=== PATIENT | female | born 1930 | race Asian ===

== ENCOUNTER 2016-10-06 22:00 | Emergency (ER) | payer OTHER ==
[~2016-10-06] VITALS: Ht 165.1 cm; Wt 72.7 kg
[~2016-10-06 22:00] MED LIST: CILO50TA PO; FER325 PO; GABA100C14 PO; LANT3I SC; METO50TA16 PO; OXYB5TAB PO; SMV40T PO; VALS160T20 PO
[2016-10-06 22:05] VITALS: Ht 165.1 cm; Wt 72.7 kg
[2016-10-06] MEDS ORDERED: SOD CHLORIDE 0.9% 500 ML IV STA (22:41)
[2016-10-06 23:08] LABS: BASOPHILS % 0.6 % (0.0-2.0); EOSINOPHILS # 0.3 10^3/ul (0.0-0.5); HEMATOCRIT 25.9 % (37.0-47.0); HEMOGLOBIN 8.7 g/dl (12.0-16.0); LYMPHOCYTES # 1.1 10^3/ul (0.8-2.9); LYMPHOCYTES % 18.5 % (15.0-51.0); MEAN CORPUSCULAR HEMOGLOBIN 30.5 pg (29.0-33.0); MEAN CORPUSCULAR HGB CONC 33.6 g/dl (32.0-37.0); MEAN CORPUSCULAR VOLUME 90.8 fl (82.0-101.0); MEAN PLATELET VOLUME 6.7 fl (7.4-10.4); MONOCYTE # 0.9 10^3/ul (0.3-0.9); MONOCYTES % 15.4 % (0.0-11.0); NEUTROPHIL # 3.7 10^3/ul (1.6-7.5); NEUTROPHILS % 60.5 % (39.0-77.0); PLATELET COUNT 286 10^3/UL (140-440); RED BLOOD COUNT 2.86 10^6/ul (4.20-5.40); RED CELL DISTRIBUTION WIDTH 11.6 % (11.5-14.5); UNCORRECTED WBC 6.1 10^3/ul (4.8-10.8); WHITE BLOOD COUNT 6.1 10^3/ul (4.8-10.8)
[2016-10-06 23:11] LABS: CONDITION 1; LH ANALYZER COMMENTS 1
[2016-10-06 23:17] LABS: ALBUMIN 3.8 g/dl (3.3-4.9)
[2016-10-06 23:18] LABS: POTASSIUM 4.7 mmol/L (3.5-5.1)
[2016-10-06 23:20] LABS: BILIRUBIN,INDIRECT 0.2 mg/dl (0-1.1); BILIRUBIN,TOTAL 0.2 mg/dl (0.2-1.3); CREATININE 1.74 mg/dl (0.44-1.00); TOTAL PROTEIN 7.6 g/dl (6.1-8.1)
[2016-10-06 23:21] LABS: CALCIUM 8.9 mg/dl (8.4-10.2)
[2016-10-07 00:16] LABS: ADD UMIC YES; URINE BILIRUBIN (Dip) 2+ (NEGATIVE); URINE BLOOD (Dip) 3+ (NEGATIVE); URINE GLUCOSE (Dip) NEGATIVE (NEGATIVE); URINE KETONES (Dip) TRACE (NEGATIVE); URINE LEUKOCYTE ESTERASE (Dip) 3+ (NEGATIVE); URINE NITRITE (Dip) POSITIVE (NEGATIVE); URINE TOTAL PROTEIN (Dip) 4+ (NEGATIVE); URINE UROBILINOGEN (Dip) 1.0 E.U./dL (0.1-1.0)
[2016-10-07 00:22] LABS: URINE COLOR RED (YELLOW)
[2016-10-07 00:28] LABS: ICTOTEST NEGATIVE (NEGATIVE)
[2016-10-07 00:29] LABS: BACTERIA,URINE MANY; SQUAMOUS EPITHELIAL CELL,UR MODERATE; URINE RBCS >200 /HPF ([, 0])
--- NOTE | 2016-10-07 00:36 | RADRPT ---
PROCEDURE: CT ABDOMEN/PELVIS WITHOUT CONTRAST CLINICAL INDICATION: 86-year-old female with abdominal pain. TECHNIQUE: The study was performed utilizing a GE Infinite.lypeed VCT 64-slice CT scanner. Direct axia l sections were obtained through the abdomen and pelvis without the use of intravenous contrast mate rial. Sagittal and coronal reformations were obtained. Automated exposure control and iterative mona nstruction techniques were utilized for this examination. The [facility] CTD/vol = 15.2 mGy; Total Exam DLP = 858.0 mGy-cm. COMPARISON: None. FINDINGS: There is a granuloma identified within the inferior aspect of the right middle lobe measuring approx imately 4 x 4 mm in axial image 3-8. There is minimal bibasilar subsegmental atelectasis. There is trace right pleural effusion. The liver has a normal size and contour without focal areas of abnorm al density. No intrahepatic nor extrahepatic biliary ductal dilatation is seen. The gallbladder cont ains small dependent gallstones without significant wall thickening or pericholecystic fluid. The pa ncreas is without areas of abnormal attenuation. The spleen is identified and has a normal size wit hout abnormal density. The adrenal glands are unremarkable. The kidneys are mildly atrophic with are as of scarring. There is a nonobstructing right upper pole renal calculus identified measuring appr oximately 5 x 3 x 3 mm. There is a nonobstructing left upper pole renal calculus measuring approxim ately 2 x 2 mm. There is a nonobstructing left lower pole renal calculus measuring approximately 3 x 7 x 3 mm. There is no evidence for obstructive uropathy. The urinary bladder contains urine. Ther e is moderate retained stool throughout the colon without gross bowel obstruction. Multiple diverti cula seen within the descending and sigmoid colon without surrounding inflammatory changes. An anas tomotic jenna are seen within the cecal region from prior appendectomy. The uterus is atrophic wit h small calcifications identified within it. There is no significant pelvic free fluid. The aortoil iac vessels are mildly calcified and ectatic but without aneurysmal dilatation. Degenerative changes are present within the spine. There is evidence for bilateral thickening and induration within the decubitus regions without definite fluid collection on this noncontrast examination. IMPRESSION: 1. Right middle lobe 4 mm granuloma. 2. Minimal bibasilar subsegmental atelectasis with trace right pleural effusion. 3. Cholelithiasis. 4. Bilateral nonobstructing renal calculi. 5. Moderate retained stool throughout the colon without gross bowel obstruction. 6. Descending and sigmoid colon diverticulosis. 7. Status post appendectomy. 8. Skin induration and thickening with soft tissue infiltration within the decubitus regions worris ome for developing decubitus ulcers. Clinical correlation is necessary. 9. Vascular calcifications. 8. Degenerative changes within the spine. .Ryan Carpenter MD, MD Date Time Electronically viewed and signed by .Ryan Carpenter MD, MD on 10/07/2016 00:35 .M/
--- NOTE | 2016-10-07 01:00 | ERD ---
ER Documentation Chief Complaint Date/Time DATE: 10/07/16 TIME: 00:58 Chief Complaint bloody urine in diaper since last nite HPI This is an 86-year-old female brought a urinary diaper since last night. No nausea no vomiting no chills. No sick contacts. No trauma. No pain. ROS All systems reviewed and are negative except as per history of present illness. Medications Home Meds Reported Medications Valsartan* (Diovan*) 160 Mg Tablet, 160 MG PO DAILY, TAB 06/26/16 Cilostazol* (Cilostazol*) 50 Mg Tablet, 50 MG PO BID, TAB 06/26/16 Ferrous Sulfate* (Ferrous Sulfate*) 325 Mg Tabec, 325 MG PO DAILY, TAB 06/26/16 Insulin Glargine* (Lantus*) 100 Unit/Ml Soln, 12 UNIT SC QHS, #1 VIAL 06/26/16 Oxybutynin Chloride* (Ditropan* XL) 5 Mg/Bottle Tab.osm.24, 5 MG PO DAILY, TAB.SA 10/18/15 Metoprolol Succinate* (Toprol XL*) 50 Mg Tab.er.24h, 50 MG PO BID, TAB 05/22/14 Gabapentin* (Gabapentin*) 100 Mg Capsule, 100 MG PO BID, CAP 05/22/14 Simvastatin (Simvastatin) 40 Mg Tablet, 40 MG PO HS, TAB 05/22/14 Allergies Allergies: Coded Allergies: No Known Drug Allergies (Verified Allergy, Unknown, 06/26/16) PMhx/Soc History of Surgery: Yes (knee surgery bilateral, cataract surgery) Anesthesia Reaction: No Hx Neurological Disorder: Yes (seizure last 08/2016 admitted at [place]) Hx Respiratory Disorders: Yes (Asthma, bronchitis) Hx Cardiac Disorders: Yes (Current chest pain) Hx Psychiatric Problems: No Hx Miscellaneous Medical Probl: Yes (CATARACT SX) Hx Alcohol Use: No Hx Substance Use: No Hx Tobacco Use: No Smoking Status: Unknown if ever smoked Physical Exam Vitals Vital Signs Date Time Temp Pulse Resp B/P Pulse Ox O2 Delivery O2 Flow Rate FiO2 10/07/16 00:05 80 20 159/67 100 Room Air 10/06/16 22:05 98.4 80 20 158/70 99 Physical Exam Const: [] Head: Atraumatic Eyes: Normal Conjunctiva ENT: Normal External Ears, Nose and Mouth. Neck: Full range of motion..~ No meningismus. Resp: Clear to auscultation bilaterally Cardio: Regular rate and rhythm, no murmurs Abd: Soft, non tender, non distended. Normal bowel sounds Skin: No petechiae or rashes Back: No midline or flank tenderness Ext: No cyanosis, or edema Neur: Awake and alert Psych: Normal Mood and Affect Result Diagram: 10/06/16224410/06/165 Results 24 hrs Laboratory Tests Test 10/06/16 22:45 10/07/16 00:08 Alanine Aminotransferase (ALT/SGPT) 30IU/L Albumin 3.8g/dl Albumin/Globulin Ratio 1.00 Alkaline Phosphatase 78IU/L Anion Gap 17 Aspartate Amino Transf (AST/SGOT) 43IU/L Basophils # 0.010^3/ul Basophils % 0.6% Blood Morphology Comment Blood Urea Nitrogen 27mg/dl Calcium Level 8.9mg/dl Carbon Dioxide Level 24mmol/L Chloride Level 85mmol/L Creatinine 1.74mg/dl Direct Bilirubin 0.00mg/dl Eosinophils # 0.310^3/ul Eosinophils % 5.0% Globulin 3.80g/dl Glucose Level 154mg/dl Hematocrit 25.9% Hemoglobin 8.7g/dl Indirect Bilirubin 0.2mg/dl Lactic Acid Level 0.7mmol/L Lipase 170U/L Lymphocytes # 1.110^3/ul Lymphocytes % 18.5% Mean Corpuscular Hemoglobin 30.5pg Mean Corpuscular Hemoglobin Concent 33.6g/dl Mean Corpuscular Volume 90.8fl Mean Platelet Volume 6.7fl Monocytes # 0.910^3/ul Monocytes % 15.4% Neutrophils # 3.710^3/ul Neutrophils % 60.5% Nucleated Red Blood Cells # 0.010^3/ul Nucleated Red Blood Cells % 0.0/100WBC Platelet Count 70907^3/UL Potassium Level 4.7mmol/L Red Blood Count 2.8610^6/ul Red Cell Distribution Width 11.6% Sodium Level 121mmol/L Total Bilirubin 0.2mg/dl Total Protein 7.6g/dl White Blood Count 6.110^3/ul Urine Bacteria MANY Urine Bilirubin 2+ Urine Clarity CLEAR Urine Color RED Urine Glucose NEGATIVE% Urine Hemoglobin 3+ Urine Ictotest NEGATIVE Urine Ketones TRACE Urine Leukocyte Esterase 3+ Urine Microscopic RBC >200/HPF Urine Microscopic WBC >50/HPF Urine Nitrite POSITIVE Urine Specific [place] 1.010 Urine Squamous Epithelial Cells MODERATE Urine Total Protein 4+ Urine Urobilinogen 1.0 E.U./dL Urine pH 6.5 Current Medications Medications (Trade) Dose Ordered Sig/[place] Route PRN Reason Start Time Stop Time Status Last Admin Dose Admin Sodium Chloride (NS) 500 ml @ 500 mls/hr Q1H STAT IV 10/06/16 22:41 10/06/16 23:40 DC 10/06/16 23:38 Procedures/MDM Medical decision making: This patient comes in with his be simple UTI. She is no evidence of elevated white count and increased infection. She is normotensive with a normal temperature. She will be discharged home with oral antibiotics. Follow with PCP tomorrow. Cultures have been sent off. Departure Diagnosis: Primary Impression: Hematuria Additional Impression: UTI (urinary tract infection) Urinary tract infection type: acute cystitis Hematuria presence: with hematuria Qualified Code: N30.01 - Acute cystitis with hematuria Condition: Stable KRISTI PAYNE Oct 07, 2016 01:00
[2016-10-07] MEDS ORDERED: CIPR500T4 PO (01:01)
[2016-10-07 01:17] VITALS: BP 158/62; PULSE 79; RESP 14; TEMP 98.9
== END 2016-10-07 01:29 | disposition home or self-care (01) ==
LOC: E/R 22:00
DX: N30.01 Acute cystitis with hematuria (principal); J45.909 Unspecified asthma, uncomplicated; E11.9 Type 2 diabetes mellitus without complications; Z79.4 Long term (current) use of insulin
CPT/HCPCS: 36415; 74176; 80053; 81001; 83605; 83690; 85025; 87086; 99285; J7040; 81003

== ENCOUNTER 2016-10-24 00:05 | Inpatient (IN) | payer OTHER ==
[~2016-10-24] VITALS: Ht 165.1 cm; Wt 89.2 kg
[~2016-10-24 00:05] MED LIST changes: +CIPR500T4 PO
--- NOTE | 2016-10-24 00:46 | ERA ---
ER Documentation Chief Complaint Date/Time DATE: 10/24/16 TIME: 00:45 Chief Complaint Increasing SOB x3 days audible wheezing HPI The patient is a 86-year-old female, presenting to the ER because of acute dyspnea for the last 3 days, wheezing, bilateral leg edema, orthopnea, paroxysmal nocturnal dyspnea. She has similar symptoms previously. He denies fever, chills, neck pain, chest pain, abdominal pain, vomiting, dysuria, diarrhea. She does not smoke nor drink Past medical history: Hypertension, diabetes mellitus, dyslipidemia, seizure disorder, asthma, anemia, chronic kidney disease, urinary incontinence, pulmonary hypertension Past surgical history: Bilateral knee replacement, cataract ROS All systems reviewed and are negative except as per history of present illness. Medications Home Meds Active Scripts Ciprofloxacin Hcl* (Ciprofloxacin Hcl*) 500 Mg Tablet, 500 MG PO BID for 7 Days , TAB Prov:KRISTI PAYNEEloisa 10/07/16 Reported Medications Valsartan* (Diovan*) 160 Mg Tablet, 160 MG PO DAILY, TAB 06/26/16 Cilostazol* (Cilostazol*) 50 Mg Tablet, 50 MG PO BID, TAB 06/26/16 Ferrous Sulfate* (Ferrous Sulfate*) 325 Mg Tabec, 325 MG PO DAILY, TAB 06/26/16 Insulin Glargine* (Lantus*) 100 Unit/Ml Soln, 12 UNIT SC QHS, #1 VIAL 06/26/16 Oxybutynin Chloride* (Ditropan* XL) 5 Mg/Bottle Tab.osm.24, 5 MG PO DAILY, TAB.SA 10/18/15 Metoprolol Succinate* (Toprol XL*) 50 Mg Tab.er.24h, 50 MG PO BID, TAB 05/22/14 Gabapentin* (Gabapentin*) 100 Mg Capsule, 100 MG PO BID, CAP 05/22/14 Simvastatin (Simvastatin) 40 Mg Tablet, 40 MG PO HS, TAB 05/22/14 Allergies Allergies: Coded Allergies: No Known Drug Allergies (Verified Allergy, Unknown, 06/26/16) PMhx/Soc History of Surgery: Yes (knee surgery bilateral, cataract surgery) Anesthesia Reaction: No Hx Neurological Disorder: Yes (seizure last 08/2016 admitted at [place]) Hx Respiratory Disorders: Yes (Asthma, bronchitis) Hx Cardiac Disorders: Yes (Current chest pain) Hx Psychiatric Problems: No Hx Miscellaneous Medical Probl: Yes (CATARACT SX) Hx Alcohol Use: No Hx Substance Use: No Hx Tobacco Use: No Physical Exam Vitals Vital Signs Date Time Temp Pulse Resp B/P Pulse Ox O2 Delivery O2 Flow Rate FiO2 10/24/16 02:39 79 14 125/48 99 Room Air 10/24/16 01:20 81 22 97 21 10/24/16 01:00 Simple Mask 6 10/24/16 01:00 Simple Mask 6.0 10/24/16 00:21 99.0 88 32 151/63 95 Physical Exam Const: No acute distress. Head: Atraumatic. Eyes: Normal Conjunctiva. ENT: Normal External Ears, Nose and Mouth. Neck: Full range of motion. No meningismus. Resp: Bilateral expiratory wheezes, bibasilar crackles Cardio: Regular rate and rhythm, no murmurs. Abd: Soft, non distended, normal bowel sounds, non tender. Skin: No petechiae or rashes. Back: No midline or flank tenderness. Ext: Bilateral leg edema, no calf tenderness Neur: Awake and alert. No focal deficit Psych: Normal Mood and Affect. Result Diagram: 10/24/16 0110 10/24/16 0110 Results 24 hrs Laboratory Tests Test 10/24/16 01:10 10/24/16 03:50 Activated Partial Thromboplast Time 42.2Sec Alanine Aminotransferase (ALT/SGPT) 28IU/L Albumin 3.7g/dl Albumin/Globulin Ratio 1.05 Alkaline Phosphatase 81IU/L Anion Gap 18 Aspartate Amino Transf (AST/SGOT) 36IU/L B-Type Natriuretic Peptide 2160PG/ML Basophils # 0.110^3/ul Basophils % 0.7% Blood Morphology Comment Blood Urea Nitrogen 45mg/dl Calcium Level 8.6mg/dl Carbon Dioxide Level 23mmol/L Chloride Level 89mmol/L Creatinine 2.00mg/dl Direct Bilirubin 0.00mg/dl Eosinophils # 0.310^3/ul Eosinophils % 3.2% Globulin 3.50g/dl Glucose Level 241mg/dl Hematocrit 21.6% Hemoglobin 7.3g/dl INR International Normalized Ratio 1.09 Indirect Bilirubin 0.0mg/dl Lactic Acid Level 1.5mmol/L Lymphocytes # 0.810^3/ul Lymphocytes % 10.6% Mean Corpuscular Hemoglobin 30.6pg Mean Corpuscular Hemoglobin Concent 33.7g/dl Mean Corpuscular Volume 90.6fl Mean Platelet Volume 7.3fl Monocytes # 1.010^3/ul Monocytes % 12.7% Neutrophils # 5.810^3/ul Neutrophils % 72.8% Nucleated Red Blood Cells # 0.010^3/ul Nucleated Red Blood Cells % 0.0/100WBC Platelet Count 11530^3/UL Potassium Level 4.9mmol/L Prothrombin Time 14.1Sec Prothrombin Time Ratio 1.1 Red Blood Count 2.3910^6/ul Red Cell Distribution Width 12.2% Sodium Level 125mmol/L Total Bilirubin 0.0mg/dl Total Protein 7.2g/dl Troponin I 0.064ng/ml White Blood Count 8.010^3/ul Urine Bilirubin NEGATIVE Urine Clarity CLEAR Urine Color LT. YELLOW Urine Glucose NEGATIVE% Urine Hemoglobin TRACE Urine Ketones NEGATIVE Urine Leukocyte Esterase NEGATIVE Urine Microscopic RBC Pending Urine Microscopic WBC Pending Urine Nitrite NEGATIVE Urine Specific [place] 1.010 Urine Total Protein NEGATIVE Urine Urobilinogen 0.2 E.U./dL Urine pH 5.5 Current Medications Medications (Trade) Dose Ordered Sig/[place] Route PRN Reason Start Time Stop Time Status Last Admin Dose Admin Levalbuterol (Xopenex Neb) 3.75 mg ONCE STAT INH 10/24/16 01:01 10/24/16 01:04 DC 10/24/16 01:19 Ipratropium [place] (Atrovent 0.02% (Neb)) 1.5 mg ONCE STAT INH 10/24/16 01:01 10/24/16 01:04 DC 10/24/16 01:19 Methylprednisolone Sodium Succinate (Solu-Medrol) 125 mg ONCE STAT IV 10/24/16 01:01 10/24/16 01:04 DC 10/24/16 01:33 Furosemide (Lasix) 80 mg ONCE ONCE IV 10/24/16 03:30 10/24/16 03:31 DC 10/24/16 03:27 Procedures/MDM EKG: Read by emergency physician Rate/Rhythm: Normal Sinus Rhythm 89 beats per min QRS, ST, T-waves: No ST elevation, no T wave inversion, LAD, right bundle branch block Impression: Abnormal EKG [place] [id number] Radiology Main Line: [phone] DIAGNOSTIC IMAGING REPORT Patient: KRIS MCPHERSON : 1930 Age: 86 Sex: F MR #: [id number] DOS: 10/24/16 0056 Ordering MD: CAROL CARLTON MD Location: E/R Room/Bed: PROCEDURE: XR Chest. CLINICAL INDICATION: Possible sepsis. TECHNIQUE: Single frontal view of the chest was obtained COMPARISON: 06/26/2016. FINDINGS: Cardiomegaly. Mild pulmonary vascular congestion. There is no pleural effusion or pneumothorax. IMPRESSION: Cardiomegaly and mild failure. RPTAT: [facility] Physician April Date Time Electronically viewed and signed by Pasquale Hung Physician on 10/24/2016 02:13 RS/ CC: CAROL CARLTON MD MEDICAL MAKING DECISION: The patient is a 86-year-old female, presenting with acute CHF exacerbation, acute asthma exacerbation, acute hyponatremia, severe anemia, suspected for acute GI bleed. She was treated with Xopenex 3.75 mg and Atrovent 1.5 mg and Solu-Medrol 125 mg IV for acute asthma exacerbation and Lasix 80 mg IV for acute CHF exacerbation with good response. the differential diagnoses for acute dyspnea considered include but are not limited to asthma, COPD, pneumonia, pulmonary embolus, pleural effusion, congestive heart failure. The differential diagnoses for acute severe anemia considered include but are not limited to gastritis, peptic ulcer disease, esophageal varices, Christine- Sun tear, carcinoma, polyp, hemorrhoid, fissure, diverticulosis, angiodysplasia. Critical Care: Time: 35 minutes excluding all billable procedures. Treatments/Evaluations: Close monitoring and treatment of unstable vital signs, cardiorespiratory, and neurologic status, while maintaining tight balance of fluid, respiratory, and cardiac interventions. Departure Diagnosis: Primary Impression: CHF (congestive heart failure) Additional Impressions: Asthma exacerbation GI bleed Hyponatremia Condition: Stable Comments I discussed the findings with the patient. I discussed the patient with the on- call hospitalist Dr Otto who was made aware of the lab, the treatment, the patient condition. The patient is admitted to telemetry at 3:30 AM CAROL CARLTON MD Oct 24, 2016 00:46
[2016-10-24] MEDS ORDERED: METHYLPREDNISOLONE 125 MG INJ IV STA (01:01)
[2016-10-24] MEDS ORDERED: IPRATROPIUM (NEB) 0.5 MG/2.5 ML AMP INH STA (01:01)
[2016-10-24] MEDS ORDERED: LEVALBUTEROL (NEB) 1.25 MG/0.5 ML AMP INH STA (01:01)
[2016-10-24 01:32] LABS: BASOPHIL # 0.1 10^3/ul (0.0-0.1); BASOPHILS % 0.7 % (0.0-2.0); EOSINOPHILS # 0.3 10^3/ul (0.0-0.5); EOSINOPHILS % 3.2 % (0.0-7.0); HEMATOCRIT 21.6 % (37.0-47.0); HEMOGLOBIN 7.3 g/dl (12.0-16.0); LYMPHOCYTES # 0.8 10^3/ul (0.8-2.9); LYMPHOCYTES % 10.6 % (15.0-51.0); MEAN CORPUSCULAR HEMOGLOBIN 30.6 pg (29.0-33.0); MEAN CORPUSCULAR HGB CONC 33.7 g/dl (32.0-37.0); MEAN CORPUSCULAR VOLUME 90.6 fl (82.0-101.0); MEAN PLATELET VOLUME 7.3 fl (7.4-10.4); MONOCYTES % 12.7 % (0.0-11.0); NEUTROPHIL # 5.8 10^3/ul (1.6-7.5); NEUTROPHILS % 72.8 % (39.0-77.0); PLATELET COUNT 300 10^3/UL (140-440); RED BLOOD COUNT 2.39 10^6/ul (4.20-5.40); RED CELL DISTRIBUTION WIDTH 12.2 % (11.5-14.5)
[2016-10-24 01:34] LABS: CONDITION 1; LH ANALYZER COMMENTS 1
[2016-10-24 01:45] LABS: ALBUMIN 3.7 g/dl (3.3-4.9); POTASSIUM 4.9 mmol/L (3.5-5.1)
[2016-10-24 01:48] LABS: ALBUMIN/GLOBULIN RATIO 1.05; TOTAL PROTEIN 7.2 g/dl (6.1-8.1)
[2016-10-24 01:49] LABS: CALCIUM 8.6 mg/dl (8.4-10.2)
[2016-10-24 01:51] LABS: INR 1.09; PROTIME 14.1 Sec (12.2-14.2); PT RATIO 1.1
[2016-10-24 01:52] LABS: PARTIAL THROMBOPLASTIN TIME 42.2 Sec (25.0-35.0)
[2016-10-24 02:01] LABS: TROPONIN-I 0.064 ng/ml (0.00-0.12)
--- NOTE | 2016-10-24 02:13 | RADRPT ---
PROCEDURE: XR Chest. CLINICAL INDICATION: Possible sepsis. TECHNIQUE: Single frontal view of the chest was obtained COMPARISON: 06/26/2016. FINDINGS: Cardiomegaly. Mild pulmonary vascular congestion. There is no pleural effusion or pneumothorax. IMPRESSION: Cardiomegaly and mild failure. RPTAT: [facility] Physician April Date Time Electronically viewed and signed by Pasquale Hung Physician on 10/24/2016 02:13 RS/
[2016-10-24] MEDS ORDERED: FUROSEMIDE 40 MG INJ IV ONE (03:30)
[2016-10-24 04:49] LABS: ADD UMIC YES; URINE BILIRUBIN (Dip) NEGATIVE (NEGATIVE); URINE BLOOD (Dip) TRACE (NEGATIVE); URINE COLOR LT. YELLOW (YELLOW); URINE GLUCOSE (Dip) NEGATIVE (NEGATIVE); URINE KETONES (Dip) NEGATIVE (NEGATIVE); URINE LEUKOCYTE ESTERASE (Dip) NEGATIVE (NEGATIVE); URINE NITRITE (Dip) NEGATIVE (NEGATIVE); URINE TOTAL PROTEIN (Dip) NEGATIVE (NEGATIVE); URINE UROBILINOGEN (Dip) 0.2 E.U./dL (0.1-1.0)
[2016-10-24 05:16] LABS: SQUAMOUS EPITHELIAL CELL,UR FEW; URINE RBCS 0-2 /HPF (0)
[2016-10-24] MEDS ORDERED: AMLO5TAB4 PO (07:26)
[2016-10-24] MEDS ORDERED: ASPI81TA3 PO (07:26)
[2016-10-24] MEDS ORDERED: PANT40TA4 PO (07:27)
[2016-10-24] MEDS ORDERED: LAMO25TA PO (07:27)
[2016-10-24] MEDS ORDERED: SODI650T PO (07:29)
[2016-10-24] MEDS ORDERED: NACL 0.9% 3 ML SYG IV SCH (08:00)
[2016-10-24] MEDS ORDERED: ACETAMINOPHEN 325 MG TAB PO PRN (08:00)
[2016-10-24] MEDS ORDERED: morphine 2 MG INJ IV PRN (08:00)
[2016-10-24] MEDS ORDERED: ALBUTEROL/IPRATROPIUM (NEB) 3 ML AMP HHN PRN (08:00)
[2016-10-24] MEDS ORDERED: LORAZEPAM 0.5 MG TAB PO PRN (08:00)
[2016-10-24] MEDS ORDERED: ONDANSETRON 4 MG INJ IV PRN (08:00)
[2016-10-24] MEDS: ASPIRIN 81 MG TAB PO SCH (09:36)
[2016-10-24] MEDS: FERROUS SULFATE (EC) 325 MG TAB PO SCH ×4 (09:37→21:08)
[2016-10-24] MEDS: LAMOTRIGINE 25 MG TAB PO SCH ×2 (09:37→21:09)
[2016-10-24] MEDS: VALSARTAN 160 MG TAB PO SCH (09:37)
[2016-10-24] MEDS: GABAPENTIN 100 MG CAP PO SCH ×2 (09:37→21:09)
[2016-10-24] MEDS: CILOSTAZOL 100 MG TAB PO SCH ×2 (09:38→21:09)
[2016-10-24] MEDS: AMLODIPINE 5 MG TAB PO SCH (09:38)
[2016-10-24] MEDS: PANTOPRAZOLE (EC) 40 MG TAB PO SCH (09:38)
[2016-10-24] MEDS: NA BICARBONATE 650 MG TAB PO SCH ×2 (09:40→21:10)
[2016-10-24] MEDS: METOPROLOL (XL) 50 MG TAB PO SCH ×2 (09:40→21:10)
[2016-10-24] MEDS: ENOXAPARIN 30 MG/0.3 ML SYG SC SCH (09:41)
[2016-10-24] MEDS ORDERED: OXYBUTYNIN (XL) 5 MG TAB PO SCH (10:00)
--- NOTE | 2016-10-24 12:02 | HP ---
DATE OF ADMISSION: 10/24/2016 TIME SEEN: 6 a.m. CHIEF COMPLAINT: Shortness of breath and wheezing. HISTORY OF PRESENT ILLNESS: The patient is an 86-year-old female with a history of hypertension, CO PD/asthma, dyslipidemia, chronic kidney disease, and pulmonary hypertension who presented to the [facility] department with shortness of breath and wheezing. Her symptoms have been progressively getti ng worse, especially on the day of presentation to the ER. She denied any chest pain, but stated th at her shortness of breath has some exertional complement to it. When she presented to the ER, her chest x-ray was done and it showed cardiomegaly with mild failure. Laboratory value was notable for a hemoglobin of 7.3. Sodium 125, creatinine 2, and glucose 245. REVIEW OF SYSTEMS: A 12-point review was preformed, negative except as mentioned in the HPI. PAST MEDICAL HISTORY: As per HPI. SOCIAL HISTORY: No history of alcohol or illicit drug use, but has a history of smoking. ALLERGIES: PLEASE SEE . HOME MEDICATIONS: Please see . PHYSICAL EXAMINATION: GENERAL: The patient lying on the gurney, sleepy but arousable, no acute distress. HEENT: Normocephalic, atraumatic. Pupils reactive to light. CARDIOVASCULAR: Regular rate and rhythm. LUNGS: She has diffuse scattered wheezing. ABDOMEN: Soft. No grimaces noted on palpation. Positive bowel sounds. EXTREMITIES: No edema. LABORATORY: Hemoglobin 11.3, sodium 125, creatinine 2, glucose 245. IMAGING: Chest x-ray shows cardiomegaly with mild failure. IMPRESSION: 1. Shortness of breath and wheezing, likely a combination of exacerbation of reactive airway diseas e and congestive heart failure. 2. Acute on chronic anemia, need to work up for GI bleed. 3. Hyponatremia. 4. Chronic kidney disease. 5. History of pulmonary hypertension. 6. History of chronic obstructive pulmonary disease/asthma. 7. History of dyslipidemia. 8. History of hypertension. 9. Diabetes with hyperglycemia. PLAN: Admit to telemetry unit. We will place on oxygen and will provide bronchodilators as needed and steroids. She will also be placed on Lasix for diuresis. Will trend her troponin and obtain a 2-D echo. Will consider a cardiology consult as well as a pulmonary consult. Will place a nephrolo gy consult for her chronic kidney disease. Will renally dose all medication and avoid nephrotoxins. Given her acute on chronic anemia, will place a GI consult for possible workup for GI bleeds. She will be placed on insulin for the diabetes with adjustments as needed. Will continue her home medi cation. Once again, adjustments as needed. Will correct electrolytes as needed; namely, sodium in this case. Further workup and management will be per clinical course. Dictated By: KRISTI AGOSTO/NIC Conf#: [id number] DID#: [id number]
[2016-10-24 12:24] LABS: IRON 22 ug/dl (35-150)
[2016-10-24 12:34] LABS: TOTAL IRON BINDING CAPACITY 222 ug/dl (241-421)
--- NOTE | 2016-10-24 13:03 | CONS ---
Date/Time of Note Date/Time of Note DATE: 10/24/16 TIME: 12:54 Assessment/Plan Assessment/Plan Additional Assessment/Plan Anemia * evaluate if secondary to UGIB or iron deficiency * Stool OB * PPI BID * Monitor H&H Q 6hrs, transfuse 2 units for hgb < 7.5 * start iron supplementation Jaundice * appears slightly jaundice, will order acute hepatitis panel neg Shortness of breath and wheezing, likely a combination of exacerbation of reactive airway disease and congestive heart failure. DM2 Chronic kidney disease History of pulmonary hypertension. History of chronic obstructive pulmonary disease/asthma. History of dyslipidemia. nHistory of hypertension Further recommendations depend on clinical course Pt seen in collaboration with Dr. Albright Consultation Date/Type/Reason Admit Date/Time Type of Consultation: Gastroenterology Reason for Consultation Anemia Hx of Present Illness 86 YO Pt that has been wheezing for the last two days despite using inhalers. Pt was also exhibiting increasing swelling of all her extremities for some time. Pt's daughter reports that swelling has been intermittent. Pt currently put on iron supplements since August after hospitalization at [facility]. Pt was recently diagnosed after hospitalization at August with seizures and is currently on Lamictal. Daughter states that dark stools are secondary to iron supplements. Pt was recently treated for UTI with hematuria but denies symptoms at present visit. No eldon blood with bowel movements. Pt had colonoscopy some years ago but she is unsure of results. Pt has PMH of colitis. Past Medical History Medical History: diabetes, hypertension Social History Smoking Status: Never smoker Exam/Review of Systems Vital Signs Vitals Vital Signs Date Time Temp Pulse Resp B/P Pulse Ox O2 Delivery O2 Flow Rate FiO2 10/24/16 12:00 85 20 131/56 98 Room Air 10/24/16 05:00 98.4 10/24/16 01:20 21 10/24/16 01:00 6 Exam Constitutional: alert, obese, oriented, well developed Psych: nl mood/affect Head: normocephalic Eyes: EOMI, icteric (slightly), nl lids Respiratory: normal air movement, wheezing Cardiovascular: regular rate and rhythm Gastrointestinal: non-tender, soft Neurological: MANAGER OUTREACH II-XII intact Results Result Diagram: 10/24/16 0110 10/24/16 0110 Results 24 hrs Laboratory Tests Test 10/24/16 01:10 10/24/16 03:30 10/24/16 03:50 10/24/16 05:30 Activated Partial Thromboplast Time 42.2 H Alanine Aminotransferase (ALT/SGPT) 28 Albumin 3.7 Albumin/Globulin Ratio 1.05 Alkaline Phosphatase 81 Anion Gap 18 H Aspartate Amino Transf (AST/SGOT) 36 B-Type Natriuretic Peptide 2160 H Basophils # 0.1 Basophils % 0.7 Blood Morphology Comment Blood Urea Nitrogen 45 H Calcium Level 8.6 Carbon Dioxide Level 23 Chloride Level 89 L Creatinine 2.00 H Direct Bilirubin 0.00 Eosinophils # 0.3 Eosinophils % 3.2 Globulin 3.50 H Glucose Level 241 H Hematocrit 21.6 L Hemoglobin 7.3 L INR International Normalized Ratio 1.09 Indirect Bilirubin 0.0 Lactic Acid Level 1.5 0.9 0.8 Lymphocytes # 0.8 Lymphocytes % 10.6 L Mean Corpuscular Hemoglobin 30.6 Mean Corpuscular Hemoglobin Concent 33.7 Mean Corpuscular Volume 90.6 Mean Platelet Volume 7.3 L Monocytes # 1.0 H Monocytes % 12.7 H Neutrophils # 5.8 Neutrophils % 72.8 Nucleated Red Blood Cells # 0.0 Nucleated Red Blood Cells % 0.0 Platelet Count 300 Potassium Level 4.9 Prothrombin Time 14.1 Prothrombin Time Ratio 1.1 Red Blood Count 2.39 L Red Cell Distribution Width 12.2 Sodium Level 125 L Total Bilirubin 0.0 L Total Protein 7.2 Troponin I 0.064 White Blood Count 8.0 # Urine Bilirubin NEGATIVE Urine Clarity CLEAR Urine Color LT. YELLOW Urine Glucose NEGATIVE Urine Hemoglobin TRACE Urine Ketones NEGATIVE Urine Leukocyte Esterase NEGATIVE Urine Microscopic RBC 0-2 Urine Microscopic WBC 0-2 Urine Nitrite NEGATIVE Urine Specific Edison 1.010 Urine Squamous Epithelial Cells FEW Urine Total Protein NEGATIVE Urine Urobilinogen 0.2 E.U./dL Urine pH 5.5 Test 10/24/16 07:00 Iron Level 22 L Percent Iron Saturation 10 L Total Iron Binding Capacity 222 L Medications Medications Current Medications Lorazepam (Ativan) 0.5 mg Q8H PRN PO ANXIETY; Start 10/24/16 at 08:00 Ondansetron HCl (Zofran Inj) 4 mg Q6H PRN IV NAUSEA AND/OR VOMITING; Start 10/24 at 08:00 Acetaminophen (Tylenol Tab) 650 mg Q6H PRN PO PAIN LEVEL 1-3 OR FEVER; Start at 08:00 Morphine Sulfate (morphine) 2 mg Q4H PRN IV PAIN LEVEL 7-10; Start 10/24/16 at 08:00 Enoxaparin Sodium (Lovenox) 30 mg DAILY SC Last administered on 10/24/16 09:41 ; Admin Dose 30 MG; Start 10/24/16 at 09:00 Amlodipine Besylate (Norvasc) 5 mg DAILY PO Last administered on 10/24/16 09:38 ; Admin Dose 5 MG; Start 10/24/16 at 09:00 Aspirin (Aspirin) 81 mg DAILY PO Last administered on 10/24/16 09:36; Admin Dose 81 MG; Start 10/24/16 at 09:00 Cilostazol (Pletal) 50 mg BID PO Last administered on 10/24/16 09:38; Admin Dose 50 MG; Start 10/24/16 at 09:00 Ferrous Sulfate (Ferrous Sulfate (Ec)) 325 mg QID PO Last administered on 09:37; Admin Dose 325 MG; Start 10/24/16 at 09:00 Gabapentin (Neurontin) 100 mg BID PO Last administered on 10/24/16 09:37; Admin Dose 100 MG; Start 10/24/16 at 09:00 Insulin Glargine (Lantus) 8 unit QHS SC ; Start 10/24/16 at 21:00 Lamotrigine (Lamictal) 25 mg BID PO Last administered on 10/24/16 09:37; Admin Dose 25 MG; Start 10/24/16 at 09:00 Metoprolol Succinate (Toprol Xl) 50 mg BID PO Last administered on 10/24/16 09: 40; Admin Dose 50 MG; Start 10/24/16 at 09:00 Pantoprazole (Protonix Tab) 40 mg DAILY@06 PO Last administered on 10/24/16 09: 38; Admin Dose 40 MG; Start 10/24/16 at 09:00 Sodium Bicarbonate (Sodium Bicarbonate Tab) 650 mg BID PO Last administered on 10/24/16 09:40; Admin Dose 650 MG; Start 10/24/16 at 09:00 Valsartan (Diovan) 160 mg DAILY PO Last administered on 10/24/16 09:37; Admin Dose 160 MG; Start 2/2/17 at 09:00 Atorvastatin Calcium (Lipitor) 20 mg DAILY@21 PO ; Start 10/24/16 at 21:00 ULI FORMAN Oct 24, 2016 13:03
[2016-10-24] MEDS ORDERED: SOD CHLORIDE 0.9% 250 ML IV* ONE (13:05)
[2016-10-24 13:54] LABS: HAAIG REFLEX REFLEX FILED
[2016-10-24 15:46] LABS: HEPATITIS B CORE ANTIBODY NEGATIVE (NEGATIVE)
[2016-10-24] MEDS: OXYBUTYNIN (XL) 5 MG TAB PO SCH (16:49)
--- NOTE | 2016-10-24 17:24 | QN ---
Documentation Comment [id number] Chavez MD Oct 24, 2016 17:24
--- NOTE | 2016-10-24 19:28 | CONS ---
DATE OF ADMISSION: 10/24/2016 DATE OF CONSULTATION: NEPHROLOGY CONSULTATION HISTORY OF PRESENT ILLNESS: The patient is an elderly female with history of CKD, presented to this hospital with short of breath, and patient is being admitted for further management. PAST MEDICAL HISTORY: Positive for diabetes, metabolic syndrome, hypertension, dyslipidemia, anemia, CKD, history of urinary incontinence, obstructive lung disease, asthma, history of pulmonary hypertension, history of DJD, anemia, CAD. ALLERGY HISTORY: NEGATIVE. FAMILY HISTORY: Reported as negative. SOCIAL HISTORY: Reported as negative. MEDICATION HISTORY: Patient is on: Amlodipine, aspirin, Pletal, iron sulfate, Gabapentin, insulin Lamictal, metoprolol. The patient is on Protonix, simvastatin, and Diovan. REVIEW OF SYSTEMS: HEENT: Unremarkable. RESPIRATORY: Short of breath. CARDIOVASCULAR: No chest pain, palpitation. ABDOMEN: No hematemesis, melena. EXTREMITIES: Swelling. CENTRAL NERVOUS SYSTEM: Unremarkable. PHYSICAL EXAMINATION: GENERAL: The patient is a pale-looking female, awake, alert. VITAL SIGNS: Pulse of 81, blood pressure 121/50. HEAD: Atraumatic, normocephalic. Pale conjunctivae, no icterus. NECK: Supple. No JVD. LUNGS: Clear anteriorly but the patient has basilar rales. CARDIOVASCULAR: S1, S2 normal. Systolic murmur. ABDOMEN: Soft, distended, bowel sounds present. No palpable mass. EXTREMITIES: No cyanosis, clubbing. Edema positive. CENTRAL NERVOUS SYSTEM: The patient is awake, alert, no focal deficit. LABORATORY DATA: WBC 8.0, hematocrit 21.6, sodium 125, potassium 4.9, BUN 45, creatinine 2.0, glucose of 241. Urine: Patient had a chest x-ray done, shows cardiomegaly with mild failure. IMPRESSION: 1. Acute on chronic kidney disease. 2. Severe anemia of chronic kidney disease. Other diagnoses include: 3. The patient has hyponatremia, possibly due to underlying mild syndrome of inappropriate antidiuretic hormone and possible increase p.o. intake of water. 4. Coronary artery disease. 5. Atherosclerotic heart disease. 6. Dyslipidemia. 7. Diabetes mellitus. 8. The patient has underlying nephropathy, metabolic acidosis. PLAN: To obtain urine sodium and creatinine. The patient will be on diuretic, blood transfusion, fluid restriction as well. The patient already had a workup done for CKD in the past which will not be repeated. Thank you, Dr. Rodrigue Otto, for kindly asking me to see this patient in nephrology consultation. Dictated By: MIA BAER/NIC Conf#: [id number] DID#: [id number] MTDD
[2016-10-24] MEDS ORDERED: INSULIN GLARGINE [LANtus] 3 ML PEN SC SCH (21:00)
[2016-10-24] MEDS: ATORVASTATIN 20 MG TAB PO SCH (21:09)
[2016-10-24 23:00] VITALS: TEMP 98.6
[2016-10-25] VITALS (14 sets, daily range): BP systolic 1–170; BP diastolic 56–74; PULSE 79–90; RESP 16–20; Ht 165.1 cm; Wt 89.2 kg
[2016-10-25] MEDS: PANTOPRAZOLE (EC) 40 MG TAB PO SCH (05:48)
[2016-10-25 06:25] LABS: HEMATOCRIT 25.4 % (37.0-47.0); HEMOGLOBIN 8.7 g/dl (12.0-16.0); LYMPHOCYTES # 0.5 10^3/ul (0.8-2.9); LYMPHOCYTES % 6.7 % (15.0-51.0); MEAN CORPUSCULAR HEMOGLOBIN 30.6 pg (29.0-33.0); MEAN CORPUSCULAR HGB CONC 34.3 g/dl (32.0-37.0); MEAN CORPUSCULAR VOLUME 89.2 fl (82.0-101.0); MEAN PLATELET VOLUME 7.4 fl (7.4-10.4); MONOCYTE # 0.8 10^3/ul (0.3-0.9); MONOCYTES % 9.7 % (0.0-11.0); NEUTROPHIL # 6.5 10^3/ul (1.6-7.5); NEUTROPHILS % 83.6 % (39.0-77.0); PLATELET COUNT 286 10^3/UL (140-440); RED BLOOD COUNT 2.85 10^6/ul (4.20-5.40); RED CELL DISTRIBUTION WIDTH 12.1 % (11.5-14.5); UNCORRECTED WBC 7.8 10^3/ul (4.8-10.8); WHITE BLOOD COUNT 7.8 10^3/ul (4.8-10.8)
[2016-10-25 06:27] LABS: ALBUMIN 3.4 g/dl (3.3-4.9)
[2016-10-25 06:28] LABS: POTASSIUM 4.5 mmol/L (3.5-5.1)
[2016-10-25 06:30] LABS: ALBUMIN/GLOBULIN RATIO 1.03; BILIRUBIN,INDIRECT 0.5 mg/dl (0-1.1); BILIRUBIN,TOTAL 0.5 mg/dl (0.2-1.3); CREATININE 1.93 mg/dl (0.44-1.00); TOTAL PROTEIN 6.7 g/dl (6.1-8.1)
[2016-10-25 06:31] LABS: CALCIUM 8.8 mg/dl (8.4-10.2); MAGNESIUM 2.1 mg/dl (1.7-2.5)
[2016-10-25 06:52] LABS: CONDITION 1
[2016-10-25] MEDS: METOPROLOL (XL) 50 MG TAB PO SCH ×2 (09:00→21:15)
[2016-10-25] MEDS: ASPIRIN 81 MG TAB PO SCH (09:00)
[2016-10-25] MEDS: OXYBUTYNIN (XL) 5 MG TAB PO SCH (09:00)
[2016-10-25] MEDS: GABAPENTIN 100 MG CAP PO SCH ×2 (09:00→21:14)
[2016-10-25] MEDS: ENOXAPARIN 30 MG/0.3 ML SYG SC SCH (09:00)
[2016-10-25] MEDS: NA BICARBONATE 650 MG TAB PO SCH ×2 (09:00→23:11)
[2016-10-25] MEDS: FERROUS SULFATE (EC) 325 MG TAB PO SCH ×4 (09:00→21:14)
[2016-10-25] MEDS: AMLODIPINE 5 MG TAB PO SCH (09:00)
[2016-10-25] MEDS: VALSARTAN 160 MG TAB PO SCH (09:00)
[2016-10-25] MEDS: LAMOTRIGINE 25 MG TAB PO SCH ×2 (09:00→23:10)
[2016-10-25] MEDS: CILOSTAZOL 100 MG TAB PO SCH ×2 (09:00→23:10)
[2016-10-25] MEDS: FUROSEMIDE 40 MG INJ IV SCH (10:32)
[2016-10-25] MEDS: SOD FERRIC GLUC COMPLX 125 MG in SOD CHLORIDE 0.9% 100 ML IVPB SCH (11:37)
--- NOTE | 2016-10-25 12:21 | CONS ---
Date/Time of Note Date/Time of Note DATE: 10/25/16 TIME: 12:17 Assessment/Plan Assessment/Plan Additional Assessment/Plan Anemia * evaluate if secondary to UGIB or iron deficiency * Stool OB * PPI BID * Monitor H&H Q 6hrs, transfuse 2 units for hgb < 7.5 * start iron supplementation Jaundice * appears slightly jaundice * Acute hepatitis panel neg Shortness of breath and wheezing, likely a combination of exacerbation of reactive airway disease and congestive heart failure. DM2 Chronic kidney disease History of pulmonary hypertension. History of chronic obstructive pulmonary disease/asthma. History of dyslipidemia. nHistory of hypertension Further recommendations depend on clinical course Pt seen in collaboration with Dr. Albright Consultation Date/Type/Reason Admit Date/Time Oct 24, 2016 at 03:30 Initial Consult Date Type of Consultation: Gastroenterology 24 HR Interval Summary Free Text/Dictation Tolerating diet Stool OB in process Hemoglobin stable status post 2 units PRBC Exam/Review of Systems Vital Signs Vitals Vital Signs Date Time Temp Pulse Resp B/P Pulse Ox O2 Delivery O2 Flow Rate FiO2 10/25/16 11:44 98.6 84 20 158/68 98 10/25/16 01:59 Room Air 10/24/16 01:20 21 10/24/16 01:00 6 Intake and Output 10/24/16 10/24/16 10/25/16 15:00 23:00 07:00 Intake Total 1000 ml 100 ml Output Total 1350 ml 500 ml Balance -350 ml -400 ml Exam Constitutional: alert, obese, oriented, well developed Psych: nl mood/affect Head: normocephalic Eyes: EOMI, icteric (slightly), nl lids Respiratory: normal air movement, wheezing Cardiovascular: regular rate and rhythm Gastrointestinal: non-tender, soft Neurological: CARTRIDGE LOADER II-XII intact Results Result Diagram: 10/25/16 0530 10/25/16 0530 Results 24 hrs Laboratory Tests Test 10/24/16 13:34 10/24/16 21:17 10/25/16 05:30 Hepatitis B Core Total Antibody NEGATIVE Hepatitis B Surface Antigen NEGATIVE Hepatitis C Antibody NEGATIVE Bedside Glucose 340 H Alanine Aminotransferase (ALT/SGPT) 25 Albumin 3.4 Albumin/Globulin Ratio 1.03 Alkaline Phosphatase 72 Anion Gap 17 H Aspartate Amino Transf (AST/SGOT) 31 Basophils # 0.0 Basophils % 0.0 Blood Urea Nitrogen 58 H Calcium Level 8.8 Carbon Dioxide Level 23 Chloride Level 92 L Creatinine 1.93 H Direct Bilirubin 0.00 Eosinophils # 0.0 Eosinophils % 0.0 Globulin 3.30 H Glucose Level 279 H Hematocrit 25.4 L Hemoglobin 8.7 L Indirect Bilirubin 0.5 Lymphocytes # 0.5 L Lymphocytes % 6.7 L Magnesium Level 2.1 Mean Corpuscular Hemoglobin 30.6 Mean Corpuscular Hemoglobin Concent 34.3 Mean Corpuscular Volume 89.2 Mean Platelet Volume 7.4 Monocytes # 0.8 Monocytes % 9.7 Neutrophils # 6.5 Neutrophils % 83.6 H Nucleated Red Blood Cells # 0.0 Nucleated Red Blood Cells % 0.0 Platelet Count 286 Potassium Level 4.5 Red Blood Count 2.85 L Red Cell Distribution Width 12.1 Sodium Level 127 L Total Bilirubin 0.5 Total Protein 6.7 White Blood Count 7.8 Medications Medications Current Medications Lorazepam (Ativan) 0.5 mg Q8H PRN PO ANXIETY; Start 10/24/16 at 08:00 Ondansetron HCl (Zofran Inj) 4 mg Q6H PRN IV NAUSEA AND/OR VOMITING; Start 10/24 at 08:00 Acetaminophen (Tylenol Tab) 650 mg Q6H PRN PO PAIN LEVEL 1-3 OR FEVER; Start at 08:00 Morphine Sulfate (morphine) 2 mg Q4H PRN IV PAIN LEVEL 7-10; Start 10/24/16 at 08:00 Enoxaparin Sodium (Lovenox) 30 mg DAILY SC Last administered on 10/24/16 09:41 ; Admin Dose 30 MG; Start 10/24/16 at 09:00 Amlodipine Besylate (Norvasc) 5 mg DAILY PO Last administered on 10/24/16 09:38 ; Admin Dose 5 MG; Start 10/24/16 at 09:00 Aspirin (Aspirin) 81 mg DAILY PO Last administered on 10/24/16 09:36; Admin Dose 81 MG; Start 10/24/16 at 09:00 Cilostazol (Pletal) 50 mg BID PO Last administered on 10/24/16 21:09; Admin Dose 50 MG; Start 10/24/16 at 09:00 Ferrous Sulfate (Ferrous Sulfate (Ec)) 325 mg QID PO Last administered on 21:08; Admin Dose 325 MG; Start 10/24/16 at 09:00 Gabapentin (Neurontin) 100 mg BID PO Last administered on 10/24/16 21:09; Admin Dose 100 MG; Start 10/24/16 at 09:00 Insulin Glargine (Lantus) 8 unit QHS SC Last administered on 10/24/16 21:21; Admin Dose 8 UNIT; Start 10/24/16 at 21:00 Lamotrigine (Lamictal) 25 mg BID PO Last administered on 10/24/16 21:09; Admin Dose 25 MG; Start 10/24/16 at 09:00 Metoprolol Succinate (Toprol Xl) 50 mg BID PO Last administered on 10/24/16 21: 10; Admin Dose 50 MG; Start 10/24/16 at 09:00 Pantoprazole (Protonix Tab) 40 mg DAILY@06 PO Last administered on 10/25/16 05: 48; Admin Dose 40 MG; Start 10/24/16 at 09:00 Sodium Bicarbonate (Sodium Bicarbonate Tab) 650 mg BID PO Last administered on 10/24/16 21:10; Admin Dose 650 MG; Start 10/24/16 at 09:00 Valsartan (Diovan) 160 mg DAILY PO Last administered on 10/24/16 09:37; Admin Dose 160 MG; Start 10/24/16 at 09:00 Atorvastatin Calcium (Lipitor) 20 mg DAILY@21 PO Last administered on 10/24/16 21:09; Admin Dose 20 MG; Start 10/24/16 at 21:00 Oxybutynin Chloride (Ditropan Xl) 5 mg DAILY PO Last administered on 10/24/16 16:49; Admin Dose 5 MG; Start 10/24/16 at 16:00 Furosemide (Lasix) 40 mg DAILY IV Last administered on 10/25/16 10:32; Admin Dose 40 MG; Start 10/25/16 at 09:00 Influenza Virus Vaccine 0.5 ml 0.5 ml ONCE ONCE IM* ; Start 10/26/16 at 09:00; Stop 10/26/16 at 09:01 Ferric Sodium Gluconate Complex/ Sodium Chloride (Ferrlecit/NS) 110 ml @ 110 mls/hr Q24H IVPB Last administered on 10/25/16 11:37; Admin Dose 110 MLS/HR; Start 10/25/16 at 11:00; Stop 10/29/16 at 11:59 ULI FORMAN Oct 25, 2016 12:21
[2016-10-25] MEDS ORDERED: DEXTROSE 50% 50 ML SYRINGE IV PRN ×2 (14:00)
[2016-10-25] MEDS ORDERED: GLUCOSE GEL 15 GRAM TUBE BUCCAL PRN (14:00)
[2016-10-25] MEDS ORDERED: GLUCOSE GEL 15 GRAM TUBE PO PRN ×2 (14:00)
[2016-10-25] MEDS ORDERED: GLUCAGON 1 MG INJ IM PRN (14:00)
--- NOTE | 2016-10-25 16:30 | CONS ---
Date/Time of Note Date/Time of Note DATE: 10/25/16 TIME: 16:28 Assessment/Plan Assessment/Plan Chief Complaint/Hosp Course IMPRESSION: 1. Acute on chronic kidney disease. 2. Severe anemia of chronic kidney disease. Other diagnoses include: 3. The patient has hyponatremia, possibly due to underlying mild syndrome of inappropriate antidiuretic hormone and possible increase p.o. intake of water. 4. Coronary artery disease. 5. Atherosclerotic heart disease. 6. Dyslipidemia. 7. Diabetes mellitus. 8. The patient has underlying nephropathy, metabolic acidosis. plan continue lasix Problems: Consultation Date/Type/Reason Admit Date/Time Oct 24, 2016 at 03:30 Initial Consult Date Type of Consultation: renal 24 HR Interval Summary Subjective hx not possible: other (sob better) Exam/Review of Systems Vital Signs Vitals Vital Signs Date Time Temp Pulse Resp B/P Pulse Ox O2 Delivery O2 Flow Rate FiO2 10/25/16 15:43 158/72 10/25/16 15:18 97.6 92 18 99 10/25/16 01:59 Room Air 10/24/16 01:20 21 10/24/16 01:00 6 Intake and Output 10/24/16 10/24/16 10/25/16 14:59 22:59 06:59 Intake Total 1000 ml 100 ml Output Total 1350 ml 500 ml Balance -350 ml -400 ml Exam Neck: supple Respiratory: diminished breath sounds Cardiovascular: regular rate and rhythm Gastrointestinal: soft Extremities: edema (+) Results Result Diagram: 10/25/16 0530 10/25/16 0530 Results 24 hrs Laboratory Tests Test 10/24/16 21:17 10/25/16 05:30 10/25/16 08:15 Bedside Glucose 340 H Alanine Aminotransferase (ALT/SGPT) 25 Albumin 3.4 Albumin/Globulin Ratio 1.03 Alkaline Phosphatase 72 Anion Gap 17 H Aspartate Amino Transf (AST/SGOT) 31 Basophils # 0.0 Basophils % 0.0 Blood Urea Nitrogen 58 H Calcium Level 8.8 Carbon Dioxide Level 23 Chloride Level 92 L Creatinine 1.93 H Direct Bilirubin 0.00 Eosinophils # 0.0 Eosinophils % 0.0 Globulin 3.30 H Glucose Level 279 H Hematocrit 25.4 L Hemoglobin 8.7 L Hemoglobin A1c 7.3 H Indirect Bilirubin 0.5 Lymphocytes # 0.5 L Lymphocytes % 6.7 L Magnesium Level 2.1 Mean Corpuscular Hemoglobin 30.6 Mean Corpuscular Hemoglobin Concent 34.3 Mean Corpuscular Volume 89.2 Mean Platelet Volume 7.4 Monocytes # 0.8 Monocytes % 9.7 Neutrophils # 6.5 Neutrophils % 83.6 H Nucleated Red Blood Cells # 0.0 Nucleated Red Blood Cells % 0.0 Platelet Count 286 Potassium Level 4.5 Red Blood Count 2.85 L Red Cell Distribution Width 12.1 Sodium Level 127 L Total Bilirubin 0.5 Total Protein 6.7 White Blood Count 7.8 Stool Occult Blood NEGATIVE Medications Medications Current Medications Lorazepam (Ativan) 0.5 mg Q8H PRN PO ANXIETY; Start 10/24/16 at 08:00 Ondansetron HCl (Zofran Inj) 4 mg Q6H PRN IV NAUSEA AND/OR VOMITING; Start 10/24 at 08:00 Acetaminophen (Tylenol Tab) 650 mg Q6H PRN PO PAIN LEVEL 1-3 OR FEVER; Start at 08:00 Morphine Sulfate (morphine) 2 mg Q4H PRN IV PAIN LEVEL 7-10; Start 10/24/16 at 08:00 Enoxaparin Sodium (Lovenox) 30 mg DAILY SC Last administered on 10/24/16 09:41 ; Admin Dose 30 MG; Start 10/24/16 at 09:00 Amlodipine Besylate (Norvasc) 5 mg DAILY PO Last administered on 10/24/16 09:38 ; Admin Dose 5 MG; Start 10/24/16 at 09:00 Aspirin (Aspirin) 81 mg DAILY PO Last administered on 10/24/16 09:36; Admin Dose 81 MG; Start 10/24/16 at 09:00 Cilostazol (Pletal) 50 mg BID PO Last administered on 10/24/16 21:09; Admin Dose 50 MG; Start 10/24/16 at 09:00 Ferrous Sulfate (Ferrous Sulfate (Ec)) 325 mg QID PO Last administered on 13:06; Admin Dose 325 MG; Start 10/24/16 at 09:00 Gabapentin (Neurontin) 100 mg BID PO Last administered on 10/24/16 21:09; Admin Dose 100 MG; Start 10/24/16 at 09:00 Lamotrigine (Lamictal) 25 mg BID PO Last administered on 10/24/16 21:09; Admin Dose 25 MG; Start 10/24/16 at 09:00 Metoprolol Succinate (Toprol Xl) 50 mg BID PO Last administered on 10/24/16 21: 10; Admin Dose 50 MG; Start 10/24/16 at 09:00 Pantoprazole (Protonix Tab) 40 mg DAILY@06 PO Last administered on 10/25/16 05: 48; Admin Dose 40 MG; Start 10/24/16 at 09:00 Sodium Bicarbonate (Sodium Bicarbonate Tab) 650 mg BID PO Last administered on 10/24/16 21:10; Admin Dose 650 MG; Start 10/24/16 at 09:00 Valsartan (Diovan) 160 mg DAILY PO Last administered on 10/24/16 09:37; Admin Dose 160 MG; Start 10/24/16 at 09:00 Atorvastatin Calcium (Lipitor) 20 mg DAILY@21 PO Last administered on 10/24/16 21:09; Admin Dose 20 MG; Start 10/24/16 at 21:00 Oxybutynin Chloride (Ditropan Xl) 5 mg DAILY PO Last administered on 10/24/16 16:49; Admin Dose 5 MG; Start 10/24/16 at 16:00 Furosemide (Lasix) 40 mg DAILY IV Last administered on 10/25/16 10:32; Admin Dose 40 MG; Start 10/25/16 at 09:00 Influenza Virus Vaccine 0.5 ml 0.5 ml ONCE ONCE IM* ; Start 10/26/16 at 09:00; Stop 10/26/16 at 09:01 Ferric Sodium Gluconate Complex/ Sodium Chloride (Ferrlecit/NS) 110 ml @ 110 mls/hr Q24H IVPB Last administered on 10/25/16 11:37; Admin Dose 110 MLS/HR; Start 10/25/16 at 11:00; Stop 10/29/16 at 11:59 Insulin Glargine (Lantus) 12 unit QHS SC ; Start 10/25/16 at 21:00 Diagnostic Test (Pha) (Accucheck) 1 ea 02 XX ; Start 10/26/16 at 02:00 Miscellaneous Information 1 ea NOTE XX ; Start 10/25/16 at 14:00 Glucose (Glutose) 15 gm Q15M PRN PO DECREASED GLUCOSE; Start 10/25/16 at 14:00 Glucose (Glutose) 22.5 gm Q15M PRN PO DECREASED GLUCOSE; Start 10/25/16 at 14:00 Dextrose (D50w Syringe) 25 ml Q15M PRN IV DECREASED GLUCOSE; Start 10/25/16 at 14:00 Dextrose (D50w Syringe) 50 ml Q15M PRN IV DECREASED GLUCOSE; Start 10/25/16 at 14:00 Glucagon (Glucagen) 1 mg Q15M PRN IM DECREASED GLUCOSE; Start 10/25/16 at 14:00 Glucose (Glutose) 15 gm Q15M PRN BUCCAL DECREASED GLUCOSE; Start 10/25/16 at 14: 00 MIA AGOSTO MD Oct 25, 2016 16:29
--- NOTE | 2016-10-25 16:56 | PN ---
Date/Time of Note Date/Time of Note DATE: 10/25/16 TIME: 16:51 Assessment/Plan VTE Prophylaxis VTE Prophylaxis Intervention: SCD's Lines/Catheters IV Catheter Type (from [facility]): Saline Lock Urinary Cath still in place: Yes Reason Cath still needed: other (indicate) (monitor I&O) Assessment/Plan Chief Complaint/Hosp Course Assessment and plan 1. Dyspnea secondary to asthma exacerbation. Improved with breathing treatments. Continue as needed. O2 at this time. 2. Acute on chronic anemia. Patient noted to be surveyed iron deficient. Continue on Ferrlecit. Photofinishing Laboratory Worker following. Follow up on stool OB. 3. Hyponatremia. IV fluids. 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 Monitor level. Slightly improving at present. 4. Chronic kidney disease. Monitor renal panel. Avoid nephrotoxic medications. Diuretics per wellfield technician 5. Dyslipidemia. Continue on statin 6. Essential hypertension. We'll continue on antihypertensives and adjust needed 7. Diabetes. A1c of 7.2. Continue insulin regimen. Will adjust as needed. Disposition and plan: Breathing does appear to be better. Monitor renal panel. Continue GI workup. Discharge when medically stable and clear by consultants Discussed plan of care with Dr. Larsen Problems: Subjective 24 Hr Interval Summary Free Text/Dictation No signs or symptoms of distress. Breathing better at this time. Exam/Review of Systems Vital Signs Vitals Vital Signs Date Time Temp Pulse Resp B/P Pulse Ox O2 Delivery O2 Flow Rate FiO2 10/25/16 15:43 158/72 10/25/16 15:18 97.6 92 18 99 10/25/16 01:59 Room Air 10/24/16 01:20 21 10/24/16 01:00 6 Intake and Output 10/24/16 10/24/16 10/25/16 15:00 23:00 07:00 Intake Total 1000 ml 100 ml Output Total 1350 ml 500 ml Balance -350 ml -400 ml Exam General: No acute signs or symptoms of distress Eyes: pupils equal round, Anicteric sclera Neck: Supple nontender, no JVD Cardiac: S1, S2 auscultated, regular rhythm and rate Pulmonary: No coarse rhonchi or breathing auscultated GI: Abdomen soft nontender nondistended, bowel sounds active Extremities: Minimal edema bilateral lower extremity is +1 Skin: Clean dry and intact Neurologic: Alert to person place and time and situatio Results Result Diagram: 10/25/16 0530 10/25/16 0530 Results 24 hrs Laboratory Tests Test 10/24/16 21:17 10/25/16 05:30 10/25/16 08:15 Bedside Glucose 340 H Alanine Aminotransferase (ALT/SGPT) 25 Albumin 3.4 Albumin/Globulin Ratio 1.03 Alkaline Phosphatase 72 Anion Gap 17 H Aspartate Amino Transf (AST/SGOT) 31 Basophils # 0.0 Basophils % 0.0 Blood Urea Nitrogen 58 H Calcium Level 8.8 Carbon Dioxide Level 23 Chloride Level 92 L Creatinine 1.93 H Direct Bilirubin 0.00 Eosinophils # 0.0 Eosinophils % 0.0 Globulin 3.30 H Glucose Level 279 H Hematocrit 25.4 L Hemoglobin 8.7 L Hemoglobin A1c 7.3 H Indirect Bilirubin 0.5 Lymphocytes # 0.5 L Lymphocytes % 6.7 L Magnesium Level 2.1 Mean Corpuscular Hemoglobin 30.6 Mean Corpuscular Hemoglobin Concent 34.3 Mean Corpuscular Volume 89.2 Mean Platelet Volume 7.4 Monocytes # 0.8 Monocytes % 9.7 Neutrophils # 6.5 Neutrophils % 83.6 H Nucleated Red Blood Cells # 0.0 Nucleated Red Blood Cells % 0.0 Platelet Count 286 Potassium Level 4.5 Red Blood Count 2.85 L Red Cell Distribution Width 12.1 Sodium Level 127 L Total Bilirubin 0.5 Total Protein 6.7 White Blood Count 7.8 Stool Occult Blood NEGATIVE Medications Medications Current Medications Lorazepam (Ativan) 0.5 mg Q8H PRN PO ANXIETY; Start 10/24/16 at 08:00 Ondansetron HCl (Zofran Inj) 4 mg Q6H PRN IV NAUSEA AND/OR VOMITING; Start 10/24 at 08:00 Acetaminophen (Tylenol Tab) 650 mg Q6H PRN PO PAIN LEVEL 1-3 OR FEVER; Start at 08:00 Morphine Sulfate (morphine) 2 mg Q4H PRN IV PAIN LEVEL 7-10; Start 10/24/16 at 08:00 Enoxaparin Sodium (Lovenox) 30 mg DAILY SC Last administered on 10/24/16 09:41 ; Admin Dose 30 MG; Start 10/24/16 at 09:00 Amlodipine Besylate (Norvasc) 5 mg DAILY PO Last administered on 10/24/16 09:38 ; Admin Dose 5 MG; Start 10/24/16 at 09:00 Aspirin (Aspirin) 81 mg DAILY PO Last administered on 10/24/16 09:36; Admin Dose 81 MG; Start 10/24/16 at 09:00 Cilostazol (Pletal) 50 mg BID PO Last administered on 10/24/16 21:09; Admin Dose 50 MG; Start 10/24/16 at 09:00 Ferrous Sulfate (Ferrous Sulfate (Ec)) 325 mg QID PO Last administered on 13:06; Admin Dose 325 MG; Start 10/24/16 at 09:00 Gabapentin (Neurontin) 100 mg BID PO Last administered on 10/24/16 21:09; Admin Dose 100 MG; Start 10/24/16 at 09:00 Lamotrigine (Lamictal) 25 mg BID PO Last administered on 10/24/16 21:09; Admin Dose 25 MG; Start 10/24/16 at 09:00 Metoprolol Succinate (Toprol Xl) 50 mg BID PO Last administered on 10/24/16 21: 10; Admin Dose 50 MG; Start 10/24/16 at 09:00 Pantoprazole (Protonix Tab) 40 mg DAILY@06 PO Last administered on 10/25/16 05: 48; Admin Dose 40 MG; Start 10/24/16 at 09:00 Sodium Bicarbonate (Sodium Bicarbonate Tab) 650 mg BID PO Last administered on 10/24/16 21:10; Admin Dose 650 MG; Start 10/24/16 at 09:00 Valsartan (Diovan) 160 mg DAILY PO Last administered on 10/24/16 09:37; Admin Dose 160 MG; Start 10/24/16 at 09:00 Atorvastatin Calcium (Lipitor) 20 mg DAILY@21 PO Last administered on 10/24/16 21:09; Admin Dose 20 MG; Start 10/24/16 at 21:00 Oxybutynin Chloride (Ditropan Xl) 5 mg DAILY PO Last administered on 10/24/16 16:49; Admin Dose 5 MG; Start 10/24/16 at 16:00 Furosemide (Lasix) 40 mg DAILY IV Last administered on 10/25/16 10:32; Admin Dose 40 MG; Start 10/25/16 at 09:00 Influenza Virus Vaccine 0.5 ml 0.5 ml ONCE ONCE IM* ; Start 10/26/16 at 09:00; Stop 10/26/16 at 09:01 Ferric Sodium Gluconate Complex/ Sodium Chloride (Ferrlecit/NS) 110 ml @ 110 mls/hr Q24H IVPB Last administered on 10/25/16t 11:37; Admin Dose 110 MLS/HR; Start 10/25/16 at 11:00; Stop 10/29/16 at 11:59 Insulin Glargine (Lantus) 12 unit QHS SC ; Start 10/25/16 at 21:00 Diagnostic Test (Pha) (Accucheck) 1 ea 02 XX ; Start 10/26/16 at 02:00 Miscellaneous Information 1 ea NOTE XX ; Start 10/25/16 at 14:00 Glucose (Glutose) 15 gm Q15M PRN PO DECREASED GLUCOSE; Start 10/25/16 at 14:00 Glucose (Glutose) 22.5 gm Q15M PRN PO DECREASED GLUCOSE; Start 10/25/16 at 14:00 Dextrose (D50w Syringe) 25 ml Q15M PRN IV DECREASED GLUCOSE; Start 10/25/16 at 14:00 Dextrose (D50w Syringe) 50 ml Q15M PRN IV DECREASED GLUCOSE; Start 10/25/16 at 14:00 Glucagon (Glucagen) 1 mg Q15M PRN IM DECREASED GLUCOSE; Start 10/25/16 at 14:00 Glucose (Glutose) 15 gm Q15M PRN BUCCAL DECREASED GLUCOSE; Start 10/25/16 at 14: 00 RADHA LOUISE Oct 25, 2016 16:56
[2016-10-25] MEDS ORDERED: hydrALAzine 20 MG INJ IV PRN (17:00)
[2016-10-25] MEDS: INSULIN ASPART [NOVOLOG] 3 ML PEN SC SCH ×3 (17:44→21:18)
[2016-10-25] MEDS ORDERED: INSULIN GLARGINE [LANtus] 3 ML PEN SC SCH (21:00)
[2016-10-25] MEDS: ATORVASTATIN 20 MG TAB PO SCH (21:14)
[2016-10-26] VITALS (7 sets, daily range): BP systolic 131–162; BP diastolic 49–70; PULSE 69–86; RESP 16–20
[2016-10-26] MEDS ORDERED: ACCUCHECK XX SCH (02:00)
[2016-10-26] MEDS: PANTOPRAZOLE (EC) 40 MG TAB PO SCH (06:02)
[2016-10-26 07:44] LABS: ALBUMIN 3.4 g/dl (3.3-4.9); POTASSIUM 4.2 mmol/L (3.5-5.1)
[2016-10-26 07:46] LABS: BILIRUBIN,INDIRECT 0.1 mg/dl (0-1.1); BILIRUBIN,TOTAL 0.1 mg/dl (0.2-1.3); CREATININE 1.8 mg/dl (0.44-1.00)
[2016-10-26 07:47] LABS: TOTAL PROTEIN 6.8 g/dl (6.1-8.1)
[2016-10-26] MEDS: INSULIN ASPART [NOVOLOG] 3 ML PEN SC SCH ×4 (07:52→11:26)
[2016-10-26] MEDS: FUROSEMIDE 40 MG INJ IV SCH (08:24)
[2016-10-26] MEDS: VALSARTAN 160 MG TAB PO SCH (08:26)
[2016-10-26] MEDS: NA BICARBONATE 650 MG TAB PO SCH (08:26)
[2016-10-26] MEDS: OXYBUTYNIN (XL) 5 MG TAB PO SCH (08:26)
[2016-10-26] MEDS: ASPIRIN 81 MG TAB PO SCH (08:26)
[2016-10-26] MEDS: CILOSTAZOL 100 MG TAB PO SCH (08:26)
[2016-10-26] MEDS: GABAPENTIN 100 MG CAP PO SCH (08:27)
[2016-10-26] MEDS: FERROUS SULFATE (EC) 325 MG TAB PO SCH (08:27)
[2016-10-26] MEDS: AMLODIPINE 5 MG TAB PO SCH (08:27)
[2016-10-26] MEDS: ENOXAPARIN 30 MG/0.3 ML SYG SC SCH (08:31)
--- NOTE | 2016-10-26 08:32 | CONS ---
Date/Time of Note Date/Time of Note DATE: 10/26/16 TIME: 08:27 Assessment/Plan Assessment/Plan Additional Assessment/Plan Anemia * Likely secondary to chronic iron deficiency * Stool OB, negative * PPI BID, discontinue * Monitor H&H Q 6hrs, transfuse 2 units for hgb < 7.5 * Continue iron supplementation as outpatient Jaundice * appears slightly jaundice * Acute hepatitis panel neg Shortness of breath and wheezing, likely a combination of exacerbation of reactive airway disease and congestive heart failure. DM2 Chronic kidney disease History of pulmonary hypertension. History of chronic obstructive pulmonary disease/asthma. History of dyslipidemia. History of hypertension Patient stable from GI standpoint Further recommendations depend on clinical course Pt seen in collaboration with Dr. Albright Consultation Date/Type/Reason Admit Date/Time Oct 24, 2016 at 03:30 Type of Consultation: GI 24 HR Interval Summary Free Text/Dictation Stool OB neg Anemia likely secondary to chronic iron deficiency Family would prefer to defer EGD Patient stable from GI standpoint Exam/Review of Systems Vital Signs Vitals Vital Signs Date Time Temp Pulse Resp B/P Pulse Ox O2 Delivery O2 Flow Rate FiO2 10/26/16 08:14 73 10/26/16 07:28 98.1 20 141/66 97 10/25/16 01:59 Room Air 10/24/16 01:20 21 10/24/16 01:00 6 Intake and Output 10/25/16 10/25/16 10/26/16 15:00 23:00 07:00 Intake Total 720 ml Output Total 1800 ml Balance -1080 ml Exam Constitutional: alert, obese, oriented, well developed Psych: nl mood/affect Head: normocephalic Eyes: EOMI, icteric (slightly), nl lids Respiratory: normal air movement, wheezing Cardiovascular: regular rate and rhythm Gastrointestinal: non-tender, soft Neurological: NITROGEN OPERATOR II-XII intact Results Result Diagram: 10/25/16 0530 10/26/16 0600 Results 24 hrs Laboratory Tests Test 10/25/16 17:41 10/25/16 20:15 10/26/16 02:43 10/26/16 06:00 Bedside Glucose 281 H 260 H 136 Alanine Aminotransferase (ALT/SGPT) 30 Albumin 3.4 Albumin/Globulin Ratio 1.00 Alkaline Phosphatase 70 Anion Gap 16 Aspartate Amino Transf (AST/SGOT) 33 Blood Urea Nitrogen 60 H Calcium Level 9.0 Carbon Dioxide Level 26 Chloride Level 93 L Creatinine 1.80 H Direct Bilirubin 0.00 Globulin 3.40 H Glucose Level 100 # Indirect Bilirubin 0.1 Potassium Level 4.2 Sodium Level 131 L Total Bilirubin 0.1 L Total Protein 6.8 Test 10/26/16 07:30 Bedside Glucose 114 Medications Medications Current Medications Lorazepam (Ativan) 0.5 mg Q8H PRN PO ANXIETY; Start 10/24/16 at 08:00 Ondansetron HCl (Zofran Inj) 4 mg Q6H PRN IV NAUSEA AND/OR VOMITING; Start 10/24 at 08:00 Acetaminophen (Tylenol Tab) 650 mg Q6H PRN PO PAIN LEVEL 1-3 OR FEVER; Start at 08:00 Morphine Sulfate (morphine) 2 mg Q4H PRN IV PAIN LEVEL 7-10; Start 10/24/16 at 08:00 Enoxaparin Sodium (Lovenox) 30 mg DAILY SC Last administered on 10/24/16 09:41 ; Admin Dose 30 MG; Start 10/24/16 at 09:00 Amlodipine Besylate (Norvasc) 5 mg DAILY PO Last administered on 10/24/16 09:38 ; Admin Dose 5 MG; Start 10/24/16 at 09:00 Aspirin (Aspirin) 81 mg DAILY PO Last administered on 10/24/16 09:36; Admin Dose 81 MG; Start 10/24/16 at 09:00 Cilostazol (Pletal) 50 mg BID PO Last administered on 10/25/16 23:10; Admin Dose 50 MG; Start 10/24/16 at 09:00 Ferrous Sulfate (Ferrous Sulfate (Ec)) 325 mg QID PO Last administered on 21:14; Admin Dose 325 MG; Start 10/24/16 at 09:00 Gabapentin (Neurontin) 100 mg BID PO Last administered on 10/25/16 21:14; Admin Dose 100 MG; Start 10/24/16 at 09:00 Lamotrigine (Lamictal) 25 mg BID PO Last administered on 10/25/16 23:10; Admin Dose 25 MG; Start 10/24/16 at 09:00 Metoprolol Succinate (Toprol Xl) 50 mg BID PO Last administered on 10/25/16 21: 15; Admin Dose 50 MG; Start 10/24/16 at 09:00 Pantoprazole (Protonix Tab) 40 mg DAILY@06 PO Last administered on 10/26/16 06: 02; Admin Dose 40 MG; Start 10/24/16 at 09:00 Sodium Bicarbonate (Sodium Bicarbonate Tab) 650 mg BID PO Last administered on 10/25/16 23:11; Admin Dose 650 MG; Start 10/24/16 at 09:00 Valsartan (Diovan) 160 mg DAILY PO Last administered on 10/24/16 09:37; Admin Dose 160 MG; Start 10/24/16 at 09:00 Atorvastatin Calcium (Lipitor) 20 mg DAILY@21 PO Last administered on 10/25/16 21:14; Admin Dose 20 MG; Start 10/24/16 at 21:00 Oxybutynin Chloride (Ditropan Xl) 5 mg DAILY PO Last administered on 10/24/16 16:49; Admin Dose 5 MG; Start 10/24/16 at 16:00 Furosemide (Lasix) 40 mg DAILY IV Last administered on 10/25/16 10:32; Admin Dose 40 MG; Start 10/25/16 at 09:00 Influenza Virus Vaccine 0.5 ml 0.5 ml ONCE ONCE IM* ; Start 10/26/16 at 09:00; Stop 10/26/16 at 09:01 Ferric Sodium Gluconate Complex/ Sodium Chloride (Ferrlecit/NS) 110 ml @ 110 mls/hr Q24H IVPB Last administered on 10/25/16 11:37; Admin Dose 110 MLS/HR; Start 10/25/16 at 11:00; Stop 10/29/16 at 11:59 Insulin Glargine (Lantus) 12 unit QHS SC Last administered on 10/25/16 21:18; Admin Dose 12 UNIT; Start 10/25/16 at 21:00 Diagnostic Test (Pha) (Accucheck) 1 ea 02 XX ; Start 10/26/16 at 02:00 Miscellaneous Information 1 ea NOTE XX ; Start 10/25/16 at 14:00 Glucose (Glutose) 15 gm Q15M PRN PO DECREASED GLUCOSE; Start 10/25/16 at 14:00 Glucose (Glutose) 22.5 gm Q15M PRN PO DECREASED GLUCOSE; Start 10/25/16 at 14:00 Dextrose (D50w Syringe) 25 ml Q15M PRN IV DECREASED GLUCOSE; Start 10/25/16 at 14:00 Dextrose (D50w Syringe) 50 ml Q15M PRN IV DECREASED GLUCOSE; Start 10/25/16 at 14:00 Glucagon (Glucagen) 1 mg Q15M PRN IM DECREASED GLUCOSE; Start 10/25/16 at 14:00 Glucose (Glutose) 15 gm Q15M PRN BUCCAL DECREASED GLUCOSE; Start 10/25/16 at 14: 00 Hydralazine HCl (Apresoline) 10 mg Q4H PRN IV sbp>160; Start 10/25/16 at 17:00 ULI FORMAN Oct 26, 2016 08:32
[2016-10-26] MEDS: LAMOTRIGINE 25 MG TAB PO SCH (08:37)
[2016-10-26] MEDS: METOPROLOL (XL) 50 MG TAB PO SCH (08:37)
[2016-10-26] MEDS ORDERED: INFLUENZA VIRUS VACCINE 0.5 ML (DISPENSING) IM* ONE (09:00)
[2016-10-26] MEDS ORDERED: LANT3I SC (10:36)
[2016-10-26] MEDS ORDERED: AMLO5TAB4 PO (10:36)
[2016-10-26] MEDS ORDERED: FURO20TA3 PO (10:36)
[2016-10-26] MEDS ORDERED: SODI650T PO (10:36)
[2016-10-26] MEDS ORDERED: FURO40TA4 PO (10:36)
[2016-10-26] MEDS ORDERED: FER325 PO (10:36)
[2016-10-26] MEDS ORDERED: METO50TA16 PO (10:36)
[2016-10-26] MEDS: SOD FERRIC GLUC COMPLX 125 MG in SOD CHLORIDE 0.9% 100 ML IVPB SCH (10:38)
[2016-10-26] MEDS ORDERED: XOP15INH INH (10:53)
--- NOTE | 2016-10-26 10:57 | PDOCDIS ---
Discharge Instructions DIAGNOSIS Discharge Diagnosis: 1. Asthma 2. CKD 3. Hyponatremia 4. hypertension CONDITION Patient Condition: Stable HOME CARE INSTRUCTIONS: Special Diet: carb controlled ACTIVITY: Activity Restrictions: Slowly Increase Activity FOLLOW UP/APPOINTMENTS Appointments 1. Follow up with Dr. Royer Huerta within one week 2. Follow up with your primary care provider in 1-2 weeks RADHA LOUISE Oct 26, 2016 10:57
--- NOTE | 2016-10-26 12:14 | CONS ---
Date/Time of Note Date/Time of Note DATE: 10/26/16 TIME: 12:13 Assessment/Plan Assessment/Plan Chief Complaint/Hosp Course IMPRESSION: 1. Acute on chronic kidney disease. 2. Severe anemia of chronic kidney disease. Other diagnoses include: 3. The patient has hyponatremia, possibly due to underlying mild syndrome of inappropriate antidiuretic hormone and possible increase p.o. intake of water. 4. Coronary artery disease. 5. Atherosclerotic heart disease. 6. Dyslipidemia. 7. Diabetes mellitus. 8. The patient has underlying nephropathy, metabolic acidosis. plan continue sheri jaffe qo d Problems: Consultation Date/Type/Reason Admit Date/Time Oct 24, 2016 at 03:30 Type of Consultation: renal 24 HR Interval Summary Constitutional: no complaints Exam/Review of Systems Vital Signs Vitals Vital Signs Date Time Temp Pulse Resp B/P Pulse Ox O2 Delivery O2 Flow Rate FiO2 10/26/16 12:07 152/67 10/26/16 12:07 76 10/26/16 10:56 97.5 20 97 10/25/16 01:59 Room Air 10/24/16 01:20 21 10/24/16 01:00 6 Intake and Output 10/25/16 10/25/16 10/26/16 15:00 23:00 07:00 Intake Total 720 ml Output Total 1800 ml Balance -1080 ml Exam Neck: supple Respiratory: clear to auscultation Cardiovascular: regular rate and rhythm Gastrointestinal: soft Results Result Diagram: 10/25/16 0530 10/26/16 0600 Results 24 hrs Laboratory Tests Test 10/25/16 17:41 10/25/16 20:15 10/26/16 02:43 10/26/16 06:00 Bedside Glucose 281 H 260 H 136 Alanine Aminotransferase (ALT/SGPT) 30 Albumin 3.4 Albumin/Globulin Ratio 1.00 Alkaline Phosphatase 70 Anion Gap 16 Aspartate Amino Transf (AST/SGOT) 33 Blood Urea Nitrogen 60 H Calcium Level 9.0 Carbon Dioxide Level 26 Chloride Level 93 L Creatinine 1.80 H Direct Bilirubin 0.00 Globulin 3.40 H Glucose Level 100 # Indirect Bilirubin 0.1 Potassium Level 4.2 Sodium Level 131 L Total Bilirubin 0.1 L Total Protein 6.8 Test 10/26/16 07:30 10/26/16 11:17 Bedside Glucose 114 100 Medications Medications Current Medications Lorazepam (Ativan) 0.5 mg Q8H PRN PO ANXIETY; Start 10/24/16 at 08:00 Ondansetron HCl (Zofran Inj) 4 mg Q6H PRN IV NAUSEA AND/OR VOMITING; Start 10/24 at 08:00 Acetaminophen (Tylenol Tab) 650 mg Q6H PRN PO PAIN LEVEL 1-3 OR FEVER; Start at 08:00 Morphine Sulfate (morphine) 2 mg Q4H PRN IV PAIN LEVEL 7-10; Start 10/24/16 at 08:00 Enoxaparin Sodium (Lovenox) 30 mg DAILY SC Last administered on 10/26/16 08:31 ; Admin Dose 30 MG; Start 10/24/16 at 09:00 Amlodipine Besylate (Norvasc) 5 mg DAILY PO Last administered on 10/26/16 08:27 ; Admin Dose 5 MG; Start 10/24/16 at 09:00 Aspirin (Aspirin) 81 mg DAILY PO Last administered on 10/26/16 08:26; Admin Dose 81 MG; Start 10/24/16 at 09:00 Cilostazol (Pletal) 50 mg BID PO Last administered on 10/26/16 08:26; Admin Dose 50 MG; Start 10/24/16 at 09:00 Ferrous Sulfate (Ferrous Sulfate (Ec)) 325 mg QID PO Last administered on 08:27; Admin Dose 325 MG; Start 10/24/16 at 09:00 Gabapentin (Neurontin) 100 mg BID PO Last administered on 10/26/16 08:27; Admin Dose 100 MG; Start 10/24/16 at 09:00 Lamotrigine (Lamictal) 25 mg BID PO Last administered on 10/26/16 08:37; Admin Dose 25 MG; Start 10/24/16 at 09:00 Metoprolol Succinate (Toprol Xl) 50 mg BID PO Last administered on 10/26/16 08: 37; Admin Dose 50 MG; Start 10/24/16 at 09:00 Pantoprazole (Protonix Tab) 40 mg DAILY@06 PO Last administered on 10/26/16 06: 02; Admin Dose 40 MG; Start 10/24/16 at 09:00 Sodium Bicarbonate (Sodium Bicarbonate Tab) 650 mg BID PO Last administered on 10/26/16 08:26; Admin Dose 650 MG; Start 10/24/16 at 09:00 Valsartan (Diovan) 160 mg DAILY PO Last administered on 10/26/16 08:26; Admin Dose 160 MG; Start 10/24/16 at 09:00 Atorvastatin Calcium (Lipitor) 20 mg DAILY@21 PO Last administered on 10/25/16 21:14; Admin Dose 20 MG; Start 10/24/16 at 21:00 Oxybutynin Chloride (Ditropan Xl) 5 mg DAILY PO Last administered on 10/26/16 08:26; Admin Dose 5 MG; Start 10/24/16 at 16:00 Furosemide 40 mg 40 mg DAILY IV Last administered on 10/26/16 08:24; Admin Dose 40 MG; Start 10/25/16 at 09:00 Ferric Sodium Gluconate Complex/ Sodium Chloride (Ferrlecit/NS) 110 ml @ 110 mls/hr Q24H IVPB Last administered on 10/26/16 10:38; Admin Dose 110 MLS/HR; Start 10/25/16 at 11:00; Stop 10/29/16 at 11:59 Insulin Glargine (Lantus) 12 unit QHS SC Last administered on 10/25/16 21:18; Admin Dose 12 UNIT; Start 10/25/16 at 21:00 Diagnostic Test (Pha) (Accucheck) 1 ea 02 XX ; Start 10/26/16 at 02:00 Miscellaneous Information 1 ea NOTE XX ; Start 10/25/16 at 14:00 Glucose (Glutose) 15 gm Q15M PRN PO DECREASED GLUCOSE; Start 10/25/16 at 14:00 Glucose (Glutose) 22.5 gm Q15M PRN PO DECREASED GLUCOSE; Start 10/25/16 at 14:00 Dextrose (D50w Syringe) 25 ml Q15M PRN IV DECREASED GLUCOSE; Start 10/25/16 at 14:00 Dextrose (D50w Syringe) 50 ml Q15M PRN IV DECREASED GLUCOSE; Start 10/25/16 at 14:00 Glucagon (Glucagen) 1 mg Q15M PRN IM DECREASED GLUCOSE; Start 10/25/16 at 14:00 Glucose (Glutose) 15 gm Q15M PRN BUCCAL DECREASED GLUCOSE; Start 10/25/16 at 14: 00 Hydralazine HCl (Apresoline) 10 mg Q4H PRN IV sbp>160; Start 10/25/16 at 17:00 MIA AGOSTO MD Oct 26, 2016 12:14
[2016-10-26 12:42] LABS: HEMATOCRIT 25.7 % (37.0-47.0); HEMOGLOBIN 8.8 g/dl (12.0-16.0); MEAN CORPUSCULAR HEMOGLOBIN 30.1 pg (29.0-33.0); MEAN CORPUSCULAR HGB CONC 34.2 g/dl (32.0-37.0); MEAN PLATELET VOLUME 9.3 fl (7.4-10.4); NEUTROPHILS % 69.2 % (39.0-77.0); PLATELET COUNT 321 10^3/UL (140-440); RED BLOOD COUNT 2.92 10^6/ul (4.20-5.40); RED CELL DISTRIBUTION WIDTH 12.3 % (11.5-14.5); UNCORRECTED WBC 7.7 10^3/ul (4.8-10.8); WHITE BLOOD COUNT 7.7 10^3/ul (4.8-10.8)
[2016-10-26 12:43] LABS: BASOPHILS % 0.3 % (0.0-2.0); EOSINOPHILS # 0.3 10^3/ul (0.0-0.5); EOSINOPHILS % 3.9 % (0.0-7.0); LYMPHOCYTES # 1.2 10^3/ul (0.8-2.9); LYMPHOCYTES % 15.3 % (15.0-51.0); MONOCYTE # 0.8 10^3/ul (0.3-0.9); MONOCYTES % 10.8 % (0.0-11.0); NEUTROPHIL # 5.3 10^3/ul (1.6-7.5)
--- NOTE | 2016-10-27 09:31 | PN ---
Date/Time of Note Date/Time of Note LATE ENTRY DATE: 10/24/16 Assessment/Plan VTE Prophylaxis VTE Prophylaxis Intervention: SCD's Lines/Catheters IV Catheter Type (from Nrs): Saline Lock Urinary Cath still in place: Yes Reason Cath still needed: other (indicate) (monitor I&O) Assessment/Plan Chief Complaint/Hosp Course Assessment and plan 1. Dyspnea secondary to asthma exacerbation. Improved with breathing treatments. Continue as needed. O2 at this time. 2. Acute on chronic anemia. Patient noted to be surveyed iron deficient. Continue on Ferrlecit. District Court Administrator following. Follow up on stool OB. 3. Hyponatremia. IV fluids. 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 Monitor level. Slightly improving at present. 4. Chronic kidney disease. Monitor renal panel. Avoid nephrotoxic medications. Diuretics per senior mobile developer 5. Dyslipidemia. Continue on statin 6. Essential hypertension. We'll continue on antihypertensives and adjust needed 7. Diabetes. A1c of 7.2. Continue insulin regimen. Will adjust as needed. Disposition and plan: Continue on breathing treatments. Continue with nephrology or conditions. Discharge him medically stable Discussed plan of care with Dr. Larsen Problems: Subjective 24 Hr Interval Summary Free Text/Dictation No apparent distress noted at this time. Exam/Review of Systems Vital Signs Vitals Vital Signs Date Time Temp Pulse Resp B/P Pulse Ox O2 Delivery O2 Flow Rate FiO2 10/26/16 12:07 152/67 10/26/16 12:07 76 10/26/16 10:56 97.5 20 97 10/25/16 01:59 Room Air 10/24/16 01:20 21 10/24/16 01:00 6 Intake and Output 10/26/16 10/26/16 10/27/16 14:59 22:59 06:59 Intake Total 100 ml Output Total 1500 ml Balance -1400 ml Exam General: No acute signs or symptoms of distress Eyes: pupils equal round, Anicteric sclera Neck: Supple nontender, no JVD Cardiac: S1, S2 auscultated, regular rhythm and rate Pulmonary: No coarse rhonchi or breathing auscultated GI: Abdomen soft nontender nondistended, bowel sounds active Extremities: Minimal edema bilateral lower extremity is +1 Skin: Clean dry and intact Neurologic: Alert to person place and time and situation Results Result Diagram: 10/26/16 0600 10/26/16 0600 Results 24 hrs Laboratory Tests Test 10/26/16 11:17 Bedside Glucose 100 RADHA LOUISE Oct 27, 2016 09:31
== END 2016-10-26 13:06 | disposition home or self-care (01) | DRG 292 ==
LOC: E/R 00:05 → TEL 03:30
PROVIDERS: ADMIT Internal Medicine; ATTEND Internal Medicine
PROC: 30233N1 Transfusion of Nonautologous Red Blood Cells into Peripheral Vein, Percutaneous Approach (ICD-10-PCS; principal; 2016-10-24)
DX: I50.9 Heart failure, unspecified (principal); E87.1 Hypo-osmolality and hyponatremia; E11.9 Type 2 diabetes mellitus without complications; J44.9 Chronic obstructive pulmonary disease, unspecified; J45.901 Unspecified asthma with (acute) exacerbation; I12.9 Hypertensive chronic kidney disease with stage 1 through stage 4 chronic kidney disease, or unspecified chronic kidney disease; D64.9 Anemia, unspecified; N18.9 Chronic kidney disease, unspecified; I25.10 Atherosclerotic heart disease of native coronary artery without angina pectoris; Z79.4 Long term (current) use of insulin
CPT/HCPCS: 36415; 36430; 71010; 80053; 81001; 81003; 82270; 82570; 82962; 83036; 83540; 83605; 83735; 83880; 84300; 84484; 85025; 85610; 85730; 86704; 86709; 86803; 86850; 86900; 86901; 86920; 87040; 87086; 87340; 90686; 93005; 94644; 96372; 96374; 96375; 97162; J1650; J1815; J1940; J2916; J2930; J7040; P9016

== ENCOUNTER 2016-11-18 22:57 | Inpatient (IN) | payer OTHER ==
[~2016-11-18] VITALS: Ht 167.6 cm; Wt 74.0 kg
[~2016-11-18 22:57] MED LIST changes: +AMLO5TAB4 PO; +ASPI81TA3 PO; -CIPR500T4 PO; +FURO20TA3 PO; +FURO40TA4 PO; +LAMO25TA PO; +PANT40TA4 PO; +SODI650T PO; +XOP15INH INH
[2016-11-18] MEDS ORDERED: ACETAMINOPHEN 325 MG TAB PO STA (23:39)
[2016-11-19] VITALS (10 sets, daily range): BP systolic 104–122; BP diastolic 47–55; PULSE 71–80; RESP 14–20; TEMP 99.4; Ht 167.6 cm; Wt 74.0 kg
[2016-11-19 00:18] LABS: ADD SCAN DIFF NO
[2016-11-19 00:22] LABS: ABNORMAL IP MESSAGE 1; BASOPHILS % 0.1 % (0.0-2.0); EOSINOPHILS # 0.1 10^3/ul (0.0-0.5); EOSINOPHILS % 0.4 % (0.0-7.0); HEMATOCRIT 28.8 % (37.0-47.0); LYMPHOCYTES # 0.6 10^3/ul (0.8-2.9); LYMPHOCYTES % 4.2 % (15.0-51.0); MEAN CORPUSCULAR HEMOGLOBIN 30.2 pg (29.0-33.0); MEAN CORPUSCULAR HGB CONC 34.7 g/dl (32.0-37.0); MEAN PLATELET VOLUME 8.9 fl (7.4-10.4); MONOCYTE # 1.3 10^3/ul (0.3-0.9); MONOCYTES % 9.1 % (0.0-11.0); NEUTROPHIL # 11.8 10^3/ul (1.6-7.5); NEUTROPHILS % 85.7 % (39.0-77.0); PLATELET COUNT 253 10^3/UL (140-415); RED BLOOD COUNT 3.31 10^6/ul (4.20-5.40); WHITE BLOOD COUNT 13.8 10^3/ul (4.8-10.8)
[2016-11-19 00:32] LABS: PROTIME 13.2 Sec (12.2-14.2)
[2016-11-19 00:33] LABS: PARTIAL THROMBOPLASTIN TIME 29.2 Sec (25.0-35.0)
[2016-11-19 00:35] LABS: ALBUMIN 4.1 g/dl (3.3-4.9)
[2016-11-19 00:36] LABS: POTASSIUM 4.9 mmol/L (3.5-5.1)
[2016-11-19 00:38] LABS: ALBUMIN/GLOBULIN RATIO 1.1; BILIRUBIN,INDIRECT 0.1 mg/dl (0-1.1); BILIRUBIN,TOTAL 0.1 mg/dl (0.2-1.3); CREATININE 2.49 mg/dl (0.44-1.00); TOTAL PROTEIN 7.8 g/dl (6.1-8.1)
[2016-11-19 00:39] LABS: CALCIUM 9.4 mg/dl (8.4-10.2)
[2016-11-19 00:52] LABS: TROPONIN-I 0.158 ng/ml (0.00-0.12)
--- NOTE | 2016-11-19 00:54 | RADRPT ---
PROCEDURE: XR Chest. CLINICAL INDICATION: Chest pain. Possible sepsis TECHNIQUE: Portable AP upright view of the chest was obtained. COMPARISON: 10/24/2016 FINDINGS: The cardiomediastinal silhouette is within upper normal limits. The lungs are clear of acute infilt rates, mild age-related senescent interstitial changes are again noted as is a calcified granuloma o f the right lung base. There is no evidence for pleural effusion, pneumothorax or pulmonary vascula r congestion, previously seen congestive heart failure pattern has resolved. Demineralization is ag ain noted without acute osseous abnormality. Calcification of the aorta is again visualized. RPTAT:HJJR IMPRESSION: 1. Interval resolution of congestive heart failure pattern compared to 10/24/2016. 2. Generalized age-related interstitial senescent changes of the lung parenchyma without evidence o f pneumonia. Physician Wesley Date Time Electronically viewed and signed by Papo Alcantar Physician on 11/19/2016 00:53 /
[2016-11-19 01:43] LABS: ADD UMIC YES; URINE BILIRUBIN (Dip) NEGATIVE (NEGATIVE); URINE BLOOD (Dip) 1+ (NEGATIVE); URINE COLOR LT. YELLOW (YELLOW); URINE KETONES (Dip) NEGATIVE (NEGATIVE); URINE LEUKOCYTE ESTERASE (Dip) 1+ (NEGATIVE); URINE NITRITE (Dip) NEGATIVE (NEGATIVE); URINE TOTAL PROTEIN (Dip) 1+ (NEGATIVE); URINE UROBILINOGEN (Dip) 0.2 E.U./dL (0.1-1.0)
[2016-11-19 02:12] LABS: BACTERIA,URINE MANY; SQUAMOUS EPITHELIAL CELL,UR RARE
[2016-11-19] MEDS ORDERED: ASPIRIN 325 MG TAB PO STA (02:19)
--- NOTE | 2016-11-19 02:22 | ERA ---
ER Documentation Chief Complaint Date/Time DATE: 11/19/16 TIME: 02:20 Chief Complaint INCREASED BP SINCE 8PM TONIGHT. DAUGHTER STATES >200 AT HOME HPI This is an 86-year-old female comes in with complaints of elevated blood pressures a p.m. tonight. Daughter says blood pressures greater than 200 systolic at home. No chest pain. No shortness of breath. No other current complaints. Patient noted to have fever in triage. No other current issues. ROS All systems reviewed and are negative except as per history of present illness. Medications Home Meds Active Scripts Levalbuterol* (Xopenex* HFA) 15 Gm Inha, 2 PUFFS INH Q4H Y for WHEEZING AND SOB , #1 INHALER Prov:RADHA LOUISE 10/26/16 Furosemide* (Furosemide*) 20 Mg Tablet, 20 MG PO QHS, #6030 TAB Prov:RADHA LOUISE 10/26/16 Furosemide* (Furosemide*) 40 Mg Tablet, 40 MG PO DAILY for 30 Days, TAB Prov:RADHA LOUISE 10/26/16 Insulin Glargine* (Lantus*) 100 Unit/Ml Soln, 10 UNIT SC QHS for 30 Days Prov:RADHA LOUISE 10/26/16 Sodium Bicarbonate* (Sodium Bicarbonate*) 650 Mg Tablet, 650 MG PO BID for 30 Days, TAB take every other day per nephrology recommendation Prov:RADHA LOUISE 10/26/16 Amlodipine Besylate* (Norvasc*) 5 Mg Tablet, 5 MG PO DAILY for 30 Days, TAB Prov:RADHA LOUISE 10/26/16 Ferrous Sulfate* (Ferrous Sulfate*) 325 Mg Tabec, 325 MG PO TID, #90 TAB Prov:RADHA LOUISE 10/26/16 Metoprolol Succinate* (Toprol XL*) 50 Mg Tab.er.24h, 50 MG PO BID for 30 Days, TAB Prov:RADHA LOUISE 10/26/16 Reported Medications Pantoprazole* (Pantoprazole*) 40 Mg Tablet.dr, 40 MG PO DAILY, TAB 10/24/16 Lamotrigine* (Lamotrigine*) 25 Mg Tablet, 25 MG PO BID, TAB 10/24/16 Aspirin* (Aspirin* Chew) 81 Mg Tab.chew, 81 MG PO DAILY, TAB.CHEW 10/24/16 Valsartan* (Diovan*) 160 Mg Tablet, 160 MG PO DAILY, TAB 06/26/16 Cilostazol* (Cilostazol*) 50 Mg Tablet, 50 MG PO BID, TAB 06/26/16 Oxybutynin Chloride* (Ditropan* XL) 5 Mg/Bottle Tab.osm.24, 5 MG PO QID, TAB.SA 10/18/15 Gabapentin* (Gabapentin*) 100 Mg Capsule, 100 MG PO BID, CAP 05/22/14 Simvastatin (Simvastatin) 40 Mg Tablet, 40 MG PO HS, TAB 05/22/14 Allergies Allergies: Coded Allergies: No Known Drug Allergies (Verified Allergy, Unknown, 10/24/16) PMhx/Soc History of Surgery: Yes (bilateral knee replacement) Anesthesia Reaction: No Hx Neurological Disorder: No Hx Respiratory Disorders: Yes (copd/asthma) Hx Cardiac Disorders: Yes (pvd, dyslipidemia) Hx Psychiatric Problems: No Hx Miscellaneous Medical Probl: Yes (HTN, COPD, DYSLIPIDEMIA, CKD, PULMO HTN, DM PVD, DEMENTIA) Hx Alcohol Use: No Hx Substance Use: No Hx Tobacco Use: No Smoking Status: Never smoker Physical Exam Vitals Vital Signs Date Time Temp Pulse Resp B/P Pulse Ox O2 Delivery O2 Flow Rate FiO2 11/19/16 00:44 Nasal Cannula 11/19/16 00:23 101.1 106 20 155/53 98 11/18/16 23:01 102.1 129 20 188/77 98 Physical Exam Const: [] Head: Atraumatic Eyes: Normal Conjunctiva ENT: Normal External Ears, Nose and Mouth. Neck: Full range of motion..~ No meningismus. Resp: Clear to auscultation bilaterally Cardio: Regular rate and rhythm, no murmurs Abd: Soft, non tender, non distended. Normal bowel sounds Skin: No petechiae or rashes Back: No midline or flank tenderness Ext: No cyanosis, or edema Neur: Awake and alert Psych: Normal Mood and Affect Result Diagram: 11/18/16 1664 11/18/16 2192 Results 24 hrs Laboratory Tests Test 11/18/16 23:55 11/19/16 00:52 Activated Partial Thromboplast Time 29.2Sec Alanine Aminotransferase (ALT/SGPT) 24IU/L Albumin 4.1g/dl Albumin/Globulin Ratio 1.10 Alkaline Phosphatase 89IU/L Anion Gap 17 Aspartate Amino Transf (AST/SGOT) 28IU/L Basophils # 0.010^3/ul Basophils % 0.1% Blood Urea Nitrogen 48mg/dl Calcium Level 9.4mg/dl Carbon Dioxide Level 29mmol/L Chloride Level 87mmol/L Creatinine 2.49mg/dl Direct Bilirubin 0.00mg/dl Eosinophils # 0.110^3/ul Eosinophils % 0.4% Globulin 3.70g/dl Glucose Level 217mg/dl Hematocrit 28.8% Hemoglobin 10.0g/dl INR International Normalized Ratio 1.00 Indirect Bilirubin 0.1mg/dl Lactic Acid Level 1.9mmol/L Lymphocytes # 0.610^3/ul Lymphocytes % 4.2% Mean Corpuscular Hemoglobin 30.2pg Mean Corpuscular Hemoglobin Concent 34.7g/dl Mean Corpuscular Volume 87.0fl Mean Platelet Volume 8.9fl Monocytes # 1.310^3/ul Monocytes % 9.1% Neutrophils # 11.810^3/ul Neutrophils % 85.7% Nucleated Red Blood Cells # 0.010^3/ul Nucleated Red Blood Cells % 0.0/100WBC Platelet Count 94476^3/UL Potassium Level 4.9mmol/L Prothrombin Time 13.2Sec Prothrombin Time Ratio 1.0 Red Blood Count 3.3110^6/ul Red Cell Distribution Width 12.0% Sodium Level 128mmol/L Total Bilirubin 0.1mg/dl Total Protein 7.8g/dl Troponin I 0.158ng/ml White Blood Count 13.810^3/ul Urine Bacteria MANY Urine Bilirubin NEGATIVE Urine Clarity CLEAR Urine Color LT. YELLOW Urine Glucose 0.1%% Urine Hemoglobin 1+ Urine Ketones NEGATIVE Urine Leukocyte Esterase 1+ Urine Microscopic RBC 2-5/HPF Urine Microscopic WBC 25-50/HPF Urine Nitrite NEGATIVE Urine Specific [place] 1.010 Urine Squamous Epithelial Cells RARE Urine Total Protein 1+ Urine Urobilinogen 0.2 E.U./dL Urine pH 5.5 Current Medications Medications (Trade) Dose Ordered Sig/[place] Route PRN Reason Start Time Stop Time Status Last Admin Dose Admin Acetaminophen (Tylenol Tab) 650 mg ONCE STAT PO 11/18/16 23:39 11/18/16 23:42 DC 11/19/16 00:17 Procedures/MDM EKG: Rate/Rhythm: Normal Sinus Rhythm QRS, ST, T-waves: No changes consistent w/ acute ischemia Impression: No evidence of ischemia or arrhythmia Chest X-ray 1V Interpreted by me: Soft Tissue: No acute abnormalities Bones: No acute abnormalities Mediastinum/Cardiac Silhouette/Lungs: No acute abnormalities Patient's symptoms are concerning for cardiac cause will require inpatient workup and continuous monitoring. Further w/u for ischemia, arrhythmia, PE or dissection will be deferred to the inpatient team. Patient also has evidence of UTI without sepsis. Started on Rocephin. Urine culture pending Accepting Care Team: Current data and ongoing care discussed. Time: 2:20 AM Primary Provider: Hospitalist Consulting: [XOXOXO] Outstanding Data: none Critical Care: Time: 45 minutes Treatments/Evaluations: Close monitoring and treatment of unstable vital signs, cardiorespiratory, and neurologic status, while maintaining tight balance of fluid, respiratory, and cardiac interventions. Departure Diagnosis: Primary Impression: Hypertensive crisis Additional Impressions: Hypertension Qualified Code: I10 - Essential hypertension Non-STEMI (non-ST elevated myocardial infarction) UTI (urinary tract infection) Qualified Code: N30.00 - Acute cystitis without hematuria Fever Qualified Code: R50.9 - Fever, unspecified fever cause Condition: Critical KRISTI PAYNE Nov 19, 2016 02:22
[2016-11-19] MEDS ORDERED: CEFTRIAXONE 1 GM/50 ML (PMX) 50 ML IVPB ONE (02:30)
[2016-11-19] MEDS ORDERED: ONDANSETRON 4 MG INJ IV PRN (05:30)
[2016-11-19] MEDS ORDERED: LORAZEPAM 2 MG INJ IV PRN (05:30)
[2016-11-19] MEDS ORDERED: VANCOMYCIN IV PER PHARMACY XX SCH (05:30)
[2016-11-19] MEDS ORDERED: LEVALBUTEROL (HFA) 15 GM INHALER INH PRN (05:30)
[2016-11-19] MEDS ORDERED: NACL 0.9% 3 ML SYG IV SCH (05:30)
[2016-11-19] MEDS ORDERED: morphine 2 MG INJ IV PRN (05:30)
[2016-11-19] MEDS ORDERED: NITROGLYCERIN (SL) 0.4 MG TAB SL PRN (05:30)
[2016-11-19] MEDS ORDERED: ACETAMINOPHEN 325 MG TAB PO PRN (05:30)
[2016-11-19 05:47] LABS: ALBUMIN 3.2 g/dl (3.3-4.9); POTASSIUM 4.6 mmol/L (3.5-5.1)
[2016-11-19 05:49] LABS: CREATININE 2.28 mg/dl (0.44-1.00)
[2016-11-19 05:50] LABS: ALBUMIN/GLOBULIN RATIO 0.84
[2016-11-19 05:59] LABS: CK-MB 1.89 ng/ml (0.0-2.4)
[2016-11-19] MEDS ORDERED: VANCOMYCIN 1 GM in NS 250 ML IVPB SCH (07:00)
[2016-11-19] MEDS ORDERED: DEXTROSE 50% 50 ML SYRINGE IV PRN ×2 (07:30)
[2016-11-19] MEDS ORDERED: GLUCOSE GEL 15 GRAM TUBE BUCCAL PRN (07:30)
[2016-11-19] MEDS ORDERED: GLUCAGON 1 MG INJ IM PRN (07:30)
[2016-11-19] MEDS ORDERED: GLUCOSE GEL 15 GRAM TUBE PO PRN ×2 (07:30)
[2016-11-19 07:35] LABS: TROPONIN-I 0.252 ng/ml (0.00-0.12)
[2016-11-19 07:39] LABS: ADD SCAN DIFF NO
[2016-11-19 07:50] LABS: ABNORMAL IP MESSAGE 1; BASOPHILS % 0.2 % (0.0-2.0); EOSINOPHILS # 0.2 10^3/ul (0.0-0.5); EOSINOPHILS % 1.5 % (0.0-7.0); HEMATOCRIT 23.9 % (37.0-47.0); HEMOGLOBIN 8.2 g/dl (12.0-16.0); LYMPHOCYTES # 1.4 10^3/ul (0.8-2.9); LYMPHOCYTES % 9.9 % (15.0-51.0); MEAN CORPUSCULAR HGB CONC 34.3 g/dl (32.0-37.0); MEAN CORPUSCULAR VOLUME 87.5 fl (82.0-101.0); MEAN PLATELET VOLUME 9.9 fl (7.4-10.4); MONOCYTE # 1.6 10^3/ul (0.3-0.9); MONOCYTES % 11.1 % (0.0-11.0); NEUTROPHIL # 11.1 10^3/ul (1.6-7.5); NEUTROPHILS % 76.8 % (39.0-77.0); PLATELET COUNT 247 10^3/UL (140-415); RED BLOOD COUNT 2.73 10^6/ul (4.20-5.40); RED CELL DISTRIBUTION WIDTH 12.4 % (11.5-14.5); WHITE BLOOD COUNT 14.5 10^3/ul (4.8-10.8)
[2016-11-19] MEDS ORDERED: CEFEPIME 1GM/50 ML (PMX) 50 ML IVPB SCH (09:00)
[2016-11-19] MEDS: CILOSTAZOL 100 MG TAB PO SCH ×2 (09:00→21:03)
--- NOTE | 2016-11-19 10:40 | HP ---
DATE OF ADMISSION: 11/19/2016 TIME SEEN: 6 a.m. CHIEF COMPLAINT: Elevated blood pressure and a fever. HISTORY OF PRESENT ILLNESS: The patient is an 86-year-old female with a history of dementia, diabete s, CKD, COPD/asthma, dyslipidemia, hypertension, pulmonary hypertension, and peripheral vascular dis ease. She was brought to the ER for elevated blood pressure and fever. The patient is not able to provide me any history, and as such, information is gathered from chart review and from the ER physi rahat. The patient was actually recently admitted here 2 weeks ago after she presented with an asthm a exacerbation. At that time, she was also found to have a hemoglobin of 7.3 and found to have an i valerie deficiency. She was evaluated by GI, but no intervention was done at that time. When she presented to the ER this time, her WBC of 14,000 and she was noted to have a right lower ex tremity dry and open skin laceration and edema, but there was no open draining wound. She was also found to have an elevated troponin of 0.158, a sodium of 128 and her hemoglobin this time was at 10. 3. Her urinalysis was consistent with a UTI. Again, the patient is not able to provide any history , and currently there is no family member at the bedside for me to get more information. REVIEW OF SYSTEMS: Unable to assess. PAST MEDICAL HISTORY: As per HPI. SOCIAL HISTORY: No reported history of tobacco, alcohol or illicit drug use from her previous recor ds. ALLERGY AND HOME MEDICATIONS: Please see reconciled medications. PHYSICAL EXAMINATION: GENERAL: The patient is lying in bed, no acute distress. She is not oriented. Her eyes were close d initially, but she opens to provide stimuli. HEENT: No obvious head deformity. Pupils are reactive to light. CARDIOVASCULAR: Slightly tachycardic with regular rhythm. LUNGS: Clear anteriorly. ABDOMEN: Obese, soft, nontender, nondistended. EXTREMITIES: On her right batista there is an open laceration with a pinkish colored lesion. There was no open draining puss. There was some edema. LABORATORY DATA: as mentioned in the HPI. IMPRESSION: 1. Right lower extremity cellulitis. 2. Positive troponin. 3. Hyponatremia. 4. History of chronic kidney disease. 5. History of diabetes. 6. History of peripheral vascular disease. 7. History of dementia. 8. History of chronic obstructive pulmonary disease/asthma. 9. History of hypertension. 10. History of dyslipidemia. 11. Iron deficiency anemia. 12. Urinary tract infection. PLAN: She will be placed on antibiotics. We will follow up on culture results. We will place a wo und care consult. As far as her elevated troponin is concerned, it is probably demand ischemia give n her blood pressure, as mentioned, was also greater than 200 at home. We will, however, obtain a 2D echo and place a cardiology consult. She will be continued with her home medication with adjustmen t as needed. The antibiotics will cover both her UTI and her cellulitis and again we will follow up on the culture results. Further workup and management per clinical course. Dictated By: KRISTI AGOSTO/NIC Conf#: [id number] DID#: [id number]
[2016-11-19] MEDS: CEFEPIME 2GM/50 ML IVPB SCH (10:49)
[2016-11-19] MEDS: SODIUM CHLORIDE 1 GM TAB PO SCH ×3 (10:49→21:03)
[2016-11-19] MEDS: NA BICARBONATE 650 MG TAB PO SCH ×2 (10:49→21:01)
[2016-11-19] MEDS: OXYBUTYNIN (XL) 5 MG TAB PO SCH ×4 (10:50→21:03)
[2016-11-19] MEDS: VALSARTAN 160 MG TAB PO SCH (10:53)
[2016-11-19] MEDS: LAMOTRIGINE 25 MG TAB PO SCH ×2 (10:53→21:03)
[2016-11-19] MEDS: GABAPENTIN 100 MG CAP PO SCH ×2 (10:54→21:03)
[2016-11-19] MEDS: METOPROLOL (XL) 50 MG TAB PO SCH ×2 (10:54→21:02)
[2016-11-19] MEDS: FUROSEMIDE 40 MG TAB PO SCH (10:56)
[2016-11-19] MEDS: PANTOPRAZOLE (EC) 40 MG TAB PO SCH (10:57)
[2016-11-19] MEDS: ASPIRIN 81 MG TAB PO SCH (10:57)
[2016-11-19] MEDS: FERROUS SULFATE (EC) 325 MG TAB PO SCH ×3 (10:58→21:02)
[2016-11-19] MEDS: AMLODIPINE 5 MG TAB PO SCH (10:58)
[2016-11-19] MEDS: HEPARIN 5,000 UNIT/0.5 ML SYG SC SCH ×2 (11:01→21:47)
--- NOTE | 2016-11-19 11:16 | CONS ---
Date/Time of Note Date/Time of Note DATE: 11/19/16 TIME: 11:07 Assessment/Plan Assessment/Plan Additional Assessment/Plan Hypertension urgency Elevated troponin Sepsis Cellulitis Preserved ejection fraction Chronic kidney disease Diabetes -Patient with minimally elevated troponin likely multifactorial including secondary to hypertension, abnormal renal function. Denies chest pain or shortness of breath. As per the daughter, patient with normal nuclear cardiac stress test done at [facility] in August 2016. She does have evidence of systemic infection with leukocytosis, fevers and lower extremity wound. Would continue aspirin, statin therapy, beta-milton. Antibiotics as per primary team. She does have known history of peripheral arterial disease and is on cilostazol. The family does not want any invasive procedures given her renal function and age. Would continue medical management at the current time. Consultation Date/Type/Reason Admit Date/Time Nov 19, 2016 at 08:32 Type of Consultation: cv Reason for Consultation Elevated troponin Hx of Present Illness This is an 86-year-old female with past medical history of hypertension, chronic kidney disease, diastolic congestive heart failure, diabetes, peripheral arterial disease who presents with fevers, chills, hypertension and worsening erythema of lower extremity. Patient developed wound on right leg a few days prior. There has been worsening redness and discomfort. Yesterday, patient with fatigue and intermittent fevers and chills. Blood pressure was taken at home and was close to 200. Given the multiple symptoms, patient was brought to the emergency room for further evaluation and care. She denies any chest pain, shortness of breath or dizziness. She does have a known history of peripheral arterial disease and is under the care of a vascular surgeon at [facility]. Given her renal disease and age, they opted for medical management given the risk of worsening renal function with any intervention. She also had a recent nuclear cardiac stress test in August at [facility] when she presented there with syncope. As per the daughter, the results were normal. 12 point review of systems was performed with all pertinent positives and negatives mentioned above and all else is negative Past Medical History Peripheral arterial disease Medical History: congestive heart failure, diabetes, high cholesterol, hypertension, renal disease Family History Significant Family History: no pertinent family hx Social History Alcohol Use: none Smoking Status: Never smoker Drug Use: none Other Social History Lives at home with family Exam/Review of Systems Vital Signs Vitals Vital Signs Date Time Temp Pulse Resp B/P Pulse Ox O2 Delivery O2 Flow Rate FiO2 11/19/16 09:04 98.2 75 18 112/49 98 11/19/16 05:12 Room Air Exam Sleeping but arousable, follows commands, no apparent distress Head: normocephalic Neck: supple Respiratory: clear to auscultation, normal air movement Cardiovascular: other (S1-S2 heard), regular rate and rhythm Gastrointestinal: bowel sounds, non-tender, other (No guarding), soft Extremities: other (Mild edema lower extremity, skin breakdown right lower extremity with erythema around the site.) Results Result Diagram: 11/19/16 0725 11/19/16 0509 Results 24 hrs Laboratory Tests Test 11/18/16 23:55 11/19/16 00:52 11/19/16 05:09 11/19/16 07:25 Activated Partial Thromboplast Time 29.2 Alanine Aminotransferase (ALT/SGPT) 24 21 Albumin 4.1 3.2 L Albumin/Globulin Ratio 1.10 0.84 Alkaline Phosphatase 89 59 Anion Gap 17 H 19 H Aspartate Amino Transf (AST/SGOT) 28 27 Basophils # 0.0 0.0 Basophils % 0.1 0.2 Blood Urea Nitrogen 48 H 49 H Calcium Level 9.4 8.0 L Carbon Dioxide Level 29 24 Chloride Level 87 L 93 L Creatinine 2.49 H 2.28 H Direct Bilirubin 0.00 0.00 Eosinophils # 0.1 0.2 Eosinophils % 0.4 1.5 Globulin 3.70 H 3.80 H Glucose Level 217 206 Hematocrit 28.8 L 23.9 L Hemoglobin 10.0 L 8.2 L INR International Normalized Ratio 1.00 Indirect Bilirubin 0.1 0.0 Lactic Acid Level 1.9 1.1 0.9 Lymphocytes # 0.6 L 1.4 Lymphocytes % 4.2 L 9.9 L Mean Corpuscular Hemoglobin 30.2 30.0 Mean Corpuscular Hemoglobin Concent 34.7 34.3 Mean Corpuscular Volume 87.0 87.5 Mean Platelet Volume 8.9 9.9 Monocytes # 1.3 H 1.6 H Monocytes % 9.1 11.1 H Neutrophils # 11.8 H 11.1 H Neutrophils % 85.7 H 76.8 Nucleated Red Blood Cells # 0.0 0.0 Nucleated Red Blood Cells % 0.0 0.0 Platelet Count 253 247 Potassium Level 4.9 4.6 Prothrombin Time 13.2 Prothrombin Time Ratio 1.0 Red Blood Count 3.31 L 2.73 L Red Cell Distribution Width 12.0 12.4 Sodium Level 128 L 131 L Total Bilirubin 0.1 L 0.0 L Total Protein 7.8 7.0 Troponin I 0.158 *H 0.252 *H White Blood Count 13.8 #H 14.5 H Urine Bacteria MANY Urine Bilirubin NEGATIVE Urine Clarity CLEAR Urine Color LT. YELLOW Urine Glucose 0.1% H Urine Hemoglobin 1+ H Urine Ketones NEGATIVE Urine Leukocyte Esterase 1+ H Urine Microscopic RBC 2-5 Urine Microscopic WBC 25-50 Urine Nitrite NEGATIVE Urine Specific [place] 1.010 Urine Squamous Epithelial Cells RARE Urine Total Protein 1+ H Urine Urobilinogen 0.2 E.U./dL Urine pH 5.5 Creatine Kinase 150 Creatine Kinase Index 1.3 Creatinine Kinase MB (Mass) 1.89 Test 11/19/16 08:09 Bedside Glucose 207 Medications Medications Current Medications Lorazepam (Ativan) 0.5 mg Q6H PRN IV ANXIETY; Start 11/19/16 at 05:30 Ondansetron HCl (Zofran Inj) 4 mg Q6H PRN IV NAUSEA AND/OR VOMITING; Start at 05:30 Nitroglycerin (Nitroglycerin (Sl Tab) 0.4 Mg) 1 tab Q5M PRN SL CHEST PAIN; Start 11/19/16 at 05:30 Acetaminophen (Tylenol Tab) 650 mg Q6H PRN PO PAIN LEVEL 1-3 OR FEVER; Start at 05:30 Morphine Sulfate (morphine) 2 mg Q4H PRN IV PAIN LEVEL 7-10; Start 11/19/16 at 05:30 Heparin Sodium (Porcine) (Heparin (5000 Units/0.5 ml)) 5,000 unit Q12 SC Last administered on 11/19/16 11:01; Admin Dose 5,000 UNIT; Start 11/19/16 at 09:00 Amlodipine Besylate (Norvasc) 5 mg DAILY PO Last administered on 11/19/16 10: 58; Admin Dose 5 MG; Start 11/19/16 at 09:00 Aspirin (Aspirin) 81 mg DAILY PO Last administered on 11/19/16 10:57; Admin Dose 81 MG; Start 11/19/16 at 09:00 Cilostazol (Pletal) 50 mg BID PO Last administered on 11/19/16 09:00; Admin Dose 50 MG; Start 11/19/16 at 09:00 Ferrous Sulfate (Ferrous Sulfate (Ec)) 325 mg TID PO Last administered on 10:58; Admin Dose 325 MG; Start 11/19/16 at 09:00 Furosemide (Lasix) 20 mg QHS PO ; Start 11/19/16 at 21:00 Furosemide (Lasix) 40 mg DAILY@06 PO Last administered on 11/19/16 10:56; Admin Dose 40 MG; Start 11/19/16 at 06:00 Gabapentin (Neurontin) 100 mg BID PO Last administered on 11/19/16 10:54; Admin Dose 100 MG; Start 11/19/16 at 09:00 Insulin Glargine (Lantus) 10 unit QHS SC ; Start 11/19/16 at 21:00 Lamotrigine (Lamictal) 25 mg BID PO Last administered on 11/19/16 10:53; Admin Dose 25 MG; Start 11/19/16 at 09:00 Levalbuterol (Xopenex Hfa) 1 puff Q4H PRN INH WHEEZING AND SOB; Start 11/19/16 at 05:30 Metoprolol Succinate (Toprol Xl) 50 mg BID PO Last administered on 11/19/16 10 :54; Admin Dose 50 MG; Start 11/19/16 at 09:00 Oxybutynin Chloride (Ditropan Xl) 5 mg QID PO Last administered on 11/19/16 10 :50; Admin Dose 5 MG; Start 11/19/16 at 09:00 Pantoprazole (Protonix Tab) 40 mg DAILY@06 PO Last administered on 11/19/16 10 :57; Admin Dose 40 MG; Start 11/19/16 at 06:00 Sodium Bicarbonate (Sodium Bicarbonate Tab) 650 mg BID PO Last administered on 11/19/16 10:49; Admin Dose 650 MG; Start 11/19/16 at 09:00 Valsartan (Diovan) 160 mg DAILY PO Last administered on 11/19/16 10:53; Admin Dose 160 MG; Start 11/19/16 at 09:00 Atorvastatin Calcium 20 mg 20 mg DAILY@21 PO ; Start 11/19/16 at 21:00 Vancomycin HCl (Vancocin) 250 ml @ 125 mls/hr Q48H IVPB ; Start 11/19/16 at 07: 00 Sodium Chloride (Nacl) 1 gm TID PO Last administered on 11/19/16 10:49; Admin Dose 1 GM; Start 11/19/16 at 09:00; Stop 11/20/18 at 10:00 Miscellaneous Information 1 ea NOTE XX ; Start 11/19/16 at 07:30 Glucose (Glutose) 15 gm Q15M PRN PO DECREASED GLUCOSE; Start 11/19/16 at 07:30 Glucose (Glutose) 22.5 gm Q15M PRN PO DECREASED GLUCOSE; Start 11/19/16 at 07: 30 Dextrose (D50w Syringe) 25 ml Q15M PRN IV DECREASED GLUCOSE; Start 11/19/16 at 07:30 Dextrose (D50w Syringe) 50 ml Q15M PRN IV DECREASED GLUCOSE; Start 11/19/16 at 07:30 Glucagon (Glucagen) 1 mg Q15M PRN IM DECREASED GLUCOSE; Start 11/19/16 at 07:30 Glucose 15 gm 15 gm Q15M PRN BUCCAL DECREASED GLUCOSE; Start 11/19/16 at 07:30 Cefepime HCl (Maxipime 2gm/50 ml (Pmx)) 50 ml @ 100 mls/hr Q24H IVPB Last administered on 11/19/16 10:49; Admin Dose 100 MLS/HR; Start 11/19/16 at 10:30 Diagnostic Test (Pha) (Accucheck) 1 ea 02 XX ; Start 11/20/16 at 02:00 Procedures Procedures ECG demonstrates sinus tachycardia, incomplete right bundle branch block morphology, nonspecific STT wave abnormalities Collin Peter DO Nov 19, 2016 11:15
[2016-11-19] MEDS ORDERED: ACCUCHECK XX SCH (11:30)
[2016-11-19 12:02] LABS: CK-MB 4.93 ng/ml (0.0-2.4)
[2016-11-19 12:06] LABS: TROPONIN-I 0.206 ng/ml (0.00-0.12)
--- NOTE | 2016-11-19 12:14 | RADRPT ---
PROCEDURE: US bilateral lower extremity veins. CLINICAL INDICATION: Bilateral leg pain and swelling. TECHNIQUE: Multiple longitudinal and transverse images of the bilateral lower extremity veins were obtained with tobin scale and color Doppler imaging. The common femoral vein, femoral vein, and popl iteal vein were evaluated. 2D grayscale measurements with compression sonography, color Doppler, and pulsed Doppler with augmentation. COMPARISON: No prior studies are available for comparison. FINDINGS: The bilateral common femoral, femoral and popliteal veins are normally compressible throughout. Col or flow demonstrates normal filling of the vessels. Normal waveforms are visualized and there is no rmal response to augmentation. IMPRESSION: 1. No evidence of deep vein thrombosis involving either lower extremity. RPTAT: QQ .Fer Cunha MD, MD Date Time Electronically viewed and signed by .Fer Cunha MD, on 11/19/2016 12:13 .R/
--- NOTE | 2016-11-19 13:38 | PN ---
Date/Time of Note Date/Time of Note DATE: 11/19/16 TIME: 13:25 Assessment/Plan VTE Prophylaxis VTE Prophylaxis Intervention: heparin Lines/Catheters IV [facility]ter Type (from [facility]): Peripheral IV Urinary Cath still in place: No Assessment/Plan Assessment/Plan 1. Urinary tract infection. on cefepime, follow up with culture 2. Positive troponin. likely infection and renal failure related, normal stress thallium test in [facility] in 08/2016, follow up with Dr. Peter 3. Hyponatremia. mild, follow up with BMP 4. Acute on chronic chronic kidney disease, follow up with BMP 5. Diabetes mellitus, on insulins 6. Peripheral vascular disease. 7. Dementia. chronic 8. Asthma/chronic obstructive pulmonary disease, stable 9. Hypertension. continue antihypertensives 10. Dyslipidemia. on statin 11. Iron deficiency anemia. 12. Right lower extremity trauma with skin tear, no sign of infection 13. DVT prophylaxis: heparin Subjective 24 Hr Interval Summary Free Text/Dictation no chills. no chest pain, no shortness of breath Exam/Review of Systems Vital Signs Vitals Vital Signs Date Time Temp Pulse Resp B/P Pulse Ox O2 Delivery O2 Flow Rate FiO2 11/19/16 11:34 98.7 76 14 104/47 96 Room Air Exam Constitutional: alert, oriented, well developed Psych: nl mood/affect, no complaints Head: atraumatic, normocephalic Eyes: EOMI, nl conjunctiva, nl lids ENMT: nl external ears & nose, nl lips & teeth Neck: non-tender, supple Respiratory: clear to auscultation, normal air movement, No congested cough, No crackles/rales, No diminished breath sounds, No intercostal retraction, No labored breathing, No other, No respirations, No tactile fremitus, No wheezing Cardiovascular: nl pulses, regular rate and rhythm, No S3, No S4, No bruits, No diastolic murmur, No edema, No gallop, No irregular rhythm, No jugular venous distention (JVD), No murmurs/extra sounds, No other, No rub, No systolic murmur Gastrointestinal: nl liver, spleen, non-tender, soft, No ascites, No bowel sounds, No distended, No firm, No hepatomegaly, No mass , No other, No rebound or guarding, No splenomegaly, No surgical scars, No tender Musculoskeletal: nl extremities to inspection Extremities: normal pulses, No calf tenderness, No clubbing, No cyanosis, No edema, No palpable cord, No pitting pedal edema, No tenderness Neurological: FISH AGENT II-XII intact, nl mental status, nl speech, nl strength Skin: other (large skin tear on right lower extremity at [place]. no edema) Results Result Diagram: 11/19/16 0725 11/19/16 0509 Results 24 hrs Laboratory Tests Test 11/18/16 23:55 11/19/16 00:52 11/19/16 05:09 11/19/16 07:25 Activated Partial Thromboplast Time 29.2 Alanine Aminotransferase (ALT/SGPT) 24 21 Albumin 4.1 3.2 L Albumin/Globulin Ratio 1.10 0.84 Alkaline Phosphatase 89 59 Anion Gap 17 H 19 H Aspartate Amino Transf (AST/SGOT) 28 27 Basophils # 0.0 0.0 Basophils % 0.1 0.2 Blood Urea Nitrogen 48 H 49 H Calcium Level 9.4 8.0 L Carbon Dioxide Level 29 24 Chloride Level 87 L 93 L Creatinine 2.49 H 2.28 H Direct Bilirubin 0.00 0.00 Eosinophils # 0.1 0.2 Eosinophils % 0.4 1.5 Globulin 3.70 H 3.80 H Glucose Level 217 206 Hematocrit 28.8 L 23.9 L Hemoglobin 10.0 L 8.2 L INR International Normalized Ratio 1.00 Indirect Bilirubin 0.1 0.0 Lactic Acid Level 1.9 1.1 0.9 Lymphocytes # 0.6 L 1.4 Lymphocytes % 4.2 L 9.9 L Mean Corpuscular Hemoglobin 30.2 30.0 Mean Corpuscular Hemoglobin Concent 34.7 34.3 Mean Corpuscular Volume 87.0 87.5 Mean Platelet Volume 8.9 9.9 Monocytes # 1.3 H 1.6 H Monocytes % 9.1 11.1 H Neutrophils # 11.8 H 11.1 H Neutrophils % 85.7 H 76.8 Nucleated Red Blood Cells # 0.0 0.0 Nucleated Red Blood Cells % 0.0 0.0 Platelet Count 253 247 Potassium Level 4.9 4.6 Prothrombin Time 13.2 Prothrombin Time Ratio 1.0 Red Blood Count 3.31 L 2.73 L Red Cell Distribution Width 12.0 12.4 Sodium Level 128 L 131 L Total Bilirubin 0.1 L 0.0 L Total Protein 7.8 7.0 Troponin I 0.158 *H 0.252 *H White Blood Count 13.8 #H 14.5 H Urine Bacteria MANY Urine Bilirubin NEGATIVE Urine Clarity CLEAR Urine Color LT. YELLOW Urine Glucose 0.1% H Urine Hemoglobin 1+ H Urine Ketones NEGATIVE Urine Leukocyte Esterase 1+ H Urine Microscopic RBC 2-5 Urine Microscopic WBC 25-50 Urine Nitrite NEGATIVE Urine Specific [place] 1.010 Urine Squamous Epithelial Cells RARE Urine Total Protein 1+ H Urine Urobilinogen 0.2 E.U./dL Urine pH 5.5 Creatine Kinase 150 Creatine Kinase Index 1.3 Creatinine Kinase MB (Mass) 1.89 Test 11/19/16 08:09 11/19/16 11:08 11/19/16 13:07 Bedside Glucose 207 173 Creatine Kinase 371 #H Creatine Kinase Index 1.3 Creatinine Kinase MB (Mass) 4.93 H Troponin I 0.206 *H Medications Medications Current Medications Lorazepam (Ativan) 0.5 mg Q6H PRN IV ANXIETY; Start 11/19/16 at 05:30 Ondansetron HCl (Zofran Inj) 4 mg Q6H PRN IV NAUSEA AND/OR VOMITING; Start at 05:30 Nitroglycerin (Nitroglycerin (Sl Tab) 0.4 Mg) 1 tab Q5M PRN SL CHEST PAIN; Start 11/19/16 at 05:30 Acetaminophen (Tylenol Tab) 650 mg Q6H PRN PO PAIN LEVEL 1-3 OR FEVER; Start at 05:30 Morphine Sulfate (morphine) 2 mg Q4H PRN IV PAIN LEVEL 7-10; Start 11/19/16 at 05:30 Heparin Sodium (Porcine) (Heparin (5000 Units/0.5 ml)) 5,000 unit Q12 SC Last administered on 11/19/16 11:01; Admin Dose 5,000 UNIT; Start 11/19/16 at 09:00 Amlodipine Besylate (Norvasc) 5 mg DAILY PO Last administered on 11/19/16 10: 58; Admin Dose 5 MG; Start 11/19/16 at 09:00 Aspirin (Aspirin) 81 mg DAILY PO Last administered on 11/19/16 10:57; Admin Dose 81 MG; Start 11/19/16 at 09:00 Cilostazol (Pletal) 50 mg BID PO Last administered on 11/19/16 09:00; Admin Dose 50 MG; Start 11/19/16 at 09:00 Ferrous Sulfate (Ferrous Sulfate (Ec)) 325 mg TID PO Last administered on 10:58; Admin Dose 325 MG; Start 11/19/16 at 09:00 Furosemide (Lasix) 20 mg QHS PO ; Start 11/19/16 at 21:00 Furosemide (Lasix) 40 mg DAILY@06 PO Last administered on 11/19/16 10:56; Admin Dose 40 MG; Start 11/19/16 at 06:00 Gabapentin (Neurontin) 100 mg BID PO Last administered on 11/19/16 10:54; Admin Dose 100 MG; Start 11/19/16 at 09:00 Insulin Glargine (Lantus) 10 unit QHS SC ; Start 11/19/16 at 21:00 Lamotrigine (Lamictal) 25 mg BID PO Last administered on 11/19/16 10:53; Admin Dose 25 MG; Start 11/19/16 at 09:00 Levalbuterol (Xopenex Hfa) 1 puff Q4H PRN INH WHEEZING AND SOB; Start 11/19/16 at 05:30 Metoprolol Succinate (Toprol Xl) 50 mg BID PO Last administered on 11/19/16 10 :54; Admin Dose 50 MG; Start 11/19/16 at 09:00 Oxybutynin Chloride (Ditropan Xl) 5 mg QID PO Last administered on 11/19/16 10 :50; Admin Dose 5 MG; Start 11/19/16 at 09:00 Pantoprazole (Protonix Tab) 40 mg DAILY@06 PO Last administered on 11/19/16 10 :57; Admin Dose 40 MG; Start 11/19/16 at 06:00 Sodium Bicarbonate (Sodium Bicarbonate Tab) 650 mg BID PO Last administered on 11/19/16 10:49; Admin Dose 650 MG; Start 11/19/16 at 09:00 Valsartan 160 mg 160 mg DAILY PO Last administered on 11/19/16 10:53; Admin Dose 160 MG; Start 11/19/16 at 09:00 Vancomycin HCl (Vancocin) 250 ml @ 125 mls/hr Q48H IVPB ; Start 11/19/16 at 07: 00 Sodium Chloride (Nacl) 1 gm TID PO Last administered on 11/19/16 10:49; Admin Dose 1 GM; Start 11/19/16 at 09:00; Stop 11/20/18 at 10:00 Miscellaneous Information 1 ea NOTE XX ; Start 11/19/16 at 07:30 Glucose (Glutose) 15 gm Q15M PRN PO DECREASED GLUCOSE; Start 11/19/16 at 07:30 Glucose (Glutose) 22.5 gm Q15M PRN PO DECREASED GLUCOSE; Start 11/19/16 at 07: 30 Dextrose (D50w Syringe) 25 ml Q15M PRN IV DECREASED GLUCOSE; Start 11/19/16 at 07:30 Dextrose (D50w Syringe) 50 ml Q15M PRN IV DECREASED GLUCOSE; Start 11/19/16 at 07:30 Glucagon (Glucagen) 1 mg Q15M PRN IM DECREASED GLUCOSE; Start 11/19/16 at 07:30 Glucose 15 gm 15 gm Q15M PRN BUCCAL DECREASED GLUCOSE; Start 11/19/16 at 07:30 Cefepime HCl (Maxipime 2gm/50 ml (Pmx)) 50 ml @ 100 mls/hr Q24H IVPB Last administered on 11/19/16 10:49; Admin Dose 100 MLS/HR; Start 11/19/16 at 10:30 Diagnostic Test (Pha) (Accucheck) 1 ea 02 XX ; Start 11/20/16 at 02:00 Atorvastatin Calcium (Lipitor) 40 mg DAILY@21 PO ; Start 11/19/16 at 21:00 VEL STEPHEN MD Nov 19, 2016 13:35
[2016-11-19] MEDS: INSULIN ASPART [NOVOLOG] 3 ML PEN SC SCH ×3 (13:42→21:46)
--- NOTE | 2016-11-19 13:46 | RADRPT ---
Echocardiogram Report Patient Name: KRIS MCPHERSON Gender: Female Date: 1930 Study Date: 19-Nov-2016 Sensor Operator: Adithya Welsh [facility] Location: [id number] Ref. Physician: KRISTI PALACIOS Quality: Adequate Procedures: Transthoracic echocardiogram with complete 2D, M-Mode, and doppler examination. Indications: ELEVATED TROPONIN. 2D/M Mode Doppler Measurement Value Normal Ranges Measurement Value Normal Ranges LVIDd 2D 4.4 3.5 - 5.6 cm AV Peak Arc[place] 1.5 m/sec LVIDs 2D 2.3 2.1 - 4.1 cm AV Peak PG 9.0 mmHg FS 2D 48.7 % LVOT Peak [place] 0.8 m/sec LVPWd 2D 1.0 0.6 - 1.1 cm LVOT Peak PG 2.0 mmHg IVSd 2D 1.0 0.6 - 1.1 cm MV E Peak [place]io 0.7 m/sec IVS/LVPW 2D 0.9 MV A Peak [place]io 0.8 m/sec AoR Diam 2D 3.4 2.0 - 3.7 cm MV E/A 0.8 LA/Ao 2D 1 0 - 1 MV Decel Time 239 msec EDV 2D 84.6 cm3 MV E/A 0.8 ESV 2D 11.4 cm3 TR Peak Arcenio 2.5 m/sec LA Dimen 2D 3.4 2.3 - 4.0 cm TR Peak PG 24.0 mmHg RVSP 32.0 mmHg Findings Left Ventricle: Normal left ventricular systolic function. Normal left ventricular cavity size. Mild concentric left ventricular hypertrophy. Ejection fraction is visually estimated at 55 %. Tissue Doppler/Mitral Doppler indices are consistent with impaired relaxation (Stage I diastolic dysfunction). Right Ventricle: Normal right ventricular size. Normal right ventricular systolic function. Left Atrium: The left atrium is normal in size. Right Atrium: The right atrium is normal in size. Mitral Valve: Mitral valve leaflets appear mildly thickened. Mild mitral annular calcification. Trace mitral regurgitation. Aortic Valve: No hemodynamically significant aortic stenosis by doppler. Aortic cusps appear mildly calcified. Trace aortic valve regurgitation. Tricuspid Valve: Normal appearance and function of the tricuspid valve with trace physiologic regurgitation. Estimated peak PA systolic pressure 32 mmHg. Pulmonic Valve: Pulmonic valve not well visualized. Pericardium: Normal pericardium with no significant pericardial effusion. Aorta: Normal aortic root. IVC: Dilated IVC with respiratory collapse consistent with elevated right atrial pressure. Conclusions 1.Normal left ventricular systolic function. Normal left ventricular cavity size. Mild concentric left ventricular hypertrophy. Ejection fraction is visually estimated at 55 %. Tissue Doppler/Mitral Doppler indices are consistent with impaired relaxation (Stage I diastolic dysfunction). 2.Normal right ventricular size. Normal right ventricular systolic function. 3.The left atrium is normal in size. 4.The right atrium is normal in size. 5.No significant valvular stenosis or regurgitation seen. 6.Normal pericardium with no significant pericardial effusion. Electronically Signed By: Collin Peter 19-Nov-2016 13:45:17 -0800 Patient Name: KRIS MCPHERSON Study Date: 19-Nov-2016 [id number]
[2016-11-19] MEDS ORDERED: NON-FORMULARY/PATIENT OWN MED (Simvastatin 40 MG) PO SCH (21:00)
[2016-11-19] MEDS ORDERED: ATORVASTATIN 20 MG TAB PO SCH ×2 (21:00)
[2016-11-19] MEDS: ATORVASTATIN 40 MG TAB PO SCH (21:06)
[2016-11-19] MEDS: FUROSEMIDE 20 MG TAB PO SCH (21:07)
[2016-11-19] MEDS: INSULIN GLARGINE [LANtus] 3 ML PEN SC SCH (21:45)
[2016-11-20] VITALS (12 sets, daily range): BP systolic 118–142; BP diastolic 58–63; PULSE 78–85; RESP 16–20
[2016-11-20] MEDS ORDERED: ACCUCHECK XX SCH (02:00)
[2016-11-20] MEDS: ACCUCHECK XX SCH (02:00)
[2016-11-20] MEDS: PANTOPRAZOLE (EC) 40 MG TAB PO SCH (05:29)
[2016-11-20] MEDS: FUROSEMIDE 40 MG TAB PO SCH (05:29)
[2016-11-20] MEDS: INSULIN ASPART [NOVOLOG] 3 ML PEN SC SCH ×4 (08:00→21:00)
[2016-11-20] MEDS: ASPIRIN 81 MG TAB PO SCH (09:24)
[2016-11-20] MEDS: CILOSTAZOL 100 MG TAB PO SCH ×2 (09:25→21:14)
[2016-11-20] MEDS: FERROUS SULFATE (EC) 325 MG TAB PO SCH ×3 (09:25→21:14)
[2016-11-20] MEDS: SODIUM CHLORIDE 1 GM TAB PO SCH ×3 (09:25→21:15)
[2016-11-20] MEDS: OXYBUTYNIN (XL) 5 MG TAB PO SCH ×4 (09:25→21:14)
[2016-11-20] MEDS: METOPROLOL (XL) 50 MG TAB PO SCH ×2 (09:25→21:15)
[2016-11-20] MEDS: LAMOTRIGINE 25 MG TAB PO SCH ×2 (09:25→21:15)
[2016-11-20] MEDS: AMLODIPINE 5 MG TAB PO SCH (09:25)
[2016-11-20] MEDS: GABAPENTIN 100 MG CAP PO SCH ×2 (09:25→21:15)
[2016-11-20] MEDS: NA BICARBONATE 650 MG TAB PO SCH ×2 (09:25→21:15)
[2016-11-20] MEDS: VALSARTAN 160 MG TAB PO SCH (09:26)
[2016-11-20] MEDS: HEPARIN 5,000 UNIT/0.5 ML SYG SC SCH ×2 (09:35→21:17)
[2016-11-20 10:02] LABS: ADD SCAN DIFF NO
[2016-11-20 10:04] LABS: BASOPHILS % 0.3 % (0.0-2.0); EOSINOPHILS # 0.3 10^3/ul (0.0-0.5); EOSINOPHILS % 3.2 % (0.0-7.0); HEMATOCRIT 28.4 % (37.0-47.0); HEMOGLOBIN 9.7 g/dl (12.0-16.0); LYMPHOCYTES # 1.2 10^3/ul (0.8-2.9); LYMPHOCYTES % 11.5 % (15.0-51.0); MEAN CORPUSCULAR HEMOGLOBIN 30.3 pg (29.0-33.0); MEAN CORPUSCULAR HGB CONC 34.2 g/dl (32.0-37.0); MEAN CORPUSCULAR VOLUME 88.8 fl (82.0-101.0); MEAN PLATELET VOLUME 8.8 fl (7.4-10.4); MONOCYTE # 1.2 10^3/ul (0.3-0.9); MONOCYTES % 11.8 % (0.0-11.0); NEUTROPHIL # 7.4 10^3/ul (1.6-7.5); NEUTROPHILS % 72.8 % (39.0-77.0); PLATELET COUNT 250 10^3/UL (140-415); RED CELL DISTRIBUTION WIDTH 12.5 % (11.5-14.5); WHITE BLOOD COUNT 10.1 10^3/ul (4.8-10.8)
[2016-11-20] MEDS: CEFEPIME 2GM/50 ML IVPB SCH (10:07)
[2016-11-20 10:21] LABS: CREATININE 2.42 mg/dl (0.44-1.00)
--- NOTE | 2016-11-20 13:08 | CONS ---
Date/Time of Note Date/Time of Note DATE: 11/20/16 TIME: 13:06 Assessment/Plan Assessment/Plan Additional Assessment/Plan Hypertension urgency, resolved Elevated troponin Sepsis Cellulitis Preserved ejection fraction Chronic kidney disease Diabetes -Blood pressure trend has improved, feeling much better. Creatinine is slightly on the higher side. If continues to worsen, would consider holding diuretics. Continue antiplatelet therapy, statin and beta-milton. Consultation Date/Type/Reason Admit Date/Time Nov 19, 2016 at 08:32 Initial Consult Date Type of Consultation: cv 24 HR Interval Summary Free Text/Dictation Feeling much better today, no chest pain, shortness of breath or fevers and chills Exam/Review of Systems Vital Signs Vitals Vital Signs Date Time Temp Pulse Resp B/P Pulse Ox O2 Delivery O2 Flow Rate FiO2 11/20/16 12:21 79 11/20/16 11:56 98.1 20 125/60 95 11/19/16 11:34 Room Air Intake and Output 11/19/16 11/19/16 11/20/16 15:00 23:00 07:00 Intake Total 1280 ml 725 ml Balance 1280 ml 725 ml Exam Sitting up, no apparent distress Constitutional: alert, oriented Head: normocephalic Neck: supple Respiratory: other (Coarse breath sounds bilaterally, no wheezing) Cardiovascular: other (S1-S2), regular rate and rhythm Gastrointestinal: bowel sounds, non-tender, soft Extremities: edema Results Result Diagram: 11/20/16 0942 11/20/16 0942 Results 24 hrs Laboratory Tests Test 11/19/16 13:07 11/19/16 17:49 11/19/16 21:42 11/20/16 02:55 Bedside Glucose 173 213 232 H 135 Test 11/20/16 08:04 11/20/16 09:42 11/20/16 11:38 Bedside Glucose 95 196 Anion Gap 19 H Basophils # 0.0 Basophils % 0.3 Blood Urea Nitrogen 57 H Calcium Level 9.0 Carbon Dioxide Level 26 Chloride Level 91 L Creatinine 2.42 H Eosinophils # 0.3 Eosinophils % 3.2 Glucose Level 196 Hematocrit 28.4 L Hemoglobin 9.7 L Lymphocytes # 1.2 Lymphocytes % 11.5 L Magnesium Level 2.0 Mean Corpuscular Hemoglobin 30.3 Mean Corpuscular Hemoglobin Concent 34.2 Mean Corpuscular Volume 88.8 Mean Platelet Volume 8.8 Monocytes # 1.2 H Monocytes % 11.8 H Neutrophils # 7.4 Neutrophils % 72.8 Nucleated Red Blood Cells # 0.0 Nucleated Red Blood Cells % 0.0 Platelet Count 250 Potassium Level 5.0 Red Blood Count 3.20 L Red Cell Distribution Width 12.5 Sodium Level 131 L White Blood Count 10.1 # Medications Medications Current Medications Lorazepam (Ativan) 0.5 mg Q6H PRN IV ANXIETY; Start 11/19/16 at 05:30 Ondansetron HCl (Zofran Inj) 4 mg Q6H PRN IV NAUSEA AND/OR VOMITING; Start at 05:30 Nitroglycerin (Nitroglycerin (Sl Tab) 0.4 Mg) 1 tab Q5M PRN SL CHEST PAIN; Start 11/19/16 at 05:30 Acetaminophen (Tylenol Tab) 650 mg Q6H PRN PO PAIN LEVEL 1-3 OR FEVER; Start at 05:30 Morphine Sulfate (morphine) 2 mg Q4H PRN IV PAIN LEVEL 7-10; Start 11/19/16 at 05:30 Heparin Sodium (Porcine) (Heparin (5000 Units/0.5 ml)) 5,000 unit Q12 SC Last administered on 11/20/16 09:35; Admin Dose 5,000 UNIT; Start 11/19/16 at 09:00 Amlodipine Besylate (Norvasc) 5 mg DAILY PO Last administered on 11/20/16 09:25 ; Admin Dose 5 MG; Start 11/19/16 at 09:00 Aspirin (Aspirin) 81 mg DAILY PO Last administered on 11/20/16 09:24; Admin Dose 81 MG; Start 11/19/16 at 09:00 Cilostazol (Pletal) 50 mg BID PO Last administered on 11/20/16 09:25; Admin Dose 50 MG; Start 11/19/16 at 09:00 Ferrous Sulfate (Ferrous Sulfate (Ec)) 325 mg TID PO Last administered on 12:05; Admin Dose 325 MG; Start 11/19/16 at 09:00 Furosemide (Lasix) 20 mg QHS PO Last administered on 11/19/16 21:07; Admin Dose 20 MG; Start 11/19/16 at 21:00 Furosemide (Lasix) 40 mg DAILY@06 PO Last administered on 11/20/16 05:29; Admin Dose 40 MG; Start 11/19/16 at 06:00 Gabapentin (Neurontin) 100 mg BID PO Last administered on 11/20/16 09:25; Admin Dose 100 MG; Start 11/19/16 at 09:00 Insulin Glargine (Lantus) 10 unit QHS SC Last administered on 11/19/16 21:45; Admin Dose 10 UNIT; Start 11/19/16 at 21:00 Lamotrigine (Lamictal) 25 mg BID PO Last administered on 11/20/16 09:25; Admin Dose 25 MG; Start 11/19/16 at 09:00 Levalbuterol (Xopenex Hfa) 1 puff Q4H PRN INH WHEEZING AND SOB; Start 11/19/16 at 05:30 Metoprolol Succinate (Toprol Xl) 50 mg BID PO Last administered on 11/20/16 09: 25; Admin Dose 50 MG; Start 11/19/16 at 09:00 Oxybutynin Chloride (Ditropan Xl) 5 mg QID PO Last administered on 11/20/16 12: 05; Admin Dose 5 MG; Start 11/19/16 at 09:00 Pantoprazole (Protonix Tab) 40 mg DAILY@06 PO Last administered on 11/20/16 05: 29; Admin Dose 40 MG; Start 11/19/16 at 06:00 Sodium Bicarbonate (Sodium Bicarbonate Tab) 650 mg BID PO Last administered on 11/20/16 09:25; Admin Dose 650 MG; Start 11/19/16 at 09:00 Valsartan (Diovan) 160 mg DAILY PO Last administered on 11/20/16 09:26; Admin Dose 160 MG; Start 11/19/16 at 09:00 Sodium Chloride (Nacl) 1 gm TID PO Last administered on 11/20/16 12:05; Admin Dose 1 GM; Start 11/19/16 at 09:00; Stop 11/20/18 at 10:00 Miscellaneous Information 1 ea NOTE XX ; Start 11/19/16 at 07:30 Glucose (Glutose) 15 gm Q15M PRN PO DECREASED GLUCOSE; Start 11/19/16 at 07:30 Glucose (Glutose) 22.5 gm Q15M PRN PO DECREASED GLUCOSE; Start 11/19/16 at 07: 30 Dextrose (D50w Syringe) 25 ml Q15M PRN IV DECREASED GLUCOSE; Start 11/19/16 at 07:30 Dextrose (D50w Syringe) 50 ml Q15M PRN IV DECREASED GLUCOSE; Start 11/19/16 at 07:30 Glucagon (Glucagen) 1 mg Q15M PRN IM DECREASED GLUCOSE; Start 11/19/16 at 07:30 Glucose 15 gm 15 gm Q15M PRN BUCCAL DECREASED GLUCOSE; Start 11/19/16 at 07:30 Cefepime HCl (Maxipime 2gm/50 ml (Pmx)) 50 ml @ 100 mls/hr Q24H IVPB Last administered on 11/20/16 10:07; Admin Dose 100 MLS/HR; Start 11/19/16 at 10:30 Diagnostic Test (Pha) (Accucheck) 1 ea 02 XX Last administered on 11/20/16 02: 00; Admin Dose 1 EA; Start 11/20/16 at 02:00 Atorvastatin Calcium 40 mg 40 mg DAILY@21 PO Last administered on 11/19/16 21: 06; Admin Dose 40 MG; Start 11/19/16 at 21:00 Vancomycin HCl (Vancocin) 250 ml @ 125 mls/hr Q48H IVPB ; Start 11/21/16 at 12: 00 Collin Peter DO Nov 20, 2016 13:08
--- NOTE | 2016-11-20 14:43 | PN ---
Date/Time of Note Date/Time of Note DATE: 11/20/16 TIME: 14:39 Assessment/Plan VTE Prophylaxis VTE Prophylaxis Intervention: heparin Lines/Catheters IV [facility]ter Type (from [facility]): Peripheral IV Urinary Cath still in place: No Assessment/Plan Assessment/Plan 1. Urinary tract infection. on cefepime, follow up with culture 2. Positive troponin. likely infection and renal failure related, normal stress thallium test in [facility] in 08/2016, follow up with Dr. Peter 3. Hyponatremia. mild, follow up with BMP 4. Acute on chronic chronic kidney disease, follow up with BMP 5. Diabetes mellitus, on insulins 6. Peripheral vascular disease. 7. Dementia. chronic 8. Asthma/chronic obstructive pulmonary disease, stable 9. Hypertension. continue antihypertensives 10. Dyslipidemia. on statin 11. Iron deficiency anemia. 12. Right lower extremity trauma with skin tear, no sign of infection 13. DVT prophylaxis: heparin Subjective 24 Hr Interval Summary Free Text/Dictation no pain. no shortness of breath. no fever Exam/Review of Systems Vital Signs Vitals Vital Signs Date Time Temp Pulse Resp B/P Pulse Ox O2 Delivery O2 Flow Rate FiO2 11/20/16 12:21 79 11/20/16 11:56 98.1 20 125/60 95 11/19/16 11:34 Room Air Intake and Output 11/19/16 11/19/16 11/20/16 15:00 23:00 07:00 Intake Total 1280 ml 725 ml Balance 1280 ml 725 ml Exam Constitutional: alert, oriented, well developed Psych: nl mood/affect, no complaints Head: atraumatic, normocephalic Eyes: PERRL, nl conjunctiva, nl lids ENMT: nl external ears & nose, nl lips & teeth, nl nasal mucosa & septum Neck: non-tender, supple Respiratory: clear to auscultation, normal air movement Cardiovascular: nl pulses, regular rate and rhythm, No S3, No S4, No bruits, No diastolic murmur, No edema, No gallop, No irregular rhythm, No jugular venous distention (JVD), No murmurs/extra sounds, No other, No rub, No systolic murmur Gastrointestinal: nl liver, spleen, non-tender, soft, No ascites, No bowel sounds, No distended, No firm, No hepatomegaly, No mass , No other, No rebound or guarding, No splenomegaly, No surgical scars, No tender Musculoskeletal: nl extremities to inspection Extremities: edema 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, nl mental status, nl speech, nl strength Results Result Diagram: 11/20/16 0942 11/20/16 0942 Results 24 hrs Laboratory Tests Test 11/19/16 17:49 11/19/16 21:42 11/20/16 02:55 11/20/16 08:04 Bedside Glucose 213 232 H 135 95 Test 11/20/16 09:42 11/20/16 11:38 Anion Gap 19 H Basophils # 0.0 Basophils % 0.3 Blood Urea Nitrogen 57 H Calcium Level 9.0 Carbon Dioxide Level 26 Chloride Level 91 L Creatinine 2.42 H Eosinophils # 0.3 Eosinophils % 3.2 Glucose Level 196 Hematocrit 28.4 L Hemoglobin 9.7 L Lymphocytes # 1.2 Lymphocytes % 11.5 L Magnesium Level 2.0 Mean Corpuscular Hemoglobin 30.3 Mean Corpuscular Hemoglobin Concent 34.2 Mean Corpuscular Volume 88.8 Mean Platelet Volume 8.8 Monocytes # 1.2 H Monocytes % 11.8 H Neutrophils # 7.4 Neutrophils % 72.8 Nucleated Red Blood Cells # 0.0 Nucleated Red Blood Cells % 0.0 Platelet Count 250 Potassium Level 5.0 Red Blood Count 3.20 L Red Cell Distribution Width 12.5 Sodium Level 131 L White Blood Count 10.1 # Bedside Glucose 196 Medications Medications Current Medications Lorazepam (Ativan) 0.5 mg Q6H PRN IV ANXIETY; Start 11/19/16 at 05:30 Ondansetron HCl (Zofran Inj) 4 mg Q6H PRN IV NAUSEA AND/OR VOMITING; Start at 05:30 Nitroglycerin (Nitroglycerin (Sl Tab) 0.4 Mg) 1 tab Q5M PRN SL CHEST PAIN; Start 11/19/16 at 05:30 Acetaminophen (Tylenol Tab) 650 mg Q6H PRN PO PAIN LEVEL 1-3 OR FEVER; Start at 05:30 Morphine Sulfate (morphine) 2 mg Q4H PRN IV PAIN LEVEL 7-10; Start 11/19/16 at 05:30 Heparin Sodium (Porcine) (Heparin (5000 Units/0.5 ml)) 5,000 unit Q12 SC Last administered on 11/20/16 09:35; Admin Dose 5,000 UNIT; Start 11/19/16 at 09:00 Amlodipine Besylate (Norvasc) 5 mg DAILY PO Last administered on 11/20/16 09:25 ; Admin Dose 5 MG; Start 11/19/16 at 09:00 Aspirin (Aspirin) 81 mg DAILY PO Last administered on 11/20/16 09:24; Admin Dose 81 MG; Start 11/19/16 at 09:00 Cilostazol (Pletal) 50 mg BID PO Last administered on 11/20/16 09:25; Admin Dose 50 MG; Start 11/19/16 at 09:00 Ferrous Sulfate (Ferrous Sulfate (Ec)) 325 mg TID PO Last administered on 12:05; Admin Dose 325 MG; Start 11/19/16 at 09:00 Furosemide (Lasix) 20 mg QHS PO Last administered on 11/19/16 21:07; Admin Dose 20 MG; Start 11/19/16 at 21:00 Furosemide (Lasix) 40 mg DAILY@06 PO Last administered on 11/20/16 05:29; Admin Dose 40 MG; Start 11/19/16 at 06:00 Gabapentin (Neurontin) 100 mg BID PO Last administered on 11/20/16 09:25; Admin Dose 100 MG; Start 11/19/16 at 09:00 Insulin Glargine (Lantus) 10 unit QHS SC Last administered on 11/19/16 21:45; Admin Dose 10 UNIT; Start 11/19/16 at 21:00 Lamotrigine (Lamictal) 25 mg BID PO Last administered on 11/20/16 09:25; Admin Dose 25 MG; Start 11/19/16 at 09:00 Levalbuterol (Xopenex Hfa) 1 puff Q4H PRN INH WHEEZING AND SOB; Start 11/19/16 at 05:30 Metoprolol Succinate (Toprol Xl) 50 mg BID PO Last administered on 11/20/16 09: 25; Admin Dose 50 MG; Start 11/19/16 at 09:00 Oxybutynin Chloride (Ditropan Xl) 5 mg QID PO Last administered on 11/20/16 12: 05; Admin Dose 5 MG; Start 11/19/16 at 09:00 Pantoprazole (Protonix Tab) 40 mg DAILY@06 PO Last administered on 11/20/16 05: 29; Admin Dose 40 MG; Start 11/19/16 at 06:00 Sodium Bicarbonate (Sodium Bicarbonate Tab) 650 mg BID PO Last administered on 11/20/16 09:25; Admin Dose 650 MG; Start 11/19/16 at 09:00 Valsartan (Diovan) 160 mg DAILY PO Last administered on 11/20/16 09:26; Admin Dose 160 MG; Start 11/19/16 at 09:00 Sodium Chloride (Nacl) 1 gm TID PO Last administered on 11/20/16 12:05; Admin Dose 1 GM; Start 11/19/16 at 09:00; Stop 11/20/18 at 10:00 Miscellaneous Information 1 ea NOTE XX ; Start 11/19/16 at 07:30 Glucose (Glutose) 15 gm Q15M PRN PO DECREASED GLUCOSE; Start 11/19/16 at 07:30 Glucose (Glutose) 22.5 gm Q15M PRN PO DECREASED GLUCOSE; Start 11/19/16 at 07: 30 Dextrose (D50w Syringe) 25 ml Q15M PRN IV DECREASED GLUCOSE; Start 11/19/16 at 07:30 Dextrose (D50w Syringe) 50 ml Q15M PRN IV DECREASED GLUCOSE; Start 11/19/16 at 07:30 Glucagon (Glucagen) 1 mg Q15M PRN IM DECREASED GLUCOSE; Start 11/19/16 at 07:30 Glucose 15 gm 15 gm Q15M PRN BUCCAL DECREASED GLUCOSE; Start 11/19/16 at 07:30 Cefepime HCl (Maxipime 2gm/50 ml (Pmx)) 50 ml @ 100 mls/hr Q24H IVPB Last administered on 11/20/16 10:07; Admin Dose 100 MLS/HR; Start 11/19/16 at 10:30 Diagnostic Test (Pha) (Accucheck) 1 ea 02 XX Last administered on 11/20/16 02: 00; Admin Dose 1 EA; Start 11/20/16 at 02:00 Atorvastatin Calcium 40 mg 40 mg DAILY@21 PO Last administered on 11/19/16 21: 06; Admin Dose 40 MG; Start 11/19/16 at 21:00 Vancomycin HCl (Vancocin) 250 ml @ 125 mls/hr Q48H IVPB ; Start 11/21/16 at 12: 00 VEL STEPHEN MD Nov 20, 2016 14:43
[2016-11-20] MEDS: ATORVASTATIN 40 MG TAB PO SCH (21:15)
[2016-11-20] MEDS: FUROSEMIDE 20 MG TAB PO SCH (21:15)
[2016-11-20] MEDS: INSULIN GLARGINE [LANtus] 3 ML PEN SC SCH (21:16)
[2016-11-21] VITALS (7 sets, daily range): BP systolic 135–140; BP diastolic 63–65; PULSE 85–92; RESP 18–20
[2016-11-21] MEDS: ACCUCHECK XX SCH (02:49)
[2016-11-21] MEDS: FUROSEMIDE 40 MG TAB PO SCH (05:23)
[2016-11-21] MEDS: PANTOPRAZOLE (EC) 40 MG TAB PO SCH (05:23)
[2016-11-21 07:24] LABS: ADD SCAN DIFF NO
[2016-11-21 07:32] LABS: BASOPHILS % 0.4 % (0.0-2.0); EOSINOPHILS # 0.3 10^3/ul (0.0-0.5); EOSINOPHILS % 4.1 % (0.0-7.0); HEMOGLOBIN 9.1 g/dl (12.0-16.0); LYMPHOCYTES # 1.4 10^3/ul (0.8-2.9); LYMPHOCYTES % 20.1 % (15.0-51.0); MEAN CORPUSCULAR HEMOGLOBIN 29.7 pg (29.0-33.0); MEAN CORPUSCULAR HGB CONC 33.7 g/dl (32.0-37.0); MEAN CORPUSCULAR VOLUME 88.2 fl (82.0-101.0); MEAN PLATELET VOLUME 9.2 fl (7.4-10.4); MONOCYTE # 1.2 10^3/ul (0.3-0.9); MONOCYTES % 17.6 % (0.0-11.0); NEUTROPHIL # 3.9 10^3/ul (1.6-7.5); NEUTROPHILS % 57.5 % (39.0-77.0); PLATELET COUNT 250 10^3/UL (140-415); RED BLOOD COUNT 3.06 10^6/ul (4.20-5.40); RED CELL DISTRIBUTION WIDTH 12.5 % (11.5-14.5); WHITE BLOOD COUNT 6.8 10^3/ul (4.8-10.8)
[2016-11-21 07:40] LABS: POTASSIUM 4.5 mmol/L (3.5-5.1)
[2016-11-21 07:42] LABS: CREATININE 2.39 mg/dl (0.44-1.00)
[2016-11-21 07:43] LABS: CALCIUM 9.3 mg/dl (8.4-10.2)
[2016-11-21] MEDS: INSULIN ASPART [NOVOLOG] 3 ML PEN SC SCH ×2 (08:06→12:03)
[2016-11-21] MEDS: CILOSTAZOL 100 MG TAB PO SCH (08:51)
[2016-11-21] MEDS: GABAPENTIN 100 MG CAP PO SCH (08:51)
[2016-11-21] MEDS: ASPIRIN 81 MG TAB PO SCH (08:51)
[2016-11-21] MEDS: NA BICARBONATE 650 MG TAB PO SCH (08:51)
[2016-11-21] MEDS: SODIUM CHLORIDE 1 GM TAB PO SCH ×2 (08:51→12:05)
[2016-11-21] MEDS: VALSARTAN 160 MG TAB PO SCH (08:51)
[2016-11-21] MEDS: FERROUS SULFATE (EC) 325 MG TAB PO SCH ×2 (08:52→12:05)
[2016-11-21] MEDS: LAMOTRIGINE 25 MG TAB PO SCH (08:52)
[2016-11-21] MEDS: AMLODIPINE 5 MG TAB PO SCH (08:52)
[2016-11-21] MEDS: METOPROLOL (XL) 50 MG TAB PO SCH (08:52)
[2016-11-21] MEDS: OXYBUTYNIN (XL) 5 MG TAB PO SCH ×2 (08:52→12:05)
[2016-11-21] MEDS: HEPARIN 5,000 UNIT/0.5 ML SYG SC SCH (09:05)
[2016-11-21] MEDS: CEFEPIME 2GM/50 ML IVPB SCH (10:05)
[2016-11-21] MEDS ORDERED: VANCOMYCIN 1 GM in NS 250 ML IVPB SCH (12:00)
[2016-11-21] MEDS ORDERED: LEVO250T35 PO (14:50)
[2016-11-21] MEDS ORDERED: OXYB5TAB22 PO (14:51)
--- NOTE | 2016-11-21 14:59 | DS ---
Date/Time of Note Date/Time of Note DATE: 11/21/16 TIME: 14:52 Discharge Summary Admission/Discharge Info Admit Date/Time Nov 19, 2016 at 08:32 Discharge Date/Time Final Diagnosis 1. Urinary tract infection. on levaquin 2. Positive troponin. likely infection and renal failure related, normal stress thallium test in [facility] in 08/2016 3. Hyponatremia. improving, follow up with PCP 4. Acute on chronic chronic kidney disease, stable, follow up with PCP 5. Diabetes mellitus, on insulins 6. Peripheral vascular disease. 7. Dementia. chronic 8. Asthma/chronic obstructive pulmonary disease, stable 9. Hypertension. continue antihypertensives 10. Dyslipidemia. on statin 11. Iron deficiency anemia. 12. Right lower extremity trauma with skin tear, no sign of infection Patient Condition: Stable Hospital Course The patient is an 86-year-old female with a history of dementia, diabetes, CKD, COPD/asthma, dyslipidemia, hypertension, pulmonary hypertension, and peripheral vascular disease. She was brought to the ER for elevated blood pressure and fever. The patient is not able to provide me any history, and as such, information is gathered from chart review and from the ER physician. The patient was actually recently admitted here 2 weeks ago after she presented with an asthma exacerbation. At that time, she was also found to have a hemoglobin of 7.3 and found to have an iron deficiency. She was evaluated by GI , but no intervention was done at that time. When she presented to the ER this time, her WBC of 14,000 and she was noted to have a right lower extremity dry and open skin laceration and edema, but there was no open draining wound. She was also found to have an elevated troponin of 0.158, a sodium of 128 and her hemoglobin this time was at 10.3. Her urinalysis was consistent with a UTI. Again, the patient is not able to provide any history, and currently there is no family member at the bedside for me to get more information. Patient has UTI with urine culture positive for K.PNEUMONIAE SSP PNEUMONIAE neal she is on levaquin. She has mildly elevated troponin up to 0.252 that is considered renal failure and UTI/infection related. No further cardiac work up needed per cardiology. Patient has chronic kidney disease. Cr is stable after admission. The last Cr is 2.39 on 11/21/2016. Follow up with nephrology/PCP outpatient. Patient has a wound on right batista, without sign of infection. She will follow up with PCP and wound care for this. Home Meds Active Scripts Oxybutynin Chloride* (Ditropan* XL) 5 Mg Tabsr, 5 MG PO DAILY for 30 Days, TAB.SA Prov:VEL STEPHEN MD 11/21/16 Levofloxacin* (Levaquin*) 250 Mg Tablet, 250 MG PO DAILY for 5 Days, TAB Prov:VEL STEPHEN MD 11/21/16 Levalbuterol* (Xopenex* HFA) 15 Gm Inha, 2 PUFFS INH Q4H Y for WHEEZING AND SOB , #1 INHALER Prov:RADHA LOUISE 10/26/16 Furosemide* (Furosemide*) 20 Mg Tablet, 20 MG PO QHS, #6030 TAB Prov:RADHA LOUISE 10/26/16 Insulin Glargine* (Lantus*) 100 Unit/Ml Soln, 10 UNIT SC QHS for 30 Days Prov:RADHA LOUISE 10/26/16 Sodium Bicarbonate* (Sodium Bicarbonate*) 650 Mg Tablet, 650 MG PO BID for 30 Days, TAB take every other day per nephrology recommendation Prov:RADHA LOUISE 10/26/16 Amlodipine Besylate* (Norvasc*) 5 Mg Tablet, 5 MG PO DAILY for 30 Days, TAB Prov:RADHA LOUISE 10/26/16 Ferrous Sulfate* (Ferrous Sulfate*) 325 Mg Tabec, 325 MG PO TID, #90 TAB Prov:RADHA LOUISE 10/26/16 Metoprolol Succinate* (Toprol XL*) 50 Mg Tab.er.24h, 50 MG PO BID for 30 Days, TAB Prov:RADHA LOUISE 10/26/16 Reported Medications Pantoprazole* (Pantoprazole*) 40 Mg Tablet.dr, 40 MG PO DAILY, TAB 10/24/16 Lamotrigine* (Lamotrigine*) 25 Mg Tablet, 25 MG PO BID, TAB 10/24/16 Aspirin* (Aspirin* Chew) 81 Mg Tab.chew, 81 MG PO DAILY, TAB.CHEW 10/24/16 Cilostazol* (Cilostazol*) 50 Mg Tablet, 50 MG PO BID, TAB 06/26/16 Gabapentin* (Gabapentin*) 100 Mg Capsule, 100 MG PO BID, CAP 05/22/14 Simvastatin (Simvastatin) 40 Mg Tablet, 40 MG PO HS, TAB 05/22/14 Discontinued Reported Medications Valsartan* (Diovan*) 160 Mg Tablet, 160 MG PO DAILY, TAB 06/26/16 Oxybutynin Chloride* (Ditropan* XL) 5 Mg/Bottle Tab.osm.24, 5 MG PO QID, TAB.SA 10/18/15 Discontinued Scripts Furosemide* (Furosemide*) 40 Mg Tablet, 40 MG PO DAILY for 30 Days, TAB Prov:RADHA LOUISE 10/26/16 Pending Labs Laboratory Tests Test 11/20/16 17:26 11/20/16 20:59 11/21/16 02:44 11/21/16 06:24 Bedside Glucose 278mg/dL (70-220) 171mg/dL (70-220) 136mg/dL (70-220) Anion Gap 17 (8-16) Basophils # 0.010^3/ul (0.0-0.1) Basophils % 0.4% (0.0-2.0) Blood Urea Nitrogen 59mg/dl (7-20) Calcium Level 9.3mg/dl (8.4-10.2) Carbon Dioxide Level 27mmol/L (21-31) Chloride Level 95mmol/L (97-110) Creatinine 2.39mg/dl (0.44-1.00) Eosinophils # 0.310^3/ul (0.0-0.5) Eosinophils % 4.1% (0.0-7.0) Glucose Level 148mg/dl (70-220) Hematocrit 27.0% (37.0-47.0) Hemoglobin 9.1g/dl (12.0-16.0) Lymphocytes # 1.410^3/ul (0.8-2.9) Lymphocytes % 20.1% (15.0-51.0) Mean Corpuscular Hemoglobin 29.7pg (29.0-33.0) Mean Corpuscular Hemoglobin Concent 33.7g/dl (32.0-37.0) Mean Corpuscular Volume 88.2fl (82.0-101.0) Mean Platelet Volume 9.2fl (7.4-10.4) Monocytes # 1.210^3/ul (0.3-0.9) Monocytes % 17.6% (0.0-11.0) Neutrophils # 3.910^3/ul (1.6-7.5) Neutrophils % 57.5% (39.0-77.0) Nucleated Red Blood Cells # 0.010^3/ul (0.0-0.0) Nucleated Red Blood Cells % 0.0/100WBC (0.0-0.0) Platelet Count 13946^3/UL (140-415) Potassium Level 4.5mmol/L (3.5-5.1) Red Blood Count 3.0610^6/ul (4.20-5.40) Red Cell Distribution Width 12.5% (11.5-14.5) Sodium Level 134mmol/L (135-144) White Blood Count 6.810^3/ul (4.8-10.8) Test 11/21/16 08:02 11/21/16 11:56 Bedside Glucose 161mg/dL (70-220) 265mg/dL (70-220) VEL STEPHEN MD Nov 21, 2016 14:59
[2016-11-21] MEDS ORDERED: LEVOFLOXACIN 250 MG TAB PO SCH (15:00)
--- NOTE | 2016-11-21 15:24 | CONS ---
Date/Time of Note Date/Time of Note DATE: 11/21/16 TIME: 15:23 Assessment/Plan Assessment/Plan Additional Assessment/Plan Hypertension urgency, resolved Elevated troponin Sepsis Preserved ejection fraction Chronic kidney disease Diabetes -Patient feeling better, blood pressure trend overall remained stable. No new cardiac orders at the current time. Consultation Date/Type/Reason Admit Date/Time Nov 19, 2016 at 08:32 Type of Consultation: cv 24 HR Interval Summary Free Text/Dictation Patient feeling much better, denies chest pain, shortness of breath Exam/Review of Systems Vital Signs Vitals Vital Signs Date Time Temp Pulse Resp B/P Pulse Ox O2 Delivery O2 Flow Rate FiO2 11/21/16 12:46 88 11/21/16 11:36 98.4 20 135/63 100 11/19/16 11:34 Room Air Intake and Output 11/20/16 11/20/16 11/21/16 15:00 23:00 07:00 Intake Total 960 ml 80 ml Output Total 700 ml Balance 960 ml -620 ml Exam No apparent distress Constitutional: alert, oriented Head: normocephalic Neck: supple Respiratory: other (Coarse breath sounds bilaterally, no wheezing) Cardiovascular: other (S1-S2 heard), regular rate and rhythm Gastrointestinal: bowel sounds, non-tender, other (No guarding), soft Extremities: edema Results Result Diagram: 11/21/16 0624 11/21/16 0624 Results 24 hrs Laboratory Tests Test 11/20/16 17:26 11/20/16 20:59 11/21/16 02:44 11/21/16 06:24 Bedside Glucose 278 H 171 136 Anion Gap 17 H Basophils # 0.0 Basophils % 0.4 Blood Urea Nitrogen 59 H Calcium Level 9.3 Carbon Dioxide Level 27 Chloride Level 95 L Creatinine 2.39 H Eosinophils # 0.3 Eosinophils % 4.1 Glucose Level 148 # Hematocrit 27.0 L Hemoglobin 9.1 L Lymphocytes # 1.4 Lymphocytes % 20.1 Mean Corpuscular Hemoglobin 29.7 Mean Corpuscular Hemoglobin Concent 33.7 Mean Corpuscular Volume 88.2 Mean Platelet Volume 9.2 Monocytes # 1.2 H Monocytes % 17.6 H Neutrophils # 3.9 Neutrophils % 57.5 Nucleated Red Blood Cells # 0.0 Nucleated Red Blood Cells % 0.0 Platelet Count 250 Potassium Level 4.5 Red Blood Count 3.06 L Red Cell Distribution Width 12.5 Sodium Level 134 L White Blood Count 6.8 # Test 11/21/16 08:02 11/21/16 11:56 Bedside Glucose 161 265 H Medications Medications Current Medications Lorazepam (Ativan) 0.5 mg Q6H PRN IV ANXIETY; Start 11/19/16 at 05:30 Ondansetron HCl (Zofran Inj) 4 mg Q6H PRN IV NAUSEA AND/OR VOMITING; Start at 05:30 Nitroglycerin (Nitroglycerin (Sl Tab) 0.4 Mg) 1 tab Q5M PRN SL CHEST PAIN; Start 11/19/16 at 05:30 Acetaminophen (Tylenol Tab) 650 mg Q6H PRN PO PAIN LEVEL 1-3 OR FEVER; Start at 05:30 Morphine Sulfate (morphine) 2 mg Q4H PRN IV PAIN LEVEL 7-10; Start 11/19/16 at 05:30 Heparin Sodium (Porcine) (Heparin (5000 Units/0.5 ml)) 5,000 unit Q12 SC Last administered on 11/21/16 09:05; Admin Dose 5,000 UNIT; Start 11/19/16 at 09:00 Amlodipine Besylate (Norvasc) 5 mg DAILY PO Last administered on 11/21/16 08:52 ; Admin Dose 5 MG; Start 11/19/16 at 09:00 Aspirin (Aspirin) 81 mg DAILY PO Last administered on 11/21/16 08:51; Admin Dose 81 MG; Start 11/19/16 at 09:00 Cilostazol (Pletal) 50 mg BID PO Last administered on 11/21/16 08:51; Admin Dose 50 MG; Start 11/19/16 at 09:00 Ferrous Sulfate (Ferrous Sulfate (Ec)) 325 mg TID PO Last administered on 12:05; Admin Dose 325 MG; Start 11/19/16 at 09:00 Furosemide (Lasix) 20 mg QHS PO Last administered on 11/20/16 21:15; Admin Dose 20 MG; Start 11/19/16 at 21:00 Furosemide (Lasix) 40 mg DAILY@06 PO Last administered on 11/21/16 05:23; Admin Dose 40 MG; Start 11/19/16 at 06:00 Gabapentin (Neurontin) 100 mg BID PO Last administered on 11/21/16 08:51; Admin Dose 100 MG; Start 11/19/16 at 09:00 Insulin Glargine (Lantus) 10 unit QHS SC Last administered on 11/20/16 21:16; Admin Dose 10 UNIT; Start 11/19/16 at 21:00 Lamotrigine (Lamictal) 25 mg BID PO Last administered on 11/21/16 08:52; Admin Dose 25 MG; Start 11/19/16 at 09:00 Levalbuterol (Xopenex Hfa) 1 puff Q4H PRN INH WHEEZING AND SOB; Start 11/19/16 at 05:30 Metoprolol Succinate (Toprol Xl) 50 mg BID PO Last administered on 11/21/16 08: 52; Admin Dose 50 MG; Start 11/19/16 at 09:00 Oxybutynin Chloride (Ditropan Xl) 5 mg QID PO Last administered on 11/21/16 12: 05; Admin Dose 5 MG; Start 11/19/16 at 09:00 Pantoprazole (Protonix Tab) 40 mg DAILY@06 PO Last administered on 11/21/16 05: 23; Admin Dose 40 MG; Start 11/19/16 at 06:00 Sodium Bicarbonate (Sodium Bicarbonate Tab) 650 mg BID PO Last administered on 11/21/16 08:51; Admin Dose 650 MG; Start 11/19/16 at 09:00 Valsartan (Diovan) 160 mg DAILY PO Last administered on 11/21/16 08:51; Admin Dose 160 MG; Start 11/19/16 at 09:00 Sodium Chloride (Nacl) 1 gm TID PO Last administered on 11/21/16 12:05; Admin Dose 1 GM; Start 11/19/16 at 09:00; Stop 11/20/18 at 10:00 Miscellaneous Information 1 ea NOTE XX ; Start 11/19/16 at 07:30 Glucose (Glutose) 15 gm Q15M PRN PO DECREASED GLUCOSE; Start 11/19/16 at 07:30 Glucose (Glutose) 22.5 gm Q15M PRN PO DECREASED GLUCOSE; Start 11/19/16 at 07: 30 Dextrose (D50w Syringe) 25 ml Q15M PRN IV DECREASED GLUCOSE; Start 11/19/16 at 07:30 Dextrose (D50w Syringe) 50 ml Q15M PRN IV DECREASED GLUCOSE; Start 11/19/16 at 07:30 Glucagon (Glucagen) 1 mg Q15M PRN IM DECREASED GLUCOSE; Start 11/19/16 at 07:30 Glucose (Glutose) 15 gm Q15M PRN BUCCAL DECREASED GLUCOSE; Start 11/19/16 at 07 :30 Diagnostic Test (Pha) (Accucheck) 1 ea 02 XX Last administered on 11/21/16 02: 49; Admin Dose 1 EA; Start 11/20/16 at 02:00 Atorvastatin Calcium (Lipitor) 40 mg DAILY@21 PO Last administered on 11/20/16 21:15; Admin Dose 40 MG; Start 11/19/16 at 21:00 Levofloxacin (Levaquin) 250 mg DAILY@06 PO ; Start 11/21/16 at 15:00 Collin Peter DO Nov 21, 2016 15:24
== END 2016-11-21 17:35 | disposition home health service (06) | DRG 690 ==
LOC: E/R 22:57 → MS4 11-19 02:24 → OBSVTOIN 11-19 08:32
PROVIDERS: ADMIT Internal Medicine; ATTEND Internal Medicine
DX: N39.0 Urinary tract infection, site not specified (principal); N17.9 Acute kidney failure, unspecified; E11.22 Type 2 diabetes mellitus with diabetic chronic kidney disease; F03.90 Unspecified dementia, unspecified severity, without behavioral disturbance, psychotic disturbance, mood disturbance, and anxiety; E11.51 Type 2 diabetes mellitus with diabetic peripheral angiopathy without gangrene; E87.1 Hypo-osmolality and hyponatremia; B96.1 Klebsiella pneumoniae [K. pneumoniae] as the cause of diseases classified elsewhere; J44.9 Chronic obstructive pulmonary disease, unspecified; J45.909 Unspecified asthma, uncomplicated; I12.9 Hypertensive chronic kidney disease with stage 1 through stage 4 chronic kidney disease, or unspecified chronic kidney disease; N18.9 Chronic kidney disease, unspecified; E78.5 Hyperlipidemia, unspecified; I27.2 Other secondary pulmonary hypertension; D50.9 Iron deficiency anemia, unspecified; R74.8 Abnormal levels of other serum enzymes; S81.811A Laceration without foreign body, right lower leg, initial encounter; X58.XXXA Exposure to other specified factors, initial encounter; Z79.4 Long term (current) use of insulin; Z79.82 Long term (current) use of aspirin; Z96.653 Presence of artificial knee joint, bilateral
CPT/HCPCS: 36415; 71010; 80048; 80053; 81001; 81003; 82550; 82553; 82962; 83605; 83735; 84484; 85025; 85610; 85730; 87040; 87086; 87400; 93005; 93306; 93923; 96374; G0378; J0692; J0696; J1815; J3370

== ENCOUNTER 2017-03-17 06:32 | Inpatient (IN) | payer OTHER ==
[~2017-03-17] VITALS: Ht 167.6 cm; Wt 75.3 kg
[~2017-03-17 06:32] MED LIST changes: -FURO40TA4 PO; +LEVA15HF6 INH; +LEVO250T35 PO; -OXYB5TAB PO; +OXYB5TAB22 PO; -VALS160T20 PO; -XOP15INH INH
[2017-03-17] MEDS ORDERED: ACETAMINOPHEN 325 MG TAB PO STA (06:43)
[2017-03-17] MEDS ORDERED: SODIUM CHLORIDE 0.9% 1L BAG IV* STA (06:43)
--- NOTE | 2017-03-17 07:30 | ERA ---
ER Documentation Chief Complaint Date/Time DATE: 03/17/17 TIME: 07:27 Chief Complaint Complains of weakness x 2 days ago and fever since this am HPI Very pleasant 86-year-old female who presents to the emergency room complaining of generalized weakness. The patient has a history of peripheral vascular disease, asthma, diabetes, chronic kidney disease who presents to the emergency room with 2 days of generalized fatigue and weakness. Today, this morning she noted to have a fever. She does not describe focal symptoms such as cough, shortness of breath, no dysuria urgency or frequency, no nausea vomiting or diarrhea, no abdominal pain. No headache rash or neck stiffness. ROS All systems reviewed and are negative except as per history of present illness. Medications Home Meds Active Scripts Oxybutynin Chloride* (Ditropan* XL) 5 Mg Tabsr, 5 MG PO DAILY for 30 Days, TAB.SA Prov:VEL STEPHEN MD 11/21/16 Levofloxacin* (Levaquin*) 250 Mg Tablet, 250 MG PO DAILY for 5 Days, TAB Prov:VEL STEPHEN MD 11/21/16 Levalbuterol* (Xopenex* HFA) 15 Gm Inha, 2 PUFFS INH Q4H Y for WHEEZING AND SOB , #1 INHALER Prov:RADHA LOUISE 10/26/16 Furosemide* (Furosemide*) 20 Mg Tablet, 20 MG PO QHS, #6030 TAB Prov:RADHA LOUISE 10/26/16 Insulin Glargine* (Lantus*) 100 Unit/Ml Soln, 10 UNIT SC QHS for 30 Days Prov:RADHA LOUISE 10/26/16 Sodium Bicarbonate* (Sodium Bicarbonate*) 650 Mg Tablet, 650 MG PO BID for 30 Days, TAB take every other day per nephrology recommendation Prov:RADHA LOUISE 10/26/16 Amlodipine Besylate* (Norvasc*) 5 Mg Tablet, 5 MG PO DAILY for 30 Days, TAB Prov:RADHA LOUISE 10/26/16 Ferrous Sulfate* (Ferrous Sulfate*) 325 Mg Tabec, 325 MG PO TID, #90 TAB Prov:RADHA LOUISE 10/26/16 Metoprolol Succinate* (Toprol XL*) 50 Mg Tab.er.24h, 50 MG PO BID for 30 Days, TAB Prov:RADHA LOUISE 10/26/16 Reported Medications Pantoprazole* (Pantoprazole*) 40 Mg Tablet.dr, 40 MG PO DAILY, TAB 10/24/16 Lamotrigine* (Lamotrigine*) 25 Mg Tablet, 25 MG PO BID, TAB 10/24/16 Aspirin* (Aspirin* Chew) 81 Mg Tab.chew, 81 MG PO DAILY, TAB.CHEW 10/24/16 Cilostazol* (Cilostazol*) 50 Mg Tablet, 50 MG PO BID, TAB 06/26/16 Gabapentin* (Gabapentin*) 100 Mg Capsule, 100 MG PO BID, CAP 05/22/14 Simvastatin (Simvastatin) 40 Mg Tablet, 40 MG PO HS, TAB 05/22/14 Allergies Allergies: Coded Allergies: No Known Drug Allergies (Verified Allergy, Unknown, 10/24/16) PMhx/Soc Anesthesia Reaction: No Hx Respiratory Disorders: Yes (COPD/asthma ) Hx Cardiac Disorders: Yes (HTN) Hx Psychiatric Problems: No Hx Miscellaneous Medical Probl: No (DM) Hx Alcohol Use: No Hx Substance Use: No Hx Tobacco Use: No Smoking Status: Never smoker FmHx Family History: diabetes Physical Exam Vitals Vital Signs Date Time Temp Pulse Resp B/P Pulse Ox O2 Delivery O2 Flow Rate FiO2 03/17/17 08:54 99.0 83 20 121/50 99 Room Air 03/17/17 08:36 83 20 116/51 99 Room Air 03/17/17 06:35 102.6 103 20 106/51 93 Physical Exam General: Well developed, well nourished, no acute distress Head: Normocephalic, atraumatic. Eyes: Pupils equally reactive, EOM intact ENT: Moist mucous membranes Neck: Supple, no lymphadenopathy Respiratory: Good aeration with scant rales at the bases bilaterally right greater than left Cardiovascular: RRR, no murmurs, rubs, or gallops Abdominal: Soft, non-tender, non-distended, no peritoneal signs : Deferred MSK: No edema, no unilateral swelling, 5/5 strength, venous stasis dermatitis noted to bilateral lower extremities Neurologic: Alert and oriented, moving all extremities, normal speech, no focal weakness, no cerebellar signs, no meningismus Skin: No rash Psych: Normal mood Result Diagram: 03/17/17 0730 03/17/17 0730 Results 24 hrs Laboratory Tests Test 03/17/17 07:30 03/17/17 08:00 03/17/17 09:40 White Blood Count 9.710^3/ul Red Blood Count 3.1110^6/ul Hemoglobin 9.9g/dl Hematocrit 28.3% Mean Corpuscular Volume 91.0fl Mean Corpuscular Hemoglobin 31.8pg Mean Corpuscular Hemoglobin Concent 35.0g/dl Red Cell Distribution Width 11.9% Platelet Count 15154^3/UL Mean Platelet Volume 9.8fl Neutrophils % 82.0% Lymphocytes % 6.6% Monocytes % 10.6% Eosinophils % 0.3% Basophils % 0.1% Nucleated Red Blood Cells % 0.0/100WBC Neutrophils # 7.910^3/ul Lymphocytes # 0.610^3/ul Monocytes # 1.010^3/ul Eosinophils # 0.010^3/ul Basophils # 0.010^3/ul Nucleated Red Blood Cells # 0.010^3/ul Prothrombin Time 13.9Sec Prothrombin Time Ratio 1.1 INR International Normalized Ratio 1.07 Activated Partial Thromboplast Time 33.6Sec Sodium Level 133mmol/L Potassium Level 3.7mmol/L Chloride Level 100mmol/L Carbon Dioxide Level 27mmol/L Anion Gap 10 Blood Urea Nitrogen 32mg/dl Creatinine 2.16mg/dl Glucose Level 176mg/dl Lactic Acid Level 1.5mmol/L 0.8mmol/L Calcium Level 8.9mg/dl Total Bilirubin 0.4mg/dl Direct Bilirubin 0.00mg/dl Indirect Bilirubin 0.4mg/dl Aspartate Amino Transf (AST/SGOT) 28IU/L Alanine Aminotransferase (ALT/SGPT) 25IU/L Alkaline Phosphatase 97IU/L Troponin I 0.233ng/ml Total Protein 7.1g/dl Albumin 4.3g/dl Globulin 2.80g/dl Albumin/Globulin Ratio 1.53 Lipase 55U/L Free Thyroxine Index 2.87ug/ml Thyroxine (T4) 7.3ug/dl Triiodothyronine (T3) Uptake 39.3% Urine Color YELLOW Urine Clarity SLIGHTLY CLOUDY Urine pH 8.0 Urine Specific Blanchard 1.009 Urine Ketones NEGATIVEmg/dL Urine Nitrite NEGATIVEmg/dL Urine Bilirubin NEGATIVEmg/dL Urine Urobilinogen NEGATIVEmg/dL Urine Leukocyte Esterase 3+Anu/ul Urine Microscopic RBC 1/HPF Urine Microscopic WBC 78/HPF Urine Bacteria FEW/HPF Urine Mucus FEW/HPF Urine Hemoglobin 1+mg/dL Urine Glucose NEGATIVEmg/dL Urine Total Protein 2+mg/dl Current Medications Medications (Trade) Dose Ordered Sig/[place] Route PRN Reason Start Time Stop Time Status Last Admin Dose Admin Sodium Chloride (NS) 2,480 ml BOLUS OVER 2 HOURS STAT IV* 03/17/17 06:43 03/17/17 06:46 DC 03/17/17 07:33 Acetaminophen 650 mg 650 mg ONCE STAT PO 03/17/17 06:43 03/17/17 06:47 DC 03/17/17 07:33 Ceftriaxone Sodium (Rocephin) 50 ml @ 100 mls/hr ONCE ONCE IVPB 03/17/17 09:00 03/17/17 09:29 DC 03/17/17 08:51 Aspirin (Ecotrin) 325 mg ONCE ONCE PO 03/17/17 09:00 03/17/17 09:01 DC 03/17/17 09:15 Ondansetron HCl (Zofran Inj) 4 mg ER BRIDGE PRN IV NAUSEA AND/OR VOMITING 03/17/17 09:00 03/18/17 08:59 Acetaminophen (Tylenol Tab) 650 mg ER BRIDGE PRN PO MILD PAIN/FEVER 03/17/17 09:00 03/18/17 08:59 Procedures/MDM EKG, MONITORS, & DIAGNOSTIC IMAGING: EKG: I reviewed and interpreted a 12-lead EKG. Rhythm: Normal sinus rhythm Ectopy: None Intervals: Right bundle branch block ST segments: No elevations or depressions T waves: No contiguous inversions Chest x-ray: I reviewed and interpreted a 1 view of the chest Mediastinum: No enlargement Cardiac silhouette: No cardiomegaly Airspace: Clear lung jean baptiste bilaterally without evidence of pneumothorax Bones: No evidence of fracture LAB INTERPRETATION: Elevated troponin, UTI MEDICAL DECISION MAKING: This is an 86-year-old female presents with generalized weakness and a fever. The patient has a very broad differential however given the patient's fever this does raise the concern for infectious process such as UTI or pneumonia. Sepsis screening will be initiated. Gentle fluid bolus provided. The patient does have a history of reported diastolic heart failure however most recent echocardiogram showed EF of 55%. The patient will likely tolerate fluids well. Considerations also for alternative causes of weakness such as acute coronary syndrome, electrolyte disturbance, dehydration, thyroid dysfunction among others. The patient does not have any signs or symptoms concerning for stroke therefore CT brain is not indicated at this point. Low threshold for hospitalization at this time. ER COURSE: The patient has UTI. The patient does have Sirs criteria with troponin elevation, this could be construed as severe sepsis. The patient was given 30 cc/kg of normal saline, ceftriaxone. She is resting comfortably. Mild troponin elevation without chest pain, no EKG changes. The patient was started on aspirin. I kept the patient and/or family informed of laboratory and diagnostic imaging results throughout the emergency room course. DISPOSITION PLAN: Telemetry admission for management of non-ST elevation myocardial infarction, severe sepsis. CONSULTATION: Accepting care team and consultations: I discussed the current laboratory data, diagnostic imaging and emergency care provided. Admitting team: Dr. Hackett Admitting team indication: Insurance directed Sepsis Documentation: Patient's infectious symptoms have not stabilized and the patient is at risk of rapid decompensation. The patient will be admitted for careful hydration, antibiotic therapy, and infectious source control. SEVERE SEPSIS CRITERIA: Infectious source: Urinary tract infection End organ damage indicated by: Troponin elevation SEPSIS MANAGEMENT Time of recognition of severe sepsis/septic shock: Upon laboratory results around 8 AM 3 HOUR BUNDLE Blood cultures x 2 before broad-spectrum antibiotics: Yes 30 ml/kg NS bolus Completed Initial lactate less than 2 Repeat lactate less than 2 SEPTIC SHOCK ASSESSMENT: No lactic acid > 4.0 No persistent hypotension (SBP < 90 or 40 mmHg drop, MAP < 65) despite 30 mL/kg IV fluid bolus VOLUME REASSESSMENT FOR SEPTIC SHOCK: Reevaluation Time: 9 AM Temp of 99.0 pulse 83 respiratory rate 20 blood pressure 121/50 pulse ox 99 Heart Regular rate & rhythm Lungs No crackles Skin Warm & dry Cap Refill Less than 2 seconds Peripheral pulses Radially present PERSISTENT HYPOTENSION TREATMENT: Comfort care No Central line Not Required Vasopressor started Not required I considered further perfusion assessment with CVP measurement, SCVO2, bedside ultrasound volume assessment, passive leg raise, trial of further fluid bolus. And proceeded with 30 ml/kg fluid bolus of NSS, broad spectrum antbiotics, and admission. CRITICAL CARE Critical care time 35 minutes Emergent fluid management while maintaining close respiratory support. Provision of immediate and broad-spectrum antibiotic therapy. Simultaneous assessment for possible sources in order to direct targeted therapy. Consideration for invasive and chemical support to prevent cardiopulmonary collapse. Critical care time is independent of procedures performed. Departure Diagnosis: Primary Impression: Chronic renal insufficiency Qualified Code: N18.9 - Chronic renal insufficiency, unspecified stage Additional Impressions: Non-ST elevation myocardial infarction (NSTEMI) Severe sepsis Urinary tract infection Qualified Code: N30.00 - Acute cystitis without hematuria Condition: Stable LYNNE PETERSON MD Mar 17, 2017 07:30
--- NOTE | 2017-03-17 07:50 | RADRPT ---
PROCEDURE: XR Chest. CLINICAL INDICATION: Cough and fever. TECHNIQUE: Single frontal view. COMPARISON: 11/11/2016. FINDINGS: There is mild interstitial disease in the mid and lower lung zones. The lungs are otherwise clear. The heart size is normal. There is calcification in the aorta consistent with atherosclerosis. There is no pleural effusion. There is no pneumothorax. IMPRESSION: 1. Mild interstitial disease bilaterally in the mid and lower lung zones which may be chronic. 2. Atherosclerosis. 3. Otherwise normal chest radiograph. RPTAT: QQ .Fer Cunha MD, MD Date Time Electronically viewed and signed by .Fer Cunha MD, MD on 03/17/2017 07:50 .R/
[2017-03-17 07:52] LABS: ADD SCAN DIFF NO
[2017-03-17 07:57] LABS: BASOPHILS % 0.1 % (0.0-2.0); EOSINOPHILS % 0.3 % (0.0-7.0); HEMATOCRIT 28.3 % (37.0-47.0); HEMOGLOBIN 9.9 g/dl (12.0-16.0); LYMPHOCYTES # 0.6 10^3/ul (0.8-2.9); LYMPHOCYTES % 6.6 % (15.0-51.0); MEAN CORPUSCULAR HEMOGLOBIN 31.8 pg (29.0-33.0); MEAN PLATELET VOLUME 9.8 fl (7.4-10.4); MONOCYTES % 10.6 % (0.0-11.0); NEUTROPHIL # 7.9 10^3/ul (1.6-7.5); PLATELET COUNT 168 10^3/UL (140-415); RED BLOOD COUNT 3.11 10^6/ul (4.20-5.40); RED CELL DISTRIBUTION WIDTH 11.9 % (11.5-14.5); WHITE BLOOD COUNT 9.7 10^3/ul (4.8-10.8)
[2017-03-17 08:15] LABS: INR 1.07; PROTIME 13.9 Sec (12.2-14.2); PT RATIO 1.1
[2017-03-17 08:16] LABS: PARTIAL THROMBOPLASTIN TIME 33.6 Sec (25.0-35.0)
[2017-03-17 08:24] LABS: ALBUMIN 4.3 g/dl (3.3-4.9); ALBUMIN/GLOBULIN RATIO 1.53; BILIRUBIN,INDIRECT 0.4 mg/dl (0-1.1); BILIRUBIN,TOTAL 0.4 mg/dl (0.2-1.3); CALCIUM 8.9 mg/dl (8.4-10.2); CREATININE 2.16 mg/dl (0.44-1.00); POTASSIUM 3.7 mmol/L (3.5-5.1); TOTAL PROTEIN 7.1 g/dl (6.1-8.1)
[2017-03-17 08:33] LABS: ADD UMIC YES; UR ASCORBIC ACID NEGATIVE (NEGATIVE); UR BACTERIA FEW /HPF (NONE SEEN); UR BILIRUBIN (Dip) NEGATIVE (NEGATIVE); UR BLOOD (Dip) 1+ mg/dL (NEGATIVE); UR CLARITY SLIGHTLY CLOUDY (CLEAR); UR COLOR YELLOW (YELLOW); UR GLUCOSE (Dip) NEGATIVE (NEGATIVE); UR KETONES (Dip) NEGATIVE (NEGATIVE); UR LEUKOCYTE ESTERASE (Dip) 3+ Leu/ul (NEGATIVE); UR MUCUS FEW /HPF (NONE SEEN); UR NITRITE (Dip) NEGATIVE (NEGATIVE); UR RBC 1 /HPF (0-5); UR SPECIFIC GRAVITY (Dip) 1.009 (1.003-1.030); UR TOTAL PROTEIN (Dip) 2+ mg/dl (NEGATIVE); UR UROBILINOGEN (Dip) NEGATIVE (NEGATIVE)
[2017-03-17 08:39] LABS: TROPONIN-I 0.233 ng/ml (0.00-0.12)
[2017-03-17 08:41] LABS: T3 UPTAKE 39.3 % (23.5-40.5)
[2017-03-17] MEDS ORDERED: CEFTRIAXONE 1 GM/50 ML (PMX) 50 ML IVPB ONE (09:00)
[2017-03-17] MEDS ORDERED: ACETAMINOPHEN 325 MG TAB PO PRN (09:00)
[2017-03-17] MEDS ORDERED: ASPIRIN (EC) 325 MG TAB PO ONE (09:00)
[2017-03-17] MEDS ORDERED: ONDANSETRON 4 MG INJ IV PRN ×2 (09:00→14:00)
[2017-03-17] MEDS ORDERED: NACL 0.9% 3 ML SYG IV SCH (14:00)
[2017-03-17] MEDS ORDERED: MAGNESIUM HYDROXIDE 30ML CUP PO PRN (14:00)
[2017-03-17] MEDS ORDERED: BISACODYL (EC) 5 MG TAB PO PRN (14:00)
[2017-03-17] MEDS ORDERED: HYDROCODONE/APAP (5/325) TAB PO PRN (14:00)
[2017-03-17] MEDS ORDERED: GLUCOSE GEL 15 GRAM TUBE BUCCAL PRN (14:30)
[2017-03-17] MEDS ORDERED: CEFTRIAXONE 1 GM/50 ML (PMX) 50 ML IVPB SCH (14:30)
[2017-03-17] MEDS ORDERED: GLUCOSE GEL 15 GRAM TUBE PO PRN ×2 (14:30)
[2017-03-17] MEDS ORDERED: ALBUTEROL/IPRATROPIUM (NEB) 3 ML AMP HHN PRN (14:30)
[2017-03-17] MEDS ORDERED: DEXTROSE 50% 50 ML SYRINGE IV PRN ×2 (14:30)
[2017-03-17] MEDS ORDERED: GLUCAGON 1 MG INJ IM PRN (14:30)
--- NOTE | 2017-03-17 15:26 | HP ---
DATE OF ADMISSION: 03/17/2017 REASON FOR ADMISSION: Generalized weakness. CONSULTATIONS: Dr. Collin Peter, Cardiology. HISTORY OF PRESENT ILLNESS: This is an 86-year-old female with past medical history of chronic kidney disease, COPD, essential hypertension, dyslipidemia, peripheral vascular disease, and diabetes mellitus who came to the emergency room with the chief complaint of generalized weakness. The patient verbalized that she has been getting progressively weaker over the past 1 to 2 days. The patient denied any fevers at home. The patient denied any dyspnea, cough, or diaphoresis. The patient denied any urinary frequency or urgency. There was no reported diarrhea or bladder or bowel irregularity. The patient denied any chest pain. She denied any nausea, vomiting, abdominal pain, diarrhea, hematochezia, or dysuria. In the emergency room, the patient was noticed to have a fever of 102.6 degrees Fahrenheit. Patient's urinalysis was positive for leukocyte esterase along with positive WBC of 78. The patient was treated with IV antibiotics and IV fluids in the emergency room. PAST MEDICAL HISTORY: Essential hypertension, type 2 diabetes mellitus, dyslipidemia, COPD, chronic kidney disease, peripheral vascular disease. PAST SURGICAL HISTORY: Appendectomy. HOME MEDICATIONS: 1. Xopenex 15 g inhaler 2 puffs q. 4 hours p.r.n. wheezing. 2. Cilostazol 50 mg p.o. b.i.d. 3. Ferrous sulfate 325 mg p.o. t.i.d. 4. Amlodipine 5 mg p.o. daily. 5. Toprol XL 50 mg p.o. b.i.d. 6. Simvastatin 40 mg p.o. at bedtime. 7. Aspirin 81 mg p.o. daily. 8. Gabapentin 100 mg p.o. b.i.d. 9. Lamotrigine 25 mg p.o. b.i.d. 10. Lasix 20 mg p.o. at bedtime. 11. Protonix 40 mg p.o. daily. 12. Lantus insulin 10 units subcutaneously at bedtime. 13. Ditropan 5 mg p.o. daily. ALLERGIES: NO KNOWN DRUG ALLERGIES. SOCIAL HISTORY: The patient lives at home with her daughter. Denies any use of tobacco, alcohol, or illicit drugs. REVIEW OF SYSTEMS: A 12-point review of systems was done, and the remaining review of systems was negative other than what is mentioned in history of present illness. PHYSICAL EXAMINATION: VITAL SIGNS: Temperature 99.0, pulse rate 83, respiratory rate 20, blood pressure 121/50, oxygen saturation 99% on room air. GENERAL: This is a slightly overweight Filipina female lying in bed in no apparent distress. HEENT: Head normocephalic and atraumatic. Eyes: Anicteric sclerae. Conjunctivae clear. ENT: Nasal septum is midline. Oral mucosa is dry. NECK: Supple. No JVD noticed. RESPIRATORY: Bilaterally diminished breath sounds. No adventitious breath sounds. No use of accessory muscles of respiration. CARDIAC: Regular rate and rhythm. S1, S2 heard. ABDOMEN: Soft, nontender, and nondistended. Bowel sounds positive in all 4 quadrants. GENITOURINARY: Deferred. EXTREMITIES: No cyanosis, no clubbing. Bilateral lower extremity pedal pulses are not palpable. NEUROLOGIC: The patient is awake, alert and oriented. Cranial nerves are grossly intact. LABORATORY AND DIAGNOSTIC DATA: WBC 9.7, hemoglobin 9.9, hematocrit 28.3, platelet count 168. Sodium 133, potassium 3.7, chloride 27, anion gap 10, BUN 32, creatinine 2.16, glucose 176. PT 13.9, INR 1.1, PTT 33.6. Urinalysis: Urine leukocyte esterase 3+, urine microscopic WBC 78. Chest x-ray: Mild interstitial disease bilaterally in the mid and lower lung zones, which may be chronic, and atherosclerosis. IMPRESSION: This is an 86-year-old female with multiple comorbidities who came to the emergency room with vague complaints and was found to have evidence of sepsis and will be admitted here for further treatment and evaluation. ASSESSMENT AND PLAN: 1. Sepsis. No evidence of any septic shock. Source of infection could be urinary tract infection. The patient will be adequately hydrated using IV fluids. She will be started on IV antibiotics. The patient has no evidence of any septic shock. Alfaro cultures will be obtained. 2. Non-ST elevation myocardial infarction. Troponin 0.233. Cardiology consult will be obtained. Serial troponins will be ordered. A repeat 2D echocardiogram will not be done since recent echocardiogram was done in October 2016 that had normal left ventricular ejection fraction. Patient will be continued on antiplatelet therapy. 3. Chronic kidney disease. The patient's BUN and creatinine will be monitored closely. Nephrotoxic drugs will be used with caution. 4. Essential hypertension. The patient will be resumed on antihypertensives including p.r.n. antihypertensives for any systolic blood pressure readings greater than 160 mmHg. 5. Peripheral vascular disease. The patient will be continued on dual antiplatelet therapy. 6. Type 2 diabetes mellitus. The patient will be continued on sliding scale insulin along with Lantus insulin and premeal insulin. 7. Chronic obstructive pulmonary disease. No evidence of any exacerbation. The patient will be continued on inhaled bronchodilators. 8. Normocytic normochromic anemia, most probably anemia of chronic disease. We will monitor the H and H closely. Plan. The patient will be admitted to inpatient telemetry floor. The patient will be started on a carbohydrate controlled low cholesterol diet. The patient will be started on DVT prophylaxis and gastrointestinal prophylaxis. The patient will remain a FULL CODE. Activities will be bed rest. The rest of the patient's management will be based on clinical course, the results of diagnostic studies, and inputs from consultants. Based on the patient's clinical presentation, she most probably requires at least 2 midnights' stay for further management and evaluation of her clinical presentation. The case and management of this patient was fully discussed with Dr. Payne. MARTIN PAYNE MD, AM/NIC Conf#: [id number] DID#: [id number] MTDClarisa
[2017-03-17 15:40] VITALS: TEMP 98.7
[2017-03-17] MEDS: INSULIN ASPART [NOVOLOG] 3 ML PEN SC SCH ×3 (19:00→21:00)
[2017-03-17] MEDS: SOD CHLORIDE 0.9% 1,000 ML IV SCH (20:00)
[2017-03-17 20:22] LABS: CK-MB 2.71 ng/ml (0.0-2.4)
[2017-03-17 20:39] VITALS: PULSE 89
[2017-03-17 20:44] VITALS: BP 166/71; RESP 18
[2017-03-17 20:47] LABS: TROPONIN-I 0.144 ng/ml (0.00-0.12)
[2017-03-17 21:13] VITALS: Ht 167.6 cm; Wt 75.3 kg
[2017-03-17] MEDS: FERROUS SULFATE (EC) 325 MG TAB PO SCH (21:26)
[2017-03-17] MEDS: ATORVASTATIN 20 MG TAB PO SCH (21:26)
[2017-03-17] MEDS: GABAPENTIN 100 MG CAP PO SCH (21:26)
[2017-03-17] MEDS: METOPROLOL (XL) 50 MG TAB PO SCH (21:26)
[2017-03-17] MEDS: FAMOTIDINE 20 MG TAB PO SCH (21:26)
[2017-03-17] MEDS: NA BICARBONATE 650 MG TAB PO SCH (22:15)
[2017-03-17] MEDS: LAMOTRIGINE 25 MG TAB PO SCH (22:15)
[2017-03-17] MEDS: CILOSTAZOL 100 MG TAB PO SCH (22:16)
[2017-03-17] MEDS: INSULIN GLARGINE [LANtus] 3 ML PEN SC SCH (22:22)
[2017-03-18] VITALS (12 sets, daily range): BP systolic 148–167; BP diastolic 64–88; PULSE 88–97; RESP 16–21
[2017-03-18] MEDS ORDERED: CEFEPIME 2GM/50 ML (PMX) 50 ML IVPB SCH
[2017-03-18] MEDS: PIPER-TAZO 2.25 GM (PMX) 50 ML IVPB SCH ×5 (00:29→23:51)
[2017-03-18] MEDS: hydrALAzine 20 MG INJ IV PRN (05:54)
[2017-03-18] MEDS: SOD CHLORIDE 0.9% 1,000 ML IV SCH ×2 (06:47→23:11)
[2017-03-18] MEDS: INSULIN ASPART [NOVOLOG] 3 ML PEN SC SCH ×7 (08:00→21:00)
[2017-03-18] MEDS: ASPIRIN 81 MG TAB PO SCH (08:22)
[2017-03-18] MEDS: OXYBUTYNIN (XL) 5 MG TAB PO SCH (08:23)
[2017-03-18] MEDS: LAMOTRIGINE 25 MG TAB PO SCH ×2 (08:23→21:03)
[2017-03-18] MEDS: FERROUS SULFATE (EC) 325 MG TAB PO SCH ×3 (08:23→21:03)
[2017-03-18] MEDS: GABAPENTIN 100 MG CAP PO SCH ×2 (08:24→21:03)
[2017-03-18] MEDS: FAMOTIDINE 20 MG TAB PO SCH (08:25)
[2017-03-18] MEDS: CILOSTAZOL 100 MG TAB PO SCH ×2 (08:26→21:03)
[2017-03-18] MEDS: PANTOPRAZOLE (EC) 40 MG TAB PO SCH (08:26)
[2017-03-18] MEDS: METOPROLOL (XL) 50 MG TAB PO SCH (08:26)
[2017-03-18] MEDS ORDERED: AMLODIPINE 5 MG TAB PO SCH (09:00)
[2017-03-18] MEDS: NA BICARBONATE 650 MG TAB PO SCH ×2 (09:16→21:03)
[2017-03-18 09:56] LABS: ADD SCAN DIFF NO
[2017-03-18 10:10] LABS: BASOPHILS % 0.2 % (0.0-2.0); EOSINOPHILS # 0.1 10^3/ul (0.0-0.5); EOSINOPHILS % 0.9 % (0.0-7.0); HEMATOCRIT 30.3 % (37.0-47.0); HEMOGLOBIN 10.3 g/dl (12.0-16.0); LYMPHOCYTES # 0.9 10^3/ul (0.8-2.9); MEAN CORPUSCULAR HEMOGLOBIN 31.5 pg (29.0-33.0); MEAN CORPUSCULAR VOLUME 92.7 fl (82.0-101.0); MEAN PLATELET VOLUME 9.7 fl (7.4-10.4); MONOCYTES % 11.1 % (0.0-11.0); NEUTROPHILS % 77.4 % (39.0-77.0); PLATELET COUNT 164 10^3/UL (140-415); RED BLOOD COUNT 3.27 10^6/ul (4.20-5.40); WHITE BLOOD COUNT 9.1 10^3/ul (4.8-10.8)
[2017-03-18 10:25] LABS: MAGNESIUM 1.8 mg/dl (1.7-2.5)
[2017-03-18 10:29] LABS: ALBUMIN 3.9 g/dl (3.3-4.9); ALBUMIN/GLOBULIN RATIO 1.3; BILIRUBIN,INDIRECT 0.2 mg/dl (0-1.1); BILIRUBIN,TOTAL 0.2 mg/dl (0.2-1.3); CALCIUM 8.9 mg/dl (8.4-10.2); CREATININE 1.53 mg/dl (0.44-1.00); POTASSIUM 3.6 mmol/L (3.5-5.1); TOTAL PROTEIN 6.9 g/dl (6.1-8.1)
[2017-03-18 10:42] LABS: CK-MB 1.89 ng/ml (0.0-2.4); TROPONIN-I 0.082 ng/ml (0.00-0.12)
[2017-03-18] MEDS ORDERED: POTASSIUM CHLORIDE (SR) 20 MEQ TAB PO ONE (12:00)
[2017-03-18] MEDS ORDERED: MAGNESIUM OXIDE 400 MG TAB PO ONE (12:00)
--- NOTE | 2017-03-18 12:17 | PN ---
Date/Time of Note Date/Time of Note DATE: 03/18/17 TIME: 12:05 Assessment/Plan VTE Prophylaxis VTE Prophylaxis Intervention: SCD's Lines/Catheters IV C[facility] Type ([facility] Peripheral IV Urinary Cath still in place: No Assessment/Plan Assessment/Plan 86-year-old female who had presented with generalized weakness now managed for the followin. Sepsis secondary to gram-negative bacteremia and urinary tract infection 2. Acute on chronic kidney injury 3. Elevated troponins without chest pain concerning for non-ST elevation myocardial infarction in this diabetic likely type II from demand ischemia 4. Essential hypertension still suboptimal control 5. Chronic peripheral vascular disease 6. Type 2 diabetes mellitus with hemoglobin A1c of 8.0: good inhouse control so far 7. COPD without exacerbation 8. Iron deficiency anemia associated with chronic disease: Patient has been on iron supplementation 9. Mild acute rhabdomyolysis: Improved 10. Chronic early onset dementia Plan: * Continue broad-spectrum antibiotics and follow-up final sensitivity and organism identification * Continue IV fluid hydration and continue to trend creatinine levels/renal ultrasound to ensure no obstructive causes * Await cardiology recommendations and continue aspirin as well as beta-milton therapy / resume ACEi or ARB when kidney function improves * Patient is also on dual antiplatelet therapy for peripheral vascular disease * Continue diabetic diet, sliding scale insulin. Titrate insulin doses for optimal control as indicated * Continue all other home medications * Continue supportive care / reorientation / start patient on seroquel if indicated Further interventions per clinical course Appreciate all consults Prophylaxis with PPI and SCDs Subjective 24 Hr Interval Summary Free Text/Dictation Patient seen and examined. Pleasantly confused, per daughter at baseline patient oriented to self and birthday most of the time, per report, she has good days and bad days Exam/Review of Systems Vital Signs Vitals Vital Signs Date Time Temp Pulse Resp B/P Pulse Ox O2 Delivery O2 Flow Rate FiO2 03/18/17 11:29 97.7 89 18 148/67 96 03/17/17 19:26 Room Air Exam GENERAL: This is a Filip[place] female lying in bed in no apparent distress. HEENT: Head normocephalic and atraumatic. Eyes: Anicteric sclerae. Conjunctivae clear. ENT: Nasal septum is midline. Oral mucosa is dry. NECK: Supple. No JVD noticed. RESPIRATORY: Bilaterally diminished breath sounds. No adventitious breath sounds. No use of accessory muscles of respiration. CARDIAC: Regular rate and rhythm. S1, S2 heard. ABDOMEN: Soft, nontender, and nondistended. Bowel sounds positive in all 4 quadrants. GENITOURINARY: Deferred. EXTREMITIES: No cyanosis, no clubbing. Bilateral lower extremity pedal pulses are not palpable. NEUROLOGIC: The patient is awake, alert and pleasantly confused. Results Result Diagram: 03/18/17 0940 03/18/17 0940 Results 24 hrs Laboratory Tests Test 03/17/17 19:03 03/17/17 19:30 03/17/17 22:19 03/18/17 08:19 Bedside Glucose 127 103 134 Hemoglobin A1c 8.0 H Lactic Acid Level 1.0 Creatine Kinase 408 H Creatine Kinase Index 0.7 Creatinine Kinase MB (Mass) 2.71 H Troponin I 0.144 *H Vitamin D 1,25-Dihydroxy 30.5 Thyroid Stimulating Hormone (TSH) 0.977 Free Thyroxine 1.74 Test 03/18/17 09:15 03/18/17 09:40 Bedside Glucose 145 White Blood Count 9.1 Red Blood Count 3.27 L Hemoglobin 10.3 L Hematocrit 30.3 L Mean Corpuscular Volume 92.7 Mean Corpuscular Hemoglobin 31.5 Mean Corpuscular Hemoglobin Concent 34.0 Red Cell Distribution Width 12.0 Platelet Count 164 Mean Platelet Volume 9.7 Neutrophils % 77.4 H Lymphocytes % 10.0 L Monocytes % 11.1 H Eosinophils % 0.9 Basophils % 0.2 Nucleated Red Blood Cells % 0.0 Neutrophils # 7.0 Lymphocytes # 0.9 Monocytes # 1.0 H Eosinophils # 0.1 Basophils # 0.0 Nucleated Red Blood Cells # 0.0 Sodium Level 139 Potassium Level 3.6 Chloride Level 105 Carbon Dioxide Level 22 Anion Gap 16 Blood Urea Nitrogen 22 H Creatinine 1.53 H Glucose Level 156 Calcium Level 8.9 Phosphorus Level 3.0 Magnesium Level 1.8 Total Bilirubin 0.2 Direct Bilirubin 0.00 Indirect Bilirubin 0.2 Aspartate Amino Transf (AST/SGOT) 34 Alanine Aminotransferase (ALT/SGPT) 23 Alkaline Phosphatase 86 Creatine Kinase 394 H Creatine Kinase Index 0.5 Creatinine Kinase MB (Mass) 1.89 Troponin I 0.082 Total Protein 6.9 Albumin 3.9 Globulin 3.00 Albumin/Globulin Ratio 1.30 Triglycerides Level 72 Cholesterol Level 123 LDL Cholesterol, Calculated 48 HDL Cholesterol 61 Cholesterol/HDL Ratio 2.0 Medications Medications Current Medications Sodium Chloride (NS) 1,000 ml @ 60 mls/hr [id number] IV Last administered on 03/18 06:47; Admin Dose 60 MLS/HR; Start 03/17/17 at 13:51 Ondansetron HCl (Zofran Inj) 4 mg Q6H PRN IV NAUSEA AND/OR VOMITING; Start at 14:00 Aspirin (Aspirin) 81 mg DAILY PO Last administered on 03/18/17 08:22; Admin Dose 81 MG; Start 03/18/17 at 09:00 Acetaminophen (Tylenol Tab) 650 mg Q6H PRN PO PAIN LEVEL 1-3 OR FEVER; Start at 14:00 Acetaminophen/ Hydrocodone Bitart ([place] (5/325)) 1 tab Q6H PRN PO PAIN LEVEL 4 -6; Start 03/17/17 at 14:00 Magnesium Hydroxide (Milk Of Mag) 30 ml DAILY PRN PO CONSTIPATION; Start at 14:00 Bisacodyl (Dulcolax) 5 mg DAILY PRN PO CONSTIPATION; Start 03/17/17 at 14:00 Famotidine (Pepcid) 20 mg DAILY PO Last administered on 03/18/17 08:25; Admin Dose 20 MG; Start 03/17/17 at 21:00 Amlodipine Besylate (Norvasc) 5 mg DAILY PO Last administered on 03/18/17 08: 25; Admin Dose 5 MG; Start 03/18/17 at 09:00 Cilostazol (Pletal) 50 mg BID PO Last administered on 03/18/17 08:26; Admin Dose 50 MG; Start 03/17/17 at 21:00 Ferrous Sulfate (Ferrous Sulfate (Ec)) 325 mg TID PO Last administered on 08:23; Admin Dose 325 MG; Start 03/17/17 at 21:00 Gabapentin (Neurontin) 100 mg BID PO Last administered on 03/18/17 08:24; Admin Dose 100 MG; Start 03/17/17 at 21:00 Insulin Glargine (Lantus) 10 unit QHS SC Last administered on 03/17/17 22:22; Admin Dose 10 UNIT; Start 03/17/17 at 21:00 Lamotrigine (Lamictal) 25 mg BID PO Last administered on 03/18/17 08:23; Admin Dose 25 MG; Start 03/17/17 at 21:00 Metoprolol Succinate (Toprol Xl) 50 mg BID PO Last administered on 03/18/17 08 :26; Admin Dose 50 MG; Start 03/17/17 at 21:00 Oxybutynin Chloride (Ditropan Xl) 5 mg DAILY PO Last administered on 03/18/17 08:23; Admin Dose 5 MG; Start 03/18/17 at 09:00 Pantoprazole (Protonix Tab) 40 mg DAILY PO Last administered on 03/18/17 08:26 ; Admin Dose 40 MG; Start 03/18/17 at 09:00 Sodium Bicarbonate (Sodium Bicarbonate Tab) 650 mg BID PO Last administered on 03/18/17 09:16; Admin Dose 650 MG; Start 03/17/17 at 21:00 Atorvastatin Calcium (Lipitor) 20 mg DAILY@21 PO Last administered on 21:26; Admin Dose 20 MG; Start 03/17/17 at 21:00 Hydralazine HCl (Apresoline) 10 mg Q6H PRN IV SBP>160 Last administered on 03/18 05:54; Admin Dose 10 MG; Start 03/17/17 at 14:30 Miscellaneous Information 1 ea NOTE XX ; Start 03/17/17 at 14:30 Glucose (Glutose) 15 gm Q15M PRN PO DECREASED GLUCOSE; Start 03/17/17 at 14:30 Glucose (Glutose) 22.5 gm Q15M PRN PO DECREASED GLUCOSE; Start 03/17/17 at 14: 30 Dextrose (D50w Syringe) 25 ml Q15M PRN IV DECREASED GLUCOSE; Start 03/17/17 at 14:30 Dextrose (D50w Syringe) 50 ml Q15M PRN IV DECREASED GLUCOSE; Start 03/17/17 at 14:30 Glucagon (Glucagen) 1 mg Q15M PRN IM DECREASED GLUCOSE; Start 03/17/17 at 14:30 Glucose 15 gm 15 gm Q15M PRN BUCCAL DECREASED GLUCOSE; Start 03/17/17 at 14:30 Piperacillin Sod/ Tazobactam Sod (Zosyn 2.25gm/ 50ml (Pmx)) 50 ml @ 100 mls/hr Q6 IVPB Last administered on 03/18/17t 05:54; Admin Dose 100 MLS/HR; Start at 00:00 TAL PAYNE Mar 18, 2017 12:15
[2017-03-18] MEDS ORDERED: AMLODIPINE 5 MG TAB PO ONE (12:30)
[2017-03-18] MEDS ORDERED: HALOPERIDOL 5 MG INJ IV ONE (16:00)
[2017-03-18] MEDS ORDERED: HALOPERIDOL 5 MG INJ IV PRN (16:00)
--- NOTE | 2017-03-18 16:28 | CONS ---
Date/Time of Note Date/Time of Note DATE: 03/18/17 TIME: 16:22 Assessment/Plan Assessment/Plan Additional Assessment/Plan Sepsis Acute on chronic kidney disease Encephalopathy Mildly elevated troponin Hypertension History of preserved left ventricular ejection fraction Diabetes -Patient with minimally elevated troponin and currently trending down. Renal function also was elevated upon admission but currently improving. Denies any chest pain or shortness of breath. Elevated troponin likely secondary to sepsis and renal dysfunction. Would continue aspirin and statin therapy, beta- milton as heart rate and blood pressure permits. Consultation Date/Type/Reason Admit Date/Time Mar 17, 2017 at 08:56 Type of Consultation: cv Reason for Consultation Elevated troponin Hx of Present Illness This is an 86-year-old female past medical history of hypertension, peripheral arterial disease, chronic kidney disease who presents with fevers, chills and weakness. Patient with possible sepsis with presumed UTI. Patient found to have mildly elevated troponins and for this reason cardiology consultation was requested. Patient denies any chest pain, shortness of breath. She denies any dizziness or lightheadedness. Family is at bedside. Patient has been more confused over the past 24 hours. She has been refusing IV access. 12 point review of systems was performed with all pertinent positives and negatives mentioned above and all else is negative Past Medical History Chronic kidney disease Peripheral arterial disease Diabetes Medical History: hypertension Family History Significant Family History: no pertinent family hx Social History Alcohol Use: none Smoking Status: Never smoker Other Social History Lives at home Exam/Review of Systems Vital Signs Vitals Vital Signs Date Time Temp Pulse Resp B/P Pulse Ox O2 Delivery O2 Flow Rate FiO2 03/18/17 15:42 98.0 99 16 158/88 99 03/17/17 19:26 Room Air Exam Following commands, no apparent distress, sitting up in bed Constitutional: alert Head: normocephalic Respiratory: other (Coarse breath sounds bilaterally, no wheezing) Cardiovascular: other (S1-S2 heard), regular rate and rhythm Gastrointestinal: bowel sounds, non-tender, soft Extremities: edema Results Result Diagram: 03/18/17 0940 03/18/17 0940 Results 24 hrs Laboratory Tests Test 03/17/17 19:03 03/17/17 19:30 03/17/17 22:19 03/18/17 08:19 Bedside Glucose 127 103 134 Hemoglobin A1c 8.0 H Lactic Acid Level 1.0 Creatine Kinase 408 H Creatine Kinase Index 0.7 Creatinine Kinase MB (Mass) 2.71 H Troponin I 0.144 *H Vitamin D 1,25-Dihydroxy 30.5 Thyroid Stimulating Hormone (TSH) 0.977 Free Thyroxine 1.74 Test 03/18/17 09:15 03/18/17 09:40 03/18/17 12:23 Bedside Glucose 145 122 White Blood Count 9.1 Red Blood Count 3.27 L Hemoglobin 10.3 L Hematocrit 30.3 L Mean Corpuscular Volume 92.7 Mean Corpuscular Hemoglobin 31.5 Mean Corpuscular Hemoglobin Concent 34.0 Red Cell Distribution Width 12.0 Platelet Count 164 Mean Platelet Volume 9.7 Neutrophils % 77.4 H Lymphocytes % 10.0 L Monocytes % 11.1 H Eosinophils % 0.9 Basophils % 0.2 Nucleated Red Blood Cells % 0.0 Neutrophils # 7.0 Lymphocytes # 0.9 Monocytes # 1.0 H Eosinophils # 0.1 Basophils # 0.0 Nucleated Red Blood Cells # 0.0 Sodium Level 139 Potassium Level 3.6 Chloride Level 105 Carbon Dioxide Level 22 Anion Gap 16 Blood Urea Nitrogen 22 H Creatinine 1.53 H Glucose Level 156 Calcium Level 8.9 Phosphorus Level 3.0 Magnesium Level 1.8 Total Bilirubin 0.2 Direct Bilirubin 0.00 Indirect Bilirubin 0.2 Aspartate Amino Transf (AST/SGOT) 34 Alanine Aminotransferase (ALT/SGPT) 23 Alkaline Phosphatase 86 Creatine Kinase 394 H Creatine Kinase Index 0.5 Creatinine Kinase MB (Mass) 1.89 Troponin I 0.082 Total Protein 6.9 Albumin 3.9 Globulin 3.00 Albumin/Globulin Ratio 1.30 Triglycerides Level 72 Cholesterol Level 123 LDL Cholesterol, Calculated 48 HDL Cholesterol 61 Cholesterol/HDL Ratio 2.0 Medications Medications Current Medications Sodium Chloride (NS) 1,000 ml @ 60 mls/hr [id number] IV Last administered on 03/18 06:47; Admin Dose 60 MLS/HR; Start 03/17/17 at 13:51 Ondansetron HCl (Zofran Inj) 4 mg Q6H PRN IV NAUSEA AND/OR VOMITING; Start at 14:00 Aspirin (Aspirin) 81 mg DAILY PO Last administered on 03/18/17 08:22; Admin Dose 81 MG; Start 03/18/17 at 09:00 Acetaminophen (Tylenol Tab) 650 mg Q6H PRN PO PAIN LEVEL 1-3 OR FEVER; Start at 14:00 Acetaminophen/ Hydrocodone Bitart ([place] (5/325)) 1 tab Q6H PRN PO PAIN LEVEL 4 -6; Start 03/17/17 at 14:00 Magnesium Hydroxide (Milk Of Mag) 30 ml DAILY PRN PO CONSTIPATION; Start at 14:00 Bisacodyl (Dulcolax) 5 mg DAILY PRN PO CONSTIPATION; Start 03/17/17 at 14:00 Famotidine (Pepcid) 20 mg DAILY PO Last administered on 03/18/17 08:25; Admin Dose 20 MG; Start 03/17/17 at 21:00 Cilostazol (Pletal) 50 mg BID PO Last administered on 03/18/17 08:26; Admin Dose 50 MG; Start 03/17/17 at 21:00 Ferrous Sulfate (Ferrous Sulfate (Ec)) 325 mg TID PO Last administered on 12:28; Admin Dose 325 MG; Start 03/17/17 at 21:00 Gabapentin (Neurontin) 100 mg BID PO Last administered on 03/18/17 08:24; Admin Dose 100 MG; Start 03/17/17 at 21:00 Insulin Glargine (Lantus) 10 unit QHS SC Last administered on 03/17/17 22:22; Admin Dose 10 UNIT; Start 03/17/17 at 21:00 Lamotrigine (Lamictal) 25 mg BID PO Last administered on 03/18/17 08:23; Admin Dose 25 MG; Start 03/17/17 at 21:00 Oxybutynin Chloride (Ditropan Xl) 5 mg DAILY PO Last administered on 03/18/17 08:23; Admin Dose 5 MG; Start 03/18/17 at 09:00 Pantoprazole (Protonix Tab) 40 mg DAILY PO Last administered on 03/18/17 08:26 ; Admin Dose 40 MG; Start 03/18/17 at 09:00 Sodium Bicarbonate (Sodium Bicarbonate Tab) 650 mg BID PO Last administered on 03/18/17 09:16; Admin Dose 650 MG; Start 03/17/17 at 21:00 Atorvastatin Calcium (Lipitor) 20 mg DAILY@21 PO Last administered on 21:26; Admin Dose 20 MG; Start 03/17/17 at 21:00 Hydralazine HCl (Apresoline) 10 mg Q6H PRN IV SBP>160 Last administered on 03/18 05:54; Admin Dose 10 MG; Start 03/17/17 at 14:30 Miscellaneous Information 1 ea NOTE XX ; Start 03/17/17 at 14:30 Glucose (Glutose) 15 gm Q15M PRN PO DECREASED GLUCOSE; Start 03/17/17 at 14:30 Glucose (Glutose) 22.5 gm Q15M PRN PO DECREASED GLUCOSE; Start 03/17/17 at 14: 30 Dextrose (D50w Syringe) 25 ml Q15M PRN IV DECREASED GLUCOSE; Start 03/17/17 at 14:30 Dextrose (D50w Syringe) 50 ml Q15M PRN IV DECREASED GLUCOSE; Start 03/17/17 at 14:30 Glucagon (Glucagen) 1 mg Q15M PRN IM DECREASED GLUCOSE; Start 03/17/17 at 14:30 Glucose 15 gm 15 gm Q15M PRN BUCCAL DECREASED GLUCOSE; Start 03/17/17 at 14:30 Piperacillin Sod/ Tazobactam Sod (Zosyn 2.25gm/ 50ml (Pmx)) 50 ml @ 100 mls/hr Q6 IVPB Last administered on 03/18/17 12:28; Admin Dose 100 MLS/HR; Start at 00:00 Amlodipine Besylate (Norvasc) 10 mg DAILY PO ; Start 03/19/17 at 09:00 Metoprolol Tartrate (Lopressor) 50 mg BID PO ; Start 03/18/17 at 21:00 Haloperidol (Haldol) 3 mg ONCE ONCE IM ; Start 03/18/17 at 16:30; Stop at 16:31 Haloperidol (Haldol) 3 mg Q8H PRN IM agitation; Start 03/18/17 at 16:30 Procedures Procedures ECG demonstrates sinus rhythm at 96 bpm, right bundle branch block, left anterior fascicular block, nonspecific STT wave abnormalities Collin Peter DO Mar 18, 2017 16:28
[2017-03-18] MEDS ORDERED: HALOPERIDOL 5 MG INJ IM PRN (16:30)
[2017-03-18] MEDS ORDERED: HALOPERIDOL 5 MG INJ IM ONE (16:30)
[2017-03-18] MEDS ORDERED: LIDOCAINE 1% (MPF) 5 ML VIAL SC ONE (17:30)
--- NOTE | 2017-03-18 17:31 | CONS ---
Date/Time of Note Date/Time of Note DATE: 03/18/17 TIME: 17:30 Assessment/Plan Assessment/Plan Additional Assessment/Plan 1. Sepsis secondary to gram-negative bacteremia and urinary tract infection 2. Acute kidney injury on CKD due to sepsis and Prerenal azotemia 3. Elevated troponin due to demand ischemia 4. Essential hypertension 5. Type II DM 7. COPD without exacerbation 8. Iron deficiency anemia associated with chronic disease: Patient has been on iron supplementation 9. Mild acute rhabdomyolysis: Improved 10. Chronic early onset dementia Plan : IV abx per Primary team Expective Creatinine to improve with IVF hydration and IV abx treatment Urine stuides Renal US CK total, Uric acid will follow up Thank you for consultation Consultation Date/Type/Reason Admit Date/Time Mar 17, 2017 at 08:56 Date of Consultation: Mar 18, 2017 Type of Consultation: NEPHROLOGY Reason for Consultation acute kidney injury Referring Provider: TAL PAYNE of Present Illness 86-year-old female with past medical history of chronic kidney disease, COPD, essential hypertension, dyslipidemia, peripheral vascular disease, and diabetes mellitus who came to the emergency room with the chief complaint of generalized weakness. The patient verbalized that she has been getting progressively weaker over the past 1 to 2 days. The patient denied any fevers at home. The patient denied any dyspnea, cough, or diaphoresis. The patient denied any urinary frequency or urgency. There was no reported diarrhea or bladder or bowel irregularity. The patient denied any chest pain. She denied any nausea, vomiting, abdominal pain, diarrhea, hematochezia, or dysuria. In the emergency room, the patient was noticed to have a fever of 102.6 degrees Fahrenheit. Patient's urinalysis was positive for leukocyte esterase along with positive WBC of 78. The patient was treated with IV antibiotics and IV fluids in the emergency room. pt is noted to have elevated BUN/Cr and renal has been consulted for it. Fever, generalized weakness, LEg pain and leg cramps Constitutional: chills, poor po Eyes: no complaints ENT: no complaints Respiratory: no complaints Cardiovascular: no complaints Gastrointestinal: no complaints Genitourinary: no complaints Musculoskeletal: back pain, bone/joint pain, neck pain, restricted range of motion Skin: no complaints Neurologic: dizziness, headache Endocrine: no complaints Lymphatic: no complaints Psychological: no complaints Immunologic: no complaints Past Medical History Medical History: diabetes, hypertension Past Surgical History Past Surgical Hx: no surgical history Family History Significant Family History: no pertinent family hx Social History Alcohol Use: none Smoking Status: Never smoker Exam/Review of Systems Vital Signs Vitals Vital Signs Date Time Temp Pulse Resp B/P Pulse Ox O2 Delivery O2 Flow Rate FiO2 03/18/17 16:30 96 03/18/17 15:42 98.0 16 158/88 99 03/17/17 19:26 Room Air Exam Constitutional: alert Psych: no complaints Head: normocephalic Eyes: nl conjunctiva ENMT: nl external ears & nose Neck: non-tender, supple Respiratory: clear to auscultation, normal air movement Cardiovascular: nl pulses, regular rate and rhythm Gastrointestinal: non-tender, soft Musculoskeletal: nl extremities to inspection Extremities: normal pulses Neurological: MERCHANDISING LEAD II-XII intact, nl mental status, nl speech Skin: nl turgor Lymph: nl lymph nodes Results Result Diagram: 03/18/17 0940 03/18/17 0940 Results 24 hrs Laboratory Tests Test 03/17/17 19:03 03/17/17 19:30 03/17/17 22:19 03/18/17 08:19 Bedside Glucose 127 103 134 Hemoglobin A1c 8.0 H Lactic Acid Level 1.0 Creatine Kinase 408 H Creatine Kinase Index 0.7 Creatinine Kinase MB (Mass) 2.71 H Troponin I 0.144 *H Vitamin D 1,25-Dihydroxy 30.5 Thyroid Stimulating Hormone (TSH) 0.977 Free Thyroxine 1.74 Test 03/18/17 09:15 03/18/17 09:40 03/18/17 12:23 03/18/17 17:13 Bedside Glucose 145 122 134 White Blood Count 9.1 Red Blood Count 3.27 L Hemoglobin 10.3 L Hematocrit 30.3 L Mean Corpuscular Volume 92.7 Mean Corpuscular Hemoglobin 31.5 Mean Corpuscular Hemoglobin Concent 34.0 Red Cell Distribution Width 12.0 Platelet Count 164 Mean Platelet Volume 9.7 Neutrophils % 77.4 H Lymphocytes % 10.0 L Monocytes % 11.1 H Eosinophils % 0.9 Basophils % 0.2 Nucleated Red Blood Cells % 0.0 Neutrophils # 7.0 Lymphocytes # 0.9 Monocytes # 1.0 H Eosinophils # 0.1 Basophils # 0.0 Nucleated Red Blood Cells # 0.0 Sodium Level 139 Potassium Level 3.6 Chloride Level 105 Carbon Dioxide Level 22 Anion Gap 16 Blood Urea Nitrogen 22 H Creatinine 1.53 H Glucose Level 156 Calcium Level 8.9 Phosphorus Level 3.0 Magnesium Level 1.8 Total Bilirubin 0.2 Direct Bilirubin 0.00 Indirect Bilirubin 0.2 Aspartate Amino Transf (AST/SGOT) 34 Alanine Aminotransferase (ALT/SGPT) 23 Alkaline Phosphatase 86 Creatine Kinase 394 H Creatine Kinase Index 0.5 Creatinine Kinase MB (Mass) 1.89 Troponin I 0.082 Total Protein 6.9 Albumin 3.9 Globulin 3.00 Albumin/Globulin Ratio 1.30 Triglycerides Level 72 Cholesterol Level 123 LDL Cholesterol, Calculated 48 HDL Cholesterol 61 Cholesterol/HDL Ratio 2.0 Medications Medications Current Medications Sodium Chloride (NS) 1,000 ml @ 60 mls/hr [id number] IV Last administered on 03/18 06:47; Admin Dose 60 MLS/HR; Start 03/17/17 at 13:51 Ondansetron HCl (Zofran Inj) 4 mg Q6H PRN IV NAUSEA AND/OR VOMITING; Start at 14:00 Aspirin (Aspirin) 81 mg DAILY PO Last administered on 03/18/17 08:22; Admin Dose 81 MG; Start 03/18/17 at 09:00 Acetaminophen (Tylenol Tab) 650 mg Q6H PRN PO PAIN LEVEL 1-3 OR FEVER; Start at 14:00 Acetaminophen/ Hydrocodone Bitart ([place] (5/325)) 1 tab Q6H PRN PO PAIN LEVEL 4 -6; Start 03/17/17 at 14:00 Magnesium Hydroxide (Milk Of Mag) 30 ml DAILY PRN PO CONSTIPATION; Start at 14:00 Bisacodyl (Dulcolax) 5 mg DAILY PRN PO CONSTIPATION; Start 03/17/17 at 14:00 Famotidine (Pepcid) 20 mg DAILY PO Last administered on 03/18/17 08:25; Admin Dose 20 MG; Start 03/17/17 at 21:00 Cilostazol (Pletal) 50 mg BID PO Last administered on 03/18/17 08:26; Admin Dose 50 MG; Start 03/17/17 at 21:00 Ferrous Sulfate (Ferrous Sulfate (Ec)) 325 mg TID PO Last administered on 12:28; Admin Dose 325 MG; Start 03/17/17 at 21:00 Gabapentin (Neurontin) 100 mg BID PO Last administered on 03/18/17 08:24; Admin Dose 100 MG; Start 03/17/17 at 21:00 Insulin Glargine (Lantus) 10 unit QHS SC Last administered on 03/17/17 22:22; Admin Dose 10 UNIT; Start 03/17/17 at 21:00 Lamotrigine (Lamictal) 25 mg BID PO Last administered on 03/18/17 08:23; Admin Dose 25 MG; Start 03/17/17 at 21:00 Oxybutynin Chloride (Ditropan Xl) 5 mg DAILY PO Last administered on 03/18/17 08:23; Admin Dose 5 MG; Start 03/18/17 at 09:00 Pantoprazole (Protonix Tab) 40 mg DAILY PO Last administered on 03/18/17 08:26 ; Admin Dose 40 MG; Start 03/18/17 at 09:00 Sodium Bicarbonate (Sodium Bicarbonate Tab) 650 mg BID PO Last administered on 03/18/17 09:16; Admin Dose 650 MG; Start 03/17/17 at 21:00 Atorvastatin Calcium (Lipitor) 20 mg DAILY@21 PO Last administered on 21:26; Admin Dose 20 MG; Start 03/17/17 at 21:00 Hydralazine HCl (Apresoline) 10 mg Q6H PRN IV SBP>160 Last administered on 03/18 05:54; Admin Dose 10 MG; Start 03/17/17 at 14:30 Miscellaneous Information 1 ea NOTE XX ; Start 03/17/17 at 14:30 Glucose (Glutose) 15 gm Q15M PRN PO DECREASED GLUCOSE; Start 03/17/17 at 14:30 Glucose (Glutose) 22.5 gm Q15M PRN PO DECREASED GLUCOSE; Start 03/17/17 at 14: 30 Dextrose (D50w Syringe) 25 ml Q15M PRN IV DECREASED GLUCOSE; Start 03/17/17 at 14:30 Dextrose (D50w Syringe) 50 ml Q15M PRN IV DECREASED GLUCOSE; Start 03/17/17 at 14:30 Glucagon (Glucagen) 1 mg Q15M PRN IM DECREASED GLUCOSE; Start 03/17/17 at 14:30 Glucose 15 gm 15 gm Q15M PRN BUCCAL DECREASED GLUCOSE; Start 03/17/17 at 14:30 Piperacillin Sod/ Tazobactam Sod (Zosyn 2.25gm/ 50ml (Pmx)) 50 ml @ 100 mls/hr Q6 IVPB Last administered on 03/18/17t 12:28; Admin Dose 100 MLS/HR; Start at 00:00 Metoprolol Tartrate (Lopressor) 50 mg BID PO ; Start 03/18/17 at 21:00 Haloperidol (Haldol) 3 mg Q8H PRN IM agitation; Start 03/18/17 at 16:30 Amlodipine Besylate (Norvasc) 5 mg BID PO ; Start 03/18/17 at 21:00 Quetiapine Fumarate (Seroquel) 25 mg BID PO ; Start 03/18/17 at 21:00 Lidocaine (Xylocaine 1% (Mpf)) 5 ml ONCE ONCE SC ; Start 03/18/17 at 17:30; Stop 03/18/17 at 17:31 ANDREW CASTREJON MD Mar 18, 2017 17:30
[2017-03-18] MEDS ORDERED: MAGNESIUM OXIDE 400 MG TAB PO SCH (19:17)
[2017-03-18] MEDS: QUETIAPINE 25 MG TAB PO SCH (21:03)
[2017-03-18] MEDS: ATORVASTATIN 20 MG TAB PO SCH (21:03)
[2017-03-18] MEDS: AMLODIPINE 5 MG TAB PO SCH (21:04)
[2017-03-18] MEDS: METOPROLOL 50 MG TAB PO SCH (21:04)
[2017-03-18] MEDS: INSULIN GLARGINE [LANtus] 3 ML PEN SC SCH (21:10)
[2017-03-19] VITALS (16 sets, daily range): BP systolic 118–189; BP diastolic 58–77; PULSE 78–103; RESP 19–23
[2017-03-19] MEDS: PIPER-TAZO 2.25 GM (PMX) 50 ML IVPB SCH (05:44)
[2017-03-19] MEDS: INSULIN ASPART [NOVOLOG] 3 ML PEN SC SCH ×7 (08:00→20:52)
[2017-03-19] MEDS: ASPIRIN 81 MG TAB PO SCH (08:58)
[2017-03-19] MEDS: OXYBUTYNIN (XL) 5 MG TAB PO SCH (08:59)
[2017-03-19] MEDS: FERROUS SULFATE (EC) 325 MG TAB PO SCH ×3 (08:59→20:51)
[2017-03-19] MEDS: LAMOTRIGINE 25 MG TAB PO SCH ×2 (09:00→20:51)
[2017-03-19] MEDS ORDERED: AMLODIPINE 10 MG TAB PO SCH (09:00)
[2017-03-19] MEDS: METOPROLOL 50 MG TAB PO SCH ×2 (09:00→20:52)
[2017-03-19] MEDS: AMLODIPINE 5 MG TAB PO SCH ×2 (09:01→20:52)
[2017-03-19] MEDS: GABAPENTIN 100 MG CAP PO SCH ×2 (09:01→20:51)
[2017-03-19] MEDS: FAMOTIDINE 20 MG TAB PO SCH (09:02)
[2017-03-19] MEDS: CILOSTAZOL 100 MG TAB PO SCH ×2 (09:02→20:51)
[2017-03-19] MEDS: NA BICARBONATE 650 MG TAB PO SCH ×2 (09:03→20:51)
[2017-03-19] MEDS: QUETIAPINE 25 MG TAB PO SCH ×2 (09:03→20:51)
[2017-03-19] MEDS: PANTOPRAZOLE (EC) 40 MG TAB PO SCH (09:03)
[2017-03-19] MEDS: ALBUTEROL/IPRATROPIUM (NEB) 3 ML AMP HHN PRN (10:55)
--- NOTE | 2017-03-19 11:40 | CONS ---
Date/Time of Note Date/Time of Note DATE: 03/19/17 TIME: 11:37 Assessment/Plan Assessment/Plan Additional Assessment/Plan Sepsis Acute on chronic kidney disease Encephalopathy Mildly elevated troponin Hypertension History of preserved left ventricular ejection fraction Diabetes -Patient with slight wheezing on examination today. Currently on IV fluids, if okay by our nephrology colleagues, would consider stopping. No labs done today. Blood pressure trend overall stable. Consultation Date/Type/Reason Admit Date/Time Mar 17, 2017 at 08:56 Initial Consult Date 03/18/17 Type of Consultation: cv Referring Provider: TAL PAYNE 24 HR Interval Summary Free Text/Dictation Denies chest pain or shortness of breath, feeling better Exam/Review of Systems Vital Signs Vitals Vital Signs Date Time Temp Pulse Resp B/P Pulse Ox O2 Delivery O2 Flow Rate FiO2 03/19/17 10:55 81 20 94 21 03/19/17 07:47 97.3 150/69 03/17/17 19:26 Room Air Intake and Output 03/18/17 03/18/17 03/19/17 15:00 23:00 07:00 Intake Total 50 ml 1060 ml 350 ml Balance 50 ml 1060 ml 350 ml Exam Following commands, no apparent distress Constitutional: alert Head: normocephalic Respiratory: other (Coarse breath sounds bilaterally with minimal scattered wheezing) Cardiovascular: other (S1-S2 heard), regular rate and rhythm Gastrointestinal: bowel sounds, non-tender, soft Extremities: edema Results Result Diagram: 03/18/17 0940 03/18/17 0940 Results 24 hrs Laboratory Tests Test 03/18/17 12:23 03/18/17 17:13 03/18/17 21:02 03/19/17 07:49 Bedside Glucose 122 134 126 Uric Acid 5.0 Test 03/19/17 08:51 03/19/17 08:52 03/19/17 09:12 03/19/17 09:25 Bedside Glucose 50 L 56 L 56 L 68 L Test 03/19/17 09:47 03/19/17 10:10 Bedside Glucose 87 106 Medications Medications Current Medications Sodium Chloride (NS) 1,000 ml @ 60 mls/hr [id number] IV Last administered on 03/18t 06:47; Admin Dose 60 MLS/HR; Start 03/17/17 at 13:51 Ondansetron HCl (Zofran Inj) 4 mg Q6H PRN IV NAUSEA AND/OR VOMITING; Start at 14:00 Aspirin (Aspirin) 81 mg DAILY PO Last administered on 03/19/17 08:58; Admin Dose 81 MG; Start 03/18/17 at 09:00 Acetaminophen (Tylenol Tab) 650 mg Q6H PRN PO PAIN LEVEL 1-3 OR FEVER; Start at 14:00 Acetaminophen/ Hydrocodone Bitart ([place] (5/325)) 1 tab Q6H PRN PO PAIN LEVEL 4 -6; Start 03/17/17 at 14:00 Magnesium Hydroxide (Milk Of Mag) 30 ml DAILY PRN PO CONSTIPATION; Start at 14:00 Bisacodyl (Dulcolax) 5 mg DAILY PRN PO CONSTIPATION; Start 03/17/17 at 14:00 Famotidine (Pepcid) 20 mg DAILY PO Last administered on 03/19/17 09:02; Admin Dose 20 MG; Start 03/17/17 at 21:00 Cilostazol (Pletal) 50 mg BID PO Last administered on 03/19/17 09:02; Admin Dose 50 MG; Start 03/17/17 at 21:00 Ferrous Sulfate (Ferrous Sulfate (Ec)) 325 mg TID PO Last administered on 08:59; Admin Dose 325 MG; Start 03/17/17 at 21:00 Gabapentin (Neurontin) 100 mg BID PO Last administered on 03/19/17 09:01; Admin Dose 100 MG; Start 03/17/17 at 21:00 Lamotrigine (Lamictal) 25 mg BID PO Last administered on 03/19/17 09:00; Admin Dose 25 MG; Start 03/17/17 at 21:00 Oxybutynin Chloride (Ditropan Xl) 5 mg DAILY PO Last administered on 03/19/17 08:59; Admin Dose 5 MG; Start 03/18/17 at 09:00 Pantoprazole (Protonix Tab) 40 mg DAILY PO Last administered on 03/19/17 09:03 ; Admin Dose 40 MG; Start 03/18/17 at 09:00 Sodium Bicarbonate (Sodium Bicarbonate Tab) 650 mg BID PO Last administered on 03/19/17 09:03; Admin Dose 650 MG; Start 03/17/17 at 21:00 Atorvastatin Calcium (Lipitor) 20 mg DAILY@21 PO Last administered on 21:03; Admin Dose 20 MG; Start 03/17/17 at 21:00 Hydralazine HCl (Apresoline) 10 mg Q6H PRN IV SBP>160 Last administered on 03/18 05:54; Admin Dose 10 MG; Start 03/17/17 at 14:30 Miscellaneous Information 1 ea NOTE XX ; Start 03/17/17 at 14:30 Glucose (Glutose) 15 gm Q15M PRN PO DECREASED GLUCOSE; Start 03/17/17 at 14:30 Glucose (Glutose) 22.5 gm Q15M PRN PO DECREASED GLUCOSE; Start 03/17/17 at 14: 30 Dextrose (D50w Syringe) 25 ml Q15M PRN IV DECREASED GLUCOSE; Start 03/17/17 at 14:30 Dextrose (D50w Syringe) 50 ml Q15M PRN IV DECREASED GLUCOSE; Start 03/17/17 at 14:30 Glucagon (Glucagen) 1 mg Q15M PRN IM DECREASED GLUCOSE; Start 03/17/17 at 14:30 Glucose 15 gm 15 gm Q15M PRN BUCCAL DECREASED GLUCOSE; Start 03/17/17 at 14:30 Piperacillin Sod/ Tazobactam Sod (Zosyn 2.25gm/ 50ml (Pmx)) 50 ml @ 100 mls/hr Q6 IVPB Last administered on 03/19/17 05:44; Admin Dose 100 MLS/HR; Start at 00:00 Metoprolol Tartrate (Lopressor) 50 mg BID PO Last administered on 03/19/17 09: 00; Admin Dose 50 MG; Start 03/18/17 at 21:00 Haloperidol (Haldol) 3 mg Q8H PRN IM agitation; Start 03/18/17 at 16:30 Amlodipine Besylate (Norvasc) 5 mg BID PO Last administered on 03/19/17 09:01 ; Admin Dose 5 MG; Start 03/18/17 at 21:00 Quetiapine Fumarate (Seroquel) 25 mg BID PO Last administered on 03/19/17 09: 03; Admin Dose 25 MG; Start 03/18/17 at 21:00 Collin Peter DO Mar 19, 2017 11:40
--- NOTE | 2017-03-19 11:57 | CONS ---
Date/Time of Note Date/Time of Note DATE: 03/19/17 TIME: 11:55 Consultation Date/Type/Reason Admit Date/Time Mar 17, 2017 at 08:56 Reason for Consultation This is Turner Gaspar dictating infectious disease consult on Juhi W[place], date of admission is 626 date of consultation 627 date of dictation 03/19/2017. This is an infectious disease consult reason for consultation is antibiotic management The patient's full chart was reviewed and examined, and physical examination was done. Review of systems and review of data were completed. The patient presented with generalized weakness and was found to have UTI with E. coli and bacteremia with E. coli. Patient was treated with Zosyn which should be effective. Will await the culture reports. 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 Constitutional: chills, poor po Eyes: no complaints ENT: no complaints Respiratory: no complaints Cardiovascular: no complaints Gastrointestinal: no complaints Genitourinary: no complaints Musculoskeletal: back pain, bone/joint pain, neck pain, restricted range of motion Skin: no complaints Neurologic: dizziness, headache Endocrine: no complaints Lymphatic: no complaints Psychological: no complaints Immunologic: no complaints Past Medical History Medical History: diabetes, hypertension Past Surgical History Past Surgical Hx: no surgical history Social History Alcohol Use: none Smoking Status: Never smoker Exam/Review of Systems Vital Signs Vitals Vital Signs Date Time Temp Pulse Resp B/P Pulse Ox O2 Delivery O2 Flow Rate FiO2 03/19/17 11:51 98.4 82 20 160/73 98 03/19/17 10:55 21 03/17/17 19:26 Room Air Intake and Output 03/18/17 03/18/17 03/19/17 15:00 23:00 07:00 Intake Total 50 ml 1060 ml 350 ml Balance 50 ml 1060 ml 350 ml Results Result Diagram: 03/18/17 0940 03/18/17 0940 Results 24 hrs Laboratory Tests Test 03/18/17 12:23 03/18/17 17:13 03/18/17 21:02 03/19/17 07:49 Bedside Glucose 122 134 126 Uric Acid 5.0 Test 03/19/17 08:51 03/19/17 08:52 03/19/17 09:12 03/19/17 09:25 Bedside Glucose 50 L 56 L 56 L 68 L Test 03/19/17 09:47 03/19/17 10:10 Bedside Glucose 87 106 Medications Medications Current Medications Sodium Chloride (NS) 1,000 ml @ 60 mls/hr [id number] IV Last administered on 03/18 06:47; Admin Dose 60 MLS/HR; Start 03/17/17 at 13:51 Ondansetron HCl (Zofran Inj) 4 mg Q6H PRN IV NAUSEA AND/OR VOMITING; Start at 14:00 Aspirin (Aspirin) 81 mg DAILY PO Last administered on 03/19/17 08:58; Admin Dose 81 MG; Start 03/18/17 at 09:00 Acetaminophen (Tylenol Tab) 650 mg Q6H PRN PO PAIN LEVEL 1-3 OR FEVER; Start at 14:00 Acetaminophen/ Hydrocodone Bitart ([place] (5/325)) 1 tab Q6H PRN PO PAIN LEVEL 4 -6; Start 03/17/17 at 14:00 Magnesium Hydroxide (Milk Of Mag) 30 ml DAILY PRN PO CONSTIPATION; Start at 14:00 Bisacodyl (Dulcolax) 5 mg DAILY PRN PO CONSTIPATION; Start 03/17/17 at 14:00 Famotidine (Pepcid) 20 mg DAILY PO Last administered on 03/19/17 09:02; Admin Dose 20 MG; Start 03/17/17 at 21:00 Cilostazol (Pletal) 50 mg BID PO Last administered on 03/19/17 09:02; Admin Dose 50 MG; Start 03/17/17 at 21:00 Ferrous Sulfate (Ferrous Sulfate (Ec)) 325 mg TID PO Last administered on 08:59; Admin Dose 325 MG; Start 03/17/17 at 21:00 Gabapentin (Neurontin) 100 mg BID PO Last administered on 03/19/17 09:01; Admin Dose 100 MG; Start 03/17/17 at 21:00 Lamotrigine (Lamictal) 25 mg BID PO Last administered on 03/19/17 09:00; Admin Dose 25 MG; Start 03/17/17 at 21:00 Oxybutynin Chloride (Ditropan Xl) 5 mg DAILY PO Last administered on 03/19/17 08:59; Admin Dose 5 MG; Start 03/18/17 at 09:00 Pantoprazole (Protonix Tab) 40 mg DAILY PO Last administered on 03/19/17 09:03 ; Admin Dose 40 MG; Start 03/18/17 at 09:00 Sodium Bicarbonate (Sodium Bicarbonate Tab) 650 mg BID PO Last administered on 03/19/17 09:03; Admin Dose 650 MG; Start 03/17/17 at 21:00 Atorvastatin Calcium (Lipitor) 20 mg DAILY@21 PO Last administered on 21:03; Admin Dose 20 MG; Start 03/17/17 at 21:00 Hydralazine HCl (Apresoline) 10 mg Q6H PRN IV SBP>160 Last administered on 03/18 05:54; Admin Dose 10 MG; Start 03/17/17 at 14:30 Miscellaneous Information 1 ea NOTE XX ; Start 03/17/17 at 14:30 Glucose (Glutose) 15 gm Q15M PRN PO DECREASED GLUCOSE; Start 03/17/17 at 14:30 Glucose (Glutose) 22.5 gm Q15M PRN PO DECREASED GLUCOSE; Start 03/17/17 at 14: 30 Dextrose (D50w Syringe) 25 ml Q15M PRN IV DECREASED GLUCOSE; Start 03/17/17 at 14:30 Dextrose (D50w Syringe) 50 ml Q15M PRN IV DECREASED GLUCOSE; Start 03/17/17 at 14:30 Glucagon (Glucagen) 1 mg Q15M PRN IM DECREASED GLUCOSE; Start 03/17/17 at 14:30 Glucose 15 gm 15 gm Q15M PRN BUCCAL DECREASED GLUCOSE; Start 03/17/17 at 14:30 Piperacillin Sod/ Tazobactam Sod (Zosyn 2.25gm/ 50ml (Pmx)) 50 ml @ 100 mls/hr Q6 IVPB Last administered on 03/19/17 05:44; Admin Dose 100 MLS/HR; Start at 00:00 Metoprolol Tartrate (Lopressor) 50 mg BID PO Last administered on 03/19/17 09: 00; Admin Dose 50 MG; Start 03/18/17 at 21:00 Haloperidol (Haldol) 3 mg Q8H PRN IM agitation; Start 03/18/17 at 16:30 Amlodipine Besylate (Norvasc) 5 mg BID PO Last administered on 03/19/17 09:01 ; Admin Dose 5 MG; Start 03/18/17 at 21:00 Quetiapine Fumarate (Seroquel) 25 mg BID PO Last administered on 03/19/17 09: 03; Admin Dose 25 MG; Start 03/18/17 at 21:00 EDMOND ROBLES MD Mar 19, 2017 11:57
--- NOTE | 2017-03-19 12:39 | CONS ---
Date/Time of Note Date/Time of Note DATE: 03/19/17 TIME: 12:32 Assessment/Plan Assessment/Plan Chief Complaint/Hosp Course No acute events overnight. Patient is awake lying comfortably in bed, she is in no distress Microbiology: Blood and urine culture growing E. coli Antimicrobials:The patient is on Zosyn Physical examination: This is an obese well-developed elderly woman who is alert in no distress. Head : Atraumatic normocephalic Sclera: Anicteric. PERRLA Neck is supple neck Chest rise symmetrical. Breath sounds with expiratory wheezes bilaterally. Heart S1-S2 Abdomen soft bowel sounds present, no tenderness on palpation. Extremities without cyanosis bilateral lower extremities trace edema Assessment 1. Sepsis with fevers, tachycardia on admission #2 2. Urinary tract infection with bacteremia 3. Diabetes 4. COPD 5. Obesity Plan: Patient remains stable, we are going to repeat blood cultures if it has not been done yet, change antibiotics to Rocephin, follow cardiology recommendations. DW staff Problems: Consultation Date/Type/Reason Admit Date/Time Mar 17, 2017 at 08:56 Initial Consult Date 03/18/17 Type of Consultation: Infectious disease Referring Provider: TAL PAYNE Exam/Review of Systems Vital Signs Vitals Vital Signs Date Time Temp Pulse Resp B/P Pulse Ox O2 Delivery O2 Flow Rate FiO2 03/19/17 12:00 78 03/19/17 11:51 98.4 20 160/73 98 03/19/17 10:55 21 03/17/17 19:26 Room Air Intake and Output 03/18/17 03/18/17 03/19/17 15:00 23:00 07:00 Intake Total 50 ml 1060 ml 350 ml Balance 50 ml 1060 ml 350 ml Results Result Diagram: 03/18/17 0940 03/18/17 0940 Results 24 hrs Laboratory Tests Test 03/18/17 17:13 03/18/17 21:02 03/19/17 07:49 03/19/17 08:51 Bedside Glucose 134 126 50 L Uric Acid 5.0 Test 03/19/17 08:52 03/19/17 09:12 03/19/17 09:25 03/19/17 09:47 Bedside Glucose 56 L 56 L 68 L 87 Test 03/19/17 10:10 Bedside Glucose 106 Medications Medications Current Medications Sodium Chloride (NS) 1,000 ml @ 60 mls/hr [id number] IV Last administered on 03/18 06:47; Admin Dose 60 MLS/HR; Start 03/17/17 at 13:51 Ondansetron HCl (Zofran Inj) 4 mg Q6H PRN IV NAUSEA AND/OR VOMITING; Start at 14:00 Aspirin (Aspirin) 81 mg DAILY PO Last administered on 03/19/17 08:58; Admin Dose 81 MG; Start 03/18/17 at 09:00 Acetaminophen (Tylenol Tab) 650 mg Q6H PRN PO PAIN LEVEL 1-3 OR FEVER; Start at 14:00 Acetaminophen/ Hydrocodone Bitart ([place] (5/325)) 1 tab Q6H PRN PO PAIN LEVEL 4 -6; Start 03/17/17 at 14:00 Magnesium Hydroxide (Milk Of Mag) 30 ml DAILY PRN PO CONSTIPATION; Start at 14:00 Bisacodyl (Dulcolax) 5 mg DAILY PRN PO CONSTIPATION; Start 03/17/17 at 14:00 Famotidine (Pepcid) 20 mg DAILY PO Last administered on 03/19/17 09:02; Admin Dose 20 MG; Start 03/17/17 at 21:00 Cilostazol (Pletal) 50 mg BID PO Last administered on 03/19/17 09:02; Admin Dose 50 MG; Start 03/17/17 at 21:00 Ferrous Sulfate (Ferrous Sulfate (Ec)) 325 mg TID PO Last administered on 08:59; Admin Dose 325 MG; Start 03/17/17 at 21:00 Gabapentin (Neurontin) 100 mg BID PO Last administered on 03/19/17 09:01; Admin Dose 100 MG; Start 03/17/17 at 21:00 Lamotrigine (Lamictal) 25 mg BID PO Last administered on 03/19/17 09:00; Admin Dose 25 MG; Start 03/17/17 at 21:00 Oxybutynin Chloride (Ditropan Xl) 5 mg DAILY PO Last administered on 03/19/17 08:59; Admin Dose 5 MG; Start 03/18/17 at 09:00 Pantoprazole (Protonix Tab) 40 mg DAILY PO Last administered on 03/19/17 09:03 ; Admin Dose 40 MG; Start 03/18/17 at 09:00 Sodium Bicarbonate (Sodium Bicarbonate Tab) 650 mg BID PO Last administered on 03/19/17 09:03; Admin Dose 650 MG; Start 03/17/17 at 21:00 Atorvastatin Calcium (Lipitor) 20 mg DAILY@21 PO Last administered on 21:03; Admin Dose 20 MG; Start 03/17/17 at 21:00 Hydralazine HCl (Apresoline) 10 mg Q6H PRN IV SBP>160 Last administered on 03/18 05:54; Admin Dose 10 MG; Start 03/17/17 at 14:30 Miscellaneous Information 1 ea NOTE XX ; Start 03/17/17 at 14:30 Glucose (Glutose) 15 gm Q15M PRN PO DECREASED GLUCOSE; Start 03/17/17 at 14:30 Glucose (Glutose) 22.5 gm Q15M PRN PO DECREASED GLUCOSE; Start 03/17/17 at 14: 30 Dextrose (D50w Syringe) 25 ml Q15M PRN IV DECREASED GLUCOSE; Start 03/17/17 at 14:30 Dextrose (D50w Syringe) 50 ml Q15M PRN IV DECREASED GLUCOSE; Start 03/17/17 at 14:30 Glucagon (Glucagen) 1 mg Q15M PRN IM DECREASED GLUCOSE; Start 03/17/17 at 14:30 Glucose 15 gm 15 gm Q15M PRN BUCCAL DECREASED GLUCOSE; Start 03/17/17 at 14:30 Piperacillin Sod/ Tazobactam Sod (Zosyn 2.25gm/ 50ml (Pmx)) 50 ml @ 100 mls/hr Q6 IVPB Last administered on 03/19/17 05:44; Admin Dose 100 MLS/HR; Start at 00:00 Metoprolol Tartrate (Lopressor) 50 mg BID PO Last administered on 03/19/17 09: 00; Admin Dose 50 MG; Start 03/18/17 at 21:00 Haloperidol (Haldol) 3 mg Q8H PRN IM agitation; Start 03/18/17 at 16:30 Amlodipine Besylate (Norvasc) 5 mg BID PO Last administered on 03/19/17 09:01 ; Admin Dose 5 MG; Start 03/18/17 at 21:00 Quetiapine Fumarate (Seroquel) 25 mg BID PO Last administered on 03/19/17t 09: 03; Admin Dose 25 MG; Start 03/18/17 at 21:00 YFN SHANKAR NP Mar 19, 2017 12:39
--- NOTE | 2017-03-19 13:46 | CONS ---
Date/Time of Note Date/Time of Note DATE: 03/19/17 TIME: 13:42 Assessment/Plan Assessment/Plan Chief Complaint/Hosp Course 86-year-old female with past medical history of chronic kidney disease, COPD, essential hypertension, dyslipidemia, peripheral vascular disease, and diabetes mellitus who came to the emergency room with the chief complaint of generalized weakness. The patient verbalized that she has been getting progressively weaker over the past 1 to 2 days. The patient denied any fevers at home. The patient denied any dyspnea, cough, or diaphoresis. The patient denied any urinary frequency or urgency. There was no reported diarrhea or bladder or bowel irregularity. The patient denied any chest pain. She denied any nausea, vomiting, abdominal pain, diarrhea, hematochezia, or dysuria. In the emergency room, the patient was noticed to have a fever of 102.6 degrees Fahrenheit. Patient's urinalysis was positive for leukocyte esterase along with positive WBC of 78. The patient was treated with IV antibiotics and IV fluids in the emergency room. pt is noted to have elevated BUN/Cr and renal has been consulted for it. Problems: Additional Assessment/Plan 1. Sepsis secondary to E.coli bacteremia and urinary tract infection with Urine cx growing E coli 2. Acute kidney injury on CKD due to sepsis and Prerenal azotemia 3. Elevated troponin due to demand ischemia 4. Essential hypertension 5. Type II DM 7. COPD without exacerbation 8. Iron deficiency anemia associated with chronic disease: Patient has been on iron supplementation 9. Mild acute rhabdomyolysis: Improved 10. Chronic early onset dementia Plan : IV abx per Primary team, Cr improved to 1.56- no labs today to review Expective Creatinine to improve with IVF hydration and IV abx treatment Renal US CK total, Uric acid with AM labs ordered will follow up Consultation Date/Type/Reason Admit Date/Time Mar 17, 2017 at 08:56 Initial Consult Date 03/18/17 Type of Consultation: NEPHROLOGY Referring Provider: TAL PAYNE Exam/Review of Systems Vital Signs Vitals Vital Signs Date Time Temp Pulse Resp B/P Pulse Ox O2 Delivery O2 Flow Rate FiO2 03/19/17 12:00 78 03/19/17 11:51 98.4 20 160/73 98 03/19/17 10:55 21 03/17/17 19:26 Room Air Intake and Output 6/03/18/17 03/19/17 15:00 23:00 07:00 Intake Total 50 ml 1060 ml 350 ml Balance 50 ml 1060 ml 350 ml Results Result Diagram: 03/18/1740 03/18/17 0940 Results 24 hrs Laboratory Tests Test 03/18/17 17:13 03/18/17 21:02 03/19/17 07:49 03/19/17 08:51 Bedside Glucose 134 126 50 L Uric Acid 5.0 Test 03/19/17 08:52 03/19/17 09:12 03/19/17 09:25 03/19/17 09:47 Bedside Glucose 56 L 56 L 68 L 87 Test 03/19/17 10:10 03/19/17 12:45 Bedside Glucose 106 97 Medications Medications Current Medications Sodium Chloride (NS) 1,000 ml @ 60 mls/hr [id number] IV Last administered on 03/18 06:47; Admin Dose 60 MLS/HR; Start 03/17/17 at 13:51 Ondansetron HCl (Zofran Inj) 4 mg Q6H PRN IV NAUSEA AND/OR VOMITING; Start at 14:00 Aspirin (Aspirin) 81 mg DAILY PO Last administered on 03/19/17 08:58; Admin Dose 81 MG; Start 03/18/17 at 09:00 Acetaminophen (Tylenol Tab) 650 mg Q6H PRN PO PAIN LEVEL 1-3 OR FEVER; Start at 14:00 Acetaminophen/ Hydrocodone Bitart ([place] (5/325)) 1 tab Q6H PRN PO PAIN LEVEL 4 -6; Start 03/17/17 at 14:00 Magnesium Hydroxide (Milk Of Mag) 30 ml DAILY PRN PO CONSTIPATION; Start at 14:00 Bisacodyl (Dulcolax) 5 mg DAILY PRN PO CONSTIPATION; Start 03/17/17 at 14:00 Famotidine (Pepcid) 20 mg DAILY PO Last administered on 03/19/17 09:02; Admin Dose 20 MG; Start 03/17/17 at 21:00 Cilostazol (Pletal) 50 mg BID PO Last administered on 03/19/17 09:02; Admin Dose 50 MG; Start 03/17/17 at 21:00 Ferrous Sulfate (Ferrous Sulfate (Ec)) 325 mg TID PO Last administered on 12:46; Admin Dose 325 MG; Start 03/17/17 at 21:00 Gabapentin (Neurontin) 100 mg BID PO Last administered on 03/19/17 09:01; Admin Dose 100 MG; Start 03/17/17 at 21:00 Lamotrigine (Lamictal) 25 mg BID PO Last administered on 03/19/17 09:00; Admin Dose 25 MG; Start 03/17/17 at 21:00 Oxybutynin Chloride (Ditropan Xl) 5 mg DAILY PO Last administered on 03/19/17 08:59; Admin Dose 5 MG; Start 03/18/17 at 09:00 Pantoprazole (Protonix Tab) 40 mg DAILY PO Last administered on 03/19/17 09:03 ; Admin Dose 40 MG; Start 03/18/17 at 09:00 Sodium Bicarbonate (Sodium Bicarbonate Tab) 650 mg BID PO Last administered on 03/19/17 09:03; Admin Dose 650 MG; Start 03/17/17 at 21:00 Atorvastatin Calcium (Lipitor) 20 mg DAILY@21 PO Last administered on 21:03; Admin Dose 20 MG; Start 03/17/17 at 21:00 Hydralazine HCl (Apresoline) 10 mg Q6H PRN IV SBP>160 Last administered on 03/18 05:54; Admin Dose 10 MG; Start 03/17/17 at 14:30 Miscellaneous Information 1 ea NOTE XX ; Start 03/17/17 at 14:30 Glucose (Glutose) 15 gm Q15M PRN PO DECREASED GLUCOSE; Start 03/17/17 at 14:30 Glucose (Glutose) 22.5 gm Q15M PRN PO DECREASED GLUCOSE; Start 03/17/17 at 14: 30 Dextrose (D50w Syringe) 25 ml Q15M PRN IV DECREASED GLUCOSE; Start 03/17/17 at 14:30 Dextrose (D50w Syringe) 50 ml Q15M PRN IV DECREASED GLUCOSE; Start 03/17/17 at 14:30 Glucagon (Glucagen) 1 mg Q15M PRN IM DECREASED GLUCOSE; Start 03/17/17 at 14:30 Glucose (Glutose) 15 gm Q15M PRN BUCCAL DECREASED GLUCOSE; Start 03/17/17 at 14 :30 Metoprolol Tartrate (Lopressor) 50 mg BID PO Last administered on 03/19/17 09: 00; Admin Dose 50 MG; Start 03/18/17 at 21:00 Haloperidol (Haldol) 3 mg Q8H PRN IM agitation; Start 03/18/17 at 16:30 Amlodipine Besylate (Norvasc) 5 mg BID PO Last administered on 03/19/17 09:01 ; Admin Dose 5 MG; Start 03/18/17 at 21:00 Quetiapine Fumarate 25 mg 25 mg BID PO Last administered on 03/19/17 09:03; Admin Dose 25 MG; Start 03/18/17 at 21:00 Ceftriaxone Sodium (Rocephin) 50 ml @ 100 mls/hr Q24H IVPB ; Start 03/19/17 at 14:00 ANDREW CASTREJON MD Mar 19, 2017 13:45
[2017-03-19] MEDS: CEFTRIAXONE 1 GM/50 ML (PMX) 50 ML IVPB SCH (14:39)
[2017-03-19] MEDS: SOD CHLORIDE 0.9% 1,000 ML IV SCH (14:39)
--- NOTE | 2017-03-19 14:40 | RADRPT ---
PROCEDURE: US Renal CLINICAL INDICATION: Acute renal failure TECHNIQUE: Multiple sonographic images of the kidneys and bladder were obtained. Evaluation of th e kidneys and bladder was performed as well with tobin scale and color and Doppler evaluation using a curved array transducer. The images were reviewed on a high-resolution PACS workstation. COMPARISON: CT abdomen pelvis 10/06/2016. FINDINGS: The right kidney measures 9.7 cm. The left kidney measures 9.1 cm. There is normal echogenicity within the parenchyma of the kidneys bilaterally. There are a few sub centimeter bilateral renal cysts. There is no evidence of hydronephrosis. No perinephric fluid collection is seen. Evaluation of the urinary bladder is unremarkable. IMPRESSION: 1. Small bilateral renal cysts. RPTAT: [facility] Physician Ally Date Time Electronically viewed and signed by Physician Ally on 03/19/2017 14:40 /
--- NOTE | 2017-03-19 15:46 | PN ---
Date/Time of Note Date/Time of Note DATE: 03/19/17 TIME: 15:42 Assessment/Plan VTE Prophylaxis VTE Prophylaxis Intervention: SCD's Lines/Catheters [facility] Peripheral IV Urinary Cath still in place: No Assessment/Plan Assessment/Plan 86-year-old female who had presented with generalized weakness now managed for the followin. Sepsis secondary to E coli bacteremia and urinary tract infection : improving 2. Acute on chronic kidney injury: improving 3. Elevated troponins without chest pain concerning for non-ST elevation myocardial infarction in this diabetic likely type II from demand ischemia: trended down 4. Essential hypertension : improving control 5. Chronic peripheral vascular disease 6. Type 2 diabetes mellitus with hemoglobin A1c of 8.0: good inhouse control so far 7. COPD without exacerbation 8. Iron deficiency anemia associated with chronic disease: Patient has been on iron supplementation 9. Mild acute rhabdomyolysis: Improved 10. Chronic early onset dementia Plan: * Continue broad-spectrum antibiotics / repeat blood cultures * Resume ACEi or ARB when kidney function improves which will help BP control * Patient is also on dual antiplatelet therapy for peripheral vascular disease * Continue diabetic diet, sliding scale insulin. Titrate insulin doses for optimal control as indicated * Continue all other home medications * Continue supportive care / reorientation / Continue seroquel qhs Further interventions per clinical course Appreciate all consults Prophylaxis with PPI and SCDs Subjective 24 Hr Interval Summary Free Text/Dictation patient calmer today and seems to have better cognition Exam/Review of Systems Vital Signs Vitals Vital Signs Date Time Temp Pulse Resp B/P Pulse Ox O2 Delivery O2 Flow Rate FiO2 03/19/17 12:00 78 03/19/17 11:51 98.4 20 160/73 98 03/19/17 10:55 21 03/17/17 19:26 Room Air Intake and Output 03/18/17 03/18/17 03/19/17 15:00 23:00 07:00 Intake Total 50 ml 1060 ml 350 ml Balance 50 ml 1060 ml 350 ml Exam GENERAL: This is a [place] female lying in bed in no apparent distress. HEENT: Head normocephalic and atraumatic. Eyes: Anicteric sclerae. Conjunctivae clear. ENT: Nasal septum is midline. Oral mucosa is dry. NECK: Supple. No JVD noticed. RESPIRATORY: Bilaterally diminished breath sounds, mild audible wheezing CARDIAC: Regular rate and rhythm. S1, S2 heard. ABDOMEN: Soft, nontender, and nondistended. Bowel sounds positive in all 4 quadrants. GENITOURINARY: Deferred. EXTREMITIES: No cyanosis, no clubbing. Bilateral lower extremity pedal pulses are not palpable. NEUROLOGIC: The patient is awake, alert and pleasantly confused. Results Result Diagram: 03/18/17 0940 03/18/17 0940 Results 24 hrs Laboratory Tests Test 03/18/17 17:13 03/18/17 21:02 03/19/17 07:49 03/19/17 08:51 Bedside Glucose 134 126 50 L Uric Acid 5.0 Test 03/19/17 08:52 03/19/17 09:12 03/19/17 09:25 03/19/17 09:47 Bedside Glucose 56 L 56 L 68 L 87 Test 03/19/17 10:10 03/19/17 12:45 Bedside Glucose 106 97 Medications Medications Current Medications Sodium Chloride (NS) 1,000 ml @ 60 mls/hr [id number] IV Last administered on 03/19 14:39; Admin Dose 60 MLS/HR; Start 03/17/17 at 13:51 Ondansetron HCl (Zofran Inj) 4 mg Q6H PRN IV NAUSEA AND/OR VOMITING; Start at 14:00 Aspirin (Aspirin) 81 mg DAILY PO Last administered on 03/19/17 08:58; Admin Dose 81 MG; Start 03/18/17 at 09:00 Acetaminophen (Tylenol Tab) 650 mg Q6H PRN PO PAIN LEVEL 1-3 OR FEVER; Start at 14:00 Acetaminophen/ Hydrocodone Bitart ([place] (5/325)) 1 tab Q6H PRN PO PAIN LEVEL 4 -6; Start 03/17/17 at 14:00 Magnesium Hydroxide (Milk Of Mag) 30 ml DAILY PRN PO CONSTIPATION; Start at 14:00 Bisacodyl (Dulcolax) 5 mg DAILY PRN PO CONSTIPATION; Start 03/17/17 at 14:00 Famotidine (Pepcid) 20 mg DAILY PO Last administered on 03/19/17 09:02; Admin Dose 20 MG; Start 03/17/17 at 21:00 Cilostazol (Pletal) 50 mg BID PO Last administered on 03/19/17 09:02; Admin Dose 50 MG; Start 03/17/17 at 21:00 Ferrous Sulfate (Ferrous Sulfate (Ec)) 325 mg TID PO Last administered on 12:46; Admin Dose 325 MG; Start 03/17/17 at 21:00 Gabapentin (Neurontin) 100 mg BID PO Last administered on 03/19/17 09:01; Admin Dose 100 MG; Start 03/17/17 at 21:00 Lamotrigine (Lamictal) 25 mg BID PO Last administered on 03/19/17 09:00; Admin Dose 25 MG; Start 03/17/17 at 21:00 Oxybutynin Chloride (Ditropan Xl) 5 mg DAILY PO Last administered on 03/19/17 08:59; Admin Dose 5 MG; Start 03/18/17 at 09:00 Pantoprazole (Protonix Tab) 40 mg DAILY PO Last administered on 03/19/17 09:03 ; Admin Dose 40 MG; Start 03/18/17 at 09:00 Sodium Bicarbonate (Sodium Bicarbonate Tab) 650 mg BID PO Last administered on 03/19/17 09:03; Admin Dose 650 MG; Start 03/17/17 at 21:00 Atorvastatin Calcium (Lipitor) 20 mg DAILY@21 PO Last administered on 21:03; Admin Dose 20 MG; Start 03/17/17 at 21:00 Hydralazine HCl (Apresoline) 10 mg Q6H PRN IV SBP>160 Last administered on 03/18 05:54; Admin Dose 10 MG; Start 03/17/17 at 14:30 Miscellaneous Information 1 ea NOTE XX ; Start 03/17/17 at 14:30 Glucose (Glutose) 15 gm Q15M PRN PO DECREASED GLUCOSE; Start 03/17/17 at 14:30 Glucose (Glutose) 22.5 gm Q15M PRN PO DECREASED GLUCOSE; Start 03/17/17 at 14: 30 Dextrose (D50w Syringe) 25 ml Q15M PRN IV DECREASED GLUCOSE; Start 03/17/17 at 14:30 Dextrose (D50w Syringe) 50 ml Q15M PRN IV DECREASED GLUCOSE; Start 03/17/17 at 14:30 Glucagon (Glucagen) 1 mg Q15M PRN IM DECREASED GLUCOSE; Start 03/17/17 at 14:30 Glucose (Glutose) 15 gm Q15M PRN BUCCAL DECREASED GLUCOSE; Start 03/17/17 at 14 :30 Metoprolol Tartrate (Lopressor) 50 mg BID PO Last administered on 03/19/17 09: 00; Admin Dose 50 MG; Start 03/18/17 at 21:00 Haloperidol (Haldol) 3 mg Q8H PRN IM agitation; Start 03/18/17 at 16:30 Amlodipine Besylate (Norvasc) 5 mg BID PO Last administered on 03/19/17 09:01 ; Admin Dose 5 MG; Start 03/18/17 at 21:00 Quetiapine Fumarate 25 mg 25 mg BID PO Last administered on 03/19/17 09:03; Admin Dose 25 MG; Start 03/18/17 at 21:00 Ceftriaxone Sodium (Rocephin) 50 ml @ 100 mls/hr Q24H IVPB Last administered on 03/19/17 14:39; Admin Dose 100 MLS/HR; Start 03/19/17 at 14:00 TAL PAYNE Mar 19, 2017 15:46
[2017-03-19] MEDS: hydrALAzine 20 MG INJ IV PRN (16:30)
[2017-03-19] MEDS: ACETAMINOPHEN 325 MG TAB PO PRN (20:50)
[2017-03-19] MEDS: ATORVASTATIN 20 MG TAB PO SCH (20:51)
[2017-03-20] VITALS (11 sets, daily range): BP systolic 124–177; BP diastolic 59–76; PULSE 75–105; RESP 16–21
[2017-03-20 07:35] LABS: ADD SCAN DIFF NO
[2017-03-20 07:40] LABS: BASOPHILS % 0.3 % (0.0-2.0); EOSINOPHILS # 0.2 10^3/ul (0.0-0.5); HEMOGLOBIN 10.3 g/dl (12.0-16.0); LYMPHOCYTES # 1.4 10^3/ul (0.8-2.9); LYMPHOCYTES % 14.6 % (15.0-51.0); MEAN CORPUSCULAR HGB CONC 33.2 g/dl (32.0-37.0); MEAN CORPUSCULAR VOLUME 93.4 fl (82.0-101.0); MEAN PLATELET VOLUME 9.5 fl (7.4-10.4); MONOCYTE # 0.8 10^3/ul (0.3-0.9); NEUTROPHIL # 6.9 10^3/ul (1.6-7.5); NEUTROPHILS % 73.9 % (39.0-77.0); PLATELET COUNT 182 10^3/UL (140-415); RED BLOOD COUNT 3.32 10^6/ul (4.20-5.40); RED CELL DISTRIBUTION WIDTH 12.1 % (11.5-14.5); WHITE BLOOD COUNT 9.4 10^3/ul (4.8-10.8)
[2017-03-20 07:58] LABS: INR 1.13; PROTIME 14.5 Sec (12.2-14.2); PT RATIO 1.1
[2017-03-20 07:59] LABS: PARTIAL THROMBOPLASTIN TIME 38.9 Sec (25.0-35.0)
[2017-03-20] MEDS: INSULIN ASPART [NOVOLOG] 3 ML PEN SC SCH ×7 (07:59→20:25)
[2017-03-20 08:07] LABS: ALBUMIN 3.8 g/dl (3.3-4.9); ALBUMIN/GLOBULIN RATIO 1.46; BILIRUBIN,INDIRECT 0.2 mg/dl (0-1.1); BILIRUBIN,TOTAL 0.2 mg/dl (0.2-1.3); CALCIUM 9.1 mg/dl (8.4-10.2); CREATININE 1.59 mg/dl (0.44-1.00); POTASSIUM 4.1 mmol/L (3.5-5.1); TOTAL PROTEIN 6.4 g/dl (6.1-8.1)
[2017-03-20 08:11] LABS: URIC ACID 5.4 mg/dl (3.1-7.9)
[2017-03-20] MEDS: GABAPENTIN 100 MG CAP PO SCH ×2 (08:28→20:24)
[2017-03-20] MEDS: ASPIRIN 81 MG TAB PO SCH (08:28)
[2017-03-20] MEDS: OXYBUTYNIN (XL) 5 MG TAB PO SCH (08:28)
[2017-03-20] MEDS: QUETIAPINE 25 MG TAB PO SCH (08:28)
[2017-03-20] MEDS: LAMOTRIGINE 25 MG TAB PO SCH ×2 (08:28→20:23)
[2017-03-20] MEDS: PANTOPRAZOLE (EC) 40 MG TAB PO SCH (08:28)
[2017-03-20] MEDS: FAMOTIDINE 20 MG TAB PO SCH (08:28)
[2017-03-20] MEDS: FERROUS SULFATE (EC) 325 MG TAB PO SCH ×3 (08:29→20:23)
[2017-03-20] MEDS: CILOSTAZOL 100 MG TAB PO SCH ×2 (08:29→20:24)
[2017-03-20] MEDS: NA BICARBONATE 650 MG TAB PO SCH ×2 (08:29→20:23)
[2017-03-20] MEDS: AMLODIPINE 5 MG TAB PO SCH ×2 (08:29→20:24)
[2017-03-20] MEDS: METOPROLOL 50 MG TAB PO SCH ×2 (08:29→20:23)
--- NOTE | 2017-03-20 10:41 | PN ---
Date/Time of Note Date/Time of Note DATE: 03/20/17 TIME: 10:34 Assessment/Plan VTE Prophylaxis VTE Prophylaxis Intervention: SCD's Lines/Catheters IV C[facility]ter Type (from [facility]): Peripheral IV Urinary Cath still in place: No Assessment/Plan Assessment/Plan 86-year-old female who had presented with generalized weakness now managed for the followin. Sepsis secondary to E coli bacteremia and urinary tract infection : improving 2. Acute on chronic kidney injury: improving 3. Elevated troponins without chest pain concerning for non-ST elevation myocardial infarction in this diabetic likely type II from demand ischemia: trended down 4. Essential hypertension : improving control 5. Chronic peripheral vascular disease 6. Type 2 diabetes mellitus with hemoglobin A1c of 8.0: good inhouse control so far 7. COPD without exacerbation 8. Iron deficiency anemia associated with chronic disease: Patient has been on iron supplementation 9. Mild acute rhabdomyolysis: Improved 10. Chronic early onset dementia: ?acute exacerbation Plan: * PT eval / R shoulder XR / d/c seroquel for now / ambulate as much as possible / MRI brain to r/o acute insult. * Kidney function seems to be at baseline, resume Acei or ARB if ok with renal * Patient is also on dual antiplatelet therapy for peripheral vascular disease * Continue diabetic diet, sliding scale insulin. Titrate insulin doses for optimal control as indicated * Continue all other home medications * Continue supportive care / reorientation Further interventions per clinical course Appreciate all consults Prophylaxis with PPI and SCDs Subjective 24 Hr Interval Summary Free Text/Dictation Patient was reviewed multiple times today in anticipation of possible discharge. I reviewed with nursing, reviewed her with the profile saw setup operator, and also spoke with her daughter. In terms of the infection blood cultures have become negative however, the patient is quite lethargic and she is now complaining of right-sided shoulder pain and is not moving her right upper extremity normally. Also her daughter notified me that the patient is usually able to stay by herself for a few hours during the day, and in patient's current states she is unable to provide herself for any period of time. Exam/Review of Systems Vital Signs Vitals Vital Signs Date Time Temp Pulse Resp B/P Pulse Ox O2 Delivery O2 Flow Rate FiO2 03/20/17 09:18 99 03/20/17 08:14 98.7 20 146/67 98 03/19/17 10:55 21 03/17/17 19:26 Room Air Intake and Output 03/19/17 03/19/17 03/20/17 15:00 23:00 07:00 Intake Total 1000 ml 300 ml Balance 1000 ml 300 ml Exam GENERAL: This is a [place] female lying in bed in no apparent distress. lethargic HEENT: Head normocephalic and atraumatic. Eyes: Anicteric sclerae. Conjunctivae clear. ENT: Nasal septum is midline. Oral mucosa is dry. NECK: Supple. No JVD noticed. RESPIRATORY: Bilaterally diminished breath sounds, mild audible wheezing CARDIAC: Regular rate and rhythm. S1, S2 heard. ABDOMEN: Soft, nontender, and nondistended. Bowel sounds positive in all 4 quadrants. GENITOURINARY: Deferred. EXTREMITIES: No cyanosis, no clubbing. R shoulder pain? NEUROLOGIC: The patient is awake, alert and pleasantly confused, lethargic Results Result Diagram: 03/20/17 0715 03/20/17 0715 Results 24 hrs Laboratory Tests Test 03/19/17 12:45 03/19/17 17:16 03/19/17 20:49 03/20/17 07:15 Bedside Glucose 97 136 105 White Blood Count 9.4 Red Blood Count 3.32 L Hemoglobin 10.3 L Hematocrit 31.0 L Mean Corpuscular Volume 93.4 Mean Corpuscular Hemoglobin 31.0 Mean Corpuscular Hemoglobin Concent 33.2 Red Cell Distribution Width 12.1 Platelet Count 182 Mean Platelet Volume 9.5 Neutrophils % 73.9 Lymphocytes % 14.6 L Monocytes % 9.0 Eosinophils % 2.0 Basophils % 0.3 Nucleated Red Blood Cells % 0.0 Neutrophils # 6.9 Lymphocytes # 1.4 Monocytes # 0.8 Eosinophils # 0.2 Basophils # 0.0 Nucleated Red Blood Cells # 0.0 Prothrombin Time 14.5 H Prothrombin Time Ratio 1.1 INR International Normalized Ratio 1.13 Activated Partial Thromboplast Time 38.9 H Sodium Level 141 Potassium Level 4.1 Chloride Level 109 Carbon Dioxide Level 18 L Anion Gap 18 H Blood Urea Nitrogen 20 Creatinine 1.59 H Glucose Level 112 # Uric Acid 5.4 Calcium Level 9.1 Total Bilirubin 0.2 Direct Bilirubin 0.00 Indirect Bilirubin 0.2 Aspartate Amino Transf (AST/SGOT) 28 Alanine Aminotransferase (ALT/SGPT) 27 Alkaline Phosphatase 80 Creatine Kinase 163 # Total Protein 6.4 Albumin 3.8 Globulin 2.60 Albumin/Globulin Ratio 1.46 Test 03/20/17 07:57 Bedside Glucose 110 Medications Medications Current Medications Ondansetron HCl (Zofran Inj) 4 mg Q6H PRN IV NAUSEA AND/OR VOMITING; Start at 14:00 Aspirin (Aspirin) 81 mg DAILY PO Last administered on 03/20/17 08:28; Admin Dose 81 MG; Start 03/18/17 at 09:00 Acetaminophen (Tylenol Tab) 650 mg Q6H PRN PO PAIN LEVEL 1-3 OR FEVER Last administered on 03/19/17 20:50; Admin Dose 650 MG; Start 03/17/17 at 14:00 Acetaminophen/ Hydrocodone Bitart ([place] (5/325)) 1 tab Q6H PRN PO PAIN LEVEL 4 -6; Start 03/17/17 at 14:00 Magnesium Hydroxide (Milk Of Mag) 30 ml DAILY PRN PO CONSTIPATION; Start at 14:00 Bisacodyl (Dulcolax) 5 mg DAILY PRN PO CONSTIPATION; Start 03/17/17 at 14:00 Famotidine (Pepcid) 20 mg DAILY PO Last administered on 03/20/17 08:28; Admin Dose 20 MG; Start 03/17/17 at 21:00 Cilostazol (Pletal) 50 mg BID PO Last administered on 03/20/17 08:29; Admin Dose 50 MG; Start 03/17/17 at 21:00 Ferrous Sulfate (Ferrous Sulfate (Ec)) 325 mg TID PO Last administered on 08:29; Admin Dose 325 MG; Start 03/17/17 at 21:00 Gabapentin (Neurontin) 100 mg BID PO Last administered on 03/20/17 08:28; Admin Dose 100 MG; Start 03/17/17 at 21:00 Lamotrigine (Lamictal) 25 mg BID PO Last administered on 03/20/17 08:28; Admin Dose 25 MG; Start 03/17/17 at 21:00 Oxybutynin Chloride (Ditropan Xl) 5 mg DAILY PO Last administered on 03/20/17 08:28; Admin Dose 5 MG; Start 03/18/17 at 09:00 Pantoprazole (Protonix Tab) 40 mg DAILY PO Last administered on 03/20/17 08:28 ; Admin Dose 40 MG; Start 03/18/17 at 09:00 Sodium Bicarbonate (Sodium Bicarbonate Tab) 650 mg BID PO Last administered on 03/20/17 08:29; Admin Dose 650 MG; Start 03/17/17 at 21:00 Atorvastatin Calcium (Lipitor) 20 mg DAILY@21 PO Last administered on 20:51; Admin Dose 20 MG; Start 03/17/17 at 21:00 Hydralazine HCl (Apresoline) 10 mg Q6H PRN IV SBP>160 Last administered on 03/19 16:30; Admin Dose 10 MG; Start 03/17/17 at 14:30 Miscellaneous Information 1 ea NOTE XX ; Start 03/17/17 at 14:30 Glucose (Glutose) 15 gm Q15M PRN PO DECREASED GLUCOSE; Start 03/17/17 at 14:30 Glucose (Glutose) 22.5 gm Q15M PRN PO DECREASED GLUCOSE; Start 03/17/17 at 14: 30 Dextrose (D50w Syringe) 25 ml Q15M PRN IV DECREASED GLUCOSE; Start 03/17/17 at 14:30 Dextrose (D50w Syringe) 50 ml Q15M PRN IV DECREASED GLUCOSE; Start 03/17/17 at 14:30 Glucagon (Glucagen) 1 mg Q15M PRN IM DECREASED GLUCOSE; Start 03/17/17 at 14:30 Glucose (Glutose) 15 gm Q15M PRN BUCCAL DECREASED GLUCOSE; Start 03/17/17 at 14 :30 Metoprolol Tartrate (Lopressor) 50 mg BID PO Last administered on 03/20/17 08: 29; Admin Dose 50 MG; Start 03/18/17 at 21:00 Haloperidol (Haldol) 3 mg Q8H PRN IM agitation; Start 03/18/17 at 16:30 Amlodipine Besylate (Norvasc) 5 mg BID PO Last administered on 03/20/17 08:29 ; Admin Dose 5 MG; Start 03/18/17 at 21:00 Quetiapine Fumarate 25 mg 25 mg BID PO Last administered on 03/20/17 08:28; Admin Dose 25 MG; Start 03/18/17 at 21:00 Ceftriaxone Sodium (Rocephin) 50 ml @ 100 mls/hr Q24H IVPB Last administered on 03/19/17t 14:39; Admin Dose 100 MLS/HR; Start 03/19/17 at 14:00 Procedures Procedures PROCEDURE: US Renal CLINICAL INDICATION: Acute renal failure TECHNIQUE: Multiple sonographic images of the kidneys and bladder were obtained. Evaluation of the kidneys and bladder was performed as well with tobin scale and color and Doppler evaluation using a curved array transducer. The images were reviewed on a high-resolution PACS workstation. COMPARISON: CT abdomen pelvis 10/06/2016. FINDINGS: The right kidney measures 9.7 cm. The left kidney measures 9.1 cm. There is normal echogenicity within the parenchyma of the kidneys bilaterally. There are a few sub centimeter bilateral renal cysts. There is no evidence of hydronephrosis. No perinephric fluid collection is seen. Evaluation of the urinary bladder is unremarkable. IMPRESSION: 1. Small bilateral renal cysts. RPTAT: [facility] Physician Ally Date Time Electronically viewed and signed by Physician Ally on 03/19/2017 14: 40 JH/ CC: ANDREW CASTREJON MD, [place] M. Mar 20, 2017 10:41
[2017-03-20] MEDS: CEFTRIAXONE 1 GM/50 ML (PMX) 50 ML IVPB SCH (13:19)
--- NOTE | 2017-03-20 13:32 | CONS ---
Date/Time of Note Date/Time of Note DATE: 03/20/17 TIME: 13:31 Assessment/Plan Assessment/Plan Chief Complaint/Hosp Course No acute events overnight. Patient is awake lying comfortably in bed, she is in no distress Microbiology: Blood culture growing E. coli, urine culture growing E. coli and Proteus mirabilis Antimicrobials: Rocephin Physical examination: This is an obese well-developed elderly woman who is alert in no distress. Head : Atraumatic normocephalic Sclera: Anicteric. PERRLA Neck is supple neck Chest rise symmetrical. Breath sounds diminished to bases. Heart S1-S2 Abdomen soft bowel sounds present, no tenderness on palpation. Extremities without cyanosis bilateral lower extremities trace edema Assessment 1. Sepsis with fevers, tachycardia on admission #2 2. Urinary tract infection with bacteremia 3. Diabetes 4. COPD 5. Obesity Plan: Patient remains stable, pending repeat blood cultures, continue antibiotics, follow recommendations of consultants Discussed with RN Problems: Consultation Date/Type/Reason Admit Date/Time Mar 17, 2017 at 08:56 Initial Consult Date 03/18/17 Type of Consultation: Infectious disease Referring Provider: TAL PAYNE Exam/Review of Systems Vital Signs Vitals Vital Signs Date Time Temp Pulse Resp B/P Pulse Ox O2 Delivery O2 Flow Rate FiO2 03/20/17 12:36 83 03/20/17 12:20 98.5 20 128/59 98 03/19/17 10:55 21 03/17/17 19:26 Room Air Intake and Output 03/19/17 03/19/17 03/20/17 15:00 23:00 07:00 Intake Total 1000 ml 300 ml Balance 1000 ml 300 ml Results Result Diagram: 03/20/17 0715 03/20/17 0715 Results 24 hrs Laboratory Tests Test 03/19/17 17:16 03/19/17 20:49 03/20/17 07:15 03/20/17 07:57 Bedside Glucose 136 105 110 White Blood Count 9.4 Red Blood Count 3.32 L Hemoglobin 10.3 L Hematocrit 31.0 L Mean Corpuscular Volume 93.4 Mean Corpuscular Hemoglobin 31.0 Mean Corpuscular Hemoglobin Concent 33.2 Red Cell Distribution Width 12.1 Platelet Count 182 Mean Platelet Volume 9.5 Neutrophils % 73.9 Lymphocytes % 14.6 L Monocytes % 9.0 Eosinophils % 2.0 Basophils % 0.3 Nucleated Red Blood Cells % 0.0 Neutrophils # 6.9 Lymphocytes # 1.4 Monocytes # 0.8 Eosinophils # 0.2 Basophils # 0.0 Nucleated Red Blood Cells # 0.0 Prothrombin Time 14.5 H Prothrombin Time Ratio 1.1 INR International Normalized Ratio 1.13 Activated Partial Thromboplast Time 38.9 H Sodium Level 141 Potassium Level 4.1 Chloride Level 109 Carbon Dioxide Level 18 L Anion Gap 18 H Blood Urea Nitrogen 20 Creatinine 1.59 H Glucose Level 112 # Uric Acid 5.4 Calcium Level 9.1 Total Bilirubin 0.2 Direct Bilirubin 0.00 Indirect Bilirubin 0.2 Aspartate Amino Transf (AST/SGOT) 28 Alanine Aminotransferase (ALT/SGPT) 27 Alkaline Phosphatase 80 Creatine Kinase 163 # Total Protein 6.4 Albumin 3.8 Globulin 2.60 Albumin/Globulin Ratio 1.46 Test 03/20/17 11:52 Bedside Glucose 109 Medications Medications Current Medications Ondansetron HCl (Zofran Inj) 4 mg Q6H PRN IV NAUSEA AND/OR VOMITING; Start at 14:00 Aspirin (Aspirin) 81 mg DAILY PO Last administered on 03/20/17 08:28; Admin Dose 81 MG; Start 03/18/17 at 09:00 Acetaminophen (Tylenol Tab) 650 mg Q6H PRN PO PAIN LEVEL 1-3 OR FEVER Last administered on 03/19/17 20:50; Admin Dose 650 MG; Start 03/17/17 at 14:00 Acetaminophen/ Hydrocodone Bitart ([place] (5/325)) 1 tab Q6H PRN PO PAIN LEVEL 4 -6; Start 03/17/17 at 14:00 Magnesium Hydroxide (Milk Of Mag) 30 ml DAILY PRN PO CONSTIPATION; Start at 14:00 Bisacodyl (Dulcolax) 5 mg DAILY PRN PO CONSTIPATION; Start 03/17/17 at 14:00 Famotidine (Pepcid) 20 mg DAILY PO Last administered on 03/20/17 08:28; Admin Dose 20 MG; Start 03/17/17 at 21:00 Cilostazol (Pletal) 50 mg BID PO Last administered on 03/20/17 08:29; Admin Dose 50 MG; Start 03/17/17 at 21:00 Ferrous Sulfate (Ferrous Sulfate (Ec)) 325 mg TID PO Last administered on 13:19; Admin Dose 325 MG; Start 03/17/17 at 21:00 Gabapentin (Neurontin) 100 mg BID PO Last administered on 03/20/17 08:28; Admin Dose 100 MG; Start 03/17/17 at 21:00 Lamotrigine (Lamictal) 25 mg BID PO Last administered on 03/20/17 08:28; Admin Dose 25 MG; Start 03/17/17 at 21:00 Oxybutynin Chloride (Ditropan Xl) 5 mg DAILY PO Last administered on 03/20/17 08:28; Admin Dose 5 MG; Start 03/18/17 at 09:00 Pantoprazole (Protonix Tab) 40 mg DAILY PO Last administered on 03/20/17 08:28 ; Admin Dose 40 MG; Start 03/18/17 at 09:00 Sodium Bicarbonate (Sodium Bicarbonate Tab) 650 mg BID PO Last administered on 03/20/17 08:29; Admin Dose 650 MG; Start 03/17/17 at 21:00 Atorvastatin Calcium (Lipitor) 20 mg DAILY@21 PO Last administered on 20:51; Admin Dose 20 MG; Start 03/17/17 at 21:00 Hydralazine HCl (Apresoline) 10 mg Q6H PRN IV SBP>160 Last administered on 03/19 16:30; Admin Dose 10 MG; Start 03/17/17 at 14:30 Miscellaneous Information 1 ea NOTE XX ; Start 03/17/17 at 14:30 Glucose (Glutose) 15 gm Q15M PRN PO DECREASED GLUCOSE; Start 03/17/17 at 14:30 Glucose (Glutose) 22.5 gm Q15M PRN PO DECREASED GLUCOSE; Start 03/17/17 at 14: 30 Dextrose (D50w Syringe) 25 ml Q15M PRN IV DECREASED GLUCOSE; Start 03/17/17 at 14:30 Dextrose (D50w Syringe) 50 ml Q15M PRN IV DECREASED GLUCOSE; Start 03/17/17 at 14:30 Glucagon (Glucagen) 1 mg Q15M PRN IM DECREASED GLUCOSE; Start 03/17/17 at 14:30 Glucose (Glutose) 15 gm Q15M PRN BUCCAL DECREASED GLUCOSE; Start 03/17/17 at 14 :30 Metoprolol Tartrate (Lopressor) 50 mg BID PO Last administered on 03/20/17 08: 29; Admin Dose 50 MG; Start 03/18/17 at 21:00 Haloperidol (Haldol) 3 mg Q8H PRN IM agitation; Start 03/18/17 at 16:30 Amlodipine Besylate (Norvasc) 5 mg BID PO Last administered on 03/20/17 08:29 ; Admin Dose 5 MG; Start 03/18/17 at 21:00 Quetiapine Fumarate 25 mg 25 mg BID PO Last administered on 03/20/17 08:28; Admin Dose 25 MG; Start 03/18/17 at 21:00 Ceftriaxone Sodium (Rocephin) 50 ml @ 100 mls/hr Q24H IVPB Last administered on 03/20/17 13:19; Admin Dose 100 MLS/HR; Start 03/19/17 at 14:00 YFN SHANKAR NP Mar 20, 2017 13:32
--- NOTE | 2017-03-20 13:46 | CONS ---
Date/Time of Note Date/Time of Note DATE: 03/20/17 TIME: 13:44 Assessment/Plan Assessment/Plan Additional Assessment/Plan Sepsis Acute on chronic kidney disease Encephalopathy Mildly elevated troponin Hypertension History of preserved left ventricular ejection fraction Diabetes -Blood pressure trend remains stable. Lung examination improved compared to yesterday. Would order chest x-ray for the a.m. Consultation Date/Type/Reason Admit Date/Time Mar 17, 2017 at 08:56 Initial Consult Date 03/18/17 Type of Consultation: cv Referring Provider: TAL PAYNE 24 HR Interval Summary Free Text/Dictation Patient seen and examined, still confused as per nursing staff Exam/Review of Systems Vital Signs Vitals Vital Signs Date Time Temp Pulse Resp B/P Pulse Ox O2 Delivery O2 Flow Rate FiO2 03/20/17 12:36 83 03/20/17 12:20 98.5 20 128/59 98 03/19/17 10:55 21 03/17/17 19:26 Room Air Intake and Output 03/19/17 03/19/17 03/20/17 15:00 23:00 07:00 Intake Total 1000 ml 300 ml Balance 1000 ml 300 ml Exam Eating lunch, following commands, confused at times Head: normocephalic Neck: supple Respiratory: other (Coarse breath sounds bilaterally, no wheezing) Cardiovascular: other (S1-S2 heard), regular rate and rhythm Gastrointestinal: bowel sounds, non-tender, other (No guarding), soft Extremities: edema (Trace) Results Result Diagram: 03/20/17 0715 03/20/17 0715 Results 24 hrs Laboratory Tests Test 03/19/17 17:16 03/19/17 20:49 03/20/17 07:15 03/20/17 07:57 Bedside Glucose 136 105 110 White Blood Count 9.4 Red Blood Count 3.32 L Hemoglobin 10.3 L Hematocrit 31.0 L Mean Corpuscular Volume 93.4 Mean Corpuscular Hemoglobin 31.0 Mean Corpuscular Hemoglobin Concent 33.2 Red Cell Distribution Width 12.1 Platelet Count 182 Mean Platelet Volume 9.5 Neutrophils % 73.9 Lymphocytes % 14.6 L Monocytes % 9.0 Eosinophils % 2.0 Basophils % 0.3 Nucleated Red Blood Cells % 0.0 Neutrophils # 6.9 Lymphocytes # 1.4 Monocytes # 0.8 Eosinophils # 0.2 Basophils # 0.0 Nucleated Red Blood Cells # 0.0 Prothrombin Time 14.5 H Prothrombin Time Ratio 1.1 INR International Normalized Ratio 1.13 Activated Partial Thromboplast Time 38.9 H Sodium Level 141 Potassium Level 4.1 Chloride Level 109 Carbon Dioxide Level 18 L Anion Gap 18 H Blood Urea Nitrogen 20 Creatinine 1.59 H Glucose Level 112 # Uric Acid 5.4 Calcium Level 9.1 Total Bilirubin 0.2 Direct Bilirubin 0.00 Indirect Bilirubin 0.2 Aspartate Amino Transf (AST/SGOT) 28 Alanine Aminotransferase (ALT/SGPT) 27 Alkaline Phosphatase 80 Creatine Kinase 163 # Total Protein 6.4 Albumin 3.8 Globulin 2.60 Albumin/Globulin Ratio 1.46 Test 03/20/17 11:52 Bedside Glucose 109 Medications Medications Current Medications Ondansetron HCl (Zofran Inj) 4 mg Q6H PRN IV NAUSEA AND/OR VOMITING; Start at 14:00 Aspirin (Aspirin) 81 mg DAILY PO Last administered on 03/20/17 08:28; Admin Dose 81 MG; Start 03/18/17 at 09:00 Acetaminophen (Tylenol Tab) 650 mg Q6H PRN PO PAIN LEVEL 1-3 OR FEVER Last administered on 03/19/17 20:50; Admin Dose 650 MG; Start 03/17/17 at 14:00 Acetaminophen/ Hydrocodone Bitart ([place] (5/325)) 1 tab Q6H PRN PO PAIN LEVEL 4 -6; Start 03/17/17 at 14:00 Magnesium Hydroxide (Milk Of Mag) 30 ml DAILY PRN PO CONSTIPATION; Start at 14:00 Bisacodyl (Dulcolax) 5 mg DAILY PRN PO CONSTIPATION; Start 03/17/17 at 14:00 Famotidine (Pepcid) 20 mg DAILY PO Last administered on 03/20/17 08:28; Admin Dose 20 MG; Start 03/17/17 at 21:00 Cilostazol (Pletal) 50 mg BID PO Last administered on 03/20/17 08:29; Admin Dose 50 MG; Start 03/17/17 at 21:00 Ferrous Sulfate (Ferrous Sulfate (Ec)) 325 mg TID PO Last administered on 13:19; Admin Dose 325 MG; Start 03/17/17 at 21:00 Gabapentin (Neurontin) 100 mg BID PO Last administered on 03/20/17 08:28; Admin Dose 100 MG; Start 03/17/17 at 21:00 Lamotrigine (Lamictal) 25 mg BID PO Last administered on 03/20/17 08:28; Admin Dose 25 MG; Start 03/17/17 at 21:00 Oxybutynin Chloride (Ditropan Xl) 5 mg DAILY PO Last administered on 03/20/17 08:28; Admin Dose 5 MG; Start 03/18/17 at 09:00 Pantoprazole (Protonix Tab) 40 mg DAILY PO Last administered on 03/20/17 08:28 ; Admin Dose 40 MG; Start 03/18/17 at 09:00 Sodium Bicarbonate (Sodium Bicarbonate Tab) 650 mg BID PO Last administered on 03/20/17 08:29; Admin Dose 650 MG; Start 03/17/17 at 21:00 Atorvastatin Calcium (Lipitor) 20 mg DAILY@21 PO Last administered on 20:51; Admin Dose 20 MG; Start 03/17/17 at 21:00 Hydralazine HCl (Apresoline) 10 mg Q6H PRN IV SBP>160 Last administered on 03/19 16:30; Admin Dose 10 MG; Start 03/17/17 at 14:30 Miscellaneous Information 1 ea NOTE XX ; Start 03/17/17 at 14:30 Glucose (Glutose) 15 gm Q15M PRN PO DECREASED GLUCOSE; Start 03/17/17 at 14:30 Glucose (Glutose) 22.5 gm Q15M PRN PO DECREASED GLUCOSE; Start 03/17/17 at 14: 30 Dextrose (D50w Syringe) 25 ml Q15M PRN IV DECREASED GLUCOSE; Start 03/17/17 at 14:30 Dextrose (D50w Syringe) 50 ml Q15M PRN IV DECREASED GLUCOSE; Start 03/17/17 at 14:30 Glucagon (Glucagen) 1 mg Q15M PRN IM DECREASED GLUCOSE; Start 03/17/17 at 14:30 Glucose (Glutose) 15 gm Q15M PRN BUCCAL DECREASED GLUCOSE; Start 03/17/17 at 14 :30 Metoprolol Tartrate (Lopressor) 50 mg BID PO Last administered on 03/20/17 08: 29; Admin Dose 50 MG; Start 03/18/17 at 21:00 Haloperidol (Haldol) 3 mg Q8H PRN IM agitation; Start 03/18/17 at 16:30 Amlodipine Besylate (Norvasc) 5 mg BID PO Last administered on 03/20/17 08:29 ; Admin Dose 5 MG; Start 03/18/17 at 21:00 Quetiapine Fumarate 25 mg 25 mg BID PO Last administered on 03/20/17 08:28; Admin Dose 25 MG; Start 03/18/17 at 21:00 Ceftriaxone Sodium (Rocephin) 50 ml @ 100 mls/hr Q24H IVPB Last administered on 03/20/17 13:19; Admin Dose 100 MLS/HR; Start 03/19/17 at 14:00 Collin Peter DO Mar 20, 2017 13:46
[2017-03-20] MEDS ORDERED: AMLO5TAB4 PO (14:36)
[2017-03-20] MEDS ORDERED: LEVOFLOXACIN 500MG/D5W (PMX) 100 ML IVPB SCH (20:00)
[2017-03-20] MEDS: ATORVASTATIN 20 MG TAB PO SCH (20:23)
--- NOTE | 2017-03-20 21:01 | RADRPT ---
PROCEDURE: XR Right Shoulder. CLINICAL INDICATION: Right shoulder pain. TECHNIQUE: Two views. Frontal and scapular Y-view. COMPARISON: No prior study is available for comparison. FINDINGS: There is no fracture or dislocation. The soft tissues are normal. There is diffuse osteopenia. Articular surfaces are intact. There is no lytic or blastic lesion. There is no radiopaque foreign body. IMPRESSION: 1. Diffuse osteopenia. 2. Otherwise normal images of the right shoulder. RPTAT: QQ .Fer Cunha MD, MD Date Time Electronically viewed and signed by .Fer Cunha MD, MD on 03/20/2017 21:01 .R/
--- NOTE | 2017-03-20 21:22 | CONS ---
Date/Time of Note Date/Time of Note DATE: 03/20/17 TIME: 21:19 Assessment/Plan Assessment/Plan Chief Complaint/Hosp Course 86-year-old female with past medical history of chronic kidney disease, COPD, essential hypertension, dyslipidemia, peripheral vascular disease, and diabetes mellitus who came to the emergency room with the chief complaint of generalized weakness. The patient verbalized that she has been getting progressively weaker over the past 1 to 2 days. The patient denied any fevers at home. The patient denied any dyspnea, cough, or diaphoresis. The patient denied any urinary frequency or urgency. There was no reported diarrhea or bladder or bowel irregularity. The patient denied any chest pain. She denied any nausea, vomiting, abdominal pain, diarrhea, hematochezia, or dysuria. In the emergency room, the patient was noticed to have a fever of 102.6 degrees Fahrenheit. Patient's urinalysis was positive for leukocyte esterase along with positive WBC of 78. The patient was treated with IV antibiotics and IV fluids in the emergency room. pt is noted to have elevated BUN/Cr and renal has been consulted for it. Problems: Additional Assessment/Plan 1. Sepsis secondary to E.coli bacteremia and urinary tract infection with Urine cx growing E coli 2. Acute kidney injury on CKD due to sepsis and Prerenal azotemia 3. Elevated troponin due to demand ischemia 4. Essential hypertension 5. Type II DM 7. COPD without exacerbation 8. Iron deficiency anemia associated with chronic disease: Patient has been on iron supplementation 9. Mild acute rhabdomyolysis: Improved 10. Chronic early onset dementia Plan : IV abx per Primary team, Cr improved to 1.59 Expective Creatinine to improve with IV abx treatment Renal US showed small echogenic kidneys with size 9.2 cm Uric acid 5.8 will follow up Consultation Date/Type/Reason Admit Date/Time Mar 17, 2017 at 08:56 Initial Consult Date 03/18/17 Type of Consultation: NEPHROLOGY Referring Provider: TAL PAYNE Exam/Review of Systems Vital Signs Vitals Vital Signs Date Time Temp Pulse Resp B/P Pulse Ox O2 Delivery O2 Flow Rate FiO2 03/20/17 20:20 105 03/20/17 19:57 99.9 16 177/76 97 03/19/17 10:55 21 03/17/17 19:26 Room Air Intake and Output 03/19/17 03/19/1717 15:00 23:00 07:00 Intake Total 1000 ml 300 ml Balance 1000 ml 300 ml Exam Constitutional: alert Psych: no complaints Head: normocephalic Eyes: nl conjunctiva ENMT: nl external ears & nose Neck: non-tender, supple Respiratory: clear to auscultation, normal air movement Cardiovascular: nl pulses, regular rate and rhythm Gastrointestinal: non-tender, soft Musculoskeletal: nl extremities to inspection Extremities: normal pulses Neurological: CENTRIFUGAL SPINNER II-XII intact, nl mental status, nl speech Skin: nl turgor Lymph: nl lymph nodes Results Result Diagram: 03/20/17 0715 03/20/17 0715 Results 24 hrs Laboratory Tests Test 03/20/17 07:15 03/20/17 07:57 03/20/17 11:52 03/20/17 17:01 White Blood Count 9.4 Red Blood Count 3.32 L Hemoglobin 10.3 L Hematocrit 31.0 L Mean Corpuscular Volume 93.4 Mean Corpuscular Hemoglobin 31.0 Mean Corpuscular Hemoglobin Concent 33.2 Red Cell Distribution Width 12.1 Platelet Count 182 Mean Platelet Volume 9.5 Neutrophils % 73.9 Lymphocytes % 14.6 L Monocytes % 9.0 Eosinophils % 2.0 Basophils % 0.3 Nucleated Red Blood Cells % 0.0 Neutrophils # 6.9 Lymphocytes # 1.4 Monocytes # 0.8 Eosinophils # 0.2 Basophils # 0.0 Nucleated Red Blood Cells # 0.0 Prothrombin Time 14.5 H Prothrombin Time Ratio 1.1 INR International Normalized Ratio 1.13 Activated Partial Thromboplast Time 38.9 H Sodium Level 141 Potassium Level 4.1 Chloride Level 109 Carbon Dioxide Level 18 L Anion Gap 18 H Blood Urea Nitrogen 20 Creatinine 1.59 H Glucose Level 112 # Uric Acid 5.4 Calcium Level 9.1 Total Bilirubin 0.2 Direct Bilirubin 0.00 Indirect Bilirubin 0.2 Aspartate Amino Transf (AST/SGOT) 28 Alanine Aminotransferase (ALT/SGPT) 27 Alkaline Phosphatase 80 Creatine Kinase 163 # Total Protein 6.4 Albumin 3.8 Globulin 2.60 Albumin/Globulin Ratio 1.46 Bedside Glucose 110 109 97 Test 03/20/17 20:21 Bedside Glucose 97 Medications Medications Current Medications Ondansetron HCl (Zofran Inj) 4 mg Q6H PRN IV NAUSEA AND/OR VOMITING; Start at 14:00 Aspirin (Aspirin) 81 mg DAILY PO Last administered on 03/20/17 08:28; Admin Dose 81 MG; Start 03/18/17 at 09:00 Acetaminophen (Tylenol Tab) 650 mg Q6H PRN PO PAIN LEVEL 1-3 OR FEVER Last administered on 03/19/17 20:50; Admin Dose 650 MG; Start 03/17/17 at 14:00 Acetaminophen/ Hydrocodone Bitart ([place] (5/325)) 1 tab Q6H PRN PO PAIN LEVEL 4 -6; Start 03/17/17 at 14:00 Magnesium Hydroxide (Milk Of Mag) 30 ml DAILY PRN PO CONSTIPATION; Start at 14:00 Bisacodyl (Dulcolax) 5 mg DAILY PRN PO CONSTIPATION; Start 03/17/17 at 14:00 Famotidine (Pepcid) 20 mg DAILY PO Last administered on 03/20/17 08:28; Admin Dose 20 MG; Start 03/17/17 at 21:00 Cilostazol (Pletal) 50 mg BID PO Last administered on 03/20/17 20:24; Admin Dose 50 MG; Start 03/17/17 at 21:00 Ferrous Sulfate (Ferrous Sulfate (Ec)) 325 mg TID PO Last administered on 20:23; Admin Dose 325 MG; Start 03/17/17 at 21:00 Gabapentin (Neurontin) 100 mg BID PO Last administered on 03/20/17 20:24; Admin Dose 100 MG; Start 03/17/17 at 21:00 Lamotrigine (Lamictal) 25 mg BID PO Last administered on 03/20/17 20:23; Admin Dose 25 MG; Start 03/17/17 at 21:00 Oxybutynin Chloride (Ditropan Xl) 5 mg DAILY PO Last administered on 03/20/17 08:28; Admin Dose 5 MG; Start 03/18/17 at 09:00 Pantoprazole (Protonix Tab) 40 mg DAILY PO Last administered on 03/20/17 08:28 ; Admin Dose 40 MG; Start 03/18/17 at 09:00 Sodium Bicarbonate (Sodium Bicarbonate Tab) 650 mg BID PO Last administered on 03/20/17 20:23; Admin Dose 650 MG; Start 03/17/17 at 21:00 Atorvastatin Calcium (Lipitor) 20 mg DAILY@21 PO Last administered on 20:23; Admin Dose 20 MG; Start 03/17/17 at 21:00 Hydralazine HCl (Apresoline) 10 mg Q6H PRN IV SBP>160 Last administered on 03/19 16:30; Admin Dose 10 MG; Start 03/17/17 at 14:30 Miscellaneous Information 1 ea NOTE XX ; Start 03/17/17 at 14:30 Glucose (Glutose) 15 gm Q15M PRN PO DECREASED GLUCOSE; Start 03/17/17 at 14:30 Glucose (Glutose) 22.5 gm Q15M PRN PO DECREASED GLUCOSE; Start 03/17/17 at 14: 30 Dextrose (D50w Syringe) 25 ml Q15M PRN IV DECREASED GLUCOSE; Start 03/17/17 at 14:30 Dextrose (D50w Syringe) 50 ml Q15M PRN IV DECREASED GLUCOSE; Start 03/17/17 at 14:30 Glucagon (Glucagen) 1 mg Q15M PRN IM DECREASED GLUCOSE; Start 03/17/17 at 14:30 Glucose (Glutose) 15 gm Q15M PRN BUCCAL DECREASED GLUCOSE; Start 03/17/17 at 14 :30 Metoprolol Tartrate (Lopressor) 50 mg BID PO Last administered on 03/20/17 20: 23; Admin Dose 50 MG; Start 03/18/17 at 21:00 Haloperidol (Haldol) 3 mg Q8H PRN IM agitation; Start 03/18/17 at 16:30 Amlodipine Besylate 5 mg 5 mg BID PO Last administered on 03/20/17 20:24; Admin Dose 5 MG; Start 03/18/17 at 21:00 Levofloxacin/ Dextrose 100 ml @ 100 mls/hr ONCE IVPB Last administered on 03/20 20:22; Admin Dose 100 MLS/HR; Start 03/20/17 at 20:00; Stop 03/21/17 at 03 :00 Levofloxacin/ Dextrose (Levaquin 250 Mg/ D5W 50 ml (Pmx)) 50 ml @ 50 mls/hr Q24H IVPB ; Start 03/21/17 at 20:00 ANDREW CASTREJON MD Mar 20, 2017 21:22
[2017-03-20] MEDS: ACETAMINOPHEN 325 MG TAB PO PRN (21:55)
[2017-03-21] VITALS (10 sets, daily range): BP systolic 115–173; BP diastolic 56–72; PULSE 80–105; RESP 18–20
[2017-03-21 08:07] LABS: ABNORMAL IP MESSAGE 1; BASOPHILS % 0.4 % (0.0-2.0); EOSINOPHILS # 0.2 10^3/ul (0.0-0.5); EOSINOPHILS % 2.3 % (0.0-7.0); HEMATOCRIT 29.4 % (37.0-47.0); HEMOGLOBIN 9.6 g/dl (12.0-16.0); LYMPHOCYTES # 1.5 10^3/ul (0.8-2.9); LYMPHOCYTES % 15.8 % (15.0-51.0); MEAN CORPUSCULAR HEMOGLOBIN 31.2 pg (29.0-33.0); MEAN CORPUSCULAR HGB CONC 32.7 g/dl (32.0-37.0); MEAN CORPUSCULAR VOLUME 95.5 fl (82.0-101.0); MEAN PLATELET VOLUME 9.5 fl (7.4-10.4); MONOCYTE # 1.6 10^3/ul (0.3-0.9); MONOCYTES % 16.4 % (0.0-11.0); NEUTROPHIL # 6.3 10^3/ul (1.6-7.5); NEUTROPHILS % 64.7 % (39.0-77.0); PLATELET COUNT 199 10^3/UL (140-415); RED BLOOD COUNT 3.08 10^6/ul (4.20-5.40); RED CELL DISTRIBUTION WIDTH 11.9 % (11.5-14.5); WHITE BLOOD COUNT 9.7 10^3/ul (4.8-10.8)
[2017-03-21 08:11] LABS: ADD SCAN DIFF NO
[2017-03-21] MEDS: INSULIN ASPART [NOVOLOG] 3 ML PEN SC SCH ×7 (08:30→20:11)
[2017-03-21 08:38] LABS: CREATININE 1.86 mg/dl (0.44-1.00); PHOSPHORUS 4.6 mg/dl (2.5-4.9); POTASSIUM 3.9 mmol/L (3.5-5.1)
[2017-03-21 08:41] LABS: FREE T3 2.73 pg/ml (2.77-5.27)
[2017-03-21 08:55] LABS: THYROID STIMULATING HORMONE 1.25 MIU/L (0.465-4.680)
--- NOTE | 2017-03-21 09:13 | RADRPT ---
PROCEDURE: XR Chest 1 View. CLINICAL INDICATION: Shortness of breath. TECHNIQUE: AP view of the chest was obtained. COMPARISON: March 17, 2017 FINDINGS: The heart size is within normal limits. Calcified atherosclerosis is noted in the aorta. Segmental atelectasis is identified in the left lower lobe. No consolidations are identified. No pneumothorax is seen. Mild interstitial prominence is seen in both lungs. Calcified granuloma is seen in the rig ht lower lobe. The osseous structures are osteopenic, but appear intact. IMPRESSION: Calcified atherosclerosis in the aorta. Mild interstitial prominence in both lungs. Interstitial prominence may be chronic. Subsegmental atelectasis in the left lower lobe. Calcified granuloma in the right lower lobe. RPTAT: AA .Wyatt Babin MD, Date Time Electronically viewed and signed by .Wyatt Babin MD, MD on 03/21/2017 09:13 .P/
[2017-03-21] MEDS: GABAPENTIN 100 MG CAP PO SCH ×2 (09:53→20:13)
[2017-03-21] MEDS: FERROUS SULFATE (EC) 325 MG TAB PO SCH ×3 (09:53→20:13)
[2017-03-21] MEDS: CILOSTAZOL 100 MG TAB PO SCH ×2 (09:53→20:13)
[2017-03-21] MEDS: PANTOPRAZOLE (EC) 40 MG TAB PO SCH (09:53)
[2017-03-21] MEDS: FAMOTIDINE 20 MG TAB PO SCH (09:53)
[2017-03-21] MEDS: AMLODIPINE 5 MG TAB PO SCH ×2 (09:53→20:14)
[2017-03-21] MEDS: ASPIRIN 81 MG TAB PO SCH (09:53)
[2017-03-21] MEDS: OXYBUTYNIN (XL) 5 MG TAB PO SCH (09:53)
[2017-03-21] MEDS: LAMOTRIGINE 25 MG TAB PO SCH ×2 (09:53→20:12)
[2017-03-21] MEDS: NA BICARBONATE 650 MG TAB PO SCH ×2 (09:53→20:13)
[2017-03-21] MEDS: METOPROLOL 50 MG TAB PO SCH ×2 (09:54→20:13)
--- NOTE | 2017-03-21 10:06 | PN ---
Date/Time of Note Date/Time of Note DATE: 03/21/17 TIME: 10:03 Assessment/Plan VTE Prophylaxis VTE Prophylaxis Intervention: LMWH Lines/Catheters IV Catheter Type (from [facility] Sal[facility] Lock Urinary Cath still in place: No Assessment/Plan Assessment/Plan 86-year-old female who had presented with generalized weakness now managed for the followin. Sepsis secondary to E coli bacteremia and urinary tract infection : improving 2. Acute on chronic kidney injury: improving 3. Elevated troponins without chest pain concerning for non-ST elevation myocardial infarction in this diabetic likely type II from demand ischemia: trended down 4. Essential hypertension : improving control 5. Chronic peripheral vascular disease 6. Type 2 diabetes mellitus with hemoglobin A1c of 8.0: good inhouse control so far 7. COPD without exacerbation 8. Iron deficiency anemia associated with chronic disease: Patient has been on iron supplementation 9. Mild acute rhabdomyolysis: Improved 10. Confusion is likely Progression of dementia Plan: * Patient able to ambulate with PT / MRI pending for tonight / OT for shoulder * Kidney function seems to be at baseline, resume Acei or ARB if ok with renal * Patient is also on dual antiplatelet therapy for peripheral vascular disease * Continue diabetic diet, sliding scale insulin. Titrate insulin doses for optimal control as indicated * Continue all other home medications * Continue supportive care / reorientation Further interventions per clinical course Appreciate all consults Prophylaxis with PPI and SCDs Subjective 24 Hr Interval Summary Free Text/Dictation patient seen still guarding R shoulder Exam/Review of Systems Vital Signs Vitals Vital Signs Date Time Temp Pulse Resp B/P Pulse Ox O2 Delivery O2 Flow Rate FiO2 03/21/17 08:39 98 03/21/17 08:22 98.6 20 155/67 96 Room Air 03/19/17 10:55 21 Intake and Output 03/20/17 03/20/17 03/21/17 15:00 23:00 07:00 Intake Total 400 ml Output Total 500 ml Balance -100 ml Exam GENERAL: This is a [place] female lying in bed in no apparent distress.less lethargic HEENT: Head normocephalic and atraumatic. Eyes: Anicteric sclerae. Conjunctivae clear. ENT: Nasal septum is midline. Oral mucosa is dry. NECK: Supple. No JVD noticed. RESPIRATORY: Bilaterally diminished breath sounds, less wheezing CARDIAC: Regular rate and rhythm. S1, S2 heard. ABDOMEN: Soft, nontender, and nondistended. Bowel sounds positive in all 4 quadrants. GENITOURINARY: Deferred. EXTREMITIES: No cyanosis, no clubbing. R shoulder pain? NEUROLOGIC: The patient is awake, alert and pleasantly confused, Results Result Diagram: 03/21/17 0728 03/21/17 0728 Results 24 hrs Laboratory Tests Test 03/20/17 11:52 03/20/17 17:01 03/20/17 20:21 03/21/17 07:28 Bedside Glucose 109 97 97 White Blood Count 9.7 Red Blood Count 3.08 L Hemoglobin 9.6 L Hematocrit 29.4 L Mean Corpuscular Volume 95.5 Mean Corpuscular Hemoglobin 31.2 Mean Corpuscular Hemoglobin Concent 32.7 Red Cell Distribution Width 11.9 Platelet Count 199 Mean Platelet Volume 9.5 Neutrophils % 64.7 Lymphocytes % 15.8 Monocytes % 16.4 H Eosinophils % 2.3 Basophils % 0.4 Nucleated Red Blood Cells % 0.0 Neutrophils # 6.3 Lymphocytes # 1.5 Monocytes # 1.6 H Eosinophils # 0.2 Basophils # 0.0 Nucleated Red Blood Cells # 0.0 Sodium Level 138 Potassium Level 3.9 Chloride Level 103 Carbon Dioxide Level 20 L Anion Gap 19 H Blood Urea Nitrogen 24 H Creatinine 1.86 H Glucose Level 127 Calcium Level 9.0 Phosphorus Level 4.6 Magnesium Level 2.0 Thyroid Stimulating Hormone (TSH) 1.250 Free Thyroxine 2.15 H Free Triiodothyronine (T3) pg/mL 2.73 L Test 03/21/17 08:33 Bedside Glucose 129 Medications Medications Current Medications Ondansetron HCl (Zofran Inj) 4 mg Q6H PRN IV NAUSEA AND/OR VOMITING; Start at 14:00 Aspirin (Aspirin) 81 mg DAILY PO Last administered on 03/20/17 08:28; Admin Dose 81 MG; Start 03/18/17 at 09:00 Acetaminophen (Tylenol Tab) 650 mg Q6H PRN PO PAIN LEVEL 1-3 OR FEVER Last administered on 03/20/17 21:55; Admin Dose 650 MG; Start 03/17/17 at 14:00 Acetaminophen/ Hydrocodone Bitart ([place] (5/325)) 1 tab Q6H PRN PO PAIN LEVEL 4 -6; Start 03/17/17 at 14:00 Magnesium Hydroxide (Milk Of Mag) 30 ml DAILY PRN PO CONSTIPATION; Start at 14:00 Bisacodyl (Dulcolax) 5 mg DAILY PRN PO CONSTIPATION; Start 03/17/17 at 14:00 Famotidine (Pepcid) 20 mg DAILY PO Last administered on 03/20/17 08:28; Admin Dose 20 MG; Start 03/17/17 at 21:00 Cilostazol (Pletal) 50 mg BID PO Last administered on 03/20/17 20:24; Admin Dose 50 MG; Start 03/17/17 at 21:00 Ferrous Sulfate (Ferrous Sulfate (Ec)) 325 mg TID PO Last administered on 20:23; Admin Dose 325 MG; Start 03/17/17 at 21:00 Gabapentin (Neurontin) 100 mg BID PO Last administered on 03/20/17 20:24; Admin Dose 100 MG; Start 03/17/17 at 21:00 Lamotrigine (Lamictal) 25 mg BID PO Last administered on 03/20/17 20:23; Admin Dose 25 MG; Start 03/17/17 at 21:00 Oxybutynin Chloride (Ditropan Xl) 5 mg DAILY PO Last administered on 03/20/17 08:28; Admin Dose 5 MG; Start 03/18/17 at 09:00 Pantoprazole (Protonix Tab) 40 mg DAILY PO Last administered on 03/20/17 08:28 ; Admin Dose 40 MG; Start 03/18/17 at 09:00 Sodium Bicarbonate (Sodium Bicarbonate Tab) 650 mg BID PO Last administered on 03/20/17 20:23; Admin Dose 650 MG; Start 03/17/17 at 21:00 Atorvastatin Calcium (Lipitor) 20 mg DAILY@21 PO Last administered on 20:23; Admin Dose 20 MG; Start 03/17/17 at 21:00 Hydralazine HCl (Apresoline) 10 mg Q6H PRN IV SBP>160 Last administered on 03/19 16:30; Admin Dose 10 MG; Start 03/17/17 at 14:30 Miscellaneous Information 1 ea NOTE XX ; Start 03/17/17 at 14:30 Glucose (Glutose) 15 gm Q15M PRN PO DECREASED GLUCOSE; Start 03/17/17 at 14:30 Glucose (Glutose) 22.5 gm Q15M PRN PO DECREASED GLUCOSE; Start 03/17/17 at 14: 30 Dextrose (D50w Syringe) 25 ml Q15M PRN IV DECREASED GLUCOSE; Start 03/17/17 at 14:30 Dextrose (D50w Syringe) 50 ml Q15M PRN IV DECREASED GLUCOSE; Start 03/17/17 at 14:30 Glucagon (Glucagen) 1 mg Q15M PRN IM DECREASED GLUCOSE; Start 03/17/17 at 14:30 Glucose (Glutose) 15 gm Q15M PRN BUCCAL DECREASED GLUCOSE; Start 03/17/17 at 14 :30 Metoprolol Tartrate (Lopressor) 50 mg BID PO Last administered on 03/20/17 20: 23; Admin Dose 50 MG; Start 03/18/17 at 21:00 Haloperidol (Haldol) 3 mg Q8H PRN IM agitation; Start 03/18/17 at 16:30 Amlodipine Besylate 5 mg 5 mg BID PO Last administered on 03/20/17 20:24; Admin Dose 5 MG; Start 03/18/17 at 21:00 Levofloxacin/ Dextrose (Levaquin 250 Mg/ D5W 50 ml (Pmx)) 50 ml @ 50 mls/hr Q24H IVPB ; Start 03/21/17 at 20:00 Procedures Procedures PROCEDURE: XR Right Shoulder. CLINICAL INDICATION: Right shoulder pain. TECHNIQUE: Two views. Frontal and scapular Y-view. COMPARISON: No prior study is available for comparison. FINDINGS: There is no fracture or dislocation. The soft tissues are normal. There is diffuse osteopenia. Articular surfaces are intact. There is no lytic or blastic lesion. There is no radiopaque foreign body. IMPRESSION: 1. Diffuse osteopenia. 2. Otherwise normal images of the right shoulder. RPTAT: QQ .Fer Cunha MD, Date Time Electronically viewed and signed by .Fer Cunha MD, on 03/20/2017 21:01 .R/ CC: TAL PAYNE PROCEDURE: XR Chest 1 View. CLINICAL INDICATION: Shortness of breath. TECHNIQUE: AP view of the chest was obtained. COMPARISON: March 17, 2017 FINDINGS: The heart size is within normal limits. Calcified atherosclerosis is noted in the aorta. Segmental atelectasis is identified in the left lower lobe. No consolidations are identified. No pneumothorax is seen. Mild interstitial prominence is seen in both lungs. Calcified granuloma is seen in the right lower lobe. The osseous structures are osteopenic, but appear intact. IMPRESSION: Calcified atherosclerosis in the aorta. Mild interstitial prominence in both lungs. Interstitial prominence may be chronic. Subsegmental atelectasis in the left lower lobe. Calcified granuloma in the right lower lobe. RPTAT: AA .Wyatt Babin MD, MD Date Time Electronically viewed and signed by .Wyatt Babin MD, MD on 03/21/2017 09:13 .P/ CC: Collin Peter BOLATITO M. Mar 21, 2017 10:06
--- NOTE | 2017-03-21 11:13 | CONS ---
Date/Time of Note Date/Time of Note DATE: 03/21/17 TIME: 11:11 Assessment/Plan Assessment/Plan Additional Assessment/Plan 1. Sepsis secondary to E.coli bacteremia and urinary tract infection with Urine cx growing E coli 2. Acute kidney injury on CKD due to sepsis and Prerenal azotemia 3. Elevated troponin due to demand ischemia 4. Essential hypertension 5. Type II DM 7. COPD without exacerbation 8. Iron deficiency anemia associated with chronic disease: Patient has been on iron supplementation 9. Mild acute rhabdomyolysis: Improved 10. Chronic early onset dementia Plan : IV abx per Primary team, Cr bumped to 1.86 today from 1.5 yesterday , will hold off on ACEI/ARB this time Expective Creatinine to improve with IV abx treatment Renal US showed small echogenic kidneys with size 9.2 cm Uric acid 5.8 will follow up Consultation Date/Type/Reason Admit Date/Time Mar 17, 2017 at 08:56 Initial Consult Date 03/18/17 Type of Consultation: NEPHROLOGY Referring Provider: TAL PAYNE 24 HR Interval Summary Free Text/Dictation Cr bumped to 1.8 from 1.5, no acute events otherwise Exam/Review of Systems Vital Signs Vitals Vital Signs Date Time Temp Pulse Resp B/P Pulse Ox O2 Delivery O2 Flow Rate FiO2 03/21/17 08:39 98 03/21/17 08:22 98.6 20 155/67 96 Room Air 03/19/17 10:55 21 Intake and Output 03/20/17 03/20/17 03/21/17 15:00 23:00 07:00 Intake Total 400 ml Output Total 500 ml Balance -100 ml Exam Constitutional: alert Psych: no complaints Head: normocephalic Eyes: nl conjunctiva ENMT: nl external ears & nose Neck: non-tender, supple Respiratory: clear to auscultation, normal air movement Cardiovascular: nl pulses, regular rate and rhythm Gastrointestinal: non-tender, soft Musculoskeletal: nl extremities to inspection Extremities: normal pulses Neurological: PROGRAM CONSULTANT II-XII intact, nl mental status, nl speech Skin: nl turgor Lymph: nl lymph nodes Results Result Diagram: 03/21/17 0728 03/21/17 0728 Results 24 hrs Laboratory Tests Test 03/20/17 11:52 03/20/17 17:01 03/20/17 20:21 03/21/17 07:28 Bedside Glucose 109 97 97 White Blood Count 9.7 Red Blood Count 3.08 L Hemoglobin 9.6 L Hematocrit 29.4 L Mean Corpuscular Volume 95.5 Mean Corpuscular Hemoglobin 31.2 Mean Corpuscular Hemoglobin Concent 32.7 Red Cell Distribution Width 11.9 Platelet Count 199 Mean Platelet Volume 9.5 Neutrophils % 64.7 Lymphocytes % 15.8 Monocytes % 16.4 H Eosinophils % 2.3 Basophils % 0.4 Nucleated Red Blood Cells % 0.0 Neutrophils # 6.3 Lymphocytes # 1.5 Monocytes # 1.6 H Eosinophils # 0.2 Basophils # 0.0 Nucleated Red Blood Cells # 0.0 Sodium Level 138 Potassium Level 3.9 Chloride Level 103 Carbon Dioxide Level 20 L Anion Gap 19 H Blood Urea Nitrogen 24 H Creatinine 1.86 H Glucose Level 127 Calcium Level 9.0 Phosphorus Level 4.6 Magnesium Level 2.0 Thyroid Stimulating Hormone (TSH) 1.250 Free Thyroxine 2.15 H Free Triiodothyronine (T3) pg/mL 2.73 L Test 03/21/17 08:33 Bedside Glucose 129 Medications Medications Current Medications Ondansetron HCl (Zofran Inj) 4 mg Q6H PRN IV NAUSEA AND/OR VOMITING; Start at 14:00 Aspirin (Aspirin) 81 mg DAILY PO Last administered on 03/21/17 09:53; Admin Dose 81 MG; Start 03/18/17 at 09:00 Acetaminophen (Tylenol Tab) 650 mg Q6H PRN PO PAIN LEVEL 1-3 OR FEVER Last administered on 03/20/17 21:55; Admin Dose 650 MG; Start 03/17/17 at 14:00 Acetaminophen/ Hydrocodone Bitart ([place] (5/325)) 1 tab Q6H PRN PO PAIN LEVEL 4 -6; Start 03/17/17 at 14:00 Magnesium Hydroxide (Milk Of Mag) 30 ml DAILY PRN PO CONSTIPATION; Start at 14:00 Bisacodyl (Dulcolax) 5 mg DAILY PRN PO CONSTIPATION; Start 03/17/17 at 14:00 Famotidine (Pepcid) 20 mg DAILY PO Last administered on 03/21/17 09:53; Admin Dose 20 MG; Start 03/17/17 at 21:00 Cilostazol (Pletal) 50 mg BID PO Last administered on 03/21/17 09:53; Admin Dose 50 MG; Start 03/17/17 at 21:00 Ferrous Sulfate (Ferrous Sulfate (Ec)) 325 mg TID PO Last administered on 09:53; Admin Dose 325 MG; Start 03/17/17 at 21:00 Gabapentin (Neurontin) 100 mg BID PO Last administered on 03/21/17 09:53; Admin Dose 100 MG; Start 03/17/17 at 21:00 Lamotrigine (Lamictal) 25 mg BID PO Last administered on 03/21/17 09:53; Admin Dose 25 MG; Start 03/17/17 at 21:00 Oxybutynin Chloride (Ditropan Xl) 5 mg DAILY PO Last administered on 03/21/17 09:53; Admin Dose 5 MG; Start 03/18/17 at 09:00 Pantoprazole (Protonix Tab) 40 mg DAILY PO Last administered on 03/21/17 09:53 ; Admin Dose 40 MG; Start 03/18/17 at 09:00 Sodium Bicarbonate (Sodium Bicarbonate Tab) 650 mg BID PO Last administered on 03/21/17 09:53; Admin Dose 650 MG; Start 03/17/17 at 21:00 Atorvastatin Calcium (Lipitor) 20 mg DAILY@21 PO Last administered on 20:23; Admin Dose 20 MG; Start 03/17/17 at 21:00 Hydralazine HCl (Apresoline) 10 mg Q6H PRN IV SBP>160 Last administered on 03/19 16:30; Admin Dose 10 MG; Start 03/17/17 at 14:30 Miscellaneous Information 1 ea NOTE XX ; Start 03/17/17 at 14:30 Glucose (Glutose) 15 gm Q15M PRN PO DECREASED GLUCOSE; Start 03/17/17 at 14:30 Glucose (Glutose) 22.5 gm Q15M PRN PO DECREASED GLUCOSE; Start 03/17/17 at 14: 30 Dextrose (D50w Syringe) 25 ml Q15M PRN IV DECREASED GLUCOSE; Start 03/17/17 at 14:30 Dextrose (D50w Syringe) 50 ml Q15M PRN IV DECREASED GLUCOSE; Start 03/17/17 at 14:30 Glucagon (Glucagen) 1 mg Q15M PRN IM DECREASED GLUCOSE; Start 03/17/17 at 14:30 Glucose (Glutose) 15 gm Q15M PRN BUCCAL DECREASED GLUCOSE; Start 03/17/17 at 14 :30 Metoprolol Tartrate (Lopressor) 50 mg BID PO Last administered on 03/21/17 09: 54; Admin Dose 50 MG; Start 03/18/17 at 21:00 Haloperidol (Haldol) 3 mg Q8H PRN IM agitation; Start 03/18/17 at 16:30 Amlodipine Besylate 5 mg 5 mg BID PO Last administered on 03/21/17 09:53; Admin Dose 5 MG; Start 03/18/17 at 21:00 Levofloxacin/ Dextrose (Levaquin 250 Mg/ D5W 50 ml (Pmx)) 50 ml @ 50 mls/hr Q24H IVPB ; Start 03/21/17 at 20:00 ANDREW CASTREJON MD Mar 21, 2017 11:13
--- NOTE | 2017-03-21 11:34 | CONS ---
Date/Time of Note Date/Time of Note DATE: 03/21/17 TIME: 11:32 Assessment/Plan Assessment/Plan Additional Assessment/Plan Sepsis Acute on chronic kidney disease Encephalopathy Mildly elevated troponin Hypertension History of preserved left ventricular ejection fraction Diabetes -Blood pressure trend overall better with occasional episodes of hypertension. Fluid management as per our renal colleagues. DC planning Consultation Date/Type/Reason Admit Date/Time Mar 17, 2017 at 08:56 Initial Consult Date 03/18/17 Type of Consultation: cv Referring Provider: TAL PAYNE 24 HR Interval Summary Free Text/Dictation Patient seen and examined, and discussion with nursing staff, patient with less confusion. Patient denies chest pain or shortness of breath Exam/Review of Systems Vital Signs Vitals Vital Signs Date Time Temp Pulse Resp B/P Pulse Ox O2 Delivery O2 Flow Rate FiO2 03/21/17 08:39 98 03/21/17 08:22 98.6 20 155/67 96 Room Air 03/19/17 10:55 21 Intake and Output 03/20/17 03/20/17 03/21/17 15:00 23:00 07:00 Intake Total 400 ml Output Total 500 ml Balance -100 ml Exam Following commands, no apparent distress Constitutional: alert Head: normocephalic Neck: supple Respiratory: other (Coarse breath sounds bilaterally, no wheezing) Cardiovascular: other (S1-S2 heard), regular rate and rhythm Gastrointestinal: bowel sounds, non-tender, soft Extremities: edema Results Result Diagram: 03/21/17 0728 03/21/17 0728 Results 24 hrs Laboratory Tests Test 03/20/17 11:52 03/20/17 17:01 03/20/17 20:21 03/21/17 07:28 Bedside Glucose 109 97 97 White Blood Count 9.7 Red Blood Count 3.08 L Hemoglobin 9.6 L Hematocrit 29.4 L Mean Corpuscular Volume 95.5 Mean Corpuscular Hemoglobin 31.2 Mean Corpuscular Hemoglobin Concent 32.7 Red Cell Distribution Width 11.9 Platelet Count 199 Mean Platelet Volume 9.5 Neutrophils % 64.7 Lymphocytes % 15.8 Monocytes % 16.4 H Eosinophils % 2.3 Basophils % 0.4 Nucleated Red Blood Cells % 0.0 Neutrophils # 6.3 Lymphocytes # 1.5 Monocytes # 1.6 H Eosinophils # 0.2 Basophils # 0.0 Nucleated Red Blood Cells # 0.0 Sodium Level 138 Potassium Level 3.9 Chloride Level 103 Carbon Dioxide Level 20 L Anion Gap 19 H Blood Urea Nitrogen 24 H Creatinine 1.86 H Glucose Level 127 Calcium Level 9.0 Phosphorus Level 4.6 Magnesium Level 2.0 Thyroid Stimulating Hormone (TSH) 1.250 Free Thyroxine 2.15 H Free Triiodothyronine (T3) pg/mL 2.73 L Test 03/21/17 08:33 Bedside Glucose 129 Medications Medications Current Medications Ondansetron HCl (Zofran Inj) 4 mg Q6H PRN IV NAUSEA AND/OR VOMITING; Start at 14:00 Aspirin (Aspirin) 81 mg DAILY PO Last administered on 03/21/17 09:53; Admin Dose 81 MG; Start 03/18/17 at 09:00 Acetaminophen (Tylenol Tab) 650 mg Q6H PRN PO PAIN LEVEL 1-3 OR FEVER Last administered on 03/20/17 21:55; Admin Dose 650 MG; Start 03/17/17 at 14:00 Acetaminophen/ Hydrocodone Bitart ([place] (5/325)) 1 tab Q6H PRN PO PAIN LEVEL 4 -6; Start 03/17/17 at 14:00 Magnesium Hydroxide (Milk Of Mag) 30 ml DAILY PRN PO CONSTIPATION; Start at 14:00 Bisacodyl (Dulcolax) 5 mg DAILY PRN PO CONSTIPATION; Start 03/17/17 at 14:00 Famotidine (Pepcid) 20 mg DAILY PO Last administered on 03/21/17 09:53; Admin Dose 20 MG; Start 03/17/17 at 21:00 Cilostazol (Pletal) 50 mg BID PO Last administered on 03/21/17 09:53; Admin Dose 50 MG; Start 03/17/17 at 21:00 Ferrous Sulfate (Ferrous Sulfate (Ec)) 325 mg TID PO Last administered on 09:53; Admin Dose 325 MG; Start 03/17/17 at 21:00 Gabapentin (Neurontin) 100 mg BID PO Last administered on 03/21/17 09:53; Admin Dose 100 MG; Start 03/17/17 at 21:00 Lamotrigine (Lamictal) 25 mg BID PO Last administered on 03/21/17 09:53; Admin Dose 25 MG; Start 03/17/17 at 21:00 Oxybutynin Chloride (Ditropan Xl) 5 mg DAILY PO Last administered on 03/21/17 09:53; Admin Dose 5 MG; Start 03/18/17 at 09:00 Pantoprazole (Protonix Tab) 40 mg DAILY PO Last administered on 03/21/17 09:53 ; Admin Dose 40 MG; Start 03/18/17 at 09:00 Sodium Bicarbonate (Sodium Bicarbonate Tab) 650 mg BID PO Last administered on 03/21/17 09:53; Admin Dose 650 MG; Start 03/17/17 at 21:00 Atorvastatin Calcium (Lipitor) 20 mg DAILY@21 PO Last administered on 20:23; Admin Dose 20 MG; Start 03/17/17 at 21:00 Hydralazine HCl (Apresoline) 10 mg Q6H PRN IV SBP>160 Last administered on 03/19 16:30; Admin Dose 10 MG; Start 03/17/17 at 14:30 Miscellaneous Information 1 ea NOTE XX ; Start 03/17/17 at 14:30 Glucose (Glutose) 15 gm Q15M PRN PO DECREASED GLUCOSE; Start 03/17/17 at 14:30 Glucose (Glutose) 22.5 gm Q15M PRN PO DECREASED GLUCOSE; Start 03/17/17 at 14: 30 Dextrose (D50w Syringe) 25 ml Q15M PRN IV DECREASED GLUCOSE; Start 03/17/17 at 14:30 Dextrose (D50w Syringe) 50 ml Q15M PRN IV DECREASED GLUCOSE; Start 03/17/17 at 14:30 Glucagon (Glucagen) 1 mg Q15M PRN IM DECREASED GLUCOSE; Start 03/17/17 at 14:30 Glucose (Glutose) 15 gm Q15M PRN BUCCAL DECREASED GLUCOSE; Start 03/17/17 at 14 :30 Metoprolol Tartrate (Lopressor) 50 mg BID PO Last administered on 03/21/17 09: 54; Admin Dose 50 MG; Start 03/18/17 at 21:00 Haloperidol (Haldol) 3 mg Q8H PRN IM agitation; Start 03/18/17 at 16:30 Amlodipine Besylate 5 mg 5 mg BID PO Last administered on 03/21/17 09:53; Admin Dose 5 MG; Start 03/18/17 at 21:00 Levofloxacin/ Dextrose (Levaquin 250 Mg/ D5W 50 ml (Pmx)) 50 ml @ 50 mls/hr Q24H IVPB ; Start 03/21/17 at 20:00 Collin Peter DO Mar 21, 2017 11:34
[2017-03-21] MEDS: hydrALAzine 20 MG INJ IV PRN (12:20)
--- NOTE | 2017-03-21 15:46 | CONS ---
Date/Time of Note Date/Time of Note DATE: 03/21/17 TIME: 15:44 Assessment/Plan Assessment/Plan Chief Complaint/Hosp Course Subjective: No acute events overnight. Patient is awake lying comfortably in bed, she is in no distress Microbiology: Blood culture growing E. coli, urine culture growing E. coli and Proteus mirabilis. Repeat blood cultures negative Antimicrobials: Levaquin, status post Rocephin Physical examination: This is an obese well-developed elderly woman who is alert in no distress. Head : Atraumatic normocephalic Sclera: Anicteric. PERRLA Neck is supple neck Chest rise symmetrical. Breath sounds diminished to bases, bilaterally expiratory wheezes. Heart S1-S2 Abdomen soft bowel sounds present, no tenderness on palpation. Extremities without cyanosis bilateral lower extremities trace edema Assessment 1. Sepsis with fevers, tachycardia on admission #2 2. Urinary tract infection with bacteremia 3. Diabetes 4. COPD 5. Obesity Plan: Patient remains stable, repeat blood cultures negative, continue antibiotics for 12 more days, okay downgrade to oral Levaquin upon discharge home, follow recommendations of consultants Discussed with RN Problems: Consultation Date/Type/Reason Admit Date/Time Mar 17, 2017 at 08:56 Initial Consult Date 03/18/17 Type of Consultation: Infectious disease Referring Provider: TAL APYNE Exam/Review of Systems Vital Signs Vitals Vital Signs Date Time Temp Pulse Resp B/P Pulse Ox O2 Delivery O2 Flow Rate FiO2 03/21/17 12:29 96 03/21/17 12:12 98.0 18 173/72 98 03/21/17 08:22 Room Air 03/19/17 10:55 21 Intake and Output 03/20/17 03/20/17 03/21/17 15:00 23:00 07:00 Intake Total 400 ml Output Total 500 ml Balance -100 ml Results Result Diagram: 03/21/17 0728 03/21/17 0728 Results 24 hrs Laboratory Tests Test 03/20/17 17:01 03/20/17 20:21 03/21/17 07:28 03/21/17 08:33 Bedside Glucose 97 97 129 White Blood Count 9.7 Red Blood Count 3.08 L Hemoglobin 9.6 L Hematocrit 29.4 L Mean Corpuscular Volume 95.5 Mean Corpuscular Hemoglobin 31.2 Mean Corpuscular Hemoglobin Concent 32.7 Red Cell Distribution Width 11.9 Platelet Count 199 Mean Platelet Volume 9.5 Neutrophils % 64.7 Lymphocytes % 15.8 Monocytes % 16.4 H Eosinophils % 2.3 Basophils % 0.4 Nucleated Red Blood Cells % 0.0 Neutrophils # 6.3 Lymphocytes # 1.5 Monocytes # 1.6 H Eosinophils # 0.2 Basophils # 0.0 Nucleated Red Blood Cells # 0.0 Sodium Level 138 Potassium Level 3.9 Chloride Level 103 Carbon Dioxide Level 20 L Anion Gap 19 H Blood Urea Nitrogen 24 H Creatinine 1.86 H Glucose Level 127 Calcium Level 9.0 Phosphorus Level 4.6 Magnesium Level 2.0 Thyroid Stimulating Hormone (TSH) 1.250 Free Thyroxine 2.15 H Free Triiodothyronine (T3) pg/mL 2.73 L Test 03/21/17 11:50 Bedside Glucose 193 Medications Medications Current Medications Ondansetron HCl (Zofran Inj) 4 mg Q6H PRN IV NAUSEA AND/OR VOMITING; Start at 14:00 Aspirin (Aspirin) 81 mg DAILY PO Last administered on 03/21/17 09:53; Admin Dose 81 MG; Start 03/18/17 at 09:00 Acetaminophen (Tylenol Tab) 650 mg Q6H PRN PO PAIN LEVEL 1-3 OR FEVER Last administered on 03/20/17 21:55; Admin Dose 650 MG; Start 03/17/17 at 14:00 Acetaminophen/ Hydrocodone Bitart ([place] (5/325)) 1 tab Q6H PRN PO PAIN LEVEL 4 -6; Start 03/17/17 at 14:00 Magnesium Hydroxide (Milk Of Mag) 30 ml DAILY PRN PO CONSTIPATION; Start at 14:00 Bisacodyl (Dulcolax) 5 mg DAILY PRN PO CONSTIPATION; Start 03/17/17 at 14:00 Famotidine (Pepcid) 20 mg DAILY PO Last administered on 03/21/17 09:53; Admin Dose 20 MG; Start 03/17/17 at 21:00 Cilostazol (Pletal) 50 mg BID PO Last administered on 03/21/17 09:53; Admin Dose 50 MG; Start 03/17/17 at 21:00 Ferrous Sulfate (Ferrous Sulfate (Ec)) 325 mg TID PO Last administered on 14:23; Admin Dose 325 MG; Start 03/17/17 at 21:00 Gabapentin (Neurontin) 100 mg BID PO Last administered on 03/21/17 09:53; Admin Dose 100 MG; Start 03/17/17 at 21:00 Lamotrigine (Lamictal) 25 mg BID PO Last administered on 03/21/17 09:53; Admin Dose 25 MG; Start 03/17/17 at 21:00 Oxybutynin Chloride (Ditropan Xl) 5 mg DAILY PO Last administered on 03/21/17 09:53; Admin Dose 5 MG; Start 03/18/17 at 09:00 Pantoprazole (Protonix Tab) 40 mg DAILY PO Last administered on 03/21/17 09:53 ; Admin Dose 40 MG; Start 03/18/17 at 09:00 Sodium Bicarbonate (Sodium Bicarbonate Tab) 650 mg BID PO Last administered on 03/21/17 09:53; Admin Dose 650 MG; Start 03/17/17 at 21:00 Atorvastatin Calcium (Lipitor) 20 mg DAILY@21 PO Last administered on 20:23; Admin Dose 20 MG; Start 03/17/17 at 21:00 Hydralazine HCl (Apresoline) 10 mg Q6H PRN IV SBP>160 Last administered on 03/21 12:20; Admin Dose 10 MG; Start 03/17/17 at 14:30 Miscellaneous Information 1 ea NOTE XX ; Start 03/17/17 at 14:30 Glucose (Glutose) 15 gm Q15M PRN PO DECREASED GLUCOSE; Start 03/17/17 at 14:30 Glucose (Glutose) 22.5 gm Q15M PRN PO DECREASED GLUCOSE; Start 03/17/17 at 14: 30 Dextrose (D50w Syringe) 25 ml Q15M PRN IV DECREASED GLUCOSE; Start 03/17/17 at 14:30 Dextrose (D50w Syringe) 50 ml Q15M PRN IV DECREASED GLUCOSE; Start 03/17/17 at 14:30 Glucagon (Glucagen) 1 mg Q15M PRN IM DECREASED GLUCOSE; Start 03/17/17 at 14:30 Glucose (Glutose) 15 gm Q15M PRN BUCCAL DECREASED GLUCOSE; Start 03/17/17 at 14 :30 Metoprolol Tartrate (Lopressor) 50 mg BID PO Last administered on 03/21/17 09: 54; Admin Dose 50 MG; Start 03/18/17 at 21:00 Haloperidol (Haldol) 3 mg Q8H PRN IM agitation; Start 03/18/17 at 16:30 Amlodipine Besylate 5 mg 5 mg BID PO Last administered on 03/21/17 09:53; Admin Dose 5 MG; Start 03/18/17 at 21:00 Levofloxacin/ Dextrose (Levaquin 250 Mg/ D5W 50 ml (Pmx)) 50 ml @ 50 mls/hr Q24H IVPB ; Start 03/21/17 at 20:00 YFN SHANKAR NP Mar 21, 2017 15:46
--- NOTE | 2017-03-21 17:16 | RADRPT ---
PROCEDURE: MRI Brain without contrast. CLINICAL INDICATION: Acute confusion TECHNIQUE: Multiplanar MRI of the brain without contrast was performed on a 3.0 T scanner with the following sequences obtained: T1-weighted, T2-weighted/FLAIR, diffusion weighted (with ADC map), GR E. COMPARISON: CT brain 05/22/2014 FINDINGS: No acute/recent ischemic infarction or intracranial hemorrhage / blood degradation products are iden tified. No extra-axial fluid collection is seen. There is no mass effect. No midline shift is identified. The ventricles and sulci are mildly enlarged, compatible with generalized volume loss. Moderate areas of increased T2 / FLAIR signal intensity are present in the periventricular and deep white matter, nonspecific but likely related to chronic small vessel ischemic changes. Flow voids are identified in the proximal intracranial arteries and dural sinuses suggesting patency . The mastoid air cells and paranasal sinuses are grossly clear. IMPRESSION: 1. No evidence of acute intracranial pathology. 2. Mild generalized volume loss, with moderate chronic small vessel ischemic changes. RPTAT: VV .Gee Kellogg MD, MD Date Time Electronically viewed and signed by .Gee Kellogg MD, on 03/21/2017 17:15 .O/
--- NOTE | 2017-03-21 17:47 | RADRPT ---
PROCEDURE: MRI OF THE RIGHT SHOULDER CLINICAL INDICATION: Right shoulder pain. Urinary tract infection. TECHNIQUE: MRI images of the right shoulder were obtained utilizing multiple sequences in multiple planes. Images were interpreted on high-resolution PACS system. COMPARISON: Plain film dated 03/20/2017.. FINDINGS: Osseous acromion outlet: The acromion is type 2. Coronal images demonstrate moderate lateral downslo ping. There is moderate AC arthrosis. Rotator Cuff: There is moderate supraspinatus tendinosis with thickening and intratendinous edema an d surface fraying seen on coronal image number 9-12. There is a dark focus within the bursal surfac e of the critical zone of the supraspinatus seen on coronal image #7. Findings could be calcific te ndonitis although no definite calcium is seen on the plain film. There could be calcium present but overlapping on the plain film x-ray.. No evidence for discrete or izyerao-goh-davmrid tear and no retraction is seen. There is marked bursitis. The subscapularis tendon is intact. Labral and capsular structures: There is synovitis. No evidence for labral tear or detachment. No evidence for erosive change. Biceps tendon and anchor: There is moderate biceps tendinosis within the bicipital groove. No evide nce for rupture, subluxation or dislocation. Osseous structures: There is chronic greater tuberosity enthesopathy including subcortical cyst for mation. Findings are likely related to impingement. No evidence of acute bony trauma. No evidence for AVN. Other findings: The suprascapular and spinoglenoid notch appear normal. No mass identified. IMPRESSION: 1. Moderate supraspinatus tendinosis and is possible calcific tendonitis. No discrete or through-a nd-through tear is seen. 3. Biceps tendinosis within the bicipital groove. 2. Marked bursitis. RPTAT: XX .Shiv Wright MD, Date Time Electronically viewed and signed by .Shiv Wright MD, MD on 03/21/2017 17:46 .T/
[2017-03-21] MEDS: LEVOFLOXACIN 250MG/D5W (PMX) 50 ML IVPB SCH (20:12)
[2017-03-21] MEDS: ATORVASTATIN 20 MG TAB PO SCH (20:14)
[2017-03-21] MEDS: ALBUTEROL/IPRATROPIUM (NEB) 3 ML AMP HHN PRN (20:55)
[2017-03-21] MEDS: ACETAMINOPHEN 325 MG TAB PO PRN (21:14)
[2017-03-22] VITALS (13 sets, daily range): BP systolic 118–167; BP diastolic 57–80; PULSE 87–101; RESP 15–22
[2017-03-22] MEDS: INSULIN ASPART [NOVOLOG] 3 ML PEN SC SCH ×7 (08:00→21:51)
[2017-03-22] MEDS: GABAPENTIN 100 MG CAP PO SCH ×2 (08:51→21:52)
[2017-03-22] MEDS: FAMOTIDINE 20 MG TAB PO SCH (08:51)
[2017-03-22] MEDS: ASPIRIN 81 MG TAB PO SCH (08:52)
[2017-03-22] MEDS: METOPROLOL 50 MG TAB PO SCH ×2 (08:52→21:55)
[2017-03-22] MEDS: NA BICARBONATE 650 MG TAB PO SCH (08:52)
[2017-03-22] MEDS: FERROUS SULFATE (EC) 325 MG TAB PO SCH ×3 (08:52→21:52)
[2017-03-22] MEDS: PANTOPRAZOLE (EC) 40 MG TAB PO SCH (08:53)
[2017-03-22] MEDS: LAMOTRIGINE 25 MG TAB PO SCH ×2 (08:53→21:52)
[2017-03-22] MEDS: AMLODIPINE 5 MG TAB PO SCH ×2 (08:53→21:54)
[2017-03-22] MEDS: OXYBUTYNIN (XL) 5 MG TAB PO SCH (08:53)
[2017-03-22] MEDS: CILOSTAZOL 100 MG TAB PO SCH ×2 (08:53→21:54)
[2017-03-22] MEDS ORDERED: ENOXAPARIN 30 MG/0.3 ML SYG SC SCH (09:00)
[2017-03-22 09:29] LABS: BASOPHILS % 0.1 % (0.0-2.0); EOSINOPHILS # 0.1 10^3/ul (0.0-0.5); EOSINOPHILS % 0.4 % (0.0-7.0); HEMATOCRIT 27.5 % (37.0-47.0); HEMOGLOBIN 9.1 g/dl (12.0-16.0); LYMPHOCYTES # 1.5 10^3/ul (0.8-2.9); LYMPHOCYTES % 13.8 % (15.0-51.0); MEAN CORPUSCULAR HEMOGLOBIN 31.2 pg (29.0-33.0); MEAN CORPUSCULAR HGB CONC 33.1 g/dl (32.0-37.0); MEAN CORPUSCULAR VOLUME 94.2 fl (82.0-101.0); MEAN PLATELET VOLUME 9.5 fl (7.4-10.4); MONOCYTE # 1.1 10^3/ul (0.3-0.9); NEUTROPHIL # 8.4 10^3/ul (1.6-7.5); NEUTROPHILS % 75.2 % (39.0-77.0); PLATELET COUNT 209 10^3/UL (140-415); RED BLOOD COUNT 2.92 10^6/ul (4.20-5.40); RED CELL DISTRIBUTION WIDTH 11.9 % (11.5-14.5); WHITE BLOOD COUNT 11.2 10^3/ul (4.8-10.8)
[2017-03-22 09:35] LABS: ALBUMIN/GLOBULIN RATIO 1.29; BILIRUBIN,INDIRECT 0.3 mg/dl (0-1.1); BILIRUBIN,TOTAL 0.3 mg/dl (0.2-1.3); CALCIUM 9.1 mg/dl (8.4-10.2); CREATININE 2.06 mg/dl (0.44-1.00); POTASSIUM 4.1 mmol/L (3.5-5.1); TOTAL PROTEIN 7.1 g/dl (6.1-8.1)
--- NOTE | 2017-03-22 10:58 | PN ---
Date/Time of Note Date/Time of Note DATE: 03/22/17 TIME: 10:51 Assessment/Plan VTE Prophylaxis VTE Prophylaxis Intervention: LMWH Lines/Catheters IV Catheter Type (from Nrs): Saline Lock Urinary Cath still in place: No Assessment/Plan Assessment/Plan 86-year-old female who had presented with generalized weakness now managed for the followin. Sepsis secondary to E coli bacteremia and urinary tract infection : improving 2. Acute on chronic kidney injury: improving 3. Elevated troponins without chest pain concerning for non-ST elevation myocardial infarction in this diabetic likely type II from demand ischemia: trended down 4. Essential hypertension : improving control 5. Chronic peripheral vascular disease 6. Type 2 diabetes mellitus with hemoglobin A1c of 8.0: good inhouse control so far 7. COPD without exacerbation 8. Iron deficiency anemia associated with chronic disease: Patient has been on iron supplementation 9. Mild acute rhabdomyolysis: Improved 10. Confusion is likely Progression of dementia 11. Diffuse tendinosis and bursitis causing shoulder pain Plan: * Dr Felipe to do shoulder joint injection today for bursitis * Racemic epi for stridor * Continue abx for sepsis and UTI and repeat blood cultures if necessary * Continue supportive care / reorientation * Not stable for d/c at this time Prophylaxis with PPI and SCDs Subjective 24 Hr Interval Summary Free Text/Dictation had one episode of urinary retention last night, voiding in bathroom now still with audible stridor and having low grade fever with chills Exam/Review of Systems Vital Signs Vitals Vital Signs Date Time Temp Pulse Resp B/P Pulse Ox O2 Delivery O2 Flow Rate FiO2 03/22/17 08:10 99 03/22/17 07:37 98.0 18 118/57 96 03/21/17 20:57 21 03/21/17 08:22 Room Air Intake and Output 03/21/17 03/21/17 03/22/17 15:00 23:00 07:00 Intake Total 300 ml 480 ml Output Total 450 ml Balance 300 ml 30 ml Exam Constitutional: alert, oriented, pleasantly confused consistent with chronic dementia, ill looking, warm to touch Head: atraumatic, normocephalic Neck: non-tender, supple Respiratory: clear to auscultation Cardiovascular: regular rate and rhythm Gastrointestinal: nl liver, spleen, non-tender, soft Extremities: normal pulses Results Result Diagram: 03/22/17 0835 03/22/17 0835 Results 24 hrs Laboratory Tests Test 03/21/17 11:50 03/21/17 18:11 03/21/17 20:11 03/22/17 08:35 Bedside Glucose 193 144 142 White Blood Count 11.2 H Red Blood Count 2.92 L Hemoglobin 9.1 L Hematocrit 27.5 L Mean Corpuscular Volume 94.2 Mean Corpuscular Hemoglobin 31.2 Mean Corpuscular Hemoglobin Concent 33.1 Red Cell Distribution Width 11.9 Platelet Count 209 Mean Platelet Volume 9.5 Neutrophils % 75.2 Lymphocytes % 13.8 L Monocytes % 10.0 Eosinophils % 0.4 Basophils % 0.1 Nucleated Red Blood Cells % 0.0 Neutrophils # 8.4 H Lymphocytes # 1.5 Monocytes # 1.1 H Eosinophils # 0.1 Basophils # 0.0 Nucleated Red Blood Cells # 0.0 Sodium Level 138 Potassium Level 4.1 Chloride Level 100 Carbon Dioxide Level 19 L Anion Gap 23 H Blood Urea Nitrogen 29 H Creatinine 2.06 H Glucose Level 145 Calcium Level 9.1 Magnesium Level 2.0 Total Bilirubin 0.3 Direct Bilirubin 0.00 Indirect Bilirubin 0.3 Aspartate Amino Transf (AST/SGOT) 23 Alanine Aminotransferase (ALT/SGPT) 24 Alkaline Phosphatase 74 Total Protein 7.1 Albumin 4.0 Globulin 3.10 Albumin/Globulin Ratio 1.29 Test 03/22/17 08:44 Bedside Glucose 132 Medications Medications Current Medications Ondansetron HCl (Zofran Inj) 4 mg Q6H PRN IV NAUSEA AND/OR VOMITING; Start at 14:00 Aspirin (Aspirin) 81 mg DAILY PO Last administered on 03/22/17 08:52; Admin Dose 81 MG; Start 03/18/17 at 09:00 Acetaminophen (Tylenol Tab) 650 mg Q6H PRN PO PAIN LEVEL 1-3 OR FEVER Last administered on 03/21/17 21:14; Admin Dose 650 MG; Start 03/17/17 at 14:00 Acetaminophen/ Hydrocodone Bitart ([place] (5/325)) 1 tab Q6H PRN PO PAIN LEVEL 4 -6 Last administered on 03/22/17 09:34; Admin Dose 1 TAB; Start 03/17/17 at 14: 00 Magnesium Hydroxide (Milk Of Mag) 30 ml DAILY PRN PO CONSTIPATION; Start at 14:00 Bisacodyl (Dulcolax) 5 mg DAILY PRN PO CONSTIPATION; Start 03/17/17 at 14:00 Famotidine (Pepcid) 20 mg DAILY PO Last administered on 03/22/17 08:51; Admin Dose 20 MG; Start 03/17/17 at 21:00 Cilostazol (Pletal) 50 mg BID PO Last administered on 03/22/17 08:53; Admin Dose 50 MG; Start 03/17/17 at 21:00 Ferrous Sulfate (Ferrous Sulfate (Ec)) 325 mg TID PO Last administered on 08:52; Admin Dose 325 MG; Start 03/17/17 at 21:00 Gabapentin (Neurontin) 100 mg BID PO Last administered on 03/22/17 08:51; Admin Dose 100 MG; Start 03/17/17 at 21:00 Lamotrigine (Lamictal) 25 mg BID PO Last administered on 03/22/17 08:53; Admin Dose 25 MG; Start 03/17/17 at 21:00 Oxybutynin Chloride (Ditropan Xl) 5 mg DAILY PO Last administered on 03/22/17 08:53; Admin Dose 5 MG; Start 03/18/17 at 09:00 Pantoprazole (Protonix Tab) 40 mg DAILY PO Last administered on 03/22/17 08:53 ; Admin Dose 40 MG; Start 03/18/17 at 09:00 Atorvastatin Calcium (Lipitor) 20 mg DAILY@21 PO Last administered on 20:14; Admin Dose 20 MG; Start 03/17/17 at 21:00 Hydralazine HCl (Apresoline) 10 mg Q6H PRN IV SBP>160 Last administered on 03/21 12:20; Admin Dose 10 MG; Start 03/17/17 at 14:30 Miscellaneous Information 1 ea NOTE XX ; Start 03/17/17 at 14:30 Glucose (Glutose) 15 gm Q15M PRN PO DECREASED GLUCOSE; Start 03/17/17 at 14:30 Glucose (Glutose) 22.5 gm Q15M PRN PO DECREASED GLUCOSE; Start 03/17/17 at 14: 30 Dextrose (D50w Syringe) 25 ml Q15M PRN IV DECREASED GLUCOSE; Start 03/17/17 at 14:30 Dextrose (D50w Syringe) 50 ml Q15M PRN IV DECREASED GLUCOSE; Start 03/17/17 at 14:30 Glucagon (Glucagen) 1 mg Q15M PRN IM DECREASED GLUCOSE; Start 03/17/17 at 14:30 Glucose (Glutose) 15 gm Q15M PRN BUCCAL DECREASED GLUCOSE; Start 03/17/17 at 14 :30 Metoprolol Tartrate (Lopressor) 50 mg BID PO Last administered on 03/22/17 08: 52; Admin Dose 50 MG; Start 03/18/17 at 21:00 Haloperidol (Haldol) 3 mg Q8H PRN IM agitation; Start 03/18/17 at 16:30 Amlodipine Besylate 5 mg 5 mg BID PO Last administered on 03/22/17 08:53; Admin Dose 5 MG; Start 03/18/17 at 21:00 Levofloxacin/ Dextrose (Levaquin 250 Mg/ D5W 50 ml (Pmx)) 50 ml @ 50 mls/hr Q24H IVPB Last administered on 03/21/17 20:12; Admin Dose 50 MLS/HR; Start at 20:00 Enoxaparin Sodium (Lovenox) 40 mg DAILY SC Last administered on 03/22/17 09:06 ; Admin Dose 40 MG; Start 03/22/17 at 09:00 Procedures Procedures PROCEDURE: MRI OF THE RIGHT SHOULDER CLINICAL INDICATION: Right shoulder pain. Urinary tract infection. TECHNIQUE: MRI images of the right shoulder were obtained utilizing multiple sequences in multiple planes. Images were interpreted on high-resolution PACS system. COMPARISON: Plain film dated 03/20/2017.. FINDINGS: Osseous acromion outlet: The acromion is type 2. Coronal images demonstrate moderate lateral downsloping. There is moderate AC arthrosis. Rotator Cuff: There is moderate supraspinatus tendinosis with thickening and intratendinous edema and surface fraying seen on coronal image number 9-12. There is a dark focus within the bursal surface of the critical zone of the supraspinatus seen on coronal image #7. Findings could be calcific tendonitis although no definite calcium is seen on the plain film. There could be calcium present but overlapping on the plain film x-ray.. No evidence for discrete or [id number]-[id number]-[id number] tear and no retraction is seen. There is marked bursitis. The subscapularis tendon is intact. Labral and capsular structures: There is synovitis. No evidence for labral tear or detachment. No evidence for erosive change. Biceps tendon and anchor: There is moderate biceps tendinosis within the bicipital groove. No evidence for rupture, subluxation or dislocation. Osseous structures: There is chronic greater tuberosity enthesopathy including subcortical cyst formation. Findings are likely related to impingement. No evidence of acute bony trauma. No evidence for AVN. Other findings: The suprascapular and spinoglenoid notch appear normal. No mass identified. IMPRESSION: 1. Moderate supraspinatus tendinosis and is possible calcific tendonitis. No discrete or crisgno-dzy-azhjljf tear is seen. 3. Biceps tendinosis within the bicipital groove. 2. Marked bursitis. RPTAT: XX .Shiv Wright MD, MD Date Time Electronically viewed and signed by .Shiv Wright MD, on 03/21/2017 17: 46 .T/ CC: TAL PAYNE BOLATITO M. Mar 22, 2017 10:58
--- NOTE | 2017-03-22 15:01 | CONS ---
Date/Time of Note Date/Time of Note DATE: 03/22/17 TIME: 14:57 Assessment/Plan Assessment/Plan Chief Complaint/Hosp Course ID PROGRESS NOTE CURRENT ABX: Levaquin, status post Rocephin * Awake, alert, no complaints offered, resting comfortably in bed, no fevers, VSS, NAD * Microbiology: Blood culture growing E. coli, urine culture growing E. coli and Proteus mirabilis. Repeat blood cultures negative Physical examination: This is an obese well-developed elderly woman who is alert in no distress. Head: Atraumatic normocephalic Sclera: unremarkable Neck is supple Chest rise symmetrical. Breath sounds diminished to bases, bilaterally expiratory wheezes. RRR radial pulse Abdomen soft bowel sounds present, no tenderness on palpation. Extremities without cyanosis bilateral lower extremities trace edema ID ASSESSMENT 1. Sepsis with fevers, tachycardia on admission #2 2. Urinary tract infection with bacteremia 3. Diabetes 4. COPD 5. Obesity CURRENT ABX: Levaquin IV status post Rocephin ID RECOMMENDATIONS * Plan: Patient remains stable, repeat blood cultures negative, continue antibiotics for 11 more days, okay downgrade to oral Levaquin upon discharge home, follow recommendations of consultants Problems: Consultation Date/Type/Reason Admit Date/Time Mar 17, 2017 at 08:56 Initial Consult Date 03/18/17 Type of Consultation: Infectious disease Referring Provider: TAL PAYNE Exam/Review of Systems Vital Signs Vitals Vital Signs Date Time Temp Pulse Resp B/P Pulse Ox O2 Delivery O2 Flow Rate FiO2 03/22/17 12:08 87 03/22/17 11:46 98.0 18 129/62 97 03/21/17 20:57 21 03/21/17 08:22 Room Air Intake and Output 03/21/17 03/21/17 03/22/17 15:00 23:00 07:00 Intake Total 300 ml 480 ml Output Total 450 ml Balance 300 ml 30 ml Results Result Diagram: 03/22/17 0835 03/22/17 0835 Results 24 hrs Laboratory Tests Test 03/21/17 18:11 03/21/17 20:11 03/22/17 08:35 03/22/17 08:44 Bedside Glucose 144 142 132 White Blood Count 11.2 H Red Blood Count 2.92 L Hemoglobin 9.1 L Hematocrit 27.5 L Mean Corpuscular Volume 94.2 Mean Corpuscular Hemoglobin 31.2 Mean Corpuscular Hemoglobin Concent 33.1 Red Cell Distribution Width 11.9 Platelet Count 209 Mean Platelet Volume 9.5 Neutrophils % 75.2 Lymphocytes % 13.8 L Monocytes % 10.0 Eosinophils % 0.4 Basophils % 0.1 Nucleated Red Blood Cells % 0.0 Neutrophils # 8.4 H Lymphocytes # 1.5 Monocytes # 1.1 H Eosinophils # 0.1 Basophils # 0.0 Nucleated Red Blood Cells # 0.0 Sodium Level 138 Potassium Level 4.1 Chloride Level 100 Carbon Dioxide Level 19 L Anion Gap 23 H Blood Urea Nitrogen 29 H Creatinine 2.06 H Glucose Level 145 Calcium Level 9.1 Magnesium Level 2.0 Total Bilirubin 0.3 Direct Bilirubin 0.00 Indirect Bilirubin 0.3 Aspartate Amino Transf (AST/SGOT) 23 Alanine Aminotransferase (ALT/SGPT) 24 Alkaline Phosphatase 74 Total Protein 7.1 Albumin 4.0 Globulin 3.10 Albumin/Globulin Ratio 1.29 Test 03/22/17 12:45 Bedside Glucose 195 Medications Medications Current Medications Ondansetron HCl (Zofran Inj) 4 mg Q6H PRN IV NAUSEA AND/OR VOMITING; Start at 14:00 Aspirin (Aspirin) 81 mg DAILY PO Last administered on 03/22/17 08:52; Admin Dose 81 MG; Start 03/18/17 at 09:00 Acetaminophen (Tylenol Tab) 650 mg Q6H PRN PO PAIN LEVEL 1-3 OR FEVER Last administered on 03/21/17 21:14; Admin Dose 650 MG; Start 03/17/17 at 14:00 Acetaminophen/ Hydrocodone Bitart ([place] (5/325)) 1 tab Q6H PRN PO PAIN LEVEL 4 -6 Last administered on 03/22/17 09:34; Admin Dose 1 TAB; Start 03/17/17 at 14: 00 Magnesium Hydroxide (Milk Of Mag) 30 ml DAILY PRN PO CONSTIPATION; Start at 14:00 Bisacodyl (Dulcolax) 5 mg DAILY PRN PO CONSTIPATION; Start 03/17/17 at 14:00 Famotidine (Pepcid) 20 mg DAILY PO Last administered on 03/22/17 08:51; Admin Dose 20 MG; Start 03/17/17 at 21:00 Cilostazol (Pletal) 50 mg BID PO Last administered on 03/22/17 08:53; Admin Dose 50 MG; Start 03/17/17 at 21:00 Ferrous Sulfate (Ferrous Sulfate (Ec)) 325 mg TID PO Last administered on 12:44; Admin Dose 325 MG; Start 03/17/17 at 21:00 Gabapentin (Neurontin) 100 mg BID PO Last administered on 03/22/17 08:51; Admin Dose 100 MG; Start 03/17/17 at 21:00 Lamotrigine (Lamictal) 25 mg BID PO Last administered on 03/22/17 08:53; Admin Dose 25 MG; Start 03/17/17 at 21:00 Pantoprazole (Protonix Tab) 40 mg DAILY PO Last administered on 03/22/17 08:53 ; Admin Dose 40 MG; Start 03/18/17 at 09:00 Atorvastatin Calcium (Lipitor) 20 mg DAILY@21 PO Last administered on 20:14; Admin Dose 20 MG; Start 03/17/17 at 21:00 Hydralazine HCl (Apresoline) 10 mg Q6H PRN IV SBP>160 Last administered on 03/21 12:20; Admin Dose 10 MG; Start 03/17/17 at 14:30 Miscellaneous Information 1 ea NOTE XX ; Start 03/17/17 at 14:30 Glucose (Glutose) 15 gm Q15M PRN PO DECREASED GLUCOSE; Start 03/17/17 at 14:30 Glucose (Glutose) 22.5 gm Q15M PRN PO DECREASED GLUCOSE; Start 03/17/17 at 14: 30 Dextrose (D50w Syringe) 25 ml Q15M PRN IV DECREASED GLUCOSE; Start 03/17/17 at 14:30 Dextrose (D50w Syringe) 50 ml Q15M PRN IV DECREASED GLUCOSE; Start 03/17/17 at 14:30 Glucagon (Glucagen) 1 mg Q15M PRN IM DECREASED GLUCOSE; Start 03/17/17 at 14:30 Glucose (Glutose) 15 gm Q15M PRN BUCCAL DECREASED GLUCOSE; Start 03/17/17 at 14 :30 Metoprolol Tartrate (Lopressor) 50 mg BID PO Last administered on 03/22/17 08: 52; Admin Dose 50 MG; Start 03/18/17 at 21:00 Haloperidol (Haldol) 3 mg Q8H PRN IM agitation; Start 03/18/17 at 16:30 Amlodipine Besylate 5 mg 5 mg BID PO Last administered on 03/22/17 08:53; Admin Dose 5 MG; Start 03/18/17 at 21:00 Levofloxacin/ Dextrose (Levaquin 250 Mg/ D5W 50 ml (Pmx)) 50 ml @ 50 mls/hr Q24H IVPB Last administered on 03/21/17 20:12; Admin Dose 50 MLS/HR; Start at 20:00 Enoxaparin Sodium (Lovenox) 40 mg DAILY SC Last administered on 03/22/17 09:06 ; Admin Dose 40 MG; Start 03/22/17 at 09:00 DELBERT WADSWORTH NP Mar 22, 2017 15:01
[2017-03-22] MEDS: METHYLPREDNISOLONE 40 MG INJ IV SCH ×2 (16:13→21:55)
[2017-03-22] MEDS: ACETAMINOPHEN 325 MG TAB PO PRN (16:13)
[2017-03-22] MEDS: hydrALAzine 20 MG INJ IV PRN (16:32)
[2017-03-22] MEDS ORDERED: BETAMET NA PHOS/AC(6 MG/ML) 5ML INJ INJ ONE (17:00)
[2017-03-22] MEDS ORDERED: BUPIVACAINE 0.5%/EPI (SDV) 30 ML INJ INJ ONE (17:00)
[2017-03-22] MEDS ORDERED: BUPIVACAINE 0.5%/EPI (SDV) 10 ML INJ INJ ONE (17:30)
[2017-03-22] MEDS ORDERED: RACEPINEPHRINE 2.25%(NEB) 0.5 ML AMP HHN ONE (17:30)
--- NOTE | 2017-03-22 18:14 | PN ---
Date/Time of Note Date/Time of Note DATE: 03/22/17 TIME: 18:10 Assessment/Plan VTE Prophylaxis VTE Prophylaxis Intervention: other Lines/Catheters IV [facility] Type [facility]from [facility] Saline Lock Urinary Cath still in place: No Assessment/Plan Chief Complaint/Hosp Course 1. s/p Sepsis secondary to E coli bacteremia and urinary tract infection : improving 2. Acute on chronic kidney injury: improving 3. Elevated troponins without chest pain and preserved LV function: cont medical therapy as long as asymptomatic. on metoprolol 4. Essential hypertension : under control on current meds. 5. Chronic peripheral vascular disease: defer to IM 6. Type 2 diabetes mellitus with hemoglobin A1c of 8.0: INSULIN as per IM 7. COPD ; stable now 8. Iron deficiency anemia associated with chronic disease: Patient has been on iron supplementation Problems: Subjective 24 Hr Interval Summary Free Text/Dictation d/w staff and rhythm was reviewed. pt remains in NSR no chest pain or pressure or palpitations d/w family Exam/Review of Systems Vital Signs Vitals Vital Signs Date Time Temp Pulse Resp B/P Pulse Ox O2 Delivery O2 Flow Rate FiO2 03/22/17 16:12 98 03/22/17 16:10 99.9 22 167/71 99 03/21/17 20:57 21 03/21/17 08:22 Room Air Intake and Output 03/21/17 03/21/17 03/22/17 15:00 23:00 07:00 Intake Total 300 ml 480 ml Output Total 450 ml Balance 300 ml 30 ml Exam Gen: no acute distress. HEENT NCAT. Pupils are equal. Neck no JVD. no stridor CV: RRR. systolic murmur pulm no wheezes. GI: Soft, NT ND. No rebound EXT RUE edema. neuro awake and alert psych calm and pleasant. Results Result Diagram: 03/22/17 0835 03/22/17 0835 Results 24 hrs Laboratory Tests Test 03/21/17 18:11 03/21/17 20:11 03/22/17 08:35 03/22/17 08:44 Bedside Glucose 144 142 132 White Blood Count 11.2 H Red Blood Count 2.92 L Hemoglobin 9.1 L Hematocrit 27.5 L Mean Corpuscular Volume 94.2 Mean Corpuscular Hemoglobin 31.2 Mean Corpuscular Hemoglobin Concent 33.1 Red Cell Distribution Width 11.9 Platelet Count 209 Mean Platelet Volume 9.5 Neutrophils % 75.2 Lymphocytes % 13.8 L Monocytes % 10.0 Eosinophils % 0.4 Basophils % 0.1 Nucleated Red Blood Cells % 0.0 Neutrophils # 8.4 H Lymphocytes # 1.5 Monocytes # 1.1 H Eosinophils # 0.1 Basophils # 0.0 Nucleated Red Blood Cells # 0.0 Sodium Level 138 Potassium Level 4.1 Chloride Level 100 Carbon Dioxide Level 19 L Anion Gap 23 H Blood Urea Nitrogen 29 H Creatinine 2.06 H Glucose Level 145 Calcium Level 9.1 Magnesium Level 2.0 Total Bilirubin 0.3 Direct Bilirubin 0.00 Indirect Bilirubin 0.3 Aspartate Amino Transf (AST/SGOT) 23 Alanine Aminotransferase (ALT/SGPT) 24 Alkaline Phosphatase 74 Total Protein 7.1 Albumin 4.0 Globulin 3.10 Albumin/Globulin Ratio 1.29 Test 03/22/17 12:45 03/22/17 17:23 Bedside Glucose 195 173 Medications Medications Current Medications Ondansetron HCl (Zofran Inj) 4 mg Q6H PRN IV NAUSEA AND/OR VOMITING; Start at 14:00 Aspirin (Aspirin) 81 mg DAILY PO Last administered on 03/22/17 08:52; Admin Dose 81 MG; Start 03/18/17 at 09:00 Acetaminophen (Tylenol Tab) 650 mg Q6H PRN PO PAIN LEVEL 1-3 OR FEVER Last administered on 03/22/17 16:13; Admin Dose 650 MG; Start 03/17/17 at 14:00 Acetaminophen/ Hydrocodone Bitart ([place] (5/325)) 1 tab Q6H PRN PO PAIN LEVEL 4 -6 Last administered on 03/22/17 09:34; Admin Dose 1 TAB; Start 03/17/17 at 14: 00 Magnesium Hydroxide (Milk Of Mag) 30 ml DAILY PRN PO CONSTIPATION; Start at 14:00 Bisacodyl (Dulcolax) 5 mg DAILY PRN PO CONSTIPATION; Start 03/17/17 at 14:00 Famotidine (Pepcid) 20 mg DAILY PO Last administered on 03/22/17 08:51; Admin Dose 20 MG; Start 03/17/17 at 21:00 Cilostazol (Pletal) 50 mg BID PO Last administered on 03/22/17 08:53; Admin Dose 50 MG; Start 03/17/17 at 21:00 Ferrous Sulfate (Ferrous Sulfate (Ec)) 325 mg TID PO Last administered on 12:44; Admin Dose 325 MG; Start 03/17/17 at 21:00 Gabapentin (Neurontin) 100 mg BID PO Last administered on 03/22/17 08:51; Admin Dose 100 MG; Start 03/17/17 at 21:00 Lamotrigine (Lamictal) 25 mg BID PO Last administered on 03/22/17 08:53; Admin Dose 25 MG; Start 03/17/17 at 21:00 Pantoprazole (Protonix Tab) 40 mg DAILY PO Last administered on 03/22/17 08:53 ; Admin Dose 40 MG; Start 03/18/17 at 09:00 Atorvastatin Calcium (Lipitor) 20 mg DAILY@21 PO Last administered on 20:14; Admin Dose 20 MG; Start 03/17/17 at 21:00 Hydralazine HCl (Apresoline) 10 mg Q6H PRN IV SBP>160 Last administered on 16:32; Admin Dose 10 MG; Start 03/17/17 at 14:30 Miscellaneous Information 1 ea NOTE XX ; Start 03/17/17 at 14:30 Glucose (Glutose) 15 gm Q15M PRN PO DECREASED GLUCOSE; Start 03/17/17 at 14:30 Glucose (Glutose) 22.5 gm Q15M PRN PO DECREASED GLUCOSE; Start 03/17/17 at 14: 30 Dextrose (D50w Syringe) 25 ml Q15M PRN IV DECREASED GLUCOSE; Start 03/17/17 at 14:30 Dextrose (D50w Syringe) 50 ml Q15M PRN IV DECREASED GLUCOSE; Start 03/17/17 at 14:30 Glucagon (Glucagen) 1 mg Q15M PRN IM DECREASED GLUCOSE; Start 03/17/17 at 14:30 Glucose (Glutose) 15 gm Q15M PRN BUCCAL DECREASED GLUCOSE; Start 03/17/17 at 14 :30 Metoprolol Tartrate (Lopressor) 50 mg BID PO Last administered on 03/22/17 08: 52; Admin Dose 50 MG; Start 03/18/17 at 21:00 Haloperidol (Haldol) 3 mg Q8H PRN IM agitation; Start 03/18/17 at 16:30 Amlodipine Besylate 5 mg 5 mg BID PO Last administered on 03/22/17 08:53; Admin Dose 5 MG; Start 03/18/17 at 21:00 Levofloxacin/ Dextrose (Levaquin 250 Mg/ D5W 50 ml (Pmx)) 50 ml @ 50 mls/hr Q24H IVPB Last administered on 03/21/17 20:12; Admin Dose 50 MLS/HR; Start at 20:00 Enoxaparin Sodium (Lovenox) 30 mg DAILY SC ; Start 03/23/17 at 09:00 Guaifenesin/ Codeine Phosphate (Robitussin Ac Liquid Cup) 5 ml Q4H PRN PO cough ; Start 03/22/17 at 16:00 Methylprednisolone Sodium Succinate (Solu-Medrol) 20 mg Q8 IV Last administered on 03/22/17 16:13; Admin Dose 20 MG; Start 03/22/17 at 16:00 BETSEY AMBRIZ MD Mar 22, 2017 18:14
[2017-03-22] MEDS: ALBUTEROL/IPRATROPIUM (NEB) 3 ML AMP HHN SCH (19:37)
[2017-03-22 21:42] LABS: PROTEIN/CREAT RATIO 0.34 RATIO
[2017-03-22] MEDS: ATORVASTATIN 20 MG TAB PO SCH (21:52)
[2017-03-22] MEDS: LEVOFLOXACIN 250MG/D5W (PMX) 50 ML IVPB SCH (21:52)
--- NOTE | 2017-03-22 22:25 | CONS ---
Date/Time of Note Date/Time of Note DATE: 03/22/17 TIME: 22:22 Assessment/Plan Assessment/Plan Additional Assessment/Plan 1. Sepsis secondary to E.coli bacteremia and urinary tract infection with Urine cx growing E coli 2. Acute kidney injury on CKD due to sepsis and Prerenal azotemia 3. Elevated troponin due to demand ischemia 4. Essential hypertension 5. Type II DM 7. COPD without exacerbation 8. Iron deficiency anemia associated with chronic disease: Patient has been on iron supplementation 9. Mild acute rhabdomyolysis: Improved 10. Chronic early onset dementia Plan : IV abx per Primary team, Cr bumped to 2.06 , will hold off on ACEI/ARB this time Renal US showed small echogenic kidneys with size 9.2 cm Uric acid 5.8 will follow up Consultation Date/Type/Reason Admit Date/Time Mar 17, 2017 at 08:56 Initial Consult Date 03/18/17 Type of Consultation: NEPHROLOGY Referring Provider: TAL PAYNE 24 HR Interval Summary Free Text/Dictation Cr bumped to 2.06, Bp stable, afebrile, Exam/Review of Systems Vital Signs Vitals Vital Signs Date Time Temp Pulse Resp B/P Pulse Ox O2 Delivery O2 Flow Rate FiO2 03/22/17 20:23 95 03/22/17 20:00 98.8 15 128/60 98 03/22/17 19:38 Nasal Cannula 2.0 03/21/17 20:57 21 Intake and Output 03/21/17 03/21/17 03/22/17 15:00 23:00 07:00 Intake Total 300 ml 480 ml Output Total 450 ml Balance 300 ml 30 ml Results Result Diagram: 03/22/17 0835 03/22/17 0835 Results 24 hrs Laboratory Tests Test 03/22/17 08:35 03/22/17 08:44 03/22/17 12:45 03/22/17 16:30 White Blood Count 11.2 H Red Blood Count 2.92 L Hemoglobin 9.1 L Hematocrit 27.5 L Mean Corpuscular Volume 94.2 Mean Corpuscular Hemoglobin 31.2 Mean Corpuscular Hemoglobin Concent 33.1 Red Cell Distribution Width 11.9 Platelet Count 209 Mean Platelet Volume 9.5 Neutrophils % 75.2 Lymphocytes % 13.8 L Monocytes % 10.0 Eosinophils % 0.4 Basophils % 0.1 Nucleated Red Blood Cells % 0.0 Neutrophils # 8.4 H Lymphocytes # 1.5 Monocytes # 1.1 H Eosinophils # 0.1 Basophils # 0.0 Nucleated Red Blood Cells # 0.0 Sodium Level 138 Potassium Level 4.1 Chloride Level 100 Carbon Dioxide Level 19 L Anion Gap 23 H Blood Urea Nitrogen 29 H Creatinine 2.06 H Glucose Level 145 Calcium Level 9.1 Magnesium Level 2.0 Total Bilirubin 0.3 Direct Bilirubin 0.00 Indirect Bilirubin 0.3 Aspartate Amino Transf (AST/SGOT) 23 Alanine Aminotransferase (ALT/SGPT) 24 Alkaline Phosphatase 74 Total Protein 7.1 Albumin 4.0 Globulin 3.10 Albumin/Globulin Ratio 1.29 Bedside Glucose 132 195 Urine Random Creatinine 126.00 Urine Random Sodium < 13 L Urine Protein/Creatinine Ratio 0.34 Urine Total Protein 44.0 H Test 03/22/17 17:23 03/22/17 21:47 Bedside Glucose 173 256 H Medications Medications Current Medications Ondansetron HCl (Zofran Inj) 4 mg Q6H PRN IV NAUSEA AND/OR VOMITING; Start at 14:00 Aspirin (Aspirin) 81 mg DAILY PO Last administered on 03/22/17 08:52; Admin Dose 81 MG; Start 03/18/17 at 09:00 Acetaminophen (Tylenol Tab) 650 mg Q6H PRN PO PAIN LEVEL 1-3 OR FEVER Last administered on 03/22/17 16:13; Admin Dose 650 MG; Start 03/17/17 at 14:00 Acetaminophen/ Hydrocodone Bitart ([place] (5/325)) 1 tab Q6H PRN PO PAIN LEVEL 4 -6 Last administered on 03/22/17 09:34; Admin Dose 1 TAB; Start 03/17/17 at 14: 00 Magnesium Hydroxide (Milk Of Mag) 30 ml DAILY PRN PO CONSTIPATION; Start at 14:00 Bisacodyl (Dulcolax) 5 mg DAILY PRN PO CONSTIPATION; Start 03/17/17 at 14:00 Famotidine (Pepcid) 20 mg DAILY PO Last administered on 03/22/17 08:51; Admin Dose 20 MG; Start 03/17/17 at 21:00 Cilostazol (Pletal) 50 mg BID PO Last administered on 03/22/17 21:54; Admin Dose 50 MG; Start 03/17/17 at 21:00 Ferrous Sulfate (Ferrous Sulfate (Ec)) 325 mg TID PO Last administered on 21:52; Admin Dose 325 MG; Start 03/17/17 at 21:00 Gabapentin (Neurontin) 100 mg BID PO Last administered on 03/22/17 21:52; Admin Dose 100 MG; Start 03/17/17 at 21:00 Lamotrigine (Lamictal) 25 mg BID PO Last administered on 03/22/17 21:52; Admin Dose 25 MG; Start 03/17/17 at 21:00 Pantoprazole (Protonix Tab) 40 mg DAILY PO Last administered on 03/22/17 08:53 ; Admin Dose 40 MG; Start 03/18/17 at 09:00 Atorvastatin Calcium (Lipitor) 20 mg DAILY@21 PO Last administered on 03/22/17 21:52; Admin Dose 20 MG; Start 03/17/17 at 21:00 Hydralazine HCl (Apresoline) 10 mg Q6H PRN IV SBP>160 Last administered on 16:32; Admin Dose 10 MG; Start 03/17/17 at 14:30 Miscellaneous Information 1 ea NOTE XX ; Start 03/17/17 at 14:30 Glucose (Glutose) 15 gm Q15M PRN PO DECREASED GLUCOSE; Start 03/17/17 at 14:30 Glucose (Glutose) 22.5 gm Q15M PRN PO DECREASED GLUCOSE; Start 03/17/17 at 14: 30 Dextrose (D50w Syringe) 25 ml Q15M PRN IV DECREASED GLUCOSE; Start 03/17/17 at 14:30 Dextrose (D50w Syringe) 50 ml Q15M PRN IV DECREASED GLUCOSE; Start 03/17/17 at 14:30 Glucagon (Glucagen) 1 mg Q15M PRN IM DECREASED GLUCOSE; Start 03/17/17 at 14:30 Glucose (Glutose) 15 gm Q15M PRN BUCCAL DECREASED GLUCOSE; Start 03/17/17 at 14 :30 Metoprolol Tartrate (Lopressor) 50 mg BID PO Last administered on 03/22/17 21: 55; Admin Dose 50 MG; Start 03/18/17 at 21:00 Haloperidol (Haldol) 3 mg Q8H PRN IM agitation; Start 03/18/17 at 16:30 Amlodipine Besylate 5 mg 5 mg BID PO Last administered on 03/22/17 21:54; Admin Dose 5 MG; Start 03/18/17 at 21:00 Levofloxacin/ Dextrose (Levaquin 250 Mg/ D5W 50 ml (Pmx)) 50 ml @ 50 mls/hr Q24H IVPB Last administered on 03/22/17 21:52; Admin Dose 50 MLS/HR; Start at 20:00 Enoxaparin Sodium (Lovenox) 30 mg DAILY SC ; Start 03/23/17 at 09:00 Guaifenesin/ Codeine Phosphate (Robitussin Ac Liquid Cup) 5 ml Q4H PRN PO cough ; Start 03/22/17 at 16:00 Methylprednisolone Sodium Succinate (Solu-Medrol) 20 mg Q8 IV Last administered on 03/22/17 21:55; Admin Dose 20 MG; Start 03/22/17 at 16:00 ANDREW CASTREJON MD Mar 22, 2017 22:24
[2017-03-23] VITALS (12 sets, daily range): BP systolic 125–143; BP diastolic 56–67; PULSE 84–100; RESP 15–20
[2017-03-23] MEDS: ALBUTEROL/IPRATROPIUM (NEB) 3 ML AMP HHN SCH ×4 (01:30→21:58)
[2017-03-23] MEDS ORDERED: INSULIN ASPART [NOVOLOG] 3 ML PEN SC ONE (02:30)
[2017-03-23] MEDS: METHYLPREDNISOLONE 40 MG INJ IV SCH (05:31)
[2017-03-23 07:53] LABS: CALCIUM 9.1 mg/dl (8.4-10.2); CREATININE 2.61 mg/dl (0.44-1.00); POTASSIUM 4.2 mmol/L (3.5-5.1)
[2017-03-23 07:55] LABS: MAGNESIUM 2.1 mg/dl (1.7-2.5); PHOSPHORUS 5.7 mg/dl (2.5-4.9)
[2017-03-23] MEDS: INSULIN ASPART [NOVOLOG] 3 ML PEN SC SCH ×7 (08:54→20:58)
[2017-03-23] MEDS: GABAPENTIN 100 MG CAP PO SCH ×2 (09:14→20:48)
[2017-03-23] MEDS: FAMOTIDINE 20 MG TAB PO SCH (09:15)
[2017-03-23] MEDS: ASPIRIN 81 MG TAB PO SCH (09:15)
[2017-03-23] MEDS: LAMOTRIGINE 25 MG TAB PO SCH ×2 (09:15→20:48)
[2017-03-23] MEDS: CILOSTAZOL 100 MG TAB PO SCH ×2 (09:15→20:51)
[2017-03-23] MEDS: FERROUS SULFATE (EC) 325 MG TAB PO SCH ×3 (09:15→20:48)
[2017-03-23] MEDS: PANTOPRAZOLE (EC) 40 MG TAB PO SCH (09:15)
[2017-03-23] MEDS: AMLODIPINE 5 MG TAB PO SCH ×2 (09:16→20:48)
[2017-03-23] MEDS: METOPROLOL 50 MG TAB PO SCH ×2 (09:16→20:48)
[2017-03-23] MEDS: ENOXAPARIN 30 MG/0.3 ML SYG SC SCH (09:21)
[2017-03-23] MEDS: GUAIFENESIN/CODEINE 5ML CUP PO PRN ×2 (10:34→20:51)
--- NOTE | 2017-03-23 13:48 | PN ---
Date/Time of Note Date/Time of Note DATE: 03/23/17 TIME: 13:45 Assessment/Plan VTE Prophylaxis VTE Prophylaxis Intervention: heparin Lines/Catheters IV [facility]from [facility] Saline Lock Urinary Cath still in place: No Assessment/Plan Assessment/Plan 86-year-old female who had presented with generalized weakness now managed for the followin. Sepsis secondary to E coli bacteremia and urinary tract infection : improving 2. Acute on chronic kidney injury 3. Elevated troponins without chest pain concerning for non-ST elevation myocardial infarction in this diabetic likely type II from demand ischemia: trended down 4. Essential hypertension : improving control 5. Chronic peripheral vascular disease 6. Type 2 diabetes mellitus with hemoglobin A1c of 8.0: good inhouse control so far, now with steroid induced hyperglycemia 7. COPD without exacerbation 8. Iron deficiency anemia associated with chronic disease: Patient has been on iron supplementation 9. Mild acute rhabdomyolysis: Improved 10. Confusion is likely Progression of dementia 11. Diffuse tendinosis and bursitis causing shoulder pain: s/p joint injection 03/22/17 Plan: * Patient is doing quite well but for the bump in her creatinine. Keep in patient for now and plan to d/c tomorrow if creatinineis trending down and she remains fever free * Hyperglycemia is likely 2/2 steroids and will improve back to baseline once off steroids. * Continue abx for sepsis and UTI * Continue supportive care / reorientation Prophylaxis with PPI and SCDs Subjective 24 Hr Interval Summary Free Text/Dictation Patient feeling much better after steroid shot in her R shoulder Also stridor resolved Exam/Review of Systems Vital Signs Vitals Vital Signs Date Time Temp Pulse Resp B/P Pulse Ox O2 Delivery O2 Flow Rate FiO2 03/23/17 12:14 98.4 86 20 130/58 98 03/23/17 08:30 Nasal Cannula 2.0 03/21/17 20:57 21 Intake and Output 03/22/17 03/22/17 03/23/17 14:59 22:59 06:59 Intake Total 820 ml Balance 820 ml Exam Constitutional: other (no longer ill l;ooking) Psych: nl mood/affect Head: normocephalic Eyes: PERRL ENMT: mucosa pink and moist Neck: supple Respiratory: clear to auscultation, normal air movement, No labored breathing, No wheezing Cardiovascular: regular rate and rhythm, No murmurs/extra sounds Gastrointestinal: bowel sounds, non-tender, soft Musculoskeletal: No swelling Extremities: No edema Neurological: confused (still pleasantly confused, per family, closer to baseline) Skin: No diaphoresis, No rash or lesions Results Result Diagram: 03/22/17 0835 03/23/17 0710 Results 24 hrs Laboratory Tests Test 03/22/17 16:30 03/22/17 17:23 03/22/17 21:47 03/23/17 01:25 Urine Eosinophils % 0.0 Urine Random Creatinine 126.00 Urine Random Sodium < 13 L Urine Protein/Creatinine Ratio 0.34 Urine Total Protein 44.0 H Bedside Glucose 173 256 H 293 H Test 03/23/17 07:10 03/23/17 08:42 03/23/17 12:28 Sodium Level 136 Potassium Level 4.2 Chloride Level 98 Carbon Dioxide Level 20 L Anion Gap 22 H Blood Urea Nitrogen 42 #H Creatinine 2.61 H Glucose Level 240 H Calcium Level 9.1 Phosphorus Level 5.7 H Magnesium Level 2.1 Bedside Glucose 251 H 232 H Medications Medications Current Medications Ondansetron HCl (Zofran Inj) 4 mg Q6H PRN IV NAUSEA AND/OR VOMITING; Start at 14:00 Aspirin (Aspirin) 81 mg DAILY PO Last administered on 03/23/17 09:15; Admin Dose 81 MG; Start 03/18/17 at 09:00 Acetaminophen (Tylenol Tab) 650 mg Q6H PRN PO PAIN LEVEL 1-3 OR FEVER Last administered on 03/22/17 16:13; Admin Dose 650 MG; Start 03/17/17 at 14:00 Acetaminophen/ Hydrocodone Bitart ([place] (5/325)) 1 tab Q6H PRN PO PAIN LEVEL 4 -6 Last administered on 03/22/17 09:34; Admin Dose 1 TAB; Start 03/17/17 at 14: 00 Magnesium Hydroxide (Milk Of Mag) 30 ml DAILY PRN PO CONSTIPATION; Start at 14:00 Bisacodyl (Dulcolax) 5 mg DAILY PRN PO CONSTIPATION Last administered on 10:34; Admin Dose 5 MG; Start 03/17/17 at 14:00 Famotidine (Pepcid) 20 mg DAILY PO Last administered on 03/23/17 09:15; Admin Dose 20 MG; Start 03/17/17 at 21:00 Cilostazol (Pletal) 50 mg BID PO Last administered on 03/23/17 09:15; Admin Dose 50 MG; Start 03/17/17 at 21:00 Ferrous Sulfate (Ferrous Sulfate (Ec)) 325 mg TID PO Last administered on 12:26; Admin Dose 325 MG; Start 03/17/17 at 21:00 Gabapentin (Neurontin) 100 mg BID PO Last administered on 03/23/17 09:14; Admin Dose 100 MG; Start 03/17/17 at 21:00 Lamotrigine (Lamictal) 25 mg BID PO Last administered on 03/23/17 09:15; Admin Dose 25 MG; Start 03/17/17 at 21:00 Atorvastatin Calcium (Lipitor) 20 mg DAILY@21 PO Last administered on 03/22/17 21:52; Admin Dose 20 MG; Start 03/17/17 at 21:00 Hydralazine HCl (Apresoline) 10 mg Q6H PRN IV SBP>160 Last administered on 16:32; Admin Dose 10 MG; Start 03/17/17 at 14:30 Miscellaneous Information 1 ea NOTE XX ; Start 03/17/17 at 14:30 Glucose (Glutose) 15 gm Q15M PRN PO DECREASED GLUCOSE; Start 03/17/17 at 14:30 Glucose (Glutose) 22.5 gm Q15M PRN PO DECREASED GLUCOSE; Start 03/17/17 at 14: 30 Dextrose (D50w Syringe) 25 ml Q15M PRN IV DECREASED GLUCOSE; Start 03/17/17 at 14:30 Dextrose (D50w Syringe) 50 ml Q15M PRN IV DECREASED GLUCOSE; Start 03/17/17 at 14:30 Glucagon (Glucagen) 1 mg Q15M PRN IM DECREASED GLUCOSE; Start 03/17/17 at 14:30 Glucose (Glutose) 15 gm Q15M PRN BUCCAL DECREASED GLUCOSE; Start 03/17/17 at 14 :30 Metoprolol Tartrate (Lopressor) 50 mg BID PO Last administered on 03/23/17 09: 16; Admin Dose 50 MG; Start 03/18/17 at 21:00 Haloperidol (Haldol) 3 mg Q8H PRN IM agitation; Start 03/18/17 at 16:30 Amlodipine Besylate 5 mg 5 mg BID PO Last administered on 03/23/17 09:16; Admin Dose 5 MG; Start 03/18/17 at 21:00 Levofloxacin/ Dextrose (Levaquin 250 Mg/ D5W 50 ml (Pmx)) 50 ml @ 50 mls/hr Q24H IVPB Last administered on 03/22/17 21:52; Admin Dose 50 MLS/HR; Start at 20:00 Enoxaparin Sodium (Lovenox) 30 mg DAILY SC Last administered on 03/23/17 09:21 ; Admin Dose 30 MG; Start 03/23/17 at 09:00 Guaifenesin/ Codeine Phosphate (Robitussin Ac Liquid Cup) 5 ml Q4H PRN PO cough Last administered on 03/23/17 10:34; Admin Dose 5 ML; Start 03/22/17 at 16: 00 Methylprednisolone Sodium Succinate (Solu-Medrol) 20 mg Q8 IV Last administered on 03/23/17 05:31; Admin Dose 20 MG; Start 03/22/17 at 16:00 TAL PAYNE Mar 23, 2017 13:48
--- NOTE | 2017-03-23 14:24 | CONS ---
Date/Time of Note Date/Time of Note DATE: 03/23/17 TIME: 14:22 Assessment/Plan Assessment/Plan Additional Assessment/Plan 1. Sepsis secondary to E.coli bacteremia and urinary tract infection with Urine cx growing E coli 2. Acute kidney injury on CKD due to sepsis and Prerenal azotemia 3. Elevated troponin due to demand ischemia 4. Essential hypertension 5. Type II DM 7. COPD without exacerbation 8. Iron deficiency anemia associated with chronic disease: Patient has been on iron supplementation 9. Mild acute rhabdomyolysis: Improved 10. Chronic early onset dementia Plan : IV abx per Primary team, Cr bumped to 2.6, will hold off on ACEI/ARB this time , BS has been running high, will give 1 LNS at 50 cc /hr Increase novologa to 5 units TID with meal, Add lantus 5 units SQ QHS solumedrol has been stopped Renal US showed small echogenic kidneys with size 9.2 cm Uric acid 5.8 will follow up Consultation Date/Type/Reason Admit Date/Time Mar 17, 2017 at 08:56 Initial Consult Date 03/18/17 Type of Consultation: NEPHROLOGY Referring Provider: TAL PAYNE 24 HR Interval Summary Free Text/Dictation Cr bumped to 2.6,afebrile, no fever no chills Exam/Review of Systems Vital Signs Vitals Vital Signs Date Time Temp Pulse Resp B/P Pulse Ox O2 Delivery O2 Flow Rate FiO2 03/23/17 12:14 98.4 86 20 130/58 98 03/23/17 08:30 Nasal Cannula 2.0 03/21/17 20:57 21 Intake and Output 03/22/17 03/22/17 03/23/17 15:00 23:00 07:00 Intake Total 820 ml Balance 820 ml Results Result Diagram: 03/22/17 0835 03/23/17 0710 Results 24 hrs Laboratory Tests Test 03/22/17 16:30 03/22/17 17:23 03/22/17 21:47 03/23/17 01:25 Urine Eosinophils % 0.0 Urine Random Creatinine 126.00 Urine Random Sodium < 13 L Urine Protein/Creatinine Ratio 0.34 Urine Total Protein 44.0 H Bedside Glucose 173 256 H 293 H Test 03/23/17 07:10 03/23/17 08:42 03/23/17 12:28 Sodium Level 136 Potassium Level 4.2 Chloride Level 98 Carbon Dioxide Level 20 L Anion Gap 22 H Blood Urea Nitrogen 42 #H Creatinine 2.61 H Glucose Level 240 H Calcium Level 9.1 Phosphorus Level 5.7 H Magnesium Level 2.1 Bedside Glucose 251 H 232 H Medications Medications Current Medications Ondansetron HCl (Zofran Inj) 4 mg Q6H PRN IV NAUSEA AND/OR VOMITING; Start at 14:00 Aspirin (Aspirin) 81 mg DAILY PO Last administered on 03/23/17 09:15; Admin Dose 81 MG; Start 03/18/17 at 09:00 Acetaminophen (Tylenol Tab) 650 mg Q6H PRN PO PAIN LEVEL 1-3 OR FEVER Last administered on 03/22/17 16:13; Admin Dose 650 MG; Start 03/17/17 at 14:00 Acetaminophen/ Hydrocodone Bitart ([place] (5/325)) 1 tab Q6H PRN PO PAIN LEVEL 4 -6 Last administered on 03/22/17 09:34; Admin Dose 1 TAB; Start 03/17/17 at 14: 00 Magnesium Hydroxide (Milk Of Mag) 30 ml DAILY PRN PO CONSTIPATION; Start at 14:00 Bisacodyl (Dulcolax) 5 mg DAILY PRN PO CONSTIPATION Last administered on 10:34; Admin Dose 5 MG; Start 03/17/17 at 14:00 Famotidine (Pepcid) 20 mg DAILY PO Last administered on 03/23/17 09:15; Admin Dose 20 MG; Start 03/17/17 at 21:00 Cilostazol (Pletal) 50 mg BID PO Last administered on 03/23/17 09:15; Admin Dose 50 MG; Start 03/17/17 at 21:00 Ferrous Sulfate (Ferrous Sulfate (Ec)) 325 mg TID PO Last administered on 12:26; Admin Dose 325 MG; Start 03/17/17 at 21:00 Gabapentin (Neurontin) 100 mg BID PO Last administered on 03/23/17 09:14; Admin Dose 100 MG; Start 03/17/17 at 21:00 Lamotrigine (Lamictal) 25 mg BID PO Last administered on 03/23/17 09:15; Admin Dose 25 MG; Start 03/17/17 at 21:00 Atorvastatin Calcium (Lipitor) 20 mg DAILY@21 PO Last administered on 03/22/17 21:52; Admin Dose 20 MG; Start 03/17/17 at 21:00 Hydralazine HCl (Apresoline) 10 mg Q6H PRN IV SBP>160 Last administered on 16:32; Admin Dose 10 MG; Start 03/17/17 at 14:30 Miscellaneous Information 1 ea NOTE XX ; Start 03/17/17 at 14:30 Glucose (Glutose) 15 gm Q15M PRN PO DECREASED GLUCOSE; Start 03/17/17 at 14:30 Glucose (Glutose) 22.5 gm Q15M PRN PO DECREASED GLUCOSE; Start 03/17/17 at 14: 30 Dextrose (D50w Syringe) 25 ml Q15M PRN IV DECREASED GLUCOSE; Start 03/17/17 at 14:30 Dextrose (D50w Syringe) 50 ml Q15M PRN IV DECREASED GLUCOSE; Start 03/17/17 at 14:30 Glucagon (Glucagen) 1 mg Q15M PRN IM DECREASED GLUCOSE; Start 03/17/17 at 14:30 Glucose (Glutose) 15 gm Q15M PRN BUCCAL DECREASED GLUCOSE; Start 03/17/17 at 14 :30 Metoprolol Tartrate (Lopressor) 50 mg BID PO Last administered on 03/23/17 09: 16; Admin Dose 50 MG; Start 03/18/17 at 21:00 Haloperidol (Haldol) 3 mg Q8H PRN IM agitation; Start 03/18/17 at 16:30 Amlodipine Besylate 5 mg 5 mg BID PO Last administered on 03/23/17 09:16; Admin Dose 5 MG; Start 03/18/17 at 21:00 Levofloxacin/ Dextrose (Levaquin 250 Mg/ D5W 50 ml (Pmx)) 50 ml @ 50 mls/hr Q24H IVPB Last administered on 03/22/17 21:52; Admin Dose 50 MLS/HR; Start at 20:00 Enoxaparin Sodium (Lovenox) 30 mg DAILY SC Last administered on 03/23/17 09:21 ; Admin Dose 30 MG; Start 03/23/17 at 09:00 Guaifenesin/ Codeine Phosphate (Robitussin Ac Liquid Cup) 5 ml Q4H PRN PO cough Last administered on 03/23/17t 10:34; Admin Dose 5 ML; Start 03/22/17 at 16: 00 Salmeterol Xinafoate/ Fluticasone (Advair 100/50 Diskus) 1 inh BID INH ; Start 03/23/17 at 14:00; Status UNV Insulin Glargine (Lantus) 8 unit QHS SC ; Start 03/23/17 at 21:00; Status UNV ANDREW CASTREJON MD Mar 23, 2017 14:23
--- NOTE | 2017-03-23 15:15 | PN ---
Date/Time of Note Date/Time of Note DATE: 03/23/17 TIME: 15:12 Assessment/Plan VTE Prophylaxis VTE Prophylaxis Intervention: other Lines/Catheters IV [facility]from [facility] Urinary Cath still in place: No Assessment/Plan Chief Complaint/Hosp Course 1. s/p Sepsis secondary to E coli bacteremia and urinary tract infection : improving 2. Acute on chronic kidney injury: follow up with renal rec 3. Elevated troponins without chest pain and preserved LV function: cont medical therapy as long as asymptomatic. on metoprolol 4. Essential hypertension : under control on current meds. 5. Chronic peripheral vascular disease: defer to IM 6. Type 2 diabetes mellitus with hemoglobin A1c of 8.0: defer to IM 7. COPD ; stable now 8. Iron deficiency anemia associated with chronic disease: Patient has been on iron supplementation Dr Peter will resume cardiac care tomorrow Problems: Subjective 24 Hr Interval Summary Free Text/Dictation d/w staff and family. pt remains in NSR She denies any chest pain or pressure to me now. no palpitations she states she is feeling better now that her grand-daughters are here to visit. Exam/Review of Systems Vital Signs Vitals Vital Signs Date Time Temp Pulse Resp B/P Pulse Ox O2 Delivery O2 Flow Rate FiO2 03/23/17 12:14 98.4 86 20 130/58 98 03/23/17 08:30 Nasal Cannula 2.0 03/21/17 20:57 21 Intake and Output 03/22/17 03/22/17 03/23/17 15:00 23:00 07:00 Intake Total 820 ml Balance 820 ml Exam Gen: no acute distress. HEENT NCAT. Pupils are equal. Neck no JVD. no stridor CV: RRR. systolic murmur pulm no wheezes. GI: Soft, NT ND. No rebound EXT RUE edema. neuro awake and alert psych calm and pleasant. Results Result Diagram: 03/22/17 0835 03/23/17 0710 Results 24 hrs Laboratory Tests Test 03/22/17 16:30 03/22/17 17:23 03/22/17 21:47 03/23/17 01:25 Urine Eosinophils % 0.0 Urine Random Creatinine 126.00 Urine Random Sodium < 13 L Urine Protein/Creatinine Ratio 0.34 Urine Total Protein 44.0 H Bedside Glucose 173 256 H 293 H Test 03/23/17 07:10 03/23/17 08:42 03/23/17 12:28 Sodium Level 136 Potassium Level 4.2 Chloride Level 98 Carbon Dioxide Level 20 L Anion Gap 22 H Blood Urea Nitrogen 42 #H Creatinine 2.61 H Glucose Level 240 H Calcium Level 9.1 Phosphorus Level 5.7 H Magnesium Level 2.1 Bedside Glucose 251 H 232 H Medications Medications Current Medications Ondansetron HCl (Zofran Inj) 4 mg Q6H PRN IV NAUSEA AND/OR VOMITING; Start at 14:00 Aspirin (Aspirin) 81 mg DAILY PO Last administered on 03/23/17 09:15; Admin Dose 81 MG; Start 03/18/17 at 09:00 Acetaminophen (Tylenol Tab) 650 mg Q6H PRN PO PAIN LEVEL 1-3 OR FEVER Last administered on 03/22/17 16:13; Admin Dose 650 MG; Start 03/17/17 at 14:00 Acetaminophen/ Hydrocodone Bitart ([place] (5/325)) 1 tab Q6H PRN PO PAIN LEVEL 4 -6 Last administered on 03/22/17 09:34; Admin Dose 1 TAB; Start 03/17/17 at 14: 00 Magnesium Hydroxide (Milk Of Mag) 30 ml DAILY PRN PO CONSTIPATION; Start at 14:00 Bisacodyl (Dulcolax) 5 mg DAILY PRN PO CONSTIPATION Last administered on 10:34; Admin Dose 5 MG; Start 03/17/17 at 14:00 Famotidine (Pepcid) 20 mg DAILY PO Last administered on 03/23/17 09:15; Admin Dose 20 MG; Start 03/17/17 at 21:00 Cilostazol (Pletal) 50 mg BID PO Last administered on 03/23/17 09:15; Admin Dose 50 MG; Start 03/17/17 at 21:00 Ferrous Sulfate (Ferrous Sulfate (Ec)) 325 mg TID PO Last administered on 12:26; Admin Dose 325 MG; Start 03/17/17 at 21:00 Gabapentin (Neurontin) 100 mg BID PO Last administered on 03/23/17 09:14; Admin Dose 100 MG; Start 03/17/17 at 21:00 Lamotrigine (Lamictal) 25 mg BID PO Last administered on 03/23/17 09:15; Admin Dose 25 MG; Start 03/17/17 at 21:00 Atorvastatin Calcium (Lipitor) 20 mg DAILY@21 PO Last administered on 03/22/17 21:52; Admin Dose 20 MG; Start 03/17/17 at 21:00 Hydralazine HCl (Apresoline) 10 mg Q6H PRN IV SBP>160 Last administered on 16:32; Admin Dose 10 MG; Start 03/17/17 at 14:30 Miscellaneous Information 1 ea NOTE XX ; Start 03/17/17 at 14:30 Glucose (Glutose) 15 gm Q15M PRN PO DECREASED GLUCOSE; Start 03/17/17 at 14:30 Glucose (Glutose) 22.5 gm Q15M PRN PO DECREASED GLUCOSE; Start 03/17/17 at 14: 30 Dextrose (D50w Syringe) 25 ml Q15M PRN IV DECREASED GLUCOSE; Start 03/17/17 at 14:30 Dextrose (D50w Syringe) 50 ml Q15M PRN IV DECREASED GLUCOSE; Start 03/17/17 at 14:30 Glucagon (Glucagen) 1 mg Q15M PRN IM DECREASED GLUCOSE; Start 03/17/17 at 14:30 Glucose (Glutose) 15 gm Q15M PRN BUCCAL DECREASED GLUCOSE; Start 03/17/17 at 14 :30 Metoprolol Tartrate (Lopressor) 50 mg BID PO Last administered on 03/23/17 09: 16; Admin Dose 50 MG; Start 03/18/17 at 21:00 Haloperidol (Haldol) 3 mg Q8H PRN IM agitation; Start 03/18/17 at 16:30 Amlodipine Besylate (Norvasc) 5 mg BID PO Last administered on 03/23/17 09:16; Admin Dose 5 MG; Start 03/18/17 at 21:00 Enoxaparin Sodium (Lovenox) 30 mg DAILY SC Last administered on 03/23/17 09:21 ; Admin Dose 30 MG; Start 03/23/17 at 09:00 Guaifenesin/ Codeine Phosphate (Robitussin Ac Liquid Cup) 5 ml Q4H PRN PO cough Last administered on 03/23/17 10:34; Admin Dose 5 ML; Start 03/22/17 at 16: 00 Salmeterol Xinafoate/ Fluticasone (Advair 100/50 Diskus) 1 inh BID INH ; Start 03/23/17 at 14:00 Insulin Glargine 5 unit 5 unit QHS SC ; Start 03/23/17 at 21:00 Levofloxacin/ Dextrose 50 ml @ 50 mls/hr Q48H IVPB ; Start 03/24/17 at 21:00 Sodium Chloride (NS) 1,000 ml @ 50 mls/hr Q20H IV ; Start 03/23/17 at 14:30; Stop 03/25/17 at 06:29 BETSEY AMBRIZ MD Mar 23, 2017 15:15
[2017-03-23] MEDS: SOD CHLORIDE 0.9% 1,000 ML IV SCH (15:30)
--- NOTE | 2017-03-23 15:44 | CONS ---
Date/Time of Note Date/Time of Note DATE: 03/23/17 TIME: 15:33 Assessment/Plan Assessment/Plan Chief Complaint/Hosp Course Assessment/Plan Assessment/Plan Chief Complaint/Hosp Course ID PROGRESS NOTE CURRENT ABX: Levaquin, status post Rocephin * Awake. Alert. Complains of Wheezing. * Microbiology: Blood culture growing E. coli, urine culture growing E. coli and Proteus mirabilis. Repeat blood cultures negative Physical examination: This is an obese well-developed elderly woman who is alert in no distress. Head: Atraumatic normocephalic Sclera: unremarkable Neck is supple Chest: Bilateral Respiratory Congestion noted. No Rales. No Rhonchi. No Wheezing appreciated. RRR radial pulse Abdomen soft bowel sounds present, no tenderness on palpation. Extremities without cyanosis bilateral lower extremities trace edema ID ASSESSMENT 1. Sepsis with fevers, tachycardia on admission #2 2. Urinary tract infection with bacteremia 3. Diabetes 4. COPD 5. Obesity 6. Respiratory Congestion. 7. Wheezing. CURRENT ABX: Levaquin IV status post Rocephin ID RECOMMENDATIONS * Plan: Patient remains stable, repeat blood cultures negative, continue antibiotics for 11 more days, okay downgrade to oral Levaquin upon discharge home, follow recommendations of consultants * Repeat Chest XRAY tomorrow. Continue Medications. Continue Respiratory Treatments. Problems: Consultation Date/Type/Reason Admit Date/Time Mar 17, 2017 at 08:56 Initial Consult Date 03/18/17 Type of Consultation: id Referring Provider: TAL PAYNE Exam/Review of Systems Vital Signs Vitals Vital Signs Date Time Temp Pulse Resp B/P Pulse Ox O2 Delivery O2 Flow Rate FiO2 03/23/17 12:14 98.4 86 20 130/58 98 03/23/17 08:30 Nasal Cannula 2.0 03/21/17 20:57 21 Intake and Output 03/22/17 03/22/17 03/23/17 15:00 23:00 07:00 Intake Total 820 ml Balance 820 ml Results Result Diagram: 03/22/17 0835 03/23/17 0710 Results 24 hrs Laboratory Tests Test 03/22/17 16:30 03/22/17 17:23 03/22/17 21:47 03/23/17 01:25 Urine Eosinophils % 0.0 Urine Random Creatinine 126.00 Urine Random Sodium < 13 L Urine Protein/Creatinine Ratio 0.34 Urine Total Protein 44.0 H Bedside Glucose 173 256 H 293 H Test 03/23/17 07:10 03/23/17 08:42 03/23/17 12:28 Sodium Level 136 Potassium Level 4.2 Chloride Level 98 Carbon Dioxide Level 20 L Anion Gap 22 H Blood Urea Nitrogen 42 #H Creatinine 2.61 H Glucose Level 240 H Calcium Level 9.1 Phosphorus Level 5.7 H Magnesium Level 2.1 Bedside Glucose 251 H 232 H Medications Medications Current Medications Ondansetron HCl (Zofran Inj) 4 mg Q6H PRN IV NAUSEA AND/OR VOMITING; Start at 14:00 Aspirin (Aspirin) 81 mg DAILY PO Last administered on 03/23/17 09:15; Admin Dose 81 MG; Start 03/18/17 at 09:00 Acetaminophen (Tylenol Tab) 650 mg Q6H PRN PO PAIN LEVEL 1-3 OR FEVER Last administered on 03/22/17 16:13; Admin Dose 650 MG; Start 03/17/17 at 14:00 Acetaminophen/ Hydrocodone Bitart ([place] (5/325)) 1 tab Q6H PRN PO PAIN LEVEL 4 -6 Last administered on 03/22/17 09:34; Admin Dose 1 TAB; Start 03/17/17 at 14: 00 Magnesium Hydroxide (Milk Of Mag) 30 ml DAILY PRN PO CONSTIPATION; Start at 14:00 Bisacodyl (Dulcolax) 5 mg DAILY PRN PO CONSTIPATION Last administered on 10:34; Admin Dose 5 MG; Start 03/17/17 at 14:00 Famotidine (Pepcid) 20 mg DAILY PO Last administered on 03/23/17 09:15; Admin Dose 20 MG; Start 03/17/17 at 21:00 Cilostazol (Pletal) 50 mg BID PO Last administered on 03/23/17 09:15; Admin Dose 50 MG; Start 03/17/17 at 21:00 Ferrous Sulfate (Ferrous Sulfate (Ec)) 325 mg TID PO Last administered on 12:26; Admin Dose 325 MG; Start 03/17/17 at 21:00 Gabapentin (Neurontin) 100 mg BID PO Last administered on 03/23/17 09:14; Admin Dose 100 MG; Start 03/17/17 at 21:00 Lamotrigine (Lamictal) 25 mg BID PO Last administered on 03/23/17 09:15; Admin Dose 25 MG; Start 03/17/17 at 21:00 Atorvastatin Calcium (Lipitor) 20 mg DAILY@21 PO Last administered on 03/22/17 21:52; Admin Dose 20 MG; Start 03/17/17 at 21:00 Hydralazine HCl (Apresoline) 10 mg Q6H PRN IV SBP>160 Last administered on 16:32; Admin Dose 10 MG; Start 03/17/17 at 14:30 Miscellaneous Information 1 ea NOTE XX ; Start 03/17/17 at 14:30 Glucose (Glutose) 15 gm Q15M PRN PO DECREASED GLUCOSE; Start 03/17/17 at 14:30 Glucose (Glutose) 22.5 gm Q15M PRN PO DECREASED GLUCOSE; Start 03/17/17 at 14: 30 Dextrose (D50w Syringe) 25 ml Q15M PRN IV DECREASED GLUCOSE; Start 03/17/17 at 14:30 Dextrose (D50w Syringe) 50 ml Q15M PRN IV DECREASED GLUCOSE; Start 03/17/17 at 14:30 Glucagon (Glucagen) 1 mg Q15M PRN IM DECREASED GLUCOSE; Start 03/17/17 at 14:30 Glucose (Glutose) 15 gm Q15M PRN BUCCAL DECREASED GLUCOSE; Start 03/17/17 at 14 :30 Metoprolol Tartrate (Lopressor) 50 mg BID PO Last administered on 03/23/17 09: 16; Admin Dose 50 MG; Start 03/18/17 at 21:00 Haloperidol (Haldol) 3 mg Q8H PRN IM agitation; Start 03/18/17 at 16:30 Amlodipine Besylate (Norvasc) 5 mg BID PO Last administered on 03/23/17 09:16; Admin Dose 5 MG; Start 03/18/17 at 21:00 Enoxaparin Sodium (Lovenox) 30 mg DAILY SC Last administered on 03/23/17 09:21 ; Admin Dose 30 MG; Start 03/23/17 at 09:00 Guaifenesin/ Codeine Phosphate (Robitussin Ac Liquid Cup) 5 ml Q4H PRN PO cough Last administered on 03/23/17t 10:34; Admin Dose 5 ML; Start 03/22/17 at 16: 00 Salmeterol Xinafoate/ Fluticasone (Advair 100/50 Diskus) 1 inh BID INH ; Start 03/23/17 at 14:00 Insulin Glargine 5 unit 5 unit QHS SC ; Start 03/23/17 at 21:00 Levofloxacin/ Dextrose 50 ml @ 50 mls/hr Q48H IVPB ; Start 03/24/17 at 21:00 Sodium Chloride (NS) 1,000 ml @ 50 mls/hr Q20H IV ; Start 03/23/17 at 14:30; Stop 03/25/17 at 06:29 EMMANUEL HAYS NP Mar 23, 2017 15:44
[2017-03-23] MEDS: SALMETEROL/FLUTICASONE 100/50 INHA INH SCH ×2 (16:36→20:48)
--- NOTE | 2017-03-23 16:55 | CONS ---
Date/Time of Note Date/Time of Note DATE: 03/23/17 TIME: 16:51 Assessment/Plan Assessment/Plan Chief Complaint/Hosp Course ID PROGRESS NOTE => ADDITIONAL RECOMMENDATIONS CURRENT ABX: Levaquin, NOTE: Patient seen today by ID covering colleague Oseas Fragamateo => Please see note of same date for physical exam. Case discussed with Dr. Payne today. Patient now with acute renal failure unclear etiology; however patient did receive Zosyn x 2 days prior to Levaquin. Levaquin dose IV has been adjusted to Q48 hours. ID RECOMMENDATIONS=> DC Levaquin and start Ceftriaxone due to RACHEL; when improves, may DC on Keflex 250mg po TID to complete course. . Problems: Consultation Date/Type/Reason Admit Date/Time Mar 17, 2017 at 08:56 Initial Consult Date 03/18/17 Type of Consultation: id Referring Provider: TAL PAYNE Exam/Review of Systems Vital Signs Vitals Vital Signs Date Time Temp Pulse Resp B/P Pulse Ox O2 Delivery O2 Flow Rate FiO2 03/23/17 16:13 98.0 101 20 143/63 98 03/23/17 08:30 Nasal Cannula 2.0 03/21/17 20:57 21 Intake and Output 03/22/17 03/22/17 03/23/17 15:00 23:00 07:00 Intake Total 820 ml Balance 820 ml Results Result Diagram: 03/22/17 0835 03/23/17 0710 Results 24 hrs Laboratory Tests Test 03/22/17 17:23 03/22/17 21:47 03/23/17 01:25 03/23/17 07:10 Bedside Glucose 173 256 H 293 H Sodium Level 136 Potassium Level 4.2 Chloride Level 98 Carbon Dioxide Level 20 L Anion Gap 22 H Blood Urea Nitrogen 42 #H Creatinine 2.61 H Glucose Level 240 H Calcium Level 9.1 Phosphorus Level 5.7 H Magnesium Level 2.1 Test 03/23/17 08:42 03/23/17 12:28 Bedside Glucose 251 H 232 H Medications Medications Current Medications Ondansetron HCl (Zofran Inj) 4 mg Q6H PRN IV NAUSEA AND/OR VOMITING; Start at 14:00 Aspirin (Aspirin) 81 mg DAILY PO Last administered on 03/23/17t 09:15; Admin Dose 81 MG; Start 03/18/17 at 09:00 Acetaminophen (Tylenol Tab) 650 mg Q6H PRN PO PAIN LEVEL 1-3 OR FEVER Last administered on 03/22/17 16:13; Admin Dose 650 MG; Start 03/17/17 at 14:00 Acetaminophen/ Hydrocodone Bitart ([place] (5/325)) 1 tab Q6H PRN PO PAIN LEVEL 4 -6 Last administered on 03/22/17 09:34; Admin Dose 1 TAB; Start 03/17/17 at 14: 00 Magnesium Hydroxide (Milk Of Mag) 30 ml DAILY PRN PO CONSTIPATION; Start at 14:00 Bisacodyl (Dulcolax) 5 mg DAILY PRN PO CONSTIPATION Last administered on 10:34; Admin Dose 5 MG; Start 03/17/17 at 14:00 Famotidine (Pepcid) 20 mg DAILY PO Last administered on 03/23/17 09:15; Admin Dose 20 MG; Start 03/17/17 at 21:00 Cilostazol (Pletal) 50 mg BID PO Last administered on 03/23/17 09:15; Admin Dose 50 MG; Start 03/17/17 at 21:00 Ferrous Sulfate (Ferrous Sulfate (Ec)) 325 mg TID PO Last administered on 12:26; Admin Dose 325 MG; Start 03/17/17 at 21:00 Gabapentin (Neurontin) 100 mg BID PO Last administered on 03/23/17 09:14; Admin Dose 100 MG; Start 03/17/17 at 21:00 Lamotrigine (Lamictal) 25 mg BID PO Last administered on 03/23/17 09:15; Admin Dose 25 MG; Start 03/17/17 at 21:00 Atorvastatin Calcium (Lipitor) 20 mg DAILY@21 PO Last administered on 03/22/17 21:52; Admin Dose 20 MG; Start 03/17/17 at 21:00 Hydralazine HCl (Apresoline) 10 mg Q6H PRN IV SBP>160 Last administered on 16:32; Admin Dose 10 MG; Start 03/17/17 at 14:30 Miscellaneous Information 1 ea NOTE XX ; Start 03/17/17 at 14:30 Glucose (Glutose) 15 gm Q15M PRN PO DECREASED GLUCOSE; Start 03/17/17 at 14:30 Glucose (Glutose) 22.5 gm Q15M PRN PO DECREASED GLUCOSE; Start 03/17/17 at 14: 30 Dextrose (D50w Syringe) 25 ml Q15M PRN IV DECREASED GLUCOSE; Start 03/17/17 at 14:30 Dextrose (D50w Syringe) 50 ml Q15M PRN IV DECREASED GLUCOSE; Start 03/17/17 at 14:30 Glucagon (Glucagen) 1 mg Q15M PRN IM DECREASED GLUCOSE; Start 03/17/17 at 14:30 Glucose (Glutose) 15 gm Q15M PRN BUCCAL DECREASED GLUCOSE; Start 03/17/17 at 14 :30 Metoprolol Tartrate (Lopressor) 50 mg BID PO Last administered on 03/23/17 09: 16; Admin Dose 50 MG; Start 03/18/17 at 21:00 Haloperidol (Haldol) 3 mg Q8H PRN IM agitation; Start 03/18/17 at 16:30 Amlodipine Besylate (Norvasc) 5 mg BID PO Last administered on 03/23/17 09:16; Admin Dose 5 MG; Start 03/18/17 at 21:00 Enoxaparin Sodium (Lovenox) 30 mg DAILY SC Last administered on 03/23/17 09:21 ; Admin Dose 30 MG; Start 03/23/17 at 09:00 Guaifenesin/ Codeine Phosphate (Robitussin Ac Liquid Cup) 5 ml Q4H PRN PO cough Last administered on 03/23/17 10:34; Admin Dose 5 ML; Start 03/22/17 at 16: 00 Salmeterol Xinafoate/ Fluticasone (Advair 100/50 Diskus) 1 inh BID INH ; Start 03/23/17 at 14:00 Insulin Glargine 5 unit 5 unit QHS SC ; Start 03/23/17 at 21:00 Levofloxacin/ Dextrose 50 ml @ 50 mls/hr Q48H IVPB ; Start 03/24/17 at 21:00 Sodium Chloride (NS) 1,000 ml @ 50 mls/hr Q20H IV Last administered on 15:30; Admin Dose 50 MLS/HR; Start 03/23/17 at 14:30; Stop 03/25/17 at 06:29 DELBERT WADSWORTH NP Mar 23, 2017 16:55
[2017-03-23] MEDS: CEFTRIAXONE 1 GM/50 ML (PMX) 50 ML IVPB SCH (17:32)
[2017-03-23] MEDS: ATORVASTATIN 20 MG TAB PO SCH (20:48)
[2017-03-23] MEDS ORDERED: INSULIN GLARGINE [LANtus] 3 ML PEN SC SCH ×2 (21:00)
[2017-03-24] VITALS (13 sets, daily range): BP systolic 125–136; BP diastolic 55–62; PULSE 87–107; RESP 15–20
[2017-03-24] MEDS: ALBUTEROL/IPRATROPIUM (NEB) 3 ML AMP HHN SCH ×4 (01:41→21:10)
[2017-03-24 06:47] LABS: HEMATOCRIT 27.9 % (37.0-47.0); HEMOGLOBIN 9.3 g/dl (12.0-16.0); LYMPHOCYTES # 0.7 10^3/ul (0.8-2.9); LYMPHOCYTES % 6.5 % (15.0-51.0); MEAN CORPUSCULAR HEMOGLOBIN 30.7 pg (29.0-33.0); MEAN CORPUSCULAR HGB CONC 33.3 g/dl (32.0-37.0); MEAN CORPUSCULAR VOLUME 92.1 fl (82.0-101.0); MEAN PLATELET VOLUME 9.3 fl (7.4-10.4); MONOCYTE # 0.5 10^3/ul (0.3-0.9); MONOCYTES % 4.2 % (0.0-11.0); NEUTROPHIL # 9.9 10^3/ul (1.6-7.5); NEUTROPHILS % 87.3 % (39.0-77.0); PLATELET COUNT 304 10^3/UL (140-415); RED BLOOD COUNT 3.03 10^6/ul (4.20-5.40); RED CELL DISTRIBUTION WIDTH 11.8 % (11.5-14.5); WHITE BLOOD COUNT 11.3 10^3/ul (4.8-10.8)
[2017-03-24 07:11] LABS: CALCIUM 9.5 mg/dl (8.4-10.2); CREATININE 2.67 mg/dl (0.44-1.00); MAGNESIUM 2.3 mg/dl (1.7-2.5); POTASSIUM 4.1 mmol/L (3.5-5.1)
[2017-03-24] MEDS: INSULIN ASPART [NOVOLOG] 3 ML PEN SC SCH ×7 (08:00→20:42)
[2017-03-24] MEDS: ENOXAPARIN 30 MG/0.3 ML SYG SC SCH (09:15)
[2017-03-24] MEDS: SALMETEROL/FLUTICASONE 100/50 INHA INH SCH ×2 (09:16→20:38)
[2017-03-24] MEDS: FAMOTIDINE 20 MG TAB PO SCH (09:22)
[2017-03-24] MEDS: CILOSTAZOL 100 MG TAB PO SCH ×2 (09:22→20:38)
[2017-03-24] MEDS: LAMOTRIGINE 25 MG TAB PO SCH ×2 (09:22→20:38)
[2017-03-24] MEDS: AMLODIPINE 5 MG TAB PO SCH ×2 (09:23→20:40)
[2017-03-24] MEDS: GABAPENTIN 100 MG CAP PO SCH ×2 (09:23→20:38)
[2017-03-24] MEDS: ASPIRIN 81 MG TAB PO SCH (09:24)
[2017-03-24] MEDS: METOPROLOL 50 MG TAB PO SCH ×2 (09:24→20:39)
[2017-03-24] MEDS: FERROUS SULFATE (EC) 325 MG TAB PO SCH ×3 (09:24→20:38)
[2017-03-24] MEDS: SOD CHLORIDE 0.9% 1,000 ML IV SCH (10:30)
--- NOTE | 2017-03-24 13:04 | CONS ---
Date/Time of Note Date/Time of Note DATE: 03/24/17 TIME: 13:02 Assessment/Plan Assessment/Plan Chief Complaint/Hosp Course 1. Sepsis 2. Acute kidney injury on CKD due to sepsis and Prerenal azotemia 3. Elevated troponin due to demand ischemia 4. Essential hypertension 5. Type II DM, uncontrolled 7. Hx COPD 8. Iron deficiency anemia 9. Mild acute rhabdomyolysis: Improved 10. Chronic early onset dementia Problems: Additional Assessment/Plan 1. Optimization kidney function Consultation Date/Type/Reason Admit Date/Time Mar 17, 2017 at 08:56 Initial Consult Date 03/18/17 Type of Consultation: nephrology Reason for Consultation Dr Huerta Referring Provider: TAL PAYNE Exam/Review of Systems Vital Signs Vitals Vital Signs Date Time Temp Pulse Resp B/P Pulse Ox O2 Delivery O2 Flow Rate FiO2 03/24/17 12:00 88 03/24/17 11:47 97.6 20 131/62 97 03/24/17 10:42 Nasal Cannula 2.0 03/21/17 20:57 21 Intake and Output 03/23/17 03/23/17 03/24/17 15:00 23:00 07:00 Intake Total 800 ml 1450 ml Balance 800 ml 1450 ml Exam Constitutional: alert, oriented (naME) Neck: supple Respiratory: clear to auscultation Cardiovascular: regular rate and rhythm Results Result Diagram: 03/24/17 0610 03/24/17 0610 Results 24 hrs Laboratory Tests Test 03/23/17 17:28 03/23/17 20:42 03/24/17 01:31 03/24/17 06:10 Bedside Glucose 276 H 279 H 262 H White Blood Count 11.3 H Red Blood Count 3.03 L Hemoglobin 9.3 L Hematocrit 27.9 L Mean Corpuscular Volume 92.1 Mean Corpuscular Hemoglobin 30.7 Mean Corpuscular Hemoglobin Concent 33.3 Red Cell Distribution Width 11.8 Platelet Count 304 # Mean Platelet Volume 9.3 Neutrophils % 87.3 H Lymphocytes % 6.5 L Monocytes % 4.2 Eosinophils % 0.0 Basophils % 0.0 Nucleated Red Blood Cells % 0.0 Neutrophils # 9.9 H Lymphocytes # 0.7 L Monocytes # 0.5 Eosinophils # 0.0 Basophils # 0.0 Nucleated Red Blood Cells # 0.0 Sodium Level 136 Potassium Level 4.1 Chloride Level 97 Carbon Dioxide Level 19 L Anion Gap 24 H Blood Urea Nitrogen 57 H Creatinine 2.67 H Glucose Level 257 H Calcium Level 9.5 Magnesium Level 2.3 Test 03/24/17 09:08 03/24/17 12:11 Bedside Glucose 241 H 228 H Medications Medications Current Medications Ondansetron HCl (Zofran Inj) 4 mg Q6H PRN IV NAUSEA AND/OR VOMITING; Start at 14:00 Aspirin (Aspirin) 81 mg DAILY PO Last administered on 03/24/17 09:24; Admin Dose 81 MG; Start 03/18/17 at 09:00 Acetaminophen (Tylenol Tab) 650 mg Q6H PRN PO PAIN LEVEL 1-3 OR FEVER Last administered on 03/22/17 16:13; Admin Dose 650 MG; Start 03/17/17 at 14:00 Acetaminophen/ Hydrocodone Bitart ([place] (5/325)) 1 tab Q6H PRN PO PAIN LEVEL 4 -6 Last administered on 03/22/17 09:34; Admin Dose 1 TAB; Start 03/17/17 at 14: 00 Magnesium Hydroxide (Milk Of Mag) 30 ml DAILY PRN PO CONSTIPATION; Start at 14:00 Bisacodyl (Dulcolax) 5 mg DAILY PRN PO CONSTIPATION Last administered on 10:34; Admin Dose 5 MG; Start 03/17/17 at 14:00 Famotidine (Pepcid) 20 mg DAILY PO Last administered on 03/24/17 09:22; Admin Dose 20 MG; Start 03/17/17 at 21:00 Cilostazol (Pletal) 50 mg BID PO Last administered on 03/24/17 09:22; Admin Dose 50 MG; Start 03/17/17 at 21:00 Ferrous Sulfate (Ferrous Sulfate (Ec)) 325 mg TID PO Last administered on 12:21; Admin Dose 325 MG; Start 03/17/17 at 21:00 Gabapentin (Neurontin) 100 mg BID PO Last administered on 03/24/17 09:23; Admin Dose 100 MG; Start 03/17/17 at 21:00 Lamotrigine (Lamictal) 25 mg BID PO Last administered on 03/24/17 09:22; Admin Dose 25 MG; Start 03/17/17 at 21:00 Atorvastatin Calcium (Lipitor) 20 mg DAILY@21 PO Last administered on 03/23/17 20:48; Admin Dose 20 MG; Start 03/17/17 at 21:00 Hydralazine HCl (Apresoline) 10 mg Q6H PRN IV SBP>160 Last administered on 16:32; Admin Dose 10 MG; Start 03/17/17 at 14:30 Miscellaneous Information 1 ea NOTE XX ; Start 03/17/17 at 14:30 Glucose (Glutose) 15 gm Q15M PRN PO DECREASED GLUCOSE; Start 03/17/17 at 14:30 Glucose (Glutose) 22.5 gm Q15M PRN PO DECREASED GLUCOSE; Start 03/17/17 at 14: 30 Dextrose (D50w Syringe) 25 ml Q15M PRN IV DECREASED GLUCOSE; Start 03/17/17 at 14:30 Dextrose (D50w Syringe) 50 ml Q15M PRN IV DECREASED GLUCOSE; Start 03/17/17 at 14:30 Glucagon (Glucagen) 1 mg Q15M PRN IM DECREASED GLUCOSE; Start 03/17/17 at 14:30 Glucose (Glutose) 15 gm Q15M PRN BUCCAL DECREASED GLUCOSE; Start 03/17/17 at 14 :30 Metoprolol Tartrate (Lopressor) 50 mg BID PO Last administered on 03/24/17 09: 24; Admin Dose 50 MG; Start 03/18/17 at 21:00 Haloperidol (Haldol) 3 mg Q8H PRN IM agitation Last administered on 03/24/17 00 :16; Admin Dose 3 MG; Start 03/18/17 at 16:30 Amlodipine Besylate (Norvasc) 5 mg BID PO Last administered on 03/24/17 09:23; Admin Dose 5 MG; Start 03/18/17 at 21:00 Enoxaparin Sodium (Lovenox) 30 mg DAILY SC Last administered on 03/24/17 09:15 ; Admin Dose 30 MG; Start 03/23/17 at 09:00 Guaifenesin/ Codeine Phosphate (Robitussin Ac Liquid Cup) 5 ml Q4H PRN PO cough Last administered on 03/23/17 20:51; Admin Dose 5 ML; Start 03/22/17 at 16: 00 Salmeterol Xinafoate/ Fluticasone (Advair 100/50 Diskus) 1 inh BID INH Last administered on 03/24/17 09:16; Admin Dose 1 INH; Start 03/23/17 at 14:00 Insulin Glargine 5 unit 5 unit QHS SC Last administered on 03/23/17 20:58; Admin Dose 5 UNIT; Start 03/23/17 at 21:00 Sodium Chloride 1,000 ml @ 50 mls/hr Q20H IV Last administered on 03/23/17 15: 30; Admin Dose 50 MLS/HR; Start 03/23/17 at 14:30; Stop 03/25/17 at 06:29 Ceftriaxone Sodium (Rocephin) 50 ml @ 100 mls/hr Q24H IVPB Last administered on 03/23/17 17:32; Admin Dose 100 MLS/HR; Start 03/23/17 at 18:00 ROMULO RIVERA Mar 24, 2017 13:04
[2017-03-24] MEDS ORDERED: LEVO250T9 PO (13:33)
--- NOTE | 2017-03-24 13:35 | PDOCDIS ---
Discharge Instructions CONDITION Patient Condition: Good HOME CARE INSTRUCTIONS: Special Diet: 1800 rodney. Carb control ACTIVITY: Activity Restrictions: No Restrictions FOLLOW UP/APPOINTMENTS Follow-up Plan F/U WITH YOUR PCP AND COMIC ILLUSTRATOR IN 1-2 WEEKS SNOW SOTO Mar 24, 2017 13:35
--- NOTE | 2017-03-24 15:27 | RADRPT ---
PROCEDURE: X-ray Chest. CLINICAL INDICATION: Dyspnea. TECHNIQUE: Single view chest x-ray. COMPARISON: Exam dated 11/19/2016. FINDINGS: There are atherosclerotic changes of the aorta. The cardiomediastinal silhouette is at the upper li mits of normal in size. There is bilateral perihilar opacity and diffuse prominence of the intersti tium without focal consolidation, effusion, or pneumothorax. There are no acute osseous abnormaliti es. IMPRESSION: 1. Borderline cardiomegaly with findings suggestive of mild hydrostatic edema. Correlate clinicall y for CHF. 2. Vascular calcifications consistent with atherosclerosis. RPTAT: GG .Jerry Wilkinson MD, MD Date Time Electronically viewed and signed by .Jerry Wilkinson MD, on 03/24/2017 15:26 .P/
--- NOTE | 2017-03-24 17:36 | PN ---
Date/Time of Note Date/Time of Note DATE: 03/24/17 TIME: 17:30 Assessment/Plan VTE Prophylaxis VTE Prophylaxis Intervention: SCD's Lines/Catheters IV Catheter Type (from Nrs): line pulled out by pt Urinary Cath still in place: No Assessment/Plan Chief Complaint/Hosp Course 1. Sepsis secondary to E coli bacteremia and urinary tract infection : improving 2. Acute on chronic kidney injury 3. Elevated troponins without chest pain concerning for non-ST elevation myocardial infarction in this diabetic likely type II from demand ischemia: trended down 4. Essential hypertension : improving control 5. Chronic peripheral vascular disease 6. Type 2 diabetes mellitus with hemoglobin A1c of 8.0: good inhouse control so far, now with steroid induced hyperglycemia 7. COPD with mild exacerbation 8. Iron deficiency anemia associated with chronic disease: Patient has been on iron supplementation 9. Mild acute rhabdomyolysis: Improved 10. Confusion is likely Progression of dementia 11. Diffuse tendinosis and bursitis causing shoulder pain: s/p joint injection 03/22/17 Plan: * Patient does have some wheezing today, continue breathing treatments, chest x- ray shows mild edema, diuresis per nephrology * Hyperglycemia is likely 2/2 steroids and will improve back to baseline once off steroids. 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 Prophylaxis with PPI and SCDs Discharge planning: Anticipate DC tomorrow Problems: Subjective 24 Hr Interval Summary Constitutional: disoriented Exam/Review of Systems Vital Signs Vitals Vital Signs Date Time Temp Pulse Resp B/P Pulse Ox O2 Delivery O2 Flow Rate FiO2 03/24/17 16:02 98.3 91 20 134/60 97 03/24/17 10:42 Nasal Cannula 2.0 03/21/17 20:57 21 Intake and Output 03/23/17 03/23/17 03/24/17 15:00 23:00 07:00 Intake Total 800 ml 1450 ml Balance 800 ml 1450 ml Exam Psych: confusion Respiratory: wheezing Cardiovascular: regular rate and rhythm Gastrointestinal: soft, No distended Musculoskeletal: nl extremities to inspection Results Result Diagram: 03/24/17 0610 03/24/17 0610 Results 24 hrs Laboratory Tests Test 03/23/17 20:42 03/24/17 01:31 03/24/17 06:10 03/24/17 09:08 Bedside Glucose 279 H 262 H 241 H White Blood Count 11.3 H Red Blood Count 3.03 L Hemoglobin 9.3 L Hematocrit 27.9 L Mean Corpuscular Volume 92.1 Mean Corpuscular Hemoglobin 30.7 Mean Corpuscular Hemoglobin Concent 33.3 Red Cell Distribution Width 11.8 Platelet Count 304 # Mean Platelet Volume 9.3 Neutrophils % 87.3 H Lymphocytes % 6.5 L Monocytes % 4.2 Eosinophils % 0.0 Basophils % 0.0 Nucleated Red Blood Cells % 0.0 Neutrophils # 9.9 H Lymphocytes # 0.7 L Monocytes # 0.5 Eosinophils # 0.0 Basophils # 0.0 Nucleated Red Blood Cells # 0.0 Sodium Level 136 Potassium Level 4.1 Chloride Level 97 Carbon Dioxide Level 19 L Anion Gap 24 H Blood Urea Nitrogen 57 H Creatinine 2.67 H Glucose Level 257 H Calcium Level 9.5 Magnesium Level 2.3 Test 03/24/17 12:11 03/24/17 17:15 Bedside Glucose 228 H 236 H Medications Medications Current Medications Ondansetron HCl (Zofran Inj) 4 mg Q6H PRN IV NAUSEA AND/OR VOMITING; Start at 14:00 Aspirin (Aspirin) 81 mg DAILY PO Last administered on 03/24/17 09:24; Admin Dose 81 MG; Start 03/18/17 at 09:00 Acetaminophen (Tylenol Tab) 650 mg Q6H PRN PO PAIN LEVEL 1-3 OR FEVER Last administered on 03/22/17 16:13; Admin Dose 650 MG; Start 03/17/17 at 14:00 Acetaminophen/ Hydrocodone Bitart ([place] (5/325)) 1 tab Q6H PRN PO PAIN LEVEL 4 -6 Last administered on 03/22/17 09:34; Admin Dose 1 TAB; Start 03/17/17 at 14: 00 Magnesium Hydroxide (Milk Of Mag) 30 ml DAILY PRN PO CONSTIPATION; Start at 14:00 Bisacodyl (Dulcolax) 5 mg DAILY PRN PO CONSTIPATION Last administered on 10:34; Admin Dose 5 MG; Start 03/17/17 at 14:00 Famotidine (Pepcid) 20 mg DAILY PO Last administered on 03/24/17 09:22; Admin Dose 20 MG; Start 03/17/17 at 21:00 Cilostazol (Pletal) 50 mg BID PO Last administered on 03/24/17 09:22; Admin Dose 50 MG; Start 03/17/17 at 21:00 Ferrous Sulfate (Ferrous Sulfate (Ec)) 325 mg TID PO Last administered on 12:21; Admin Dose 325 MG; Start 03/17/17 at 21:00 Gabapentin (Neurontin) 100 mg BID PO Last administered on 03/24/17 09:23; Admin Dose 100 MG; Start 03/17/17 at 21:00 Lamotrigine (Lamictal) 25 mg BID PO Last administered on 03/24/17 09:22; Admin Dose 25 MG; Start 03/17/17 at 21:00 Atorvastatin Calcium (Lipitor) 20 mg DAILY@21 PO Last administered on 03/23/17 20:48; Admin Dose 20 MG; Start 03/17/17 at 21:00 Hydralazine HCl (Apresoline) 10 mg Q6H PRN IV SBP>160 Last administered on 16:32; Admin Dose 10 MG; Start 03/17/17 at 14:30 Miscellaneous Information 1 ea NOTE XX ; Start 03/17/17 at 14:30 Glucose (Glutose) 15 gm Q15M PRN PO DECREASED GLUCOSE; Start 03/17/17 at 14:30 Glucose (Glutose) 22.5 gm Q15M PRN PO DECREASED GLUCOSE; Start 03/17/17 at 14: 30 Dextrose (D50w Syringe) 25 ml Q15M PRN IV DECREASED GLUCOSE; Start 03/17/17 at 14:30 Dextrose (D50w Syringe) 50 ml Q15M PRN IV DECREASED GLUCOSE; Start 03/17/17 at 14:30 Glucagon (Glucagen) 1 mg Q15M PRN IM DECREASED GLUCOSE; Start 03/17/17 at 14:30 Glucose (Glutose) 15 gm Q15M PRN BUCCAL DECREASED GLUCOSE; Start 03/17/17 at 14 :30 Metoprolol Tartrate (Lopressor) 50 mg BID PO Last administered on 03/24/17 09: 24; Admin Dose 50 MG; Start 03/18/17 at 21:00 Haloperidol (Haldol) 3 mg Q8H PRN IM agitation Last administered on 03/24/17 00 :16; Admin Dose 3 MG; Start 03/18/17 at 16:30 Amlodipine Besylate (Norvasc) 5 mg BID PO Last administered on 03/24/17 09:23; Admin Dose 5 MG; Start 03/18/17 at 21:00 Enoxaparin Sodium (Lovenox) 30 mg DAILY SC Last administered on 03/24/17 09:15 ; Admin Dose 30 MG; Start 03/23/17 at 09:00 Guaifenesin/ Codeine Phosphate (Robitussin Ac Liquid Cup) 5 ml Q4H PRN PO cough Last administered on 03/23/17 20:51; Admin Dose 5 ML; Start 03/22/17 at 16: 00 Salmeterol Xinafoate/ Fluticasone (Advair 100/50 Diskus) 1 inh BID INH Last administered on 03/24/17 09:16; Admin Dose 1 INH; Start 03/23/17 at 14:00 Insulin Glargine 5 unit 5 unit QHS SC Last administered on 03/23/17 20:58; Admin Dose 5 UNIT; Start 03/23/17 at 21:00 Sodium Chloride 1,000 ml @ 50 mls/hr Q20H IV Last administered on 03/23/17 15: 30; Admin Dose 50 MLS/HR; Start 03/23/17 at 14:30; Stop 03/25/17 at 06:29 Ceftriaxone Sodium (Rocephin) 50 ml @ 100 mls/hr Q24H IVPB Last administered on 03/23/17 17:32; Admin Dose 100 MLS/HR; Start 03/23/17 at 18:00 SNOW SOTO Mar 24, 2017 17:36
--- NOTE | 2017-03-24 18:11 | CONS ---
Date/Time of Note Date/Time of Note DATE: 03/24/17 TIME: 18:08 Assessment/Plan Assessment/Plan Chief Complaint/Hosp Course Subjective: No acute events overnight. Patient is awake, confused, she is in no distress, son at bedside Microbiology: Blood culture growing E. coli, urine culture growing E. coli and Proteus mirabilis. Repeat blood cultures negative Antimicrobials:Rocephin Physical examination: This is an obese well-developed elderly woman who is alert in no distress. Head : Atraumatic normocephalic Sclera: Anicteric. PERRLA Neck is supple neck Chest rise symmetrical. Breath sounds diminished to bases, bilaterally expiratory wheezes. Heart S1-S2 Abdomen soft bowel sounds present, no tenderness on palpation. Extremities without cyanosis bilateral lower extremities trace edema Assessment 1. Sepsis with fevers, tachycardia on admission #2 2. Urinary tract infection with bacteremia 3. Diabetes 4. COPD 5. Obesity 6. Acute kidney injury Plan: Patient remains unchanged, still with significant wheezes and worsening renal function, repeat blood cultures negative, continue antibiotics, consider pulmonary evaluation, follow recommendation of consultants Discussed with son, discussed with staff Problems: Consultation Date/Type/Reason Admit Date/Time Mar 17, 2017 at 08:56 Initial Consult Date 03/18/17 Type of Consultation: Infectious disease Referring Provider: TAL PAYNE Exam/Review of Systems Vital Signs Vitals Vital Signs Date Time Temp Pulse Resp B/P Pulse Ox O2 Delivery O2 Flow Rate FiO2 03/24/17 16:02 98.3 91 20 134/60 97 03/24/17 16:00 Nasal Cannula 2.0 03/21/17 20:57 21 Intake and Output 03/23/17 03/23/17 03/24/17 15:00 23:00 07:00 Intake Total 800 ml 1450 ml Balance 800 ml 1450 ml Results Result Diagram: 03/24/17 0610 03/24/17 0610 Results 24 hrs Laboratory Tests Test 03/23/17 20:42 03/24/17 01:31 03/24/17 06:10 03/24/17 09:08 Bedside Glucose 279 H 262 H 241 H White Blood Count 11.3 H Red Blood Count 3.03 L Hemoglobin 9.3 L Hematocrit 27.9 L Mean Corpuscular Volume 92.1 Mean Corpuscular Hemoglobin 30.7 Mean Corpuscular Hemoglobin Concent 33.3 Red Cell Distribution Width 11.8 Platelet Count 304 # Mean Platelet Volume 9.3 Neutrophils % 87.3 H Lymphocytes % 6.5 L Monocytes % 4.2 Eosinophils % 0.0 Basophils % 0.0 Nucleated Red Blood Cells % 0.0 Neutrophils # 9.9 H Lymphocytes # 0.7 L Monocytes # 0.5 Eosinophils # 0.0 Basophils # 0.0 Nucleated Red Blood Cells # 0.0 Sodium Level 136 Potassium Level 4.1 Chloride Level 97 Carbon Dioxide Level 19 L Anion Gap 24 H Blood Urea Nitrogen 57 H Creatinine 2.67 H Glucose Level 257 H Calcium Level 9.5 Magnesium Level 2.3 Test 03/24/17 12:11 03/24/17 17:15 Bedside Glucose 228 H 236 H Medications Medications Current Medications Ondansetron HCl (Zofran Inj) 4 mg Q6H PRN IV NAUSEA AND/OR VOMITING; Start at 14:00 Aspirin (Aspirin) 81 mg DAILY PO Last administered on 03/24/17 09:24; Admin Dose 81 MG; Start 03/18/17 at 09:00 Acetaminophen (Tylenol Tab) 650 mg Q6H PRN PO PAIN LEVEL 1-3 OR FEVER Last administered on 03/22/17 16:13; Admin Dose 650 MG; Start 03/17/17 at 14:00 Acetaminophen/ Hydrocodone Bitart ([place] (5/325)) 1 tab Q6H PRN PO PAIN LEVEL 4 -6 Last administered on 03/22/17 09:34; Admin Dose 1 TAB; Start 03/17/17 at 14: 00 Magnesium Hydroxide (Milk Of Mag) 30 ml DAILY PRN PO CONSTIPATION; Start at 14:00 Bisacodyl (Dulcolax) 5 mg DAILY PRN PO CONSTIPATION Last administered on 10:34; Admin Dose 5 MG; Start 03/17/17 at 14:00 Famotidine (Pepcid) 20 mg DAILY PO Last administered on 03/24/17 09:22; Admin Dose 20 MG; Start 03/17/17 at 21:00 Cilostazol (Pletal) 50 mg BID PO Last administered on 03/24/17 09:22; Admin Dose 50 MG; Start 03/17/17 at 21:00 Ferrous Sulfate (Ferrous Sulfate (Ec)) 325 mg TID PO Last administered on 12:21; Admin Dose 325 MG; Start 03/17/17 at 21:00 Gabapentin (Neurontin) 100 mg BID PO Last administered on 03/24/17 09:23; Admin Dose 100 MG; Start 03/17/17 at 21:00 Lamotrigine (Lamictal) 25 mg BID PO Last administered on 03/24/17 09:22; Admin Dose 25 MG; Start 03/17/17 at 21:00 Atorvastatin Calcium (Lipitor) 20 mg DAILY@21 PO Last administered on 03/23/17 20:48; Admin Dose 20 MG; Start 03/17/17 at 21:00 Hydralazine HCl (Apresoline) 10 mg Q6H PRN IV SBP>160 Last administered on 16:32; Admin Dose 10 MG; Start 03/17/17 at 14:30 Miscellaneous Information 1 ea NOTE XX ; Start 03/17/17 at 14:30 Glucose (Glutose) 15 gm Q15M PRN PO DECREASED GLUCOSE; Start 03/17/17 at 14:30 Glucose (Glutose) 22.5 gm Q15M PRN PO DECREASED GLUCOSE; Start 03/17/17 at 14: 30 Dextrose (D50w Syringe) 25 ml Q15M PRN IV DECREASED GLUCOSE; Start 03/17/17 at 14:30 Dextrose (D50w Syringe) 50 ml Q15M PRN IV DECREASED GLUCOSE; Start 03/17/17 at 14:30 Glucagon (Glucagen) 1 mg Q15M PRN IM DECREASED GLUCOSE; Start 03/17/17 at 14:30 Glucose (Glutose) 15 gm Q15M PRN BUCCAL DECREASED GLUCOSE; Start 03/17/17 at 14 :30 Metoprolol Tartrate (Lopressor) 50 mg BID PO Last administered on 03/24/17 09: 24; Admin Dose 50 MG; Start 03/18/17 at 21:00 Haloperidol (Haldol) 3 mg Q8H PRN IM agitation Last administered on 03/24/17 00 :16; Admin Dose 3 MG; Start 03/18/17 at 16:30 Amlodipine Besylate (Norvasc) 5 mg BID PO Last administered on 03/24/17 09:23; Admin Dose 5 MG; Start 03/18/17 at 21:00 Enoxaparin Sodium (Lovenox) 30 mg DAILY SC Last administered on 03/24/17 09:15 ; Admin Dose 30 MG; Start 03/23/17 at 09:00 Guaifenesin/ Codeine Phosphate (Robitussin Ac Liquid Cup) 5 ml Q4H PRN PO cough Last administered on 03/23/17 20:51; Admin Dose 5 ML; Start 03/22/17 at 16: 00 Salmeterol Xinafoate/ Fluticasone 1 inh 1 inh BID INH Last administered on 09:16; Admin Dose 1 INH; Start 03/23/17 at 14:00 Sodium Chloride 1,000 ml @ 50 mls/hr Q20H IV Last administered on 03/23/17 15: 30; Admin Dose 50 MLS/HR; Start 03/23/17 at 14:30; Stop 03/25/17 at 06:29 Ceftriaxone Sodium (Rocephin) 50 ml @ 100 mls/hr Q24H IVPB Last administered on 03/23/17 17:32; Admin Dose 100 MLS/HR; Start 03/23/17 at 18:00 Insulin Glargine (Lantus) 12 unit QHS SC ; Start 03/24/17 at 21:00 YFN SHANKAR NP Mar 24, 2017 18:11
--- NOTE | 2017-03-24 19:14 | CONS ---
Date/Time of Note Date/Time of Note DATE: 03/24/17 TIME: 19:13 Assessment/Plan Assessment/Plan Chief Complaint/Hosp Course 1. s/p Sepsis secondary to E coli bacteremia and urinary tract infection : improving 2. Acute on chronic kidney injury: follow up with renal rec 3. Elevated troponins without chest pain and preserved LV function: cont medical therapy as long as asymptomatic. on metoprolol 4. Essential hypertension : under control on current meds. 5. Chronic peripheral vascular disease: defer to IM 6. Type 2 diabetes mellitus with hemoglobin A1c of 8.0: defer to IM 7. COPD ; stable now 8. Iron deficiency anemia associated with chronic disease: Patient has been on iron supplementation Problems: Consultation Date/Type/Reason Admit Date/Time Mar 17, 2017 at 08:56 Initial Consult Date 03/18/17 Type of Consultation: Infectious disease Referring Provider: TAL PAYNE 24 HR Interval Summary Free Text/Dictation comfortable Exam/Review of Systems Vital Signs Vitals Vital Signs Date Time Temp Pulse Resp B/P Pulse Ox O2 Delivery O2 Flow Rate FiO2 03/24/17 16:02 98.3 91 20 134/60 97 03/24/17 16:00 Nasal Cannula 2.0 03/21/17 20:57 21 Intake and Output 03/23/17 03/23/17 03/24/17 15:00 23:00 07:00 Intake Total 800 ml 1450 ml Balance 800 ml 1450 ml Exam awake and aler CTAB/L RRR no edema Results Result Diagram: 03/24/17 0610 03/24/17 0610 Results 24 hrs Laboratory Tests Test 03/23/17 20:42 03/24/17 01:31 03/24/17 06:10 03/24/17 09:08 Bedside Glucose 279 H 262 H 241 H White Blood Count 11.3 H Red Blood Count 3.03 L Hemoglobin 9.3 L Hematocrit 27.9 L Mean Corpuscular Volume 92.1 Mean Corpuscular Hemoglobin 30.7 Mean Corpuscular Hemoglobin Concent 33.3 Red Cell Distribution Width 11.8 Platelet Count 304 # Mean Platelet Volume 9.3 Neutrophils % 87.3 H Lymphocytes % 6.5 L Monocytes % 4.2 Eosinophils % 0.0 Basophils % 0.0 Nucleated Red Blood Cells % 0.0 Neutrophils # 9.9 H Lymphocytes # 0.7 L Monocytes # 0.5 Eosinophils # 0.0 Basophils # 0.0 Nucleated Red Blood Cells # 0.0 Sodium Level 136 Potassium Level 4.1 Chloride Level 97 Carbon Dioxide Level 19 L Anion Gap 24 H Blood Urea Nitrogen 57 H Creatinine 2.67 H Glucose Level 257 H Calcium Level 9.5 Magnesium Level 2.3 Test 03/24/17 12:11 03/24/17 17:15 Bedside Glucose 228 H 236 H Medications Medications Current Medications Ondansetron HCl (Zofran Inj) 4 mg Q6H PRN IV NAUSEA AND/OR VOMITING; Start at 14:00 Aspirin (Aspirin) 81 mg DAILY PO Last administered on 03/24/17 09:24; Admin Dose 81 MG; Start 03/18/17 at 09:00 Acetaminophen (Tylenol Tab) 650 mg Q6H PRN PO PAIN LEVEL 1-3 OR FEVER Last administered on 03/22/17 16:13; Admin Dose 650 MG; Start 03/17/17 at 14:00 Acetaminophen/ Hydrocodone Bitart ([place] (5/325)) 1 tab Q6H PRN PO PAIN LEVEL 4 -6 Last administered on 03/22/17 09:34; Admin Dose 1 TAB; Start 03/17/17 at 14: 00 Magnesium Hydroxide (Milk Of Mag) 30 ml DAILY PRN PO CONSTIPATION; Start at 14:00 Bisacodyl (Dulcolax) 5 mg DAILY PRN PO CONSTIPATION Last administered on 10:34; Admin Dose 5 MG; Start 03/17/17 at 14:00 Famotidine (Pepcid) 20 mg DAILY PO Last administered on 03/24/17 09:22; Admin Dose 20 MG; Start 03/17/17 at 21:00 Cilostazol (Pletal) 50 mg BID PO Last administered on 03/24/17 09:22; Admin Dose 50 MG; Start 03/17/17 at 21:00 Ferrous Sulfate (Ferrous Sulfate (Ec)) 325 mg TID PO Last administered on 12:21; Admin Dose 325 MG; Start 03/17/17 at 21:00 Gabapentin (Neurontin) 100 mg BID PO Last administered on 03/24/17 09:23; Admin Dose 100 MG; Start 03/17/17 at 21:00 Lamotrigine (Lamictal) 25 mg BID PO Last administered on 03/24/17 09:22; Admin Dose 25 MG; Start 03/17/17 at 21:00 Atorvastatin Calcium (Lipitor) 20 mg DAILY@21 PO Last administered on 03/23/17 20:48; Admin Dose 20 MG; Start 03/17/17 at 21:00 Hydralazine HCl (Apresoline) 10 mg Q6H PRN IV SBP>160 Last administered on 16:32; Admin Dose 10 MG; Start 03/17/17 at 14:30 Miscellaneous Information 1 ea NOTE XX ; Start 03/17/17 at 14:30 Glucose (Glutose) 15 gm Q15M PRN PO DECREASED GLUCOSE; Start 03/17/17 at 14:30 Glucose (Glutose) 22.5 gm Q15M PRN PO DECREASED GLUCOSE; Start 03/17/17 at 14: 30 Dextrose (D50w Syringe) 25 ml Q15M PRN IV DECREASED GLUCOSE; Start 03/17/17 at 14:30 Dextrose (D50w Syringe) 50 ml Q15M PRN IV DECREASED GLUCOSE; Start 03/17/17 at 14:30 Glucagon (Glucagen) 1 mg Q15M PRN IM DECREASED GLUCOSE; Start 03/17/17 at 14:30 Glucose (Glutose) 15 gm Q15M PRN BUCCAL DECREASED GLUCOSE; Start 03/17/17 at 14 :30 Metoprolol Tartrate (Lopressor) 50 mg BID PO Last administered on 03/24/17 09: 24; Admin Dose 50 MG; Start 03/18/17 at 21:00 Haloperidol (Haldol) 3 mg Q8H PRN IM agitation Last administered on 03/24/17 00 :16; Admin Dose 3 MG; Start 03/18/17 at 16:30 Amlodipine Besylate (Norvasc) 5 mg BID PO Last administered on 03/24/17 09:23; Admin Dose 5 MG; Start 03/18/17 at 21:00 Enoxaparin Sodium (Lovenox) 30 mg DAILY SC Last administered on 03/24/17 09:15 ; Admin Dose 30 MG; Start 03/23/17 at 09:00 Guaifenesin/ Codeine Phosphate (Robitussin Ac Liquid Cup) 5 ml Q4H PRN PO cough Last administered on 03/23/17 20:51; Admin Dose 5 ML; Start 03/22/17 at 16: 00 Salmeterol Xinafoate/ Fluticasone 1 inh 1 inh BID INH Last administered on 09:16; Admin Dose 1 INH; Start 03/23/17 at 14:00 Sodium Chloride 1,000 ml @ 50 mls/hr Q20H IV Last administered on 03/23/17 15: 30; Admin Dose 50 MLS/HR; Start 03/23/17 at 14:30; Stop 03/25/17 at 06:29 Ceftriaxone Sodium (Rocephin) 50 ml @ 100 mls/hr Q24H IVPB Last administered on 03/23/17 17:32; Admin Dose 100 MLS/HR; Start 03/23/17 at 18:00 Insulin Glargine (Lantus) 12 unit QHS SC ; Start 03/24/17 at 21:00 JOSE RAMON NIETO MD Mar 24, 2017 19:14
[2017-03-24] MEDS: CEFTRIAXONE 1 GM/50 ML (PMX) 50 ML IVPB SCH (20:37)
[2017-03-24] MEDS: ATORVASTATIN 20 MG TAB PO SCH (20:38)
[2017-03-24] MEDS ORDERED: LEVOFLOXACIN 250MG/D5W (PMX) 50 ML IVPB SCH (21:00)
[2017-03-24] MEDS ORDERED: INSULIN GLARGINE [LANtus] 3 ML PEN SC SCH (21:00)
[2017-03-25] VITALS (8 sets, daily range): BP systolic 110–124; BP diastolic 53–63; PULSE 89–99; RESP 17–19
[2017-03-25] MEDS: ALBUTEROL/IPRATROPIUM (NEB) 3 ML AMP HHN SCH ×3 (02:01→13:47)
[2017-03-25 06:51] LABS: ADD SCAN DIFF NO
[2017-03-25 06:55] LABS: ABNORMAL IP MESSAGE 1; HEMATOCRIT 25.7 % (37.0-47.0); HEMOGLOBIN 8.6 g/dl (12.0-16.0); LYMPHOCYTES # 0.3 10^3/ul (0.8-2.9); LYMPHOCYTES % 3.6 % (15.0-51.0); MEAN CORPUSCULAR HEMOGLOBIN 31.2 pg (29.0-33.0); MEAN CORPUSCULAR HGB CONC 33.5 g/dl (32.0-37.0); MEAN CORPUSCULAR VOLUME 93.1 fl (82.0-101.0); MEAN PLATELET VOLUME 9.1 fl (7.4-10.4); MONOCYTE # 0.9 10^3/ul (0.3-0.9); MONOCYTES % 9.5 % (0.0-11.0); NEUTROPHILS % 86.5 % (39.0-77.0); PLATELET COUNT 294 10^3/UL (140-415); RED BLOOD COUNT 2.76 10^6/ul (4.20-5.40); RED CELL DISTRIBUTION WIDTH 11.8 % (11.5-14.5); WHITE BLOOD COUNT 9.3 10^3/ul (4.8-10.8)
[2017-03-25 07:13] LABS: CREATININE 2.78 mg/dl (0.44-1.00); POTASSIUM 3.8 mmol/L (3.5-5.1)
[2017-03-25] MEDS: INSULIN ASPART [NOVOLOG] 3 ML PEN SC SCH ×4 (08:00→13:05)
[2017-03-25] MEDS: AMLODIPINE 5 MG TAB PO SCH (09:00)
[2017-03-25] MEDS: SALMETEROL/FLUTICASONE 100/50 INHA INH SCH (09:16)
[2017-03-25] MEDS: ASPIRIN 81 MG TAB PO SCH (09:17)
[2017-03-25] MEDS: LAMOTRIGINE 25 MG TAB PO SCH (09:17)
[2017-03-25] MEDS: FERROUS SULFATE (EC) 325 MG TAB PO SCH ×2 (09:17→13:01)
[2017-03-25] MEDS: GABAPENTIN 100 MG CAP PO SCH (09:18)
[2017-03-25] MEDS: FAMOTIDINE 20 MG TAB PO SCH (09:19)
[2017-03-25] MEDS: CILOSTAZOL 100 MG TAB PO SCH (09:19)
[2017-03-25] MEDS: ENOXAPARIN 30 MG/0.3 ML SYG SC SCH (09:20)
[2017-03-25] MEDS: METOPROLOL 50 MG TAB PO SCH (09:22)
[2017-03-25] MEDS ORDERED: ALBU8.5H3 INH (10:59)
--- NOTE | 2017-03-25 13:14 | CONS ---
Date/Time of Note Date/Time of Note DATE: 03/25/17 TIME: 13:12 Assessment/Plan Assessment/Plan Chief Complaint/Hosp Course 1. Sepsis , resolving 2. Acute kidney injury on CKD due to sepsis and Prerenal azotemia 3. Elevated troponin due to demand ischemia 4. Essential hypertension 5. Type II DM, uncontrolled 7. Hx COPD 8. Iron deficiency anemia 9. Mild acute rhabdomyolysis: Improved 10. Chronic early onset dementia Problems: Additional Assessment/Plan 1. Optimization kidney function 2. Continue current regime Consultation Date/Type/Reason Admit Date/Time Mar 17, 2017 at 08:56 Initial Consult Date 03/18/17 Type of Consultation: Nephrology Reason for Consultation Dr Huerta Referring Provider: TAL PAYNE 24 HR Interval Summary Constitutional: no complaints Exam/Review of Systems Vital Signs Vitals Vital Signs Date Time Temp Pulse Resp B/P Pulse Ox O2 Delivery O2 Flow Rate FiO2 03/25/17 12:17 89 03/25/17 11:23 98.1 19 114/53 99 03/25/17 10:00 Nasal Cannula 2.0 03/25/17 02:01 21 Intake and Output 03/24/17 03/24/17 03/25/17 15:00 23:00 07:00 Intake Total 400 ml 200 ml Balance 400 ml 200 ml Exam Constitutional: alert Head: normocephalic ENMT: nl external ears & nose Respiratory: clear to auscultation Cardiovascular: regular rate and rhythm Results Result Diagram: 03/25/17 0608 03/25/17 0608 Results 24 hrs Laboratory Tests Test 03/24/17 17:15 03/24/17 20:37 03/25/17 06:08 03/25/17 08:26 Bedside Glucose 236 H 202 208 White Blood Count 9.3 Red Blood Count 2.76 L Hemoglobin 8.6 L Hematocrit 25.7 L Mean Corpuscular Volume 93.1 Mean Corpuscular Hemoglobin 31.2 Mean Corpuscular Hemoglobin Concent 33.5 Red Cell Distribution Width 11.8 Platelet Count 294 Mean Platelet Volume 9.1 Neutrophils % 86.5 H Lymphocytes % 3.6 L Monocytes % 9.5 Eosinophils % 0.0 Basophils % 0.0 Nucleated Red Blood Cells % 0.0 Neutrophils # 8.0 H Lymphocytes # 0.3 L Monocytes # 0.9 Eosinophils # 0.0 Basophils # 0.0 Nucleated Red Blood Cells # 0.0 Sodium Level 137 Potassium Level 3.8 Chloride Level 100 Carbon Dioxide Level 19 L Anion Gap 22 H Blood Urea Nitrogen 75 H Creatinine 2.78 H Glucose Level 228 H Calcium Level 9.0 Test 03/25/17 08:59 03/25/17 11:48 Lab Scanned Report REFERENCE LAB Bedside Glucose 206 Medications Medications Current Medications Ondansetron HCl (Zofran Inj) 4 mg Q6H PRN IV NAUSEA AND/OR VOMITING; Start at 14:00 Aspirin (Aspirin) 81 mg DAILY PO Last administered on 03/25/17 09:17; Admin Dose 81 MG; Start 03/18/17 at 09:00 Acetaminophen (Tylenol Tab) 650 mg Q6H PRN PO PAIN LEVEL 1-3 OR FEVER Last administered on 03/22/17 16:13; Admin Dose 650 MG; Start 03/17/17 at 14:00 Acetaminophen/ Hydrocodone Bitart ([place] (5/325)) 1 tab Q6H PRN PO PAIN LEVEL 4 -6 Last administered on 03/22/17 09:34; Admin Dose 1 TAB; Start 03/17/17 at 14: 00 Magnesium Hydroxide (Milk Of Mag) 30 ml DAILY PRN PO CONSTIPATION; Start at 14:00 Bisacodyl (Dulcolax) 5 mg DAILY PRN PO CONSTIPATION Last administered on 10:34; Admin Dose 5 MG; Start 03/17/17 at 14:00 Famotidine (Pepcid) 20 mg DAILY PO Last administered on 03/25/17 09:19; Admin Dose 20 MG; Start 03/17/17 at 21:00 Cilostazol (Pletal) 50 mg BID PO Last administered on 03/25/17 09:19; Admin Dose 50 MG; Start 03/17/17 at 21:00 Ferrous Sulfate (Ferrous Sulfate (Ec)) 325 mg TID PO Last administered on 13:01; Admin Dose 325 MG; Start 03/17/17 at 21:00 Gabapentin (Neurontin) 100 mg BID PO Last administered on 03/25/17 09:18; Admin Dose 100 MG; Start 03/17/17 at 21:00 Lamotrigine (Lamictal) 25 mg BID PO Last administered on 03/25/17 09:17; Admin Dose 25 MG; Start 03/17/17 at 21:00 Atorvastatin Calcium (Lipitor) 20 mg DAILY@21 PO Last administered on 03/24/17 20:38; Admin Dose 20 MG; Start 03/17/17 at 21:00 Hydralazine HCl (Apresoline) 10 mg Q6H PRN IV SBP>160 Last administered on 16:32; Admin Dose 10 MG; Start 03/17/17 at 14:30 Miscellaneous Information 1 ea NOTE XX ; Start 03/17/17 at 14:30 Glucose (Glutose) 15 gm Q15M PRN PO DECREASED GLUCOSE; Start 03/17/17 at 14:30 Glucose (Glutose) 22.5 gm Q15M PRN PO DECREASED GLUCOSE; Start 03/17/17 at 14: 30 Dextrose (D50w Syringe) 25 ml Q15M PRN IV DECREASED GLUCOSE; Start 03/17/17 at 14:30 Dextrose (D50w Syringe) 50 ml Q15M PRN IV DECREASED GLUCOSE; Start 03/17/17 at 14:30 Glucagon (Glucagen) 1 mg Q15M PRN IM DECREASED GLUCOSE; Start 03/17/17 at 14:30 Glucose (Glutose) 15 gm Q15M PRN BUCCAL DECREASED GLUCOSE; Start 03/17/17 at 14 :30 Metoprolol Tartrate (Lopressor) 50 mg BID PO Last administered on 03/25/17 09: 22; Admin Dose 50 MG; Start 03/18/17 at 21:00 Haloperidol (Haldol) 3 mg Q8H PRN IM agitation Last administered on 03/24/17 00 :16; Admin Dose 3 MG; Start 03/18/17 at 16:30 Amlodipine Besylate (Norvasc) 5 mg BID PO Last administered on 03/24/17 20:40; Admin Dose 5 MG; Start 03/18/17 at 21:00 Enoxaparin Sodium (Lovenox) 30 mg DAILY SC Last administered on 03/25/17 09:20 ; Admin Dose 30 MG; Start 03/23/17 at 09:00 Guaifenesin/ Codeine Phosphate (Robitussin Ac Liquid Cup) 5 ml Q4H PRN PO cough Last administered on 7/2/17at 20:51; Admin Dose 5 ML; Start 03/22/17 at 16: 00 Salmeterol Xinafoate/ Fluticasone (Advair 100/50 Diskus) 1 inh BID INH Last administered on 03/25/17 09:16; Admin Dose 1 INH; Start 03/23/17 at 14:00 Insulin Glargine (Lantus) 12 unit QHS SC Last administered on 03/24/17 20:42; Admin Dose 12 UNIT; Start 03/24/17 at 21:00 ROMULO RIVERA Mar 25, 2017 13:13
--- NOTE | 2017-03-25 13:54 | CONS ---
Date/Time of Note Date/Time of Note DATE: 03/25/17 TIME: 13:53 Assessment/Plan Assessment/Plan Chief Complaint/Hosp Course Subjective: No acute events overnight. Patient is sleeping, looks comfortable Microbiology: Blood culture on admission grew E. coli, urine culture growing E. coli and Proteus mirabilis. Repeat blood cultures negative Antimicrobials:Rocephin Physical examination: This is an obese well-developed elderly woman who is alert in no distress. Head : Atraumatic normocephalic Sclera: Anicteric. PERRLA Neck is supple neck Chest rise symmetrical. Breath sounds diminished to bases. Heart S1-S2 Abdomen soft bowel sounds present, no tenderness on palpation. Extremities without cyanosis bilateral lower extremities trace edema Assessment: 1. S/p sepsis with fevers, tachycardia on admission #2 2. Urinary tract infection with bacteremia 3. Diabetes 4. COPD 5. Obesity 6. Acute kidney injury Plan: Patient remains stable, completing antibiotics, continue present care, follow recommendations of consultants Discussed with staff Problems: Consultation Date/Type/Reason Admit Date/Time Mar 17, 2017 at 08:56 Initial Consult Date 03/18/17 Type of Consultation: Infectious disease Referring Provider: TAL PAYNE Exam/Review of Systems Vital Signs Vitals Vital Signs Date Time Temp Pulse Resp B/P Pulse Ox O2 Delivery O2 Flow Rate FiO2 03/25/17 12:17 89 03/25/17 11:23 98.1 19 114/53 99 03/25/17 10:00 Nasal Cannula 2.0 03/25/17 02:01 21 Intake and Output 03/24/17 03/24/17 03/25/17 15:00 23:00 07:00 Intake Total 400 ml 200 ml Balance 400 ml 200 ml Results Result Diagram: 03/25/17 0608 03/25/17 0608 Results 24 hrs Laboratory Tests Test 03/24/17 17:15 03/24/17 20:37 03/25/17 06:08 03/25/17 08:26 Bedside Glucose 236 H 202 208 White Blood Count 9.3 Red Blood Count 2.76 L Hemoglobin 8.6 L Hematocrit 25.7 L Mean Corpuscular Volume 93.1 Mean Corpuscular Hemoglobin 31.2 Mean Corpuscular Hemoglobin Concent 33.5 Red Cell Distribution Width 11.8 Platelet Count 294 Mean Platelet Volume 9.1 Neutrophils % 86.5 H Lymphocytes % 3.6 L Monocytes % 9.5 Eosinophils % 0.0 Basophils % 0.0 Nucleated Red Blood Cells % 0.0 Neutrophils # 8.0 H Lymphocytes # 0.3 L Monocytes # 0.9 Eosinophils # 0.0 Basophils # 0.0 Nucleated Red Blood Cells # 0.0 Sodium Level 137 Potassium Level 3.8 Chloride Level 100 Carbon Dioxide Level 19 L Anion Gap 22 H Blood Urea Nitrogen 75 H Creatinine 2.78 H Glucose Level 228 H Calcium Level 9.0 Test 03/25/17 08:59 03/25/17 11:48 Lab Scanned Report REFERENCE LAB Bedside Glucose 206 Medications Medications Current Medications Ondansetron HCl (Zofran Inj) 4 mg Q6H PRN IV NAUSEA AND/OR VOMITING; Start at 14:00 Aspirin (Aspirin) 81 mg DAILY PO Last administered on 03/25/17 09:17; Admin Dose 81 MG; Start 03/18/17 at 09:00 Acetaminophen (Tylenol Tab) 650 mg Q6H PRN PO PAIN LEVEL 1-3 OR FEVER Last administered on 03/22/17 16:13; Admin Dose 650 MG; Start 03/17/17 at 14:00 Acetaminophen/ Hydrocodone Bitart ([place] (5/325)) 1 tab Q6H PRN PO PAIN LEVEL 4 -6 Last administered on 03/22/17 09:34; Admin Dose 1 TAB; Start 03/17/17 at 14: 00 Magnesium Hydroxide (Milk Of Mag) 30 ml DAILY PRN PO CONSTIPATION; Start at 14:00 Bisacodyl (Dulcolax) 5 mg DAILY PRN PO CONSTIPATION Last administered on 10:34; Admin Dose 5 MG; Start 03/17/17 at 14:00 Famotidine (Pepcid) 20 mg DAILY PO Last administered on 03/25/17 09:19; Admin Dose 20 MG; Start 03/17/17 at 21:00 Cilostazol (Pletal) 50 mg BID PO Last administered on 03/25/17 09:19; Admin Dose 50 MG; Start 03/17/17 at 21:00 Ferrous Sulfate (Ferrous Sulfate (Ec)) 325 mg TID PO Last administered on 13:01; Admin Dose 325 MG; Start 03/17/17 at 21:00 Gabapentin (Neurontin) 100 mg BID PO Last administered on 03/25/17 09:18; Admin Dose 100 MG; Start 03/17/17 at 21:00 Lamotrigine (Lamictal) 25 mg BID PO Last administered on 03/25/17 09:17; Admin Dose 25 MG; Start 03/17/17 at 21:00 Atorvastatin Calcium (Lipitor) 20 mg DAILY@21 PO Last administered on 03/24/17 20:38; Admin Dose 20 MG; Start 03/17/17 at 21:00 Hydralazine HCl (Apresoline) 10 mg Q6H PRN IV SBP>160 Last administered on 16:32; Admin Dose 10 MG; Start 03/17/17 at 14:30 Miscellaneous Information 1 ea NOTE XX ; Start 03/17/17 at 14:30 Glucose (Glutose) 15 gm Q15M PRN PO DECREASED GLUCOSE; Start 03/17/17 at 14:30 Glucose (Glutose) 22.5 gm Q15M PRN PO DECREASED GLUCOSE; Start 03/17/17 at 14: 30 Dextrose (D50w Syringe) 25 ml Q15M PRN IV DECREASED GLUCOSE; Start 03/17/17 at 14:30 Dextrose (D50w Syringe) 50 ml Q15M PRN IV DECREASED GLUCOSE; Start 03/17/17 at 14:30 Glucagon (Glucagen) 1 mg Q15M PRN IM DECREASED GLUCOSE; Start 03/17/17 at 14:30 Glucose (Glutose) 15 gm Q15M PRN BUCCAL DECREASED GLUCOSE; Start 03/17/17 at 14 :30 Metoprolol Tartrate (Lopressor) 50 mg BID PO Last administered on 03/25/17 09: 22; Admin Dose 50 MG; Start 03/18/17 at 21:00 Haloperidol (Haldol) 3 mg Q8H PRN IM agitation Last administered on 03/24/17 00 :16; Admin Dose 3 MG; Start 03/18/17 at 16:30 Amlodipine Besylate (Norvasc) 5 mg BID PO Last administered on 03/24/17 20:40; Admin Dose 5 MG; Start 03/18/17 at 21:00 Enoxaparin Sodium (Lovenox) 30 mg DAILY SC Last administered on 03/25/17 09:20 ; Admin Dose 30 MG; Start 03/23/17 at 09:00 Guaifenesin/ Codeine Phosphate (Robitussin Ac Liquid Cup) 5 ml Q4H PRN PO cough Last administered on 03/23/17 20:51; Admin Dose 5 ML; Start 03/22/17 at 16: 00 Salmeterol Xinafoate/ Fluticasone (Advair 100/50 Diskus) 1 inh BID INH Last administered on 03/25/17 09:16; Admin Dose 1 INH; Start 03/23/17 at 14:00 Insulin Glargine (Lantus) 12 unit QHS SC Last administered on 03/24/17 20:42; Admin Dose 12 UNIT; Start 03/24/17 at 21:00 YFN SHANKAR NP Mar 25, 2017 13:54
--- NOTE | 2017-03-25 14:53 | DS ---
Date/Time of Note Date/Time of Note DATE: 03/25/17 TIME: 14:45 Discharge Summary Admission/Discharge Info Admit Date/Time Mar 17, 2017 at 08:56 Discharge Date/Time Mar 25, 2017 at 14:38 Discharge Diagnosis 1. Sepsis with bacteremia secondary to E coli bacteremia and urinary tract infection : improving DC with Levaquin p.o. 2. CKD-stable, follow-up with php web developer 3. Elevated troponins without chest pain Cards consult appreciated, medical management 4. Essential hypertension : Stable, continue home meds 5. Chronic peripheral vascular disease 6. Type 2 diabetes mellitus with hemoglobin A1c of 8.0: Continue home regimen 7. COPD with mild exacerbation-stable, DC with albuterol 8. Iron deficiency anemia associated with chronic disease: Patient has been on iron supplementation 9. Mild acute rhabdomyolysis: Improved 10. Confusion secondary to progressive dementia 11. Diffuse tendinosis and bursitis causing shoulder pain: s/p joint injection 03/22/17 Patient Condition: Good Consults Cardiology, nephrology, ID Hospital Course Patient is an 86-year-old female with a history of dementia, CKD, hypertension, diabetes. Patient presents with weakness was found to have sepsis secondary to UTI, organism grew back E. coli, blood cultures also positive for E. coli. Patient was put on antibiotics her sepsis did resolve, of note her troponins were elevated at 1 point the patient was chest pain-free, cardiology did consult on the patient and recognition for medical management. Patient does have CKD was been followed by nephrology. Patient did have some mild COPD exacerbation which improved with breathing treatments. On day of discharge patient's vitals labs and physical exam are stable, she no acute complaints and questions were answered. Home Meds Active Scripts Albuterol Sulfate* (Proair HFA*) 8.5 Gm Hfa.aer.ad, 2 PUFF INH Q4 for SHORTNESS OF BREATH, #1 INHALER Prov:SNOW SOTO 03/25/17 Levofloxacin* (Levofloxacin*) 250 Mg Tablet, 250 MG PO Q48H for 10 Days, TAB Prov:SNOW SOTO 03/24/17 Amlodipine Besylate* (Norvasc*) 5 Mg Tablet, 5 MG PO DAILY for 30 Days, #30 TAB 2 Refills Prov:TAL PAYNE 03/20/17 Oxybutynin Chloride* (Ditropan* XL) 5 Mg Tabsr, 5 MG PO DAILY for 30 Days, TAB.SA Prov:VEL STEPHEN MD 11/21/16 Levalbuterol* (Xopenex* HFA) 15 Gm Inha, 2 PUFFS INH Q4H Y for WHEEZING AND SOB , #1 INHALER Prov:REGRADHA MATHEW 10/26/16 Furosemide* (Furosemide*) 20 Mg Tablet, 20 MG PO QHS, #6030 TAB Prov:REGRADHA MATHEW 10/26/16 Insulin Glargine* (Lantus*) 100 Unit/Ml Soln, 10 UNIT SC QHS for 30 Days Prov:REGIDORRADHA 10/26/16 Sodium Bicarbonate* (Sodium Bicarbonate*) 650 Mg Tablet, 650 MG PO BID for 30 Days, TAB take every other day per nephrology recommendation Prov:REGRADHA MATHEW 10/26/16 Ferrous Sulfate* (Ferrous Sulfate*) 325 Mg Tabec, 325 MG PO TID, #90 TAB Prov:RADHA LOUISE 10/26/16 Metoprolol Succinate* (Toprol XL*) 50 Mg Tab.er.24h, 50 MG PO BID for 30 Days, TAB Prov:REGIDORMASOUDRADHA 10/26/16 Reported Medications Pantoprazole* (Pantoprazole*) 40 Mg Tablet.dr, 40 MG PO DAILY, TAB 10/24/16 Lamotrigine* (Lamotrigine*) 25 Mg Tablet, 25 MG PO BID, TAB 10/24/16 Aspirin* (Aspirin* Chew) 81 Mg Tab.chew, 81 MG PO DAILY, TAB.CHEW 10/24/16 Cilostazol* (Cilostazol*) 50 Mg Tablet, 50 MG PO BID, TAB 06/26/16 Gabapentin* (Gabapentin*) 100 Mg Capsule, 100 MG PO BID, CAP 05/22/14 Simvastatin (Simvastatin) 40 Mg Tablet, 40 MG PO HS, TAB 05/22/14 Discontinued Scripts Levofloxacin* (Levaquin*) 250 Mg Tablet, 250 MG PO DAILY for 5 Days, TAB Prov:VEL STEPHEN MD 11/21/16 Follow-up Plan Follow-up with your PCP and php web developer in 1-2 weeks Primary Care Provider Lamont Romero MD Time spent on discharge: > 30 minutes SNOW SOTO 4, 2017 14:53
== END 2017-03-25 14:38 | disposition home health service (06) | DRG 871 ==
LOC: E/R 06:32 → MS4 08:56
PROVIDERS: ADMIT Family Medicine; ATTEND Family Medicine
DX: A41.51 Sepsis due to Escherichia coli [E. coli] (principal); G93.40 Encephalopathy, unspecified; N17.9 Acute kidney failure, unspecified; J44.1 Chronic obstructive pulmonary disease with (acute) exacerbation; N39.0 Urinary tract infection, site not specified; M62.82 Rhabdomyolysis; E11.51 Type 2 diabetes mellitus with diabetic peripheral angiopathy without gangrene; E11.22 Type 2 diabetes mellitus with diabetic chronic kidney disease; I12.9 Hypertensive chronic kidney disease with stage 1 through stage 4 chronic kidney disease, or unspecified chronic kidney disease; N18.9 Chronic kidney disease, unspecified; E78.5 Hyperlipidemia, unspecified; D63.8 Anemia in other chronic diseases classified elsewhere; D50.9 Iron deficiency anemia, unspecified; F03.90 Unspecified dementia, unspecified severity, without behavioral disturbance, psychotic disturbance, mood disturbance, and anxiety; M75.31 Calcific tendinitis of right shoulder; M75.51 Bursitis of right shoulder; R74.8 Abnormal levels of other serum enzymes; Z79.4 Long term (current) use of insulin; Z79.82 Long term (current) use of aspirin
CPT/HCPCS: 36415; 70551; 71010; 73221; 76775; 80048; 80053; 80061; 81001; 81003; 82306; 82550; 82553; 82570; 82652; 82962; 83036; 83605; 83690; 83735; 84100; 84300; 84436; 84439; 84443; 84479; 84481; 84484; 84560; 85025; 85610; 85730; 86592; 87040; 87086; 89190; 93005; 94640; 94664; 96372; 96374; 96375; 97110; 97116; 97162; 97530; J0360; J0692; J0696; J0702; J1630; J1650; J1815; J1956; J2543; J2920; J7030

== ENCOUNTER 2019-03-20 08:01 | Inpatient (IN) | payer OTHER ==
[~2019-03-20] VITALS: Ht 167.6 cm; Wt 74.9 kg
[~2019-03-20 08:01] MED LIST changes: +ALBU8.5H8 INH; +ASPI-903 PO; -ASPI81TA3 PO; -LAMO25TA PO; +LAMO25TA8 PO; -LEVO250T35 PO; +LEVO250T9 PO; +METO-319 PO; -METO50TA16 PO; +SIMV40TA3 PO; -SMV40T PO
[2019-03-20] MEDS ORDERED: SODIUM CHLORIDE 0.9% 1L BAG IV* STA (08:37)
[2019-03-20] MEDS ORDERED: ALBUTEROL 0.083% (NEB) 2.5 MG/3 ML AMP HHN STA (08:37)
[2019-03-20] MEDS ORDERED: METO-319 PO (10:50)
[2019-03-20] MEDS ORDERED: AMLO5TAB4 PO (10:50)
[2019-03-20] MEDS ORDERED: ATOR20TA38 PO (10:51)
[2019-03-20] MEDS ORDERED: CILO50TA PO (10:52)
[2019-03-20] MEDS ORDERED: GABA100C14 PO (10:52)
[2019-03-20] MEDS ORDERED: IPRA4AER INHALATION (10:53)
[2019-03-20] MEDS ORDERED: LANT3I SC (10:53)
[2019-03-20] MEDS ORDERED: FER325 PO (10:54)
[2019-03-20] MEDS ORDERED: FURO20TA3 PO (10:54)
[2019-03-20] MEDS ORDERED: PANT40TA4 PO (10:55)
[2019-03-20] MEDS ORDERED: FOLI-49 PO (10:55)
[2019-03-20] MEDS ORDERED: ASPI-817 PO (10:58)
[2019-03-20] MEDS ORDERED: OXYB5TAB7 PO (11:08)
[2019-03-20] MEDS ORDERED: GUAI-637 PO (11:09)
[2019-03-20] MEDS ORDERED: MULT1TAB6 PO (11:11)
[2019-03-20] MEDS ORDERED: CEFTRIAXONE 1 GM/50 ML (PMX) 50 ML IVPB ONE (11:30)
[2019-03-20] MEDS ORDERED: ONDANSETRON 4 MG INJ IV PRN (12:00)
[2019-03-20] MEDS ORDERED: ACETAMINOPHEN 325 MG TAB PO PRN (12:00)
[2019-03-20 13:38] VITALS: Ht 167.6 cm; Wt 74.9 kg
[2019-03-20 14:00] VITALS: BP 181/76; PULSE 100; RESP 17
--- NOTE | 2019-03-20 15:56 | HP ---
Date/Time of Note Date/Time of Note DATE: 03/20/19 TIME: 15:48 Assessment/Plan VTE Prophylaxis SCD applied (from Nsg): Yes Pharmacological prophylaxis: heparin Lines/Catheters IV Catheter Type (from Nrsg): Peripheral IV Assessment/Plan Hospital Course 88 yo female with h/o CKD III, hypertension, DMII who presents with LRTI - Breathing is stable, not hypoxic - Will continue IV ceftriaxone and likely convert to PO abx tomorrow Hyponatremia: - Check urine Na and osms - IV fluids given - Trend sodium CKD III: - Stable DMII: - basal/bolus insulin Hypertension: - Hold home meds for now Result Diagram: 03/20/19 0848 03/20/19 0848 Results 24hrs Laboratory Tests Test 03/20/19 08:48 03/20/19 09:58 03/20/19 10:39 White Blood Count 10.6 Red Blood Count 3.34 #L Hemoglobin 10.2 L Hematocrit 28.8 L Mean Corpuscular Volume 86.2 Mean Corpuscular Hemoglobin 30.5 Mean Corpuscular 35.4 Hemoglobin Concent Red Cell Distribution Width 11.0 L Platelet Count 236 Mean Platelet Volume 9.0 Immature Granulocytes % 0.400 Neutrophils % 70.6 Lymphocytes % 11.9 L Monocytes % 13.9 H Eosinophils % 2.7 Basophils % 0.5 Nucleated Red Blood Cells % 0.0 Immature Granulocytes # 0.040 H Neutrophils # 7.5 Lymphocytes # 1.3 Monocytes # 1.5 H Eosinophils # 0.3 Basophils # 0.1 Nucleated Red Blood Cells # 0.0 Prothrombin Time 13.7 Prothrombin Time Ratio 1.1 INR International 1.04 Normalized Ratio Activated Partial Thromboplast 37.2 H Time Sodium Level 128 L Potassium Level 4.6 Chloride Level 92 L Carbon Dioxide Level 27 Anion Gap 9 Blood Urea Nitrogen 24 H Creatinine 1.68 H Est Glomerular Filtrat Rate mL/min Glucose Level 138 POC Venous Lactate 1.0 Calcium Level 9.0 Total Bilirubin 0.7 Direct Bilirubin 0.00 Indirect Bilirubin 0.7 Aspartate Amino 38 Transf (AST/SGOT) Alanine 26 Aminotransferase (ALT/SGPT) Alkaline Phosphatase 92 Troponin I 0.016 Total Protein 8.1 Albumin 4.1 Globulin 4.00 H Albumin/Globulin Ratio 1.02 Urine Color YELLOW Urine Clarity SLIGHTLY CLOUDY A Urine pH 7.0 Urine Specific Mcintosh 1.006 Urine Ketones TRACE A Urine Nitrite NEGATIVE Urine Bilirubin NEGATIVE Urine Urobilinogen NEGATIVE Urine Leukocyte Esterase 3+ H Urine Microscopic RBC 3 Urine Microscopic WBC 58 H Urine Bacteria FEW A Urine Hemoglobin 2+ H Urine Glucose 1+ H Urine Total Protein 2+ H Lactic Acid Level 1.2 HPI/ROS Admit Date/Time Admit Date/Time Mar 20, 2019 at 11:52 Hx of Present Illness 88 yo female wiht DMII, CKD II who presents with cough and SOB Patient is generally in a good state of health for her age. Independent without major limiting health issues. Over past few days has developed Cough with subjective shortness of breath. Some phlegm. Brought to ED where started on ceftriaxone She feels a bit better after this ROS Constitutional: no complaints, improved Eyes: no complaints ENT: no complaints Respiratory: no complaints Cardiovascular: no complaints Gastrointestinal: no complaints Genitourinary: no complaints Musculoskeletal: no complaints Skin: no complaints Neurologic: no complaints Endocrine: no complaints Lymphatic: no complaints Psychological: no complaints, nl mood/affect Immunologic: no complaints PMH/Family/Social Past Medical History Medical History: diabetes, renal disease Medications Current Medications Ondansetron HCl (Zofran Inj) 4 mg BRIDGE ORDER PRN IV NAUSEA/VOMITING; Start 03/20/19 at 12:00; Stop 03/21/19 at 11:59 Acetaminophen (Tylenol Tab) 650 mg ER BRIDGE PRN PO .MILD PAIN 1-3 OR TEMP; Start 03/20/19 at 12:00; Stop 03/21/19 at 11:59 Coded Allergies: No Known Drug Allergies (Verified Allergy, Unknown, 03/20/19) Past Surgical History Past Surgical Hx: no surgical history Family History Significant Family History: no pertinent family hx Social History Alcohol Use: none Smoking Status: Never smoker Drug Use: none Exam/Review of Systems Vital Signs Vitals Vital Signs Date Temp Pulse Resp B/P (MAP) Pulse Ox O2 O2 Flow FiO2 Time Delivery Rate 03/20/19 99.2 100 17 181/76 96 Room Air 14:00 (111) Exam Constitutional: alert, oriented, well developed Psych: no complaints, nl mood/affect Head: normocephalic, atraumatic Eyes: nl conjunctiva, EOMI, nl lids, nl sclera, PERRL ENMT: nl external ears & nose, nl lips & teeth, nl nasal mucosa & septum Neck: supple, non-tender Respiratory: clear to auscultation, normal air movement Cardiovascular: regular rate and rhythm, nl pulses Gastrointestinal: soft, nl liver, spleen, non-tender Musculoskeletal: nl extremities to inspection Extremities: normal pulses Neurological: SET UP INSPECTOR II-XII intact, nl mental status, nl speech, nl strength Skin: nl turgor; No rash or lesions Lymph: nl lymph nodes SMITA CORREIA MD Mar 20, 2019 15:56
[2019-03-20] MEDS ORDERED: GLUCOSE GEL 15 GRAM TUBE BUCCAL PRN (16:00)
[2019-03-20] MEDS ORDERED: NACL 0.9% 3 ML SYG IV SCH (16:00)
[2019-03-20] MEDS ORDERED: DEXTROSE 50% 50 ML SYRINGE IV PRN ×2 (16:00)
[2019-03-20] MEDS ORDERED: GLUCOSE GEL 15 GRAM TUBE PO PRN ×2 (16:00)
[2019-03-20] MEDS ORDERED: GLUCAGON 1 MG INJ IM PRN (16:00)
[2019-03-20] MEDS ORDERED: HYDROCODONE/APAP (5/325) TAB PO PRN (16:00)
[2019-03-20] MEDS: INSULIN ASPART [NOVOLOG] 3 ML PEN SC SCH ×2 (18:05→20:22)
[2019-03-20 20:00] VITALS: BP 147/67; PULSE 115; RESP 18
[2019-03-20] MEDS: INSULIN GLARGINE [LANTus] (100 UNITS/ML) SYG SC SCH (20:19)
[2019-03-20] MEDS: HEPARIN 5,000 UNIT/1 ML VIAL SC SCH (20:22)
[2019-03-21] MEDS ORDERED: LORAZEPAM 2 MG INJ IV ONE (01:00)
[2019-03-21 02:00] VITALS: BP 117/53; PULSE 114; RESP 20
[2019-03-21] MEDS: ACCUCHECK AT 2AM (Patients on SS coverage) XX SCH (02:00)
[2019-03-21] MEDS: ALBUTEROL 0.083% (NEB) 2.5 MG/3 ML AMP HHN PRN ×2 (06:15→11:35)
[2019-03-21 08:14] VITALS: BP 172/80; PULSE 111; RESP 18
[2019-03-21] MEDS: INSULIN ASPART [NOVOLOG] 3 ML PEN SC SCH ×4 (08:21→20:21)
[2019-03-21] MEDS: HEPARIN 5,000 UNIT/1 ML VIAL SC SCH ×3 (09:00→20:22)
[2019-03-21] MEDS: CEFTRIAXONE 1 GM/50 ML (PMX) 50 ML IVPB SCH (09:45)
[2019-03-21 10:00] VITALS: BP 139/61; PULSE 96; RESP 16
[2019-03-21] MEDS ORDERED: FUROSEMIDE 20 MG TAB PO SCH (10:00)
[2019-03-21] MEDS: AMLODIPINE 5 MG TAB PO SCH (10:42)
[2019-03-21] MEDS: METOPROLOL (XL) 50 MG TAB PO SCH (10:42)
[2019-03-21] MEDS: ASPIRIN (EC) 81 MG TAB PO SCH (10:42)
[2019-03-21] MEDS: CILOSTAZOL 100 MG TAB PO SCH ×2 (10:42→20:19)
--- NOTE | 2019-03-21 10:45 | PN ---
Date/Time of Note Date/Time of Note DATE: 03/21/19 TIME: 10:42 Assessment/Plan VTE Prophylaxis Risk score (from Ns)>0 risk: 4 SCD applied (from Nsg): Yes Pharmacological prophylaxis: heparin Lines/Catheters IV Catheter Type (from Nrs): Saline Lock Assessment/Plan Hospital Course AOx3 Lungs with diffuse expiratory wheezing, prolonged expiratory phase RRR Mild JVD Soft nt nd No peripehral edema 88 yo female with h/o CKD III, hypertension, DMII who presents with LRTI and COPD exacerbation LRTI and COPD exacerbation: - Worsening respiratory status today with diffuse expiratory wheezing. Will add IV steroids and standing bronchodilators - Continue ceftriaxone and azithromycin for CAP Hyponatremia: - Check urine Na and osms (not yet collected_ - IV fluids given - Trend sodium CKD III: - Stable - Dr Huerta is exercise science internship. I have notified him to patient's admission - Continue lasix 20 DMII: - basal/bolus insulin Hypertension: - Continue home meds Result Diagram: 03/21/19 0556 03/21/19 0556 Results 24hrs Laboratory Tests Test 03/20/19 14:32 03/20/19 18:11 03/20/19 20:14 03/21/19 02:03 Lactic Acid Level 1.8 Bedside Glucose 192 216 160 Test 03/21/19 05:56 03/21/19 08:19 White Blood Count 11.1 H Red Blood Count 2.98 L Hemoglobin 9.3 L Hematocrit 26.1 L Mean Corpuscular 87.6 Volume Mean Corpuscular 31.2 Hemoglobin Mean Corpuscular 35.6 Hemoglobin Concent Red Cell 11.2 L Distribution Width Platelet Count 232 Mean Platelet Volume 9.0 Immature 0.500 H Granulocytes % Neutrophils % 73.6 Lymphocytes % 10.5 L Monocytes % 14.8 H Eosinophils % 0.3 Basophils % 0.3 Nucleated Red Blood 0.0 Cells % Immature 0.060 H Granulocytes # Neutrophils # 8.2 H Lymphocytes # 1.2 Monocytes # 1.6 H Eosinophils # 0.0 Basophils # 0.0 Nucleated Red Blood 0.0 Cells # Sodium Level 133 L Potassium Level 3.9 Chloride Level 97 Carbon Dioxide Level 24 Anion Gap 12 Blood Urea Nitrogen 20 Creatinine 1.49 H Est Glomerular Filtrat Rate mL/min Glucose Level 148 Hemoglobin A1c 6.4 H Calcium Level 8.7 Total Bilirubin 0.6 Direct Bilirubin 0.00 Indirect Bilirubin 0.6 Aspartate Amino 35 Transf (AST/SGOT) Alanine 19 Aminotransferase (AL T/SGPT) Alkaline Phosphatase 89 Total Protein 7.0 # Albumin 3.7 Globulin 3.30 H Albumin/Globulin 1.12 Ratio Bedside Glucose 154 Subjective 24 Hr Interval Summary Free Text/Dictation Breathing worse since yesterday More wheezing Exam/Review of Systems Exam Vitals Vital Signs Date Temp Pulse Resp B/P (MAP) Pulse Ox O2 O2 Flow FiO2 Time Delivery Rate 03/21/19 98.9 111 18 172/80 98 08:14 (110) 03/21/19 2.0 06:31 03/21/19 21 06:19 03/21/19 Room Air 02:00 Intake and Output 03/20/19 03/20/19 03/21/19 1515:00 23:00 07:00 IntakeIntake Total 200 ml BalanceBalance 200 ml Results Results 24hrs Laboratory Tests Test 03/20/19 14:32 03/20/19 18:11 03/20/19 20:14 03/21/19 02:03 Lactic Acid Level 1.8 Bedside Glucose 192 216 160 Test 03/21/19 05:56 03/21/19 08:19 White Blood Count 11.1 H Red Blood Count 2.98 L Hemoglobin 9.3 L Hematocrit 26.1 L Mean Corpuscular 87.6 Volume Mean Corpuscular 31.2 Hemoglobin Mean Corpuscular 35.6 Hemoglobin Concent Red Cell 11.2 L Distribution Width Platelet Count 232 Mean Platelet Volume 9.0 Immature 0.500 H Granulocytes % Neutrophils % 73.6 Lymphocytes % 10.5 L Monocytes % 14.8 H Eosinophils % 0.3 Basophils % 0.3 Nucleated Red Blood 0.0 Cells % Immature 0.060 H Granulocytes # Neutrophils # 8.2 H Lymphocytes # 1.2 Monocytes # 1.6 H Eosinophils # 0.0 Basophils # 0.0 Nucleated Red Blood 0.0 Cells # Sodium Level 133 L Potassium Level 3.9 Chloride Level 97 Carbon Dioxide Level 24 Anion Gap 12 Blood Urea Nitrogen 20 Creatinine 1.49 H Est Glomerular Filtrat Rate mL/min Glucose Level 148 Hemoglobin A1c 6.4 H Calcium Level 8.7 Total Bilirubin 0.6 Direct Bilirubin 0.00 Indirect Bilirubin 0.6 Aspartate Amino 35 Transf (AST/SGOT) Alanine 19 Aminotransferase (AL T/SGPT) Alkaline Phosphatase 89 Total Protein 7.0 # Albumin 3.7 Globulin 3.30 H Albumin/Globulin 1.12 Ratio Bedside Glucose 154 Medications Medication Current Medications Ceftriaxone Sodium 50 ml @ 100 mls/hr Q24H IVPB Last administered on 03/21/19at 09:45; Admin Dose 100 MLS/HR; Start 03/21/19 at 09:00 Albuterol (Proventil 0.083% (Neb)) 1.25 mg Q2H RESP THERAPY PRN HHN SHORTNESS OF BREATH Last administered on 03/21/19at 06:15; Admin Dose 1.25 MG; Start 03/20/19 at 16:00 IV Flush (NS 3 ml) 3 ml PER PROTOCOL IV ; Start 03/20/19 at 16:00 Acetaminophen/ Hydrocodone Bitart ([place] (5/325)) 1 tab Q6H PRN PO .MOD PAIN 4- 6; Start 03/20/19 at 16:00 Heparin Sodium (Porcine) (Heparin (5000 Units/1ml)) 5,000 unit Q12 SC Last administered on 03/20/19at 20:22; Admin Dose 5,000 UNIT; Start 03/20/19 at 21:00 Insulin Glargine (Lantus) 11 units DAILY@2000 SC Last administered on 03/20/19at 20:19; Admin Dose 11 UNITS; Start 03/20/19 at 20:00 Insulin Aspart (Novolog Insulin Pen) NOVOLOG *MILD* ALGORITHM WITH MEALS BEDTIME SC Last administered on 03/21/19at 08:21; Admin Dose 1 UNIT; Start 03/20/19 at 18:05 Miscellaneous Information 1 ea NOTE XX ; Start 03/20/19 at 16:00 Glucose (Glutose) 15 gm Q15M PRN PO DECREASED GLUCOSE; Start 03/20/19 at 16:00 Glucose (Glutose) 22.5 gm Q15M PRN PO DECREASED GLUCOSE; Start 03/20/19 at 16:00 Dextrose (D50w Syringe) 25 ml Q15M PRN IV DECREASED GLUCOSE; Start 03/20/19 at 16:00 Dextrose (D50w Syringe) 50 ml Q15M PRN IV DECREASED GLUCOSE; Start 03/20/19 at 16:00 Glucagon (Glucagen) 1 mg Q15M PRN IM DECREASED GLUCOSE; Start 03/20/19 at 16:00 Glucose (Glutose) 15 gm Q15M PRN BUCCAL DECREASED GLUCOSE; Start 03/20/19 at 16:00 Diagnostic Test (Pha) (Accu-Chek) 1 ea 02 XX ; Start 03/21/19 at 02:00 Amlodipine Besylate (Norvasc) 5 mg DAILY PO ; Start 03/21/19 at 10:00 Aspirin (Halfprin) 81 mg DAILY PO ; Start 03/21/19 at 10:00 Atorvastatin Calcium (Lipitor) 20 mg QHS PO ; Start 03/21/19 at 21:00 Cilostazol (Pletal) 50 mg BID PO ; Start 03/21/19 at 10:00 Furosemide (Lasix) 20 mg DAILY PO ; Start 03/21/19 at 10:00 Metoprolol Succinate (Toprol Xl) 50 mg DAILY PO ; Start 03/21/19 at 10:00 SMITA CORREIA MD Mar 21, 2019 10:45
[2019-03-21] MEDS ORDERED: FUROSEMIDE 20 MG INJ IV ONE (11:00)
[2019-03-21] MEDS: AZITHROMYCIN 250 MG TAB PO SCH (11:48)
[2019-03-21] MEDS: METHYLPREDNISOLONE 40 MG INJ IV SCH ×3 (11:48→22:01)
--- NOTE | 2019-03-21 13:25 | CONS ---
Assessment/Plan Assessment/Plan Hospital Course (Demo Recall) 1. Hyponatremia, improved from 128 to 133 2. Acute kidney injury on CKD due to SIRS. Pt has UTI, christina negative rods 3. CKD stage 2 4. Proteinuria. Nephrotic syndrome 5. Type II DM, controlled 7. Hx COPD 8. Normocytic normochromic anemia, more likely chronic disease 9. Dementia 10. Essential hypertension 11. Asthma 12. Urine incontinence Assessment/Plan (Daily) -urine studies -straight cath once -better hypertension control, start on DES/ARBs -optimization kidney function -avoid nephrotoxic drugs -f/up with nephrology specialist outpatient Consultation Date/Type/Reason Admit Date/Time Mar 20, 2019 at 11:52 Initial Consult Date 03/21/2019 Type of Consult nephrology Reason for Consultation CKD Date/Time of Note DATE: 03/21/19 TIME: 13:16 Exam/Review of Systems Exam Vitals Vital Signs Date Temp Pulse Resp B/P (MAP) Pulse Ox O2 O2 Flow FiO2 Time Delivery Rate 03/21/19 2.0 13:05 03/21/19 103 24 96 21 11:35 03/21/19 139/61 Nasal 10:00 (87) Cannula 03/21/19 98.9 08:14 Intake and Output 03/20/19 03/20/19 03/21/19 1515:00 23:00 07:00 IntakeIntake Total 200 ml BalanceBalance 200 ml Constitutional: alert, oriented Cardiovascular: regular rate and rhythm Gastrointestinal: soft Genitourinary - Female: CVA tenderness; No nl adnexae, No nl external genitalia, No CMT, No uterus, No other Results Result Diagram: 03/21/19 0556 03/21/19 0556 Results 24hrs Laboratory Tests Test 03/20/19 14:32 03/20/19 18:11 03/20/19 20:14 03/21/19 02:03 Lactic Acid Level 1.8 Bedside Glucose 192 216 160 Test 03/21/19 05:56 03/21/19 08:19 03/21/19 12:28 White Blood Count 11.1 H Red Blood Count 2.98 L Hemoglobin 9.3 L Hematocrit 26.1 L Mean Corpuscular 87.6 Volume Mean Corpuscular 31.2 Hemoglobin Mean Corpuscular 35.6 Hemoglobin Concent Red Cell 11.2 L Distribution Width Platelet Count 232 Mean Platelet Volume 9.0 Immature 0.500 H Granulocytes % Neutrophils % 73.6 Lymphocytes % 10.5 L Monocytes % 14.8 H Eosinophils % 0.3 Basophils % 0.3 Nucleated Red Blood 0.0 Cells % Immature 0.060 H Granulocytes # Neutrophils # 8.2 H Lymphocytes # 1.2 Monocytes # 1.6 H Eosinophils # 0.0 Basophils # 0.0 Nucleated Red Blood 0.0 Cells # Sodium Level 133 L Potassium Level 3.9 Chloride Level 97 Carbon Dioxide Level 24 Anion Gap 12 Blood Urea Nitrogen 20 Creatinine 1.49 H Est Glomerular Filtrat Rate mL/min Glucose Level 148 Hemoglobin A1c 6.4 H Calcium Level 8.7 Total Bilirubin 0.6 Direct Bilirubin 0.00 Indirect Bilirubin 0.6 Aspartate Amino 35 Transf (AST/SGOT) Alanine 19 Aminotransferase (AL T/SGPT) Alkaline Phosphatase 89 Total Protein 7.0 # Albumin 3.7 Globulin 3.30 H Albumin/Globulin 1.12 Ratio Bedside Glucose 154 140 Medications Medication Current Medications Ceftriaxone Sodium 50 ml @ 100 mls/hr Q24H IVPB Last administered on 03/21/19at 09:45; Admin Dose 100 MLS/HR; Start 03/21/19 at 09:00 Albuterol (Proventil 0.083% (Neb)) 1.25 mg Q2H RESP THERAPY PRN HHN SHORTNESS OF BREATH Last administered on 03/21/19at 11:35; Admin Dose 1.25 MG; Start 03/20/19 at 16:00 IV Flush (NS 3 ml) 3 ml PER PROTOCOL IV ; Start 03/20/19 at 16:00 Acetaminophen/ Hydrocodone Bitart ([place] (5/325)) 1 tab Q6H PRN PO .MOD PAIN 4- 6; Start 03/20/19 at 16:00 Heparin Sodium (Porcine) (Heparin (5000 Units/1ml)) 5,000 unit Q12 SC Last administered on 03/20/19at 20:22; Admin Dose 5,000 UNIT; Start 03/20/19 at 21:00 Insulin Glargine (Lantus) 11 units DAILY@2000 SC Last administered on 03/20/19at 20:19; Admin Dose 11 UNITS; Start 03/20/19 at 20:00 Insulin Aspart (Novolog Insulin Pen) NOVOLOG *MILD* ALGORITHM WITH MEALS BEDTIME SC Last administered on 03/21/19at 08:21; Admin Dose 1 UNIT; Start 03/20/19 at 18:05 Miscellaneous Information 1 ea NOTE XX ; Start 03/20/19 at 16:00 Glucose (Glutose) 15 gm Q15M PRN PO DECREASED GLUCOSE; Start 03/20/19 at 16:00 Glucose (Glutose) 22.5 gm Q15M PRN PO DECREASED GLUCOSE; Start 03/20/19 at 16:00 Dextrose (D50w Syringe) 25 ml Q15M PRN IV DECREASED GLUCOSE; Start 03/20/19 at 16:00 Dextrose (D50w Syringe) 50 ml Q15M PRN IV DECREASED GLUCOSE; Start 03/20/19 at 16:00 Glucagon (Glucagen) 1 mg Q15M PRN IM DECREASED GLUCOSE; Start 03/20/19 at 16:00 Glucose (Glutose) 15 gm Q15M PRN BUCCAL DECREASED GLUCOSE; Start 03/20/19 at 16:00 Diagnostic Test (Pha) (Accu-Chek) 1 ea 02 XX ; Start 03/21/19 at 02:00 Amlodipine Besylate (Norvasc) 5 mg DAILY PO Last administered on 03/21/19at 10:42; Admin Dose 5 MG; Start 03/21/19 at 10:00 Aspirin (Halfprin) 81 mg DAILY PO Last administered on 03/21/19at 10:42; Admin Dose 81 MG; Start 03/21/19 at 10:00 Atorvastatin Calcium (Lipitor) 20 mg QHS PO ; Start 03/21/19 at 21:00 Cilostazol (Pletal) 50 mg BID PO Last administered on 03/21/19at 10:42; Admin Dose 50 MG; Start 03/21/19 at 10:00 Furosemide (Lasix) 20 mg DAILY PO Last administered on 03/21/19 10:42; Admin Dose 20 MG; Start 03/21/19 at 10:00 Metoprolol Succinate (Toprol Xl) 50 mg DAILY PO Last administered on 03/21/19 10:42; Admin Dose 50 MG; Start 03/21/19 at 10:00 Methylprednisolone Sodium Succinate (Solu-Medrol) 20 mg Q8 IV Last administered on 03/21/19at 11:48; Admin Dose 20 MG; Start 03/21/19 at 11:00 Azithromycin (Zithromax) 250 mg DAILY PO Last administered on 03/21/19at 11:48; Admin Dose 250 MG; Start 03/21/19 at 11:00 Albuterol/ Ipratropium (Duoneb) 3 ml Q4H RESP THERAPY [facility] ; Start 03/21/19 at 13:00 ROMULO RIVERA Mar 21, 2019 13:25
[2019-03-21] MEDS: ALBUTEROL/IPRATROPIUM (NEB) 3 ML AMP HHN SCH ×3 (14:02→20:27)
[2019-03-21 14:35] VITALS: BP 111/59; PULSE 81; RESP 18
[2019-03-21] MEDS ORDERED: FUROSEMIDE 40 MG INJ IV ONE (15:30)
[2019-03-21] MEDS ORDERED: METHYLPREDNISOLONE 40 MG INJ IV ONE (15:30)
--- NOTE | 2019-03-21 17:34 | CONS ---
DATE OF ADMISSION: 03/20/2019 DATE OF CONSULTATION: TYPE OF CONSULTATION: Renal. REASON FOR ADMISSION: Chest pain and shortness of breath. HISTORY OF PRESENT ILLNESS: This is an 88-year-old female with a past medical history of CKD stage I II, history of hypertension, hyperlipidemia, type 2 diabetes, iron-deficiency anemia, dementia, histo ry of COPD, presented to the emergency department after being brought by the daughter secondary to co ugh and shortness of breath and increased weakness for the past 1 week. According to the patient, sylvester took her to primary care doctor. However, the patient's condition did not get better and was told to come to the ER for further evaluation. She was also having some phlegm. On admission, vital sig ns were temperature 99.2, pulse 100, respirations 17, initial blood pressure 181/76, and the initial lab had shown a white count of 10.6, hemoglobin 10.6, platelet count 236, creatinine of 1.6, sodium of 128, troponin of 0.016. UA showed 58 wbc's, a few bacteria, 2+ protein. The patient received Merlin ephin, Zofran, acetaminophen, albuterol, and was admitted for further management. PAST MEDICAL HISTORY: 1. Hypertension. 2. Hyperlipidemia. 3. Chronic kidney disease stage III. 4. Chronic obstructive pulmonary disease. 5. Diabetes. 6. Bilateral knee replacements. 7. Peripheral vascular disease. 8. History of urinary incontinence. ALLERGIES: NONE. PAST SURGICAL HISTORY: Bilateral knee replacements. MEDICATIONS: Taking at home: 1. Albuterol. 2. ____ 3. Iron sulfate. 4. Norvasc 5. 5. Atorvastatin 20. 6. Metoprolol 50. 7. Aspirin 81. 8. Gabapentin 100 t.i.d. 9. Lasix 20. 10. Guaifenesin. 11. Pantoprazole. 12. Lantus 12. 13. Oxybutynin 14. Folic acid. SOCIAL HISTORY: No history of smoking, alcohol or any drug use. Currently lives at home with her charli rivera. FAMILY HISTORY: Noncontributory. REVIEW OF SYSTEMS: The patient complained of some cough, chest pain, shortness of breath for the pas t few days, also has some burning sensation when she urinates. Denied any fevers and chills. Denied any abdominal pain, nausea, vomiting, diarrhea. Denied any hematemesis, any melena, any bright red blood per rectum. PHYSICAL EXAMINATION: VITAL SIGNS: Temperature 111/59, initial temperature was 99.8, respiratory rate 18, saturating 95%. GENERAL: The patient is awake, alert, oriented, appears to be in mild respiratory distress. HEENT: Pupils equal, round, reactive to light. NECK: Supple. JVD appreciated. LUNGS: Diffuse rhonchi bilaterally. ABDOMEN: Soft, nontender, nondistended. Positive bowel sounds. EXTREMITIES: There is 1+ edema. NEUROLOGIC: The patient awake, alert, oriented, following all commands. Patient has well-healed david gical scars on the bilateral knees. DIAGNOSTIC DATA: Shows sodium of currently 133, potassium is 3.9, chloride 97, bicarbonate 24, BUN o f 20, creatinine 1.49. White count of 10.6, hemoglobin 10.2, platelet count 236. UA positive for UT I. Chest x-ray shows old granulomatous disease, stable fibrotic scarring lung bases. ASSESSMENT AND PLAN: This is an 88-year-old female who presented with: 1. Shortness of breath, cough; however, initial chest x-ray was negative for pneumonia. Could be se condary to chronic obstructive pulmonary disease/congestive heart failure. 2. Hyponatremia, rule out syndrome of inappropriate antidiuretic hormone. 3. Chronic kidney disease stage III, stable. 4. Diabetes. 5. Hypertension. 6. Hyperlipidemia. 7. Hypoxia, likely secondary to #1. 8. Hyperlipidemia. 9. Chronic obstructive pulmonary disease. 10. History of dementia. PLAN: At this period of time, the patient is admitted to med/surg. We will give the patient an extr a dose of Solu-Medrol, and IV Lasix. Will also get an ABG. The patient is on IV antibiotics, Roceph in and azithromycin and nebs. We will repeat a chest x-ray tomorrow. I spoke to the daughter at bed side. We will check for urine osm and serum osmolality; however, the patient has already received La six. The results could be altered. Rest of the treatment will depend on the patient's hospitalizati on course. Dictated By: PEPE DIANE/NIC Conf#: [id number] DID#: [id number] CC: SMITA CORREIA MD;*EndCC*
[2019-03-21 20:00] VITALS: BP 133/60; PULSE 87
[2019-03-21] MEDS: ATORVASTATIN 20 MG TAB PO SCH (20:19)
[2019-03-21] MEDS: INSULIN GLARGINE [LANTus] (100 UNITS/ML) SYG SC SCH (20:22)
[2019-03-22] MEDS: ALBUTEROL/IPRATROPIUM (NEB) 3 ML AMP HHN SCH ×6 (00:14→20:30)
[2019-03-22 02:00] VITALS: BP 165/70; PULSE 111
[2019-03-22] MEDS: ACCUCHECK AT 2AM (Patients on SS coverage) XX SCH (02:00)
[2019-03-22 02:56] VITALS: PULSE 101
[2019-03-22] MEDS: METHYLPREDNISOLONE 40 MG INJ IV SCH ×2 (05:55→13:24)
[2019-03-22 08:00] VITALS: BP 149/67; PULSE 113; RESP 18
[2019-03-22] MEDS: CEFTRIAXONE 1 GM/50 ML (PMX) 50 ML IVPB SCH (08:30)
[2019-03-22] MEDS: INSULIN ASPART [NOVOLOG] 3 ML PEN SC SCH ×4 (08:31→20:29)
[2019-03-22] MEDS: CILOSTAZOL 100 MG TAB PO SCH ×2 (08:32→20:26)
[2019-03-22] MEDS: HEPARIN 5,000 UNIT/1 ML VIAL SC SCH ×2 (08:32→20:27)
[2019-03-22] MEDS: AZITHROMYCIN 250 MG TAB PO SCH (08:32)
[2019-03-22] MEDS: ASPIRIN (EC) 81 MG TAB PO SCH (08:32)
[2019-03-22] MEDS: FUROSEMIDE 40 MG INJ IV SCH (08:37)
[2019-03-22] MEDS: LOSARTAN 25 MG TAB PO SCH (08:38)
[2019-03-22] MEDS: AMLODIPINE 5 MG TAB PO SCH (08:38)
[2019-03-22] MEDS: METOPROLOL (XL) 50 MG TAB PO SCH (08:41)
--- NOTE | 2019-03-22 13:08 | CONS ---
Assessment/Plan Assessment/Plan Assessment/Plan (Daily) 88-year-old female who presented with: 1. Shortness of breath, cough; however, initial chest x-ray was negative for pneumonia. Could be secondary to chronic obstructive pulmonary disease/congestive heart failure. 2. Hyponatremia, likely secondary to Hypervolemic state vs SIADH;labs not done today 3. Chronic kidney disease stage III, stable. 4. Diabetes. 5. Hypertension. 6. Hyperlipidemia. 7. Hypoxia, likely secondary to #1. 8. Hyperlipidemia. 9. Chronic obstructive pulmonary disease. 10. History of dementia. plan - cw steroids/nebs - cw lasix - Labs ordered today - renally dose all meds - avoid nephrotoxins Consultation Date/Type/Reason Admit Date/Time Mar 20, 2019 at 11:52 Initial Consult Date Date/Time of Note DATE: 03/22/19 TIME: 13:08 24 HR Interval Summary Free Text/Dictation pt feels better today still gets sob at times Exam/Review of Systems Exam Vitals Vital Signs Date Temp Pulse Resp B/P (MAP) Pulse Ox O2 O2 Flow FiO2 Time Delivery Rate 03/22/19 94 2.0 08:46 03/22/19 112 22 Nasal 08:46 Cannula 03/22/19 98.2 149/67 08:00 (94) 03/21/19 21 14:02 Intake and Output 03/21/19 03/21/19 03/22/19 1515:00 23:00 07:00 IntakeIntake Total 170 ml 120 ml BalanceBalance 170 ml 120 ml Exam GENERAL: The patient is awake, alert, oriented, appears to be in mild respiratory distress. HEENT: Pupils equal, round, reactive to light. NECK: Supple. JVD appreciated. LUNGS: Diffuse rhonchi bilaterally. ABDOMEN: Soft, nontender, nondistended. Positive bowel sounds. EXTREMITIES: There is 1+ edema. NEUROLOGIC: The patient awake, alert, oriented, following all commands. Patient has well-healed surgical scars on the bilateral knees. Results Result Diagram: 03/21/19 0556 03/21/19 0556 Results 24hrs Laboratory Tests Test 03/21/19 16:00 03/21/19 17:21 03/21/19 20:16 03/22/19 02:03 Urine Osmolality 267 Urine Random 22 L Sodium Blood Gas Blood arterial Specimen Source Arterial Blood 03/21/2019 5:45:08 Date Drawn PM Arterial Blood pH 7.350 (Temp corrected) Arterial Blood 39.0 pCO2 (Temp correct) Arterial Blood 103.1 H pO2 (Temp corrected) Arterial Blood 21.0 L HCO3 Arterial Blood -4.2 L Base Excess Arterial Blood 97.4 Oxygen Saturation Armando Test ACCEPTAB Arterial Blood Right Radial Gas Puncture Site Arterial 0.3 Blood Carboxyhemo globin Arterial Blood 0.2 Methemoglobin Blood Gas A-a O2 65.0 H Differential Oxyhemoglobin 96.9 Percent Blood Gas 37.0 Temperature Blood Gas NASAL CANNULA Modality FiO2 30.0 Blood Gas M.D. Notified Whom Blood Gas 03/21/2019 5:56:32 Notified Time PM Bedside Glucose 172 201 308 H Test 03/22/19 08:24 03/22/19 11:08 03/22/19 11:54 Bedside Glucose 324 H 272 H Vitamin D 44.0 1,25-Dihydroxy Medications Medication Current Medications Ceftriaxone Sodium 50 ml @ 100 mls/hr Q24H IVPB Last administered on 03/22/19at 08:30; Admin Dose 100 MLS/HR; Start 03/21/19 at 09:00 Albuterol (Proventil 0.083% (Neb)) 1.25 mg Q2H RESP THERAPY PRN HHN SHORTNESS OF BREATH Last administered on 03/21/19at 11:35; Admin Dose 1.25 MG; Start 03/20/19 at 16:00 IV Flush (NS 3 ml) 3 ml PER PROTOCOL IV ; Start 03/20/19 at 16:00 Acetaminophen/ Hydrocodone Bitart ([place] (5/325)) 1 tab Q6H PRN PO .MOD PAIN 4- 6; Start 03/20/19 at 16:00 Heparin Sodium (Porcine) (Heparin (5000 Units/1ml)) 5,000 unit Q12 SC Last administered on 03/22/19at 08:32; Admin Dose 5,000 UNIT; Start 03/20/19 at 21:00 Insulin Glargine (Lantus) 11 units DAILY@2000 SC Last administered on 03/21/19at 20:22; Admin Dose 11 UNITS; Start 03/20/19 at 20:00 Miscellaneous Information 1 ea NOTE XX ; Start 03/20/19 at 16:00 Glucose (Glutose) 15 gm Q15M PRN PO DECREASED GLUCOSE; Start 03/20/19 at 16:00 Glucose (Glutose) 22.5 gm Q15M PRN PO DECREASED GLUCOSE; Start 03/20/19 at 16:00 Dextrose (D50w Syringe) 25 ml Q15M PRN IV DECREASED GLUCOSE; Start 03/20/19 at 16:00 Dextrose (D50w Syringe) 50 ml Q15M PRN IV DECREASED GLUCOSE; Start 03/20/19 at 16:00 Glucagon (Glucagen) 1 mg Q15M PRN IM DECREASED GLUCOSE; Start 03/20/19 at 16:00 Glucose (Glutose) 15 gm Q15M PRN BUCCAL DECREASED GLUCOSE; Start 03/20/19 at 16:00 Diagnostic Test (Pha) (Accu-Chek) 1 ea 02 XX ; Start 03/21/19 at 02:00 Amlodipine Besylate (Norvasc) 5 mg DAILY PO Last administered on 03/22/19 08:38; Admin Dose 5 MG; Start 03/21/19 at 10:00 Aspirin (Halfprin) 81 mg DAILY PO Last administered on 03/22/19 08:32; Admin Dose 81 MG; Start 03/21/19 at 10:00 Atorvastatin Calcium (Lipitor) 20 mg QHS PO Last administered on 03/21/19 20:19; Admin Dose 20 MG; Start 03/21/19 at 21:00 Cilostazol (Pletal) 50 mg BID PO Last administered on 03/22/19 08:32; Admin Dose 50 MG; Start 03/21/19 at 10:00 Metoprolol Succinate (Toprol Xl) 50 mg DAILY PO Last administered on 03/22/19 08:41; Admin Dose 50 MG; Start 03/21/19 at 10:00 Methylprednisolone Sodium Succinate (Solu-Medrol) 20 mg Q8 IV Last administered on 03/22/19 05:55; Admin Dose 20 MG; Start 03/21/19 at 11:00 Azithromycin (Zithromax) 250 mg DAILY PO Last administered on 03/22/19 08:32; Admin Dose 250 MG; Start 03/21/19 at 11:00 Albuterol/ Ipratropium (Duoneb) 3 ml Q4H RESP THERAPY HHN Last administered on 03/22/19 08:46; Admin Dose 3 ML; Start 03/21/19 at 13:00 Losartan Potassium (Cozaar) 25 mg DAILY PO Last administered on 03/22/19at 08:38; Admin Dose 25 MG; Start 03/22/19 at 09:00 Furosemide (Lasix) 40 mg DAILY IV Last administered on 03/22/19at 08:37; Admin Dose 40 MG; Start 03/22/19 at 09:00 Insulin Aspart (Novolog Insulin Pen) NOVOLOG *MODERATE* ALGORITHM WITH MEALS BEDTIME SC Last administered on 03/22/19at 12:31; Admin Dose 8 UNIT; Start 03/22/19 at 08:00 PEPE ZULUAGA MD Mar 22, 2019 13:08
--- NOTE | 2019-03-22 13:23 | RADRPT ---
Echocardiogram Report Patient Name: KRIS MCPHERSONPatient ID: [id number] : 1930 (88y 7m)Study Date: 03/22/2019 7:24:27 AM Gender: FAccession #: [id number] Tech: ClariceEloisa Welsh [facility] Location: [id number] Ref.Physician: PEPE ZULUAGA Height(Cm): BSA: Weight(Kg): Quality: Technically Difficult StudyOrder Physician: PEPE ZULUAGA Account #: Procedures: Echocardiographic Report: Transthoracic echocardiogram with complete 2D, M-Mode, and doppler examination. Indications: Evaluate Left Ventricular function. Measurements: 2D/M Mode Doppler Measurement Value Normal Range Measurement Value Normal Range LVIDd 2D 4.0 [ 3.8 - 5.2 ] cm AV Peak Arcenio 1.9 [ 100.0 - 170.0 ] cm/sec LVIDs 2D 2.5 [ 2.2 - 3.5 ] cm AV Peak PG 15.0 [ 2.0 - 9.0 ] mmHg LVPWd 2D 1.1 [ 0.6 - 0.9 ] cm LVOT Peak Arcenio 1.2 [ 70.0 - 110.0 ] cm/sec IVSd 2D 1.1 [ 0.6 - 0.9 ] cm LVOT Peak PG 6.0 [ 2.0 - 6.0 ] mmHg AoR Diam 2D 2.5 [ 2.3 - 3.1 ] cm MV E Peak Arcenio 1.0 [ 60.0 - 130.0 ] cm/sec EDV 2D 69.6 [ 46.0 - 106.0 ] ml MV A Peak Arcenio 1.2 [ 100.0 - 120.0 ] cm/sec ESV 2D 21.9 [ 14.0 - 42.0 ] ml MV E/A 0.8 [ 0.8 - 1.5 ] ratio EF 2D 68.5 [ 54.0 - 74.0 ] percent MV Decel Time 236 [ 104 - 258 ] msec LA Dimen 2D 2.8 [ 2.7 - 3.8 ] cm Lat E` Arcenio 0.1 [ 10.0 - 15.0 ] cm/sec Lateral E/E` 13.5 [ 1.0 - 2.0 ] ratio MV E/A 0.8 [ 0.8 - 1.5 ] ratio TR Peak Arcenio 3.3 [ 100.0 - 280.0 ] cm/sec TR Peak PG 43.0 mmHg RVSP 58.0 [ 10.0 - 36.0 ] mmHg RA Pressure 15.0 mmHg Findings: Left Ventricle: Normal left ventricular systolic function. Normal left ventricular cavity size. Mild concentric left ventricular hypertrophy. Ejection fraction is visually estimated at 60 %. Tissue Doppler/Mitral Doppler indices are consistent with impaired relaxation (Stage I diastolic dysfunction). Right Ventricle: Normal right ventricular size. Normal right ventricular systolic function. Left Atrium: The left atrium is normal in size. Right Atrium: The right atrium is normal in size. Mitral Valve: Normal appearance of the mitral valve. Mild mitral leaflet calcification. Trace mitral regurgitation. Aortic Valve: No significant aortic stenosis or insufficiency. Aortic cusps appear mildly calcified. Tricuspid Valve: Normal appearance of the tricuspid valve. The estimated Peak RVSP is 58 mmHg. There is mild tricuspid regurgitation. Pulmonic Valve: Pulmonic valve not well visualized. Pericardium: Normal pericardium with no significant pericardial effusion. Aorta: Normal aortic root. IVC: Dilated IVC without respiratory collapse consistent with elevated right atrial pressure. Conclusions: Normal left ventricular systolic function. Normal left ventricular cavity size. Mild concentric left ventricular hypertrophy. Ejection fraction is visually estimated at 60 %. Tissue Doppler/Mitral Doppler indices are consistent with impaired relaxation (Stage I diastolic dysfunction). Normal appearance of the mitral valve. Mild mitral leaflet calcification. Trace mitral regurgitation. Normal appearance of the tricuspid valve. The estimated Peak RVSP is 58 mmHg. There is mild tricuspid regurgitation. Electronically Signed By: Suresh López 2019-03-22 13:22:59 PDT
[2019-03-22 14:00] VITALS: BP 130/62; PULSE 101; RESP 19
--- NOTE | 2019-03-22 16:42 | PN ---
Date/Time of Note Date/Time of Note DATE: 03/22/19 TIME: 16:38 Assessment/Plan VTE Prophylaxis Risk score (from Nsg)>0 risk: 6 SCD applied (from Nsg): Yes Pharmacological prophylaxis: heparin Lines/Catheters IV Catheter Type (from Nrsg): Saline Lock Assessment/Plan Hospital Course 88 yo female with h/o CKD III, hypertension, DMII who presents with LRTI and COPD exacerbation LRTI and COPD exacerbation: -DC IV steroids and start prednisone, continue standing bronchodilators - Continue ceftriaxone and azithromycin for CAP Hyponatremia: -Urine sodium is appropriately low - IV fluids given - Trend sodium CKD III: - Stable -Nephrology consultation appreciated - Continue lasix 20 DMII: - basal/bolus insulin Hypertension: - Continue home meds Dementia -Patient is confused but at baseline according to daughter Prophylaxis: Heparin DC planning: Anticipate DC home in 1 to 2 days Result Diagram: 03/21/19 0556 03/21/19 0556 Results 24hrs Laboratory Tests Test 03/21/19 17:21 03/21/19 20:16 03/22/19 02:03 03/22/19 07:08 Bedside Glucose 172 201 308 H Uric Acid 6.9 Phosphorus Level 3.6 B-Type Natriuretic 7680 H Peptide Test 03/22/19 08:24 03/22/19 11:08 03/22/19 11:54 Bedside Glucose 324 H 272 H Vitamin D 44.0 1,25-Dihydroxy Subjective 24 Hr Interval Summary Constitutional: disoriented Exam/Review of Systems Exam Vitals Vital Signs Date Temp Pulse Resp B/P (MAP) Pulse Ox O2 O2 Flow FiO2 Time Delivery Rate 03/22/19 97.7 101 19 130/62 99 Nasal 14:00 (84) Cannula 03/22/19 2.0 13:14 03/21/19 21 14:02 Intake and Output 03/21/19 03/21/19 03/22/19 1515:00 23:00 07:00 IntakeIntake Total 170 ml 120 ml BalanceBalance 170 ml 120 ml Constitutional: alert Respiratory: clear to auscultation Cardiovascular: regular rate and rhythm Gastrointestinal: soft; No distended Musculoskeletal: nl extremities to inspection Results Results 24hrs Laboratory Tests Test 03/21/19 17:21 03/21/19 20:16 03/22/19 02:03 03/22/19 07:08 Bedside Glucose 172 201 308 H Uric Acid 6.9 Phosphorus Level 3.6 B-Type Natriuretic 7680 H Peptide Test 03/22/19 08:24 03/22/19 11:08 03/22/19 11:54 Bedside Glucose 324 H 272 H Vitamin D 44.0 1,25-Dihydroxy Medications Medication Current Medications Ceftriaxone Sodium 50 ml @ 100 mls/hr Q24H IVPB Last administered on 03/22/19at 08:30; Admin Dose 100 MLS/HR; Start 03/21/19 at 09:00 Albuterol (Proventil 0.083% (Neb)) 1.25 mg Q2H RESP THERAPY PRN HHN SHORTNESS OF BREATH Last administered on 03/21/19at 11:35; Admin Dose 1.25 MG; Start 03/20/19 at 16:00 IV Flush (NS 3 ml) 3 ml PER PROTOCOL IV ; Start 03/20/19 at 16:00 Acetaminophen/ Hydrocodone Bitart ([place] (5/325)) 1 tab Q6H PRN PO .MOD PAIN 4- 6; Start 03/20/19 at 16:00 Heparin Sodium (Porcine) (Heparin (5000 Units/1ml)) 5,000 unit Q12 SC Last administered on 03/22/19at 08:32; Admin Dose 5,000 UNIT; Start 03/20/19 at 21:00 Insulin Glargine (Lantus) 11 units DAILY@2000 SC Last administered on 03/21/19at 20:22; Admin Dose 11 UNITS; Start 03/20/19 at 20:00 Miscellaneous Information 1 ea NOTE XX ; Start 03/20/19 at 16:00 Glucose (Glutose) 15 gm Q15M PRN PO DECREASED GLUCOSE; Start 03/20/19 at 16:00 Glucose (Glutose) 22.5 gm Q15M PRN PO DECREASED GLUCOSE; Start 03/20/19 at 16:00 Dextrose (D50w Syringe) 25 ml Q15M PRN IV DECREASED GLUCOSE; Start 03/20/19 at 16:00 Dextrose (D50w Syringe) 50 ml Q15M PRN IV DECREASED GLUCOSE; Start 03/20/19 at 16:00 Glucagon (Glucagen) 1 mg Q15M PRN IM DECREASED GLUCOSE; Start 03/20/19 at 16:00 Glucose (Glutose) 15 gm Q15M PRN BUCCAL DECREASED GLUCOSE; Start 03/20/19 at 1 6:00 Diagnostic Test (Pha) (Accu-Chek) 1 ea 02 XX ; Start 03/21/19 at 02:00 Amlodipine Besylate (Norvasc) 5 mg DAILY PO Last administered on 03/22/19 08:38; Admin Dose 5 MG; Start 03/21/19 at 10:00 Aspirin (Halfprin) 81 mg DAILY PO Last administered on 03/22/19 08:32; Admin Dose 81 MG; Start 03/21/19 at 10:00 Atorvastatin Calcium (Lipitor) 20 mg QHS PO Last administered on 03/21/19 20:19; Admin Dose 20 MG; Start 03/21/19 at 21:00 Cilostazol (Pletal) 50 mg BID PO Last administered on 03/22/19 08:32; Admin Dose 50 MG; Start 03/21/19 at 10:00 Metoprolol Succinate (Toprol Xl) 50 mg DAILY PO Last administered on 03/22/19 08:41; Admin Dose 50 MG; Start 03/21/19 at 10:00 Methylprednisolone Sodium Succinate (Solu-Medrol) 20 mg Q8 IV Last administered on 03/22/19 13:24; Admin Dose 20 MG; Start 03/21/19 at 11:00 Azithromycin (Zithromax) 250 mg DAILY PO Last administered on 03/22/19 08:32; Admin Dose 250 MG; Start 03/21/19 at 11:00 Albuterol/ Ipratropium (Duoneb) 3 ml Q4H RESP THERAPY HHN Last administered on 03/22/19 13:14; Admin Dose 3 ML; Start 03/21/19 at 13:00 Losartan Potassium (Cozaar) 25 mg DAILY PO Last administered on 03/22/19 08:38; Admin Dose 25 MG; Start 03/22/19 at 09:00 Furosemide (Lasix) 40 mg DAILY IV Last administered on 03/22/19 08:37; Admin Dose 40 MG; Start 03/22/19 at 09:00 Insulin Aspart (Novolog Insulin Pen) NOVOLOG *MODERATE* ALGORITHM WITH MEALS BEDTIME SC Last administered on 03/22/19 12:31; Admin Dose 8 UNIT; Start 03/22/19 at 08:00 SNOW SOTO 1, 2019 16:42
[2019-03-22 19:45] VITALS: BP 117/55; PULSE 101; RESP 17
[2019-03-22] MEDS: ATORVASTATIN 20 MG TAB PO SCH (20:26)
[2019-03-22] MEDS: INSULIN GLARGINE [LANTus] (100 UNITS/ML) SYG SC SCH (20:28)
[2019-03-23] MEDS: ALBUTEROL/IPRATROPIUM (NEB) 3 ML AMP HHN SCH ×4 (01:27→12:13)
[2019-03-23] MEDS: ACCUCHECK AT 2AM (Patients on SS coverage) XX SCH (02:00)
[2019-03-23 02:30] VITALS: BP 147/67; PULSE 108; RESP 19
[2019-03-23 08:06] VITALS: BP 136/62; PULSE 117; RESP 19
[2019-03-23] MEDS ORDERED: predniSONE 20 MG TAB PO SCH (09:00)
[2019-03-23] MEDS: INSULIN ASPART [NOVOLOG] 3 ML PEN SC SCH ×2 (09:04→12:00)
[2019-03-23] MEDS: CEFTRIAXONE 1 GM/50 ML (PMX) 50 ML IVPB SCH (09:09)
[2019-03-23] MEDS: FUROSEMIDE 40 MG INJ IV SCH (09:10)
[2019-03-23] MEDS: AZITHROMYCIN 250 MG TAB PO SCH (09:11)
[2019-03-23] MEDS: HEPARIN 5,000 UNIT/1 ML VIAL SC SCH (09:11)
[2019-03-23] MEDS: CILOSTAZOL 100 MG TAB PO SCH (09:12)
[2019-03-23] MEDS: ASPIRIN (EC) 81 MG TAB PO SCH (09:13)
[2019-03-23] MEDS: LOSARTAN 25 MG TAB PO SCH (09:13)
[2019-03-23] MEDS: METOPROLOL (XL) 50 MG TAB PO SCH (09:16)
[2019-03-23] MEDS: AMLODIPINE 5 MG TAB PO SCH (09:16)
[2019-03-23] MEDS ORDERED: AZIT250T13 PO (12:32)
[2019-03-23] MEDS ORDERED: PRED20TA PO (12:32)
--- NOTE | 2019-03-23 12:34 | PDOCDIS ---
Discharge Instructions CONDITION [id number] Patient Condition: Suacw2t Good HOME CARE INSTRUCTIONS: [id number] Special Diet: [id number] DIABETIC ACTIVITY: [id number] Activity Restrictions: [id number] No Restrictions FOLLOW UP/APPOINTMENTS Follow-up Plan FOLLOW UP WITH YOUR PCP IN 1-2 WEEKS SNOW SOTO Mar 23, 2019 12:34
--- NOTE | 2019-03-23 14:30 | CONS ---
Assessment/Plan Assessment/Plan Assessment/Plan (Daily) 88-year-old female who presented with: 1. Shortness of breath, cough; however, initial chest x-ray was negative for pneumonia. Could be secondary to chronic obstructive pulmonary disease/congestive heart failure. 2. Hyponatremia, improved with high osm and low na improved now 3. Chronic kidney disease stage III, stable. 4. Diabetes. 5. Hypertension. 6. Hyperlipidemia. 7. Hypoxia, likely secondary to #1. 8. Hyperlipidemia. 9. Chronic obstructive pulmonary disease. 10. History of dementia. plan - cw steroids/nebs - cw lasix low dose - renally dose all meds - avoid nephrotoxins ok to fu as OPD Consultation Date/Type/Reason Admit Date/Time Mar 20, 2019 at 11:52 Initial Consult Date Date/Time of Note DATE: 03/23/19 TIME: 14:28 24 HR Interval Summary Free Text/Dictation Feels better today. Exam/Review of Systems Exam Vitals Vital Signs Date Temp Pulse Resp B/P (MAP) Pulse Ox O2 O2 Flow FiO2 Time Delivery Rate 03/23/19 2.0 12:59 03/23/19 92 16 97 21 12:13 03/23/19 97.9 136/62 Room Air 08:06 (86) Intake and Output 03/22/19 03/22/19 03/23/19 1515:00 23:00 07:00 IntakeIntake Total 50 ml 300 ml BalanceBalance 50 ml 300 ml Exam Lungs clear Results Result Diagram: 03/21/19 0556 03/23/19 0540 Results 24hrs Laboratory Tests Test 03/22/19 17:15 03/22/19 20:24 03/23/19 02:12 03/23/19 05:40 Bedside Glucose 209 182 208 Sodium Level 133 L Potassium Level 3.9 Chloride Level 96 L Carbon Dioxide Level 23 Anion Gap 14 H Blood Urea Nitrogen 39 #H Creatinine 1.72 H Est Glomerular Filtrat Rate mL/min Glucose Level 205 Calcium Level 8.9 Test 03/23/19 05:44 03/23/19 08:35 03/23/19 12:03 Phosphorus Level 3.9 Magnesium Level 2.1 Bedside Glucose 215 147 Medications Medication Current Medications Ceftriaxone Sodium 50 ml @ 100 mls/hr Q24H IVPB Last administered on 03/23/19at 09:09; Admin Dose 100 MLS/HR; Start 03/21/19 at 09:00 Albuterol (Proventil 0.083% (Neb)) 1.25 mg Q2H RESP THERAPY PRN HHN SHORTNESS OF BREATH Last administered on 03/21/19at 11:35; Admin Dose 1.25 MG; Start 03/20/19 at 16:00 IV Flush (NS 3 ml) 3 ml PER PROTOCOL IV ; Start 03/20/19 at 16:00 Acetaminophen/ Hydrocodone Bitart (Deshler (5/325)) 1 tab Q6H PRN PO .MOD PAIN 4- 6; Start 03/20/19 at 16:00 Heparin Sodium (Porcine) (Heparin (5000 Units/1ml)) 5,000 unit Q12 SC Last administered on 03/23/19at 09:11; Admin Dose 5,000 UNIT; Start 03/20/19 at 21:00 Insulin Glargine (Lantus) 11 units DAILY@2000 SC Last administered on 03/22/19at 20:28; Admin Dose 11 UNITS; Start 03/20/19 at 20:00 Miscellaneous Information 1 ea NOTE XX ; Start 03/20/19 at 16:00 Glucose (Glutose) 15 gm Q15M PRN PO DECREASED GLUCOSE; Start 03/20/19 at 16:00 Glucose (Glutose) 22.5 gm Q15M PRN PO DECREASED GLUCOSE; Start 03/20/19 at 16:00 Dextrose (D50w Syringe) 25 ml Q15M PRN IV DECREASED GLUCOSE; Start 03/20/19 at 16:00 Dextrose (D50w Syringe) 50 ml Q15M PRN IV DECREASED GLUCOSE; Start 03/20/19 at 16:00 Glucagon (Glucagen) 1 mg Q15M PRN IM DECREASED GLUCOSE; Start 03/20/19 at 16:00 Glucose (Glutose) 15 gm Q15M PRN BUCCAL DECREASED GLUCOSE; Start 03/20/19 at 16:00 Diagnostic Test (Pha) (Accu-Chek) 1 ea 02 XX ; Start 03/21/19 at 02:00 Amlodipine Besylate (Norvasc) 5 mg DAILY PO Last administered on 03/23/19at 09:16; Admin Dose 5 MG; Start 03/21/19 at 10:00 Aspirin (Halfprin) 81 mg DAILY PO Last administered on 03/23/19 09:13; Admin Dose 81 MG; Start 03/21/19 at 10:00 Atorvastatin Calcium (Lipitor) 20 mg QHS PO Last administered on 03/22/19 20:26; Admin Dose 20 MG; Start 03/21/19 at 21:00 Cilostazol (Pletal) 50 mg BID PO Last administered on 03/23/19 09:12; Admin Dose 50 MG; Start 03/21/19 at 10:00 Metoprolol Succinate (Toprol Xl) 50 mg DAILY PO Last administered on 03/23/19 09:16; Admin Dose 50 MG; Start 03/21/19 at 10:00 Azithromycin (Zithromax) 250 mg DAILY PO Last administered on 03/23/19 09:11; Admin Dose 250 MG; Start 03/21/19 at 11:00 Albuterol/ Ipratropium (Duoneb) 3 ml Q4H RESP THERAPY HHN Last administered on 03/23/19 12:13; Admin Dose 3 ML; Start 03/21/19 at 13:00 Losartan Potassium (Cozaar) 25 mg DAILY PO Last administered on 03/23/19 09:13; Admin Dose 25 MG; Start 03/22/19 at 09:00 Furosemide (Lasix) 40 mg DAILY IV Last administered on 03/23/19 09:10; Admin Dose 40 MG; Start 03/22/19 at 09:00 Insulin Aspart (Novolog Insulin Pen) NOVOLOG *MODERATE* ALGORITHM WITH MEALS BEDTIME SC Last administered on 03/23/19 09:04; Admin Dose 4 UNIT; Start 03/22/19 at 08:00 Prednisone (Prednisone) 20 mg DAILY PO Last administered on 03/23/19 09:38; Admin Dose 20 MG; Start 03/23/19 at 09:00 PEEP ZULUAGA MD Mar 23, 2019 14:30
[2019-03-23] MEDS ORDERED: BENZ-6 PO (15:20)
--- NOTE | 2019-03-23 15:24 | DS ---
Date/Time of Note Date/Time of Note DATE: 03/23/19 TIME: 15:21 Discharge Summary Admission/Discharge Info Admit Date/Time Mar 20, 2019 at 11:52 Discharge Date/Time Mar 23, 2019 at 14:22 Discharge Diagnosis 88 yo female with h/o CKD III, hypertension, DMII who presents with lower respiratory tract infection and COPD exacerbation LRTI and COPD exacerbation: Improved -Status post steroids, antibiotics and bronchodilators -DC with prednisone and azithromycin for 2 more days Hyponatremia: Improved -Urine sodium is appropriately low -IV fluids given -Nephrology consultation appreciated CKD III: - Stable -Nephrology consultation appreciated DMII: -Continue home regimen Hypertension: - Continue home meds Dementia -Patient is confused but at baseline according to daughter Patient Condition: Good Hospital Course Patient is a 88 yo female with h/o CKD III, hypertension, DMII who presents with COPD exacerbation. Patient received antibiotics, steroids and dilators with significant improvement. Patient was stable for DC with oral steroids and antibiotics, on the day of discharge patient vitals, labs and physical exam are stable. Home Meds Active Scripts Benzonatate* (Tessalon Perle*) 100 Mg Capsule, 100 MG PO Q8H PRN for COUGH, #30 CAP Prov:CHARLESSNOW 03/23/19 Prednisone* (Prednisone*) 20 Mg Tab, 20 MG PO DAILY for 2 Days, #2 TAB Prov:SNOW SOTO 03/23/19 Azithromycin* (Azithromycin*) 250 Mg Tablet, 250 MG PO DAILY for 2 Days, #2 TAB Prov:SNOW SOTO 03/23/19 Reported Medications Folic Acid/Mv,Fe,Other Min (Centrum Complete Multivit Tab) 1 Each Tablet, 1 EACH PO DAILY, TAB 03/20/19 Guaifenesin* (Robitussin*) 100 Mg/5 Ml Syrup, 20 ML PO Q12H PRN for COUGH, ML 03/20/19 Oxybutynin Chloride* (Ditropan*) 5 Mg Tab, 5 MG PO DAILY, TAB 03/20/19 Aspirin* (Aspirin* EC) 81 Mg Tablet.dr, 81 MG PO DAILY, TAB 03/20/19 Pantoprazole* (Pantoprazole*) 40 Mg Tablet.dr, 40 MG PO AC BREAKFAST, TAB 03/20/19 Folic Acid* (Folic Acid*) 1 Mg Tablet, 1 MG PO DAILY, TAB 03/20/19 Furosemide* (Furosemide*) 20 Mg Tablet, 20 MG PO DAILY, #60 TAB 03/20/19 Ferrous Sulfate* (Ferrous Sulfate*) 325 Mg Tabec, 325 MG PO DAILY, TAB 03/20/19 Albuterol/Ipratropium* (Combivent Respimat*) 20-100 Mcg/Inh - 4 Gm Aer.w.adap, 1 PUFF INHALATION QID, #1 INHALER 03/20/19 Insulin Glargine* (Lantus*) 100 Unit/Ml Soln, 12 UNIT SC QHS, #1 VIAL 03/20/19 Gabapentin* (Gabapentin*) 100 Mg Capsule, 100 MG PO TID, #90 CAP 03/20/19 Cilostazol* (Cilostazol*) 50 Mg Tablet, 50 MG PO BID, TAB 03/20/19 Atorvastatin Calcium* (Atorvastatin Calcium*) 20 Mg Tablet, 20 MG PO QHS, #30 TAB 03/20/19 Amlodipine Besylate* (Norvasc*) 5 Mg Tablet, 5 MG PO DAILY, TAB 03/20/19 Metoprolol Succinate* (Toprol XL*) 50 Mg Tab.er.24h, 50 MG PO DAILY, #30 TAB 03/20/19 Discontinued Reported Medications Pantoprazole* (Pantoprazole*) 40 Mg Tablet.dr, 40 MG PO DAILY, TAB 10/24/16 Lamotrigine* (Lamotrigine*) 25 Mg Tablet, 25 MG PO BID, TAB 10/24/16 Aspirin* (Aspirin* Chew) 81 Mg Tab.chew, 81 MG PO DAILY, TAB.CHEW 10/24/16 Cilostazol* (Cilostazol*) 50 Mg Tablet, 50 MG PO BID, TAB 06/26/16 Gabapentin* (Gabapentin*) 100 Mg Capsule, 100 MG PO BID, CAP 05/22/14 Simvastatin (Simvastatin) 40 Mg Tablet, 40 MG PO HS, TAB 05/22/14 Discontinued Scripts Albuterol Sulfate* (Proair HFA*) 8.5 Gm Hfa.aer.ad, 2 PUFF INH Q4 for SHORTNESS OF BREATH, #1 INHALER Prov:SNOW SOTO 03/25/17 Levofloxacin* (Levofloxacin*) 250 Mg Tablet, 250 MG PO Q48H for 10 Days, TAB Prov:SNOW SOTO 03/24/17 Amlodipine Besylate* (Norvasc*) 5 Mg Tablet, 5 MG PO DAILY for 30 Days, #30 TAB 2 Refills Prov:TAL PAYNEEloisa 03/20/17 Oxybutynin Chloride* (Ditropan* XL) 5 Mg Tabsr, 5 MG PO DAILY for 30 Days, TAB.SA Prov:VEL STEPHEN MD 11/21/16 Levalbuterol* (Xopenex* HFA) 15 Gm Inha, 2 PUFFS INH Q4H PRN for WHEEZING AND SOB, #1 INHALER Prov:RADHA LOUISE NP 10/26/16 Furosemide* (Furosemide*) 20 Mg Tablet, 20 MG PO QHS, #6030 TAB Prov:RADHA LOUISE NP 10/26/16 Insulin Glargine* (Lantus*) 100 Unit/Ml Soln, 10 UNIT SC QHS for 30 Days Prov:RADHA LOUISE NP 10/26/16 Sodium Bicarbonate* (Sodium Bicarbonate*) 650 Mg Tablet, 650 MG PO BID for 30 Days, TAB take every other day per nephrology recommendation Prov:RADHA LOUISE NP 10/26/16 Ferrous Sulfate* (Ferrous Sulfate*) 325 Mg Tabec, 325 MG PO TID, #90 TAB Prov:RADHA LOUISE NP 10/26/16 Metoprolol Succinate* (Toprol XL*) 50 Mg Tab.er.24h, 50 MG PO BID for 30 Days, TAB Prov:RADHA LOUISE NP 10/26/16 Follow-up Plan FOLLOW UP WITH YOUR PCP IN 1-2 WEEKS Primary Care Provider Erick Sanchez MD Time spent on discharge: > 30 minutes SNOW SOTO Mar 23, 2019 15:24
== END 2019-03-23 14:22 | disposition home or self-care (01) | DRG 191 ==
LOC: E/R 08:01 → PP2 11:52
PROVIDERS: ADMIT Internal Medicine; ATTEND Internal Medicine
DX: J44.1 Chronic obstructive pulmonary disease with (acute) exacerbation (principal); N17.9 Acute kidney failure, unspecified; E87.1 Hypo-osmolality and hyponatremia; E11.22 Type 2 diabetes mellitus with diabetic chronic kidney disease; E11.65 Type 2 diabetes mellitus with hyperglycemia; I12.9 Hypertensive chronic kidney disease with stage 1 through stage 4 chronic kidney disease, or unspecified chronic kidney disease; N18.3 Chronic kidney disease, stage 3 (moderate); E11.21 Type 2 diabetes mellitus with diabetic nephropathy; Z79.4 Long term (current) use of insulin; Z79.82 Long term (current) use of aspirin
CPT/HCPCS: 36600; 71045; 76775; 80048; 80053; 81001; 82652; 82803; 82962; 83036; 83605; 83735; 83880; 83935; 84100; 84300; 84484; 84560; 85025; 85610; 85730; 87086; 93005; 93306; 94640; 94664; 97116; 97161; A4310; J0696; J1644; J1815; J1940; J2060; J2920; J7030; J7512